=== PATIENT | female | born 1965 | race Caucasian/White ===

== ENCOUNTER 2016-09-14 19:33 | Inpatient (IN) | payer OTHER ==
[~2016-09-14] VITALS: Ht 172.7 cm; Wt 122.0 kg
[~2016-09-14 19:33] MED LIST: ACET650S3 PO; ALPR0.25 PO; LISI5TAB PO; PERCOCET PO; RANI150T PO; XOPEAER INH
[2016-09-14] MEDS ORDERED: ONDANSETRON 4MG/2ML VIAL (J2405) As Ordered ONE (20:47)
[2016-09-14 21:15] LABS: BASO # 0.2 K/mm3 (0.0-0.2); BASO % 1.4 % (0.0-1.0); EOS # 0.3 K/mm3 (0.0-0.50); LARGE UNSTAINED CELL # 0.3 K/mm3 (0.0-0.4); LARGE UNSTAINED CELL % 1.9 % (0.0-4.0); LYMPH # 3.9 K/mm3 (1.5-4.5); LYMPH % 22.6 % (24.0-44.0); MEAN CORPUSCULAR HEMOGLOBIN 29.8 pg (27.0-33.0); MEAN CORPUSCULAR HGB CONC 31.4 g/dl (32.0-36.5); MEAN CORPUSCULAR VOLUME 94.7 fl (80.0-96.0); MONO # 0.6 K/mm3 (0.0-0.8); MONO % 3.8 % (0.0-5.0); NEUTROPHILS # 10.9 K/mm3 (1.8-7.7); NEUTROPHILS % 68.2 % (36.0-66.0); PLATELET COUNT, AUTOMATED 487 k/mm3 (150-450); RED CELL DISTRIBUTION WIDTH 14.5 % (11.5-14.5); WHITE BLOOD COUNT 15.9 K/mm3 (4.0-10.0)
[2016-09-14 21:38] LABS: ALBUMIN 3.7 GM/DL (3.2-5.2); ALBUMIN/GLOBULIN RATIO 0.74 (1.00-1.93); ALKALINE PHOSPHATASE 89 U/L (45-117); ALT/SGPT 18 U/L (12-78); AMYLASE 861 U/L (25-115); ANION GAP 13 MEQ/L (8-16); AST/SGOT 6 U/L (15-37); BILIRUBIN,DIRECT < 0.1 MG/DL (0.0-0.2); BILIRUBIN,TOTAL 0.3 MG/DL (0.2-1.0); BLOOD UREA NITROGEN 57 MG/DL (7-18); CALCIUM LEVEL 8.9 MG/DL (8.5-10.1); CARBON DIOXIDE LEVEL 11 MEQ/L (21-32); CHLORIDE LEVEL 107 MEQ/L (98-107); CREATININE FOR GFR 3.82 MG/DL (0.55-1.02); GLOMERULAR FILTRATION RATE 13.4 (>58); GLUCOSE, FASTING 87 MG/DL (70-105); SODIUM LEVEL 131 MEQ/L (136-145); TOTAL PROTEIN 8.7 GM/DL (6.4-8.2)
--- NOTE | 2016-09-14 22:40 | REPUSA ---
CT of the abdomen and pelvis without contrast Clinical statement: Pain. Technique: Multiple axial CT images were obtained from the base of the lungs to the floor of the pelv is utilizing 5 mm axial slices without administration of contrast. Coronal and sagittal reconstructio ns were also obtained. Comparison: 07/24/2016. Findings: Chest: The visualized lung bases are clear. Abdomen: The kidneys are normal in size bilaterally. There is no evidence of hydronephrosis or nephro lithiasis. The liver is enlarged, demonstrate diffuse low attenuation of hepatic parenchyma. There is a small low attenuation nodule in the right adrenal gland measuring 1.1 x 2.0 cm. There is a large h yperdense nodule in the lateral left adrenal gland measuring 2.3 x 2.4 cm. The spleen and pancreas ar e unremarkable. The aorta demonstrates normal caliber and contour. There is no abdominal lymphadenopa thy or ascites. Pelvis: The bowel is unremarkable, with no obstructive or inflammatory changes. The appendix is dionte l. The urinary bladder is within normal limits. There is no pelvic lymphadenopathy or ascites. The ot her pelvic structures appear unremarkable. Bones: There are no suspicious osseous abnormalities seen. Impression: 1. No evidence of hydronephrosis or nephrolithiasis. 2. Stable hepatomegaly with fatty infiltration of the liver. 3. Benign right adrenal adenoma. 4. Hyperdense nodule in the left adrenal gland, stable. Follow-up is suggested as clinically indicate d. 5. No obstructive or inflammatory bowel changes.
[2016-09-14] MEDS ORDERED: cefTRIAXone SOD 1 GM VIAL (J0696) As Ordered ONE (23:29)
[2016-09-14] MEDS ORDERED: GABA-279 PO (23:57)
[2016-09-14] MEDS ORDERED: HYDR-3713 PO (23:57)
[2016-09-14] MEDS ORDERED: SYMB80INH INH (23:57)
[2016-09-14] MEDS ORDERED: OMEP10CA45 PO (23:57)
[2016-09-14] MEDS ORDERED: BUPR15TASR PO (23:57)
[2016-09-14] MEDS ORDERED: MECL-68 PO (23:57)
[2016-09-14] MEDS ORDERED: TOPA100T8 PO (23:57)
[2016-09-14] MEDS ORDERED: LISI20TA PO (23:57)
[2016-09-14] MEDS ORDERED: ASPI81TA7 PO (23:57)
[2016-09-14] MEDS ORDERED: ATEN25TA PO (23:57)
[2016-09-14] MEDS ORDERED: RANI150T PO (23:57)
[2016-09-14] MEDS ORDERED: ALBU17IN INH (23:57)
[2016-09-14] MEDS ORDERED: CETI10TA PO (23:57)
[2016-09-14] MEDS ORDERED: INVO100T PO (23:57)
[2016-09-14] MEDS ORDERED: SERT-138 PO (23:57)
[2016-09-14] MEDS ORDERED: ALPR0.25 PO (23:57)
[2016-09-14] MEDS ORDERED: TYLE500T78 PO (23:58)
[2016-09-15] MEDS ORDERED: HEPARIN SOD (PORCINE) 5000 UNITS/ML VIAL SC SCH (01:15)
[2016-09-15] MEDS ORDERED: MORPHINE 2 MG/ML 1ML SYRINGE IV PRN ×2 (01:15→09:00)
[2016-09-15] MEDS ORDERED: GLUCOSE 4 GM CHEW TABLET PO PRN (01:15)
[2016-09-15] MEDS ORDERED: GLUCAGON FOR INJ 1 MG VIAL (J1610) SC PRN (01:15)
[2016-09-15] MEDS ORDERED: ALPRAZolam 0.25 MG TAB PO PRN (01:15)
[2016-09-15] MEDS ORDERED: ACETAMINOPHEN TAB 650MG DOSE (2X325MG) PO PRN (01:15)
[2016-09-15] MEDS ORDERED: ALBUTEROL 90 MCG/ACT 8GM HFA INHALER INH PRN (01:15)
[2016-09-15] MEDS ORDERED: ONDANSETRON 4MG/2ML VIAL (J2405) IV PRN (01:15)
[2016-09-15] MEDS ORDERED: DEXTROSE 50% 50 ML SYRINGE IV PRN (01:15)
[2016-09-15] MEDS ORDERED: ONDANSETRON 4 MG TAB (S0181) PO PRN (01:15)
[2016-09-15] MEDS ORDERED: PERCOCET 5MG/325MG TAB PO PRN (01:15)
--- NOTE | 2016-09-15 02:11 | HPEPDOC ---
General Date of Admission Attending Physician: PARRIS CREWS Chief Complaint The patient is a 50-year-old female admitted with a reason for visit of Vomiting ,Diarrhea. Source: Patient Exam Limitations: No limitations History of Present Illness Flor Figueroa is a 50 year old female with a pertinent history of stage 3 renal disease (baseline GFR of 34), NIDDM, COPD, GERD, and HTN, presenting to the ED with a 7 day history abdominal pain, nausea, vomiting, and diarrhea. Pt states the pain began 7 days ago and is underneath her umbilicus and points to her LLQ and RLQ. The pain is described as primarily dull and aching with intermittent sharp and stabbing pain without radiation. It is constantly 7/10 with occasional exacerbations with pain up to 10/10. However, nothing seems to make the pain better or worse. Pt also has nausea, vomiting, and diarrhea. Pt reports the N/V has improved since Sat. Up until Sat, she reports severe nausea and vomiting 2-3 times a day. Her last bout of vomiting was Sat, and she describes her vomitus as a brown "diarrhea." Pt has been having constant diarrhea for the past 7 days and describes her stool as brown, loose, and watery. Pt denies bright red blood or dark tarry stools. Pt reports feeling feverish, dizzy and unsteady on her feet, chills, excessively sweaty, and weak for the past 7 days. Pt denies any dysuria, frequency, or urgency. Ms. Figueroa also has associated loss of appetite which she attributes to her acid reflux. She reports that her reflux is the worst its ever been and is uncomfortable to the point that she does not want to eat. She feels burning in her chest and throat that does not radiate anywhere and is constant. Since her GI symptoms began, she has reportedly only eaten 1 small bowl of mashed potatoes. However, she has been drinking up to 6 L of lexi domenic a day until Sat. and more than 6L of water a day since. Pt reports mild improvement in her acid reflux symptoms since discontinuing her intake of lexi domenic. Home Medications Scheduled (Lisinopril/Hydrochlorothi 20-12.5 mg) 1 Tab Tab 1 TAB PO DAILY (Reported) Aspirin (Aspirin) 81 Mg Tab 81 MG PO DAILY (Reported) Atenolol (Atenolol) 25 Mg Tab 25 MG PO DAILY (Reported) Budesonide/Formoterol (Symbicort 80-4.5 Mcg/Act) 60 Puff/Inhaler Aers 2 PUFF INH BID (Reported) Bupropion HCl (Bupropion HCl Sr) 150 Mg Tab 300 MG PO DAILY (Reported) Canagliflozin (Invokana) 100 Mg Tab 100 MG PO DAILY (Reported) Cetirizine HCl (Cetirizine HCl) 10 Mg Tab 10 MG PO DAILY (Reported) Gabapentin (Gabapentin) 100 Mg Cap 100 MG PO TID (Reported) Meclizine HCl (Meclizine HCl) 25 Mg Tab 25 MG PO QID (Reported) Omeprazole (Omeprazole) 10 Mg Cap 10 MG PO DAILY (Reported) Ranitidine HCl (Ranitidine HCl) 150 Mg Tab 1 TAB PO QID (Reported) Sertraline HCl (Sertraline HCl) 100 Mg Tab 150 MG PO DAILY (Reported) Topiramate (Topamax) 100 Mg Tab 100 MG PO BID (Reported) Scheduled PRN Acetaminophen (Tylenol Extra Strength) 500 Mg Tab 1,000 MG PO Q4H PRN PRN PAIN ( Reported) Acetaminophen/Hydrocodone (Hydrocodone/Acetaminophen 5-325 mg) 1 Tab Tab 1 TAB PO Q8H PRN PRN PAIN (Reported) Albuterol Sulfate (Ventolin Hfa) 200 Puff/8 Gm Aers 2 PUFF INH Q4H PRN PRN SHORTNESS OF BREATH (Reported) Alprazolam (Alprazolam) 0.25 Mg Tab 0.25 MG PO BID PRN PRN ANXIETY (Reported) Allergies Coded Allergies: Latex (Verified Allergy, Intermediate, RASH, 01/20/15) Ibuprofen (Unverified Adverse Reaction, Unknown, Swelling, 09/14/16) Past Medical History Medical History NIDDM, HTN, Anxiety, COPD, Stage 3 renal disease with GFR 34, Sleep apnea w/ CPAP, migraine headaches Surgical History Cholecystectomy, splenectomy, hysterectomy, tubal ligation, bladder suspension Family History Significant Family History: Cancer (Father), Hypertension (Mother) Social History * Smoker: current smoker (1/2PPD 28 years) Alcohol: rarely Drugs: denies Recent Travel/Sick Contacts: Reports: Recent sick contacts (Brother whom she lives with had N/V/D for 24 hours after she did) Review of Symptoms Constitutional: Reports: Chills, Fever, Malaise, Weakness, Denies: Night Sweats Eyes: Denies: Pain, Vision change ENT: Reports: Head Aches, Denies: Dysphagia, Ear Pain Skin: Denies: Breakdown, Lesions, Rash Pulmonary: Denies: Cough, Dyspnea Cardiovascular: Denies: Chest Pain, Orthopnea, Palpitations Gastrointestinal: Reports: Abdominal Pain, Diarrhea, Nausea, Vomiting, Denies: Constipation, Hematochezia, Melena Genitourinary: Denies: Dysuria, Frequency, Hematuria, Incontinence Hematologic: Denies: Bleeding Excessively, Bruising Musculoskeletal: Reports: Back Pain, Denies: Neck Pain Psych: Reports: Mood Normal Physical Examination General Exam: Positive: Alert, Cooperative, No Acute Distress Eye Exam: Positive: Conjunctiva & lids normal, EOMI, PERRLA, Negative: Sclera icteric ENT Exam: Positive: Atraumatic, Mucous membr. moist/pink, Pharynx Normal Neck Exam: Positive: Supple, Negative: JVD, thyromegaly Chest Exam: Positive: Clear to auscultation, Normal air movement, Negative: Rales, Rhonchi, Wheezing Heart Exam: Positive: Rate Normal Abdomen Exam: Positive: Normal bowel sounds, Other (Rebound tenderness under umbilicus and over RLQ), Soft, Tenderness (Tender to palpation RLQ and midline under umbilicus), Negative: Hepatospenomegaly, Mass Extremity Exam: Positive: Normal pulses, Negative: Clubbing, Cyanosis, Edema Skin Exam: Positive: Nl turgor and temperature, Rash (Macularpapular rash over anterior LLE), Negative: Breakdown Psych Exam: Positive: Mental status NL, Mood NL, Oriented x 3 Vital Signs BP 110/42, Pulse 69. Resp 18. Temp 96.9 (O), 100% R/A Height (in): 68 Weight (kg): 122.02 Laboratory Data Labs 24H Laboratory Tests 2 09/14/16 20:45: Aspartate Amino Transf (AST/SGOT) 6L, Alanine Aminotransferase (ALT/SGPT) 18, Alkaline Phosphatase 89, Total Bilirubin 0.3, Direct Bilirubin < 0.1, Albumin 3.7, Albumin/Globulin Ratio 0.74L, Amylase Level 861H, Anion Gap 13, White Blood Count 15.9H, Red Blood Count 4.27, Hemoglobin 12.7, Hematocrit 40.4, Mean Corpuscular Volume 94.7, Mean Corpuscular Hemoglobin 29.8, Mean Corpuscular Hemoglobin Concent 31.4L, Red Cell Distribution Width 14.5, Platelet Count 487H , Neutrophils (%) (Auto) 68.2H, Lymphocytes (%) (Auto) 22.6L, Monocytes (%) ( Auto) 3.8, Eosinophils (%) (Auto) 2.0, Basophils (%) (Auto) 1.4H, Neutrophils # (Auto) 10.9H, Lymphocytes # (Auto) 3.9, Monocytes # (Auto) 0.6, Eosinophils # ( Auto) 0.3, Basophils # (Auto) 0.2, C-Reactive Protein, Quantitative 2.71H, Calcium Level 8.9, Erythrocyte Sedimentation Rate 43H, Glomerular Filtration Rate 13.4L, Large Unclassified Cells # 0.3, Large Unclassified Cells % 1.9, Lipase 3356H, Total Protein 8.7H, Urine Amorphous Sediment SMALLH, Urine Appearance TURBIDH, Urine Color YELLOW, Urine pH 5.0, Urine Specific Spearfish 1.016, Urine Protein 2+H, Urine Glucose (UA) NEGATIVE, Urine Ketones NEGATIVE, Urine Urobilinogen 0.2, Urine Bilirubin NEGATIVE, Urine Leukocyte Esterase 2+H, Urine Bacteria (Auto) 3+H, Urine Blood 1+H, Urine Calcium Carbonate Cryst(Auto) , Urine Calcium Oxalate Cryst (Auto) , Urine Calcium Phosphate Taty (Auto) , Urine Cellular Casts , Urine Cystine Crystals , Urine Granular Casts (Auto) , Urine Hyaline Casts (Auto) 0, Urine Leucine Crystals , Urine Mucus (Auto) SMALL , Urine Nitrite NEGATIVE, Urine Oval Fat Bodies (Auto) , Urine RBC (Auto) 13H, Urine Renal Epithelial Cells , Urine Sperm (Auto) , Urine Squamous Epithelial Cells 58, Urine Transitional Epithelial Cells , Urine Trichomonas (Auto) , Urine Triple Phosphate Cryst (Auto) , Urine Tyrosine Crystals , Urine Uric Acid Crystals (Auto) , Urine WBC (Auto) TNTCH, Urine Waxy Casts (Auto) , Urine Yeast- Like Cells (Auto) 09/14/16 22:14: Lactic Acid Level 0.7 CBC/BMP Laboratory Tests 09/14/16 20:45 Red Blood Count 4.27, Mean Corpuscular Volume 94.7, Mean Corpuscular Hemoglobin 29.8, Mean Corpuscular Hemoglobin Concent 31.4 L, Red Cell Distribution Width 14.5, Neutrophils (%) (Auto) 68.2 H, Lymphocytes (%) (Auto) 22.6 L, Monocytes (% ) (Auto) 3.8, Eosinophils (%) (Auto) 2.0, Basophils (%) (Auto) 1.4 H, Neutrophils # (Auto) 10.9 H, Lymphocytes # (Auto) 3.9, Monocytes # (Auto) 0.6, Eosinophils # (Auto) 0.3, Basophils # (Auto) 0.2 Microbiology Microbiology 09/14/16 Blood Culture, Received Pending 09/14/16 Blood Culture, Received Pending 09/14/16 Urine Culture, Received Pending (1) Pancreatitis Status: Acute Assessment & Plan: Pt's has had a cholecystectomy, does not drink alcohol, is currently afebrile, and her pain location is atypical for acute pancreatitis, however, her WBC is elevated and lipase is 3356. Although her renal disease may be influencing her lipase, we will treat her for pancreatitis tonight and reevaluate in the morning. Pt received 1 L NS IV in the ED and we will continue to give her fluids after admission. Pt will be NPO until morning. Pt will also get morphine 2mg Q4 for pain control. We will recheck CBC with AM labs. (2) [id number] kidney injury Status: Acute Assessment & Plan: Pt's current GFR is 13.4. Pt reports her baseline GFR is 34. Suspect she has an acute on chronic kidney injury secondary to hypovolemia from her 7 day history of vomiting and diarrhea. Expect GFR to be improved after IV fluids. Pt is already receiving fluids for suspected pancreatitis. Will recheck BMP in AM labs. (3) Nausea & vomiting Status: Acute Assessment & Plan: Pt received ondansetron in the ED and reports feeling much better. Will give IV ondansetron PRN to control pt's nausea. Likely secondary to either or both UTI and pancreatitis. (4) Diarrhea Status: Acute Assessment & Plan: Unsure etiology of her N/V/D. Due to acute onset of N/V/D, especially after pt reports eating "questionable" chicken, we suspect an infectious etiology. Will order GI panel. She is already receiving fluids due to suspected acute pancreatitis. May be secondary to UTI. (5) UTI (urinary tract infection) Status: Acute Assessment & Plan: Pt's U/A was positive for LE, RBC, WBC, and bacteria. Pt denies any urinary symptoms at this time. She received one dose of Ceftriaxone in the ED and we will continue treatment of her UTI with ceftriaxone for a total of 3 days. U/C is pending. (6) GERD (gastroesophageal reflux disease) Status: Chronic Assessment & Plan: Pt is currently on 40 mg omeprazole PO QD at home. Due to her story of worsening reflux symptoms and her current N/V/D, we will give her protonix 40mg IV BID. (7) Sleep apnea Status: Chronic Assessment & Plan: Pt's sleep apnea is well managed through her home CPAP machine. Will allow pt to bring CPAP from home and continue use in hospital. (8) Non-insulin dependent type 2 diabetes mellitus Status: Chronic Assessment & Plan: Pt is well managed on her PO medications. Her glucose baseline reportedly ranges from 114-186. Will take her off her PO medications for her hospital stay and put her on sliding scale of insulin. (9) DVT prophylaxis Status: Acute Assessment & Plan: Due to pt's poor renal function, we will give heparin IM BID. TEDs and SEQs. Plan / VTE VTE Prophylaxis Ordered?: Yes Plan IVF: Continue Diet: Make NPO GME ATTESTATION GME ATTESTATION My preceptor for this patient encounter was physically present in the building during the encounter and was fully available. As needed, all aspects of the patient interview, examination, medical decision making process, and medical care plan development were reviewed and approved by the preceptor. Preceptor is aware and concurs with the plan as stated in the body of this note and will attest to such by his/her cosignature. ATTENDING NOTE I, Parris Crews, have seen and examined the above patient and agree with the assessment and plan as documented by Dr. Grissom. Patient will be admitted as an inpatient to the service of Dr. Judge. BOO GRISSOM DO Sep 15, 2016 02:05 PARRIS CREWS Sep 15, 2016 06:32
[2016-09-15 02:45] VITALS: BP 109/63
--- NOTE | 2016-09-15 02:47 | EDDOCDS ---
Physician Documentation [facility] Name: Flor Figueroa Age: 50 yrs Sex: Female : 1965 Arrival Date: 09/14/2016 Time: 19:33 Bed I3 / M3 Private MD: Alicia Piña ANP- Disposition: 09/14/16 23:28 Hospitalization ordered by Parris Crews for Inpatient Admission. Preliminary diagnosis are Acute kidney failure, Acute pancreatitis, Abdominal and pelvic pain, Vomiting, Diarrhea, unspecified, Urinary tract infection, site not specified. - Bed requested for M PED. - Status is Inpatient Admission. nn1 - Condition is Stable. - Problem is new. - Symptoms are unchanged. Historical: - Allergies: no known allergies; - Home Meds: 1. Albuterol Inhl as needed 2. Alprazolam Oral as needed 3. aspirin 81 mg Oral TbEC once daily 4. omeprazole 40 mg oral cpDR 1 cap once daily 5. Symbicort inhalation 2 times per day 6. Topamax Oral one tab in morning and two tabs at night 7. Ventolin Rotahaler/Rotacaps Inhl 8. meclizine 25 mg Oral tab as needed 9. cetirizine 10 mg oral cap daily 10. Sertraline 150 mg daily 11. Invokana 100 mg oral tab 1 tab once daily 12. atenolol 25 mg oral tab 1 tab once daily 13. lisinopril 20 mg Oral tab 1 tab once daily 14. hydrochlorothiazide 12.5 mg Oral tab once daily 15. bupropion HCl 300 mg Oral Tb24 once daily 16. ranitidine HCl 150 mg Oral tbef four times a day 17. gabapentin 100 mg Oral cap 3 times per day 18. hydrocodone-acetaminophen 5-300 mg Oral tab every 4-6 hours - PMHx: Anxiety; Diabetes - NIDDM: controlled; Hypertension; Migraine Headaches; Sleep Apnea w/ CPAP; Stage 4 kidney disease; - PSHx: Cholecystectomy; Splenectomy; Hysterectomy; Tubal ligation; Bladder suspension; - Social history: Smoking status: Patient uses tobacco products, heavy tobacco smoker. No barriers to communication noted, The patient speaks fluent [place]. - Family history: No immediate family members are acutely ill. - : The pt / caregiver states he / she is not on anticoagulants. Home medication list is obtained from the patient. - Exposure Risk Screening:: None identified. [employer] WORKER: 09/14 19:45 LMP N/A - Hysterectomy rs3 Vital Signs: 19:36 BP 110 / 42; Pulse 69; Resp 18 S; Temp 96.9(O); Pulse Ox 100% on R/A; Weight 122.02 kg gr2 / 269.01 lbs (R); Height 5 ft. 8 in. (172.72 cm) (R); Pain 6/10; 09/15 00:05 BP 104 / 46; Pulse 64; Resp 18; Temp 96.7; Pulse Ox 99% ; ajs 01:51 BP 110 / 54; Pulse 62; Resp 18; Temp 96.3; Pulse Ox 99% ; Pain 8/10; ajs 09/14 19:36 Body Mass Index 40.90 (122.02 kg, 172.72 cm) gr2 MDM: 09/14 20:42 NS 0.9% 2000 ml IV at bolus once ordered. btw 20:42 Ondansetron 4 mg IVP once ordered. btw 20:42 IV Saline Lock ordered. btw 20:42 Undress patient appropriately for examination ordered. btw 20:43 Amylase Ordered. EDMS 20:43 Basic Metabolic Profile Ordered. EDMS 20:43 CBC with Diff Ordered. EDMS 20:43 Lipase Ordered. EDMS 20:43 Liver Profile Ordered. EDMS 20:43 Urinalysis Ordered. EDMS 20:43 Urine Culture Ordered. EDMS 20:44 NOTHING BY MOUTH+DIET ordered. EDMS 22:03 Amylase Reviewed. btw 22:03 Basic Metabolic Profile Reviewed. btw 22:03 CBC with Diff Reviewed. btw 22:03 Lipase Reviewed. btw 22:03 Liver Profile Reviewed. btw 22:03 Urinalysis Reviewed. btw 22:05 Lactic Acid (Murillo tube on ice) Ordered. EDMS 22:05 ESR Ordered. EDMS 22:08 CT ABD & PELVIS W/O CONTRAST Ordered. EDMS 22:10 C REACTIVE PROTEIN QUANTITATIV Ordered. EDMS 22:28 Financial registration complete. zo 22:29 [facility] Payment Agreement was scanned into [employer] and attached to record. zo 23:07 Amylase Reviewed. btw 23:07 Basic Metabolic Profile Reviewed. btw 23:07 Lipase Reviewed. btw 23:07 Liver Profile Reviewed. btw 23:07 ESR Reviewed. btw 23:07 C REACTIVE PROTEIN QUANTITATIV Reviewed. btw 23:07 Lactic Acid (Murillo tube on ice) Reviewed. btw 23:08 -Blood Culture (Adults Only), peripheral from different site, or from device/port/PICC btw etc. if present ordered. 23:09 -Blood Culture Ordered. EDMS 23:09 BED REQUEST+ADM ordered. EDMS 23:18 -Blood Culture (Adults Only), peripheral from different site, or from device/port/PICC ajs etc. if present complete. 23:20 BLOOD CULTURES Ordered. EDMS 23:28 cefTRIAXone 2 grams IVPB once over 30 mins; dilute in 50mL of NS or D5W ordered. btw 09/15 01:19 CT ABD & PELVIS W/O CONTRAST Reviewed. dm18 01:31 Admission / Observation Status ordered. EDMS 01:31 NPO DIET ordered. EDMS 01:32 GASTROINTESTINAL (GI) PANEL Ordered. EDMS Administered Medications: 09/14 21:07 Drug: NS 0.9% 2000 ml [sodium chloride 0.9 % intravenous solution] {Note: First bolus nn1 infusing at this time. .} Route: IV; Rate: bolus; Site: left antecubital; 09/15 01:03 Follow up: IV Status: Completed infusion; IV Intake: 2000ml nn1 09/14 21:07 Drug: Ondansetron 4 mg [ondansetron HCl 2 mg/mL intravenous solution (2 mL)] Route: nn1 IVP; Site: left antecubital; 23:34 Drug: cefTRIAXone 2 grams [ceftriaxone 250 mg solution for injection] Route: IVPB; nn1 Infused Over: 30 mins; Site: left antecubital; 09/15 01:03 Follow up: IV Status: Completed infusion; IV Intake: 50ml nn1 Signatures: Dispatcher [employer] EDIA Wilda Gatica RN RN daq Olin, Zoeann zo Soosairaj, RosemaryRN RN rs3 Tan Gonzalez PA PA btw Patsy Moore Daniel, DO DO dm18 Marti Ludwig RN RN nn1 Scarlett Newberry RN RN kas2 The chart was reviewed and I authenticate all verbal orders and agree with the evaluation and treatment provided.Corrections: (The following items were deleted from the chart) 09/14 20:46 20:43 GASTROINTESTINAL (GI) PANEL+CHIARA ordered. EDMS EDMS 22: 22:02 GASTROINTESTINAL (GI) PANEL+CHIARA ordered. EDMS EDMS 22: 22:02 GASTROINTESTINAL (GI) PANEL+CHIARA ordered. EDMS EDMS 22:08 20:43 CT ABD & PELVIS WITH CONTRAST+CT ordered. EDMS EDMS 22:10 22:05 C REACTIVE PROTEIN QUANTITATIV+LAB ordered. EDMS EDMS : 20:46 GASTROINTESTINAL (GI) PANEL ordered. EDMS EDMS 09/15 01:32 01:27 GASTROINTESTINAL (GI) PANEL ordered. EDMS EDMS 01:34 09/14 22:03 GASTROINTESTINAL (GI) PANEL ordered. EDMS EDMS Attachments: 22:29 [facility] Payment Agreement [facility]
--- NOTE | 2016-09-15 02:47 | EDDOCDS ---
Nurse's Notes [facility] Name: Flor Figueroa Age: 50 yrs Sex: Female : 1965 Arrival Date: 09/14/2016 Time: 19:33 Bed I3 / M3 Private MD: Alicia Piña ANP- Diagnosis: Acute kidney failure;Acute pancreatitis;Abdominal and pelvic pain;Vomiting;Diarrhea, unspecified;Urinary tract infection, site not specified Presentation: 09/14 19:40 Presenting complaint: Patient states: vomiting, diarrhea, abdominal pain since last rs3 Saturday. increased dizziness today. Adult Sepsis Screening: The patient does not have new or worsening altered mentation. Patient's respiratory rate is less than 22. Systolic blood pressure is greater than 100. Patient has a qSOFA score of 0- Negative Sepsis Screen. Suicide/Homicide risk assessment- the patient denies having any suicidal and/or homicidal ideations and does not present with any other emotional, behavioral or mental health complaints. Status: Patient is not a public service representative or dependent. Transition of care: patient was not received from another setting of care. 19:40 Acuity: LILIAN Level 3 rs3 19:40 Method Of Arrival: Walkin/Carried/Asstd rs3 Triage Assessment: 19:45 General: Appears in no apparent distress. Pain: Location: abdomen. HIV screening NA for rs3 this visit Offered previously. 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 Albuterol Inhl as needed 2. Alprazolam Oral as needed 3. aspirin 81 mg Oral TbEC once daily 4. omeprazole 40 mg oral cpDR 1 cap once daily 5. Symbicort inhalation 2 times per day 6. Topamax Oral one tab in morning and two tabs at night 7. Ventolin Rotahaler/Rotacaps Inhl 8. meclizine 25 mg Oral tab as needed 9. cetirizine 10 mg oral cap daily 10. Sertraline 150 mg daily 11. Invokana 100 mg oral tab 1 tab once daily 12. atenolol 25 mg oral tab 1 tab once daily 13. lisinopril 20 mg Oral tab 1 tab once daily 14. hydrochlorothiazide 12.5 mg Oral tab once daily 15. bupropion HCl 300 mg Oral Tb24 once daily 16. ranitidine HCl 150 mg Oral tbef four times a day 17. gabapentin 100 mg Oral cap 3 times per day 18. hydrocodone-acetaminophen 5-300 mg Oral tab every 4-6 hours - PMHx: Anxiety; Diabetes - NIDDM: controlled; Hypertension; Migraine Headaches; Sleep Apnea w/ CPAP; Stage 4 kidney disease; - PSHx: Cholecystectomy; Splenectomy; Hysterectomy; Tubal ligation; Bladder suspension; - Social history: Smoking status: Patient uses tobacco products, heavy tobacco smoker. No barriers to communication noted, The patient speaks fluent Nigerian. - Family history: No immediate family members are acutely ill. - : The pt / caregiver states he / she is not on anticoagulants. Home medication list is obtained from the patient. - Exposure Risk Screening:: None identified. Screenin:32 Screening information is obtained from the patient. Fall risk: No risks identified. kas2 Assistance ADL's: requires no assistance with activities of daily living. Abuse/DV Screen: The patient / caregiver reports he/she is: not in a situation that causes fear, pain or injury. Nutritional screening: No deficits noted. Advance Directives: Currently, there is no health care proxy. There is no active DNR order. There is a living will, but a copy is not available at this time. There is no Power of Packaging Assembler. home support is adequate. Assessment: 21:08 General: Appears ill, uncomfortable, Behavior is appropriate for age, cooperative. nn1 Pain: Location: abdomen Pain currently is 8 out of 10 on a pain scale. Quality of pain is described as sharp, Pain began 1 week ago Is intermittent. Neurological: Level of Consciousness is awake, alert, obeys commands. Cardiovascular: Reports lightheadedness, Nausea dizziness. All symptoms for 1 week. Respiratory: Airway is patent Respiratory effort is even, unlabored, Respiratory pattern is regular, symmetrical, Breath sounds are clear bilaterally. GI: Abdomen is non- distended obese, Bowel sounds present X 4 quads. Abd is soft X 4 quads Abd is tender to palpation X 4 quads. Reports diarrhea, lower abdominal pain, upper abdominal pain, nausea, vomiting. Derm: Skin is pink, warm & dry. 21:30 General: Appears ill, uncomfortable, Behavior is appropriate for age, cooperative. kas2 Pain: Location: abdomen Pain currently is 4 out of 10 on a pain scale. Neurological: Level of Consciousness is awake, alert, obeys commands, Oriented to person, place, time. Cardiovascular: Reports lightheadedness. Cardiovascular: Rhythm is regular. Respiratory: Airway is patent Respiratory effort is even, unlabored, Respiratory pattern is regular, symmetrical, Breath sounds are clear bilaterally. GI: Abdomen is non- distended obese, Bowel sounds present X 4 quads. Abd is soft Abd is tender to palpation X 4 quads. Derm: Skin is intact, Skin is dry, Skin is pink, warm & dry. Skin temperature is warm. 22:19 General: Appears uncomfortable, Behavior is appropriate for age, cooperative. General: nn1 No stool sample obtained at this time, patient has not yet had bowel movement. Patient aware of need for sample. Fluids infusing per orders. . Neurological: Level of Consciousness is awake, alert, obeys commands, Oriented to person, place, time. Respiratory: Airway is patent Respiratory effort is even, unlabored, Respiratory pattern is regular, symmetrical. 22:20 General: Patient gone to CT scan via wheelchair with tech.. kas2 22:25 General: Patient back from CT scan via wheelchair. Resettled in bed.. kas2 23:13 General: Patient sitting up in chair watching TV with friend at bedside. No apparent kas2 distress at this time. Appears comfortable. Patient states she has cramps in her abdomen but nausea no longer there. Not wanting pain meds at this time. Airway patent and respiratory effort even and unlabored. Call bautista within reach. Will continue to monitor.. 23:27 General: Patient was unable to have bowel movement. Patient reports nausea has nn1 improved, no vomiting or diarrhea while in ED. . 09/15 00:08 General: Hospitalist resident in assessing patient at this time.. kas2 00:44 General: Appears in no apparent distress, comfortable, well nourished, well groomed, kas2 Behavior is appropriate for age, cooperative. Pain: Denies pain. Neurological: Level of Consciousness is awake, alert, obeys commands, Oriented to person, place, time. Cardiovascular: Rhythm is regular. Respiratory: Airway is patent Respiratory effort is even, unlabored, Respiratory pattern is regular, symmetrical. Derm: Skin is intact, Skin is dry, Skin is pink, warm & dry. Skin temperature is warm. 01:04 General: Appears in no apparent distress, Behavior is appropriate for age, cooperative. nn1 Neurological: Level of Consciousness is awake, alert, obeys commands, Oriented to person, place, time. Respiratory: Airway is patent Respiratory effort is even, unlabored, Respiratory pattern is regular, symmetrical. GI: Denies nausea, No vomiting or diarrhea since patient arrived to ED. Derm: Skin is pink, warm & dry. 02:25 Reassessment: Patient appears in no apparent distress at this time. Patient states nn1 symptoms have improved. General: Appears in no apparent distress, comfortable, Behavior is appropriate for age, cooperative. Respiratory: Airway is patent Respiratory effort is even, unlabored, Respiratory pattern is regular, symmetrical. Derm: Skin is pink, warm & dry. Vital Signs: 09/14 19:36 BP 110 / 42; Pulse 69; Resp 18 S; Temp 96.9(O); Pulse Ox 100% on R/A; Weight 122.02 kg gr2 (R); Height 5 ft. 8 in. (172.72 cm) (R); Pain 6/10; 09/15 00:05 BP 104 / 46; Pulse 64; Resp 18; Temp 96.7; Pulse Ox 99% ; ajs 01:51 BP 110 / 54; Pulse 62; Resp 18; Temp 96.3; Pulse Ox 99% ; Pain 8/10; ajs 09/14 19:36 Body Mass Index 40.90 (122.02 kg, 172.72 cm) gr2 Vitals: 09/14 19:36 Log In Time: September 14, 2016 at 19:36. gr2 ED Course: 19:35 Patient visited by Jacquelyn Winters. gr2 19:35 Alicia Piña is Private Physician. gr2 19:35 Patient moved to Waiting gr2 19:37 Patient visited by Jacquelyn Winters. gr2 19:37 Patient moved to Pre RCE gr2 19:41 Triage Initiated rs3 20:05 Patient moved to Triage 3 jo3 20:12 Patient visited by Ana Laura Cody. lr2 20:18 Tan Gonzalez PA is PHCP. btw 20:19 Vick Clinton DO is Attending Physician. btw 20:19 Patient visited by Tan Gonzalez PA. btw 20:39 Patient moved to I3 / M3 jo3 20:45 Patient visited by Patsy Moore. ajs 20:45 Pt greeted and oriented to ED. Patient advised of names of staff involved in care, aj location of call bautista, wait times and NPO status. Accompanied by Family Member, Patient has correct armband on for positive identification. Placed in gown. Bed in low position. Call light in reach. Side rails up X 1. 21:07 Urine Culture Sent. nn1 21:07 Urinalysis Sent. nn1 21:08 Liver Profile Sent. nn1 21:08 Lipase Sent. nn1 21:08 CBC with Diff Sent. nn1 21:08 Basic Metabolic Profile Sent. nn1 21:08 Amylase Sent. nn1 21:10 Inserted saline lock: 20 gauge in left antecubital area and blood collected. The nn1 patient tolerated the procedure well. 21:32 Patient visited by Scarlett Newberry RN. kas2 22:10 Patient visited by Scarlett Newberry RN. kas2 22:19 Lactic Acid (Murillo tube on ice) Sent. nn1 22:19 ESR Sent. nn1 22:26 Patient visited by Scarlett Newberry RN. kas2 22:26 No procedures done that require assistance. Labs drawn. (by ED staff). Sent per order kas2 to lab. 22:29 [facility] Payment Agreement was scanned into [employer] and attached to record. zo 22:31 Patient name changed from Flor\S\\S\Figueroa\S\ to Flor\S\ \S\Figueroa. EDMS 22:34 Patient visited by Scarlett Newberry RN. kas2 23:12 -Blood Culture Sent. nn1 23:16 Patient visited by Scarlett Newberry RN. kas2 23:21 BLOOD CULTURES Sent. ajs 23:26 Parris Crews is Hospitalizing Provider. btw 23:37 CT ABD & PELVIS W/O CONTRAST Returned. EDMS 09/15 00:00 Patient visited by Scarlett Newberry RN. kas2 00:05 Patient visited by Patsy Moore. ajs 00:09 Patient visited by Scarlett Newberry RN. kas2 00:45 Patient visited by Scarlett Newberry RN. kas2 01:51 Patient visited by Patsy Moore. ajs 02:26 The patient / caregiver is instructed regarding the plan of care and ED course. nn1 Administered Medications: 09/14 21:07 Drug: NS 0.9% 2000 ml [sodium chloride 0.9 % intravenous solution] {Note: First bolus nn1 infusing at this time. .} Route: IV; Rate: bolus; Site: left antecubital; 09/15 01:03 Follow up: IV Status: Completed infusion; IV Intake: 2000ml nn1 09/14 21:07 Drug: Ondansetron 4 mg [ondansetron HCl 2 mg/mL intravenous solution (2 mL)] Route: nn1 IVP; Site: left antecubital; 23:34 Drug: cefTRIAXone 2 grams [ceftriaxone 250 mg solution for injection] Route: IVPB; nn1 Infused Over: 30 mins; Site: left antecubital; 09/15 01:03 Follow up: IV Status: Completed infusion; IV Intake: 50ml nn1 Intake: 01:03 IV: 2000.00ml (NS); Total: 2000.00ml. nn1 01:03 IV: 50.00ml; Total: 2050.00ml. nn1 01:03 IV: 2000.00ml; Total: 4050.00ml. nn1 Order Results: Lab Order: Amylase; SPEC'M 09/14/16 20:45 Test: AMYLASE; Value: 861; Range: 25-115; Abnormal: Above high normal; Units: U/L; Status: F Lab Order: Basic Metabolic Profile; SPEC'M 09/14/16 20:45 Test: GLUCOSE, FASTING; Value: 87; Range: 70-105; Units: MG/DL; Status: F Test: BLOOD UREA NITROGEN; Value: 57; Range: 7-18; Abnormal: Above high normal; Units: MG/DL; Status: F Test: CREATININE FOR GFR; Value: 3.82; Range: 0.55-1.02; Abnormal: Above high normal; Units: MG/DL; Status: F Test: GLOMERULAR FILTRATION RATE; Value: 13.4; Range: >58; Abnormal: Below low normal; Status: F Test: SODIUM LEVEL; Value: 131; Range: 136-145; Abnormal: Below low normal; Units: MEQ/L; Status: F Test: POTASSIUM SERUM; Value: 4.0; Range: 3.5-5.1; Units: MEQ/L; Status: F Test: CHLORIDE LEVEL; Value: 107; Range: 98-107; Units: MEQ/L; Status: F Test: CARBON DIOXIDE LEVEL; Value: 11; Range: 21-32; Abnormal: Below low normal; Units: MEQ/L; Status: F Test: ANION GAP; Value: 13; Range: 8-16; Units: MEQ/L; Status: F Test: CALCIUM LEVEL; Value: 8.9; Range: 8.5-10.1; Units: MG/DL; Status: F Test Note: ; Units are mL/min/1.73 m2 Chronic Kidney Disease Staging per NKF: Stage I & II GFR >=60 Normal to Mildly Decreased Stage III GFR 30-59 Moderately Decreased Stage IV GFR 15-29 Severely Decreased Stage V GFR <15 Very Little GFR Left ESRD GFR <15 on [facility] Lab Order: CBC with Diff; SPEC'M 09/14/16 20:45 Test: WHITE BLOOD COUNT; Value: 15.9; Range: 4.0-10.0; Abnormal: Above high normal; Units: K/mm3; Status: F Test: RED BLOOD COUNT; Value: 4.27; Range: 4.00-5.40; Units: M/mm3; Status: F Test: HEMOGLOBIN; Value: 12.7; Range: 12.0-16.0; Units: g/dl; Status: F Test: HEMATOCRIT; Value: 40.4; Range: 36.0-47.0; Units: %; Status: F Test: MEAN CORPUSCULAR VOLUME; Value: 94.7; Range: 80.0-96.0; Units: fl; Status: F Test: MEAN CORPUSCULAR HEMOGLOBIN; Value: 29.8; Range: 27.0-33.0; Units: pg; Status: F Test: MEAN CORPUSCULAR HGB CONC; Value: 31.4; Range: 32.0-36.5; Abnormal: Below low normal; Units: g/dl; Status: F Test: RED CELL DISTRIBUTION WIDTH; Value: 14.5; Range: 11.5-14.5; Units: %; Status: F Test: PLATELET COUNT, AUTOMATED; Value: 487; Range: 150-450; Abnormal: Above high normal; Units: k/mm3; Status: F Test: NEUTROPHILS %; Value: 68.2; Range: 36.0-66.0; Abnormal: Above high normal; Units: %; Status: F Test: LYMPH %; Value: 22.6; Range: 24.0-44.0; Abnormal: Below low normal; Units: %; Status: F Test: MONO %; Value: 3.8; Range: 0.0-5.0; Units: %; Status: F Test: EOS %; Value: 2.0; Range: 0.0-3.0; Units: %; Status: F Test: BASO %; Value: 1.4; Range: 0.0-1.0; Abnormal: Above high normal; Units: %; Status: F Test: LARGE UNSTAINED CELL %; Value: 1.9; Range: 0.0-4.0; Units: %; Status: F Test: NEUTROPHILS #; Value: 10.9; Range: 1.8-7.7; Abnormal: Above high normal; Units: K/mm3; Status: F Test: LYMPH #; Value: 3.9; Range: 1.5-4.5; Units: K/mm3; Status: F Test: MONO #; Value: 0.6; Range: 0.0-0.8; Units: K/mm3; Status: F Test: EOS #; Value: 0.3; Range: 0.0-0.50; Units: K/mm3; Status: F Test: BASO #; Value: 0.2; Range: 0.0-0.2; Units: K/mm3; Status: F Test: LARGE UNSTAINED CELL #; Value: 0.3; Range: 0.0-0.4; Units: K/mm3; Status: F Lab Order: Lipase; SPEC'M 09/14/16 20:45 Test: LIPASE; Value: 3356; Range: 73-393; Abnormal: Above high normal; Units: U/L; Status: F Lab Order: Liver Profile; SPEC'M 09/14/16 20:45 Test: AST/SGOT; Value: 6; Range: 15-37; Abnormal: Below low normal; Units: U/L; Status: F Test: ALT/SGPT; Value: 18; Range: 12-78; Units: U/L; Status: F Test: ALKALINE PHOSPHATASE; Value: 89; Range: 45-117; Units: U/L; Status: F Test: BILIRUBIN,TOTAL; Value: 0.3; Range: 0.2-1.0; Units: MG/DL; Status: F Test: BILIRUBIN,DIRECT; Value: < 0.1; Range: 0.0-0.2; Units: MG/DL; Status: F Test: TOTAL PROTEIN; Value: 8.7; Range: 6.4-8.2; Abnormal: Above high normal; Units: GM/DL; Status: F Test: ALBUMIN; Value: 3.7; Range: 3.2-5.2; Units: GM/DL; Status: F Test: ALBUMIN/GLOBULIN RATIO; Value: 0.74; Range: 1.00-1.93; Abnormal: Below low normal; Status: F Lab Order: Urinalysis; SPEC'M 09/14/16 20:45 Test: APPEARANCE, URINE; Value: TURBID; Range: CLEAR; Abnormal: Above high normal; Status: F Test: COLOR, URINE; Value: YELLOW; Range: YELLOW; Status: F Test: PH,URINE; Value: 5.0; Range: 5.0-9.0; Units: UNITS; Status: F Test: SPECIFIC GRAVITY URINE AUTO; Value: 1.016; Range: 1.002-1.035; Status: F Test: PROTEIN, URINE AUTO; Value: 2+; Range: NEGATIVE; Abnormal: Above high normal; Units: mg/dL; Status: F Test: GLUCOSE, URINE (UA) AUTO; Value: NEGATIVE; Range: NEGATIVE; Units: mg/dL; Status: F Test: KETONE, URINE AUTO; Value: NEGATIVE; Range: NEGATIVE; Units: mg/dL; Status: F Test: UROBILINOGEN, URINE AUTO; Value: 0.2; Range: 0.0-2.0; Units: mg/dL; Status: F Test: BILIRUBIN, URINE AUTO; Value: NEGATIVE; Range: NEGATIVE; Status: F Test: NITRITE, URINE AUTO; Value: NEGATIVE; Range: NEGATIVE; Status: F Test: LEUKOCYTE ESTERASE, URINE AUTO; Value: 2+; Range: NEGATIVE; Abnormal: Above high normal; Status: F Test: BLOOD, URINE BLOOD; Value: 1+; Range: NEGATIVE; Abnormal: Above high normal; Status: F Test: WBC, URINE AUTO; Value: TNTC; Range: 0-3; Abnormal: Above high normal; Units: /HPF; Status: F Test: RBC, URINE AUTO; Value: 13; Range: 0-3; Abnormal: Above high normal; Units: /HPF; Status: F Test: BACTERIA, URINE AUTO; Value: 3+; Range: NEGATIVE; Abnormal: Above high normal; Status: F Test: SQUAMOUS EPITHELIAL CELL UR AU; Value: 58; Range: 0-6; Units: /HPF; Status: F Test: MUCUS, URINE; Value: SMALL; Range: NEGATIVE; Status: F Test: HYALINE CAST, URINE AUTO; Value: 0; Range: 0-1; Units: /LPF; Status: F Test: AMORPHOUS SEDIMENT; Value: SMALL; Range: NEGATIVE; Abnormal: Above high normal; Status: F Lab Order: Lactic Acid (Murillo tube on ice); SPEC'M 09/14/16 22:14 Test: LACTIC ACID LEVEL, LACTATE; Value: 0.7; Range: 0.4-2.0; Units: MMOL/L; Status: F Lab Order: ESR; SPEC'M 09/14/16 20:45 Test: ERYTHROCYTE SEDIMENTATION RATE; Value: 43; Range: 0-20; Abnormal: Above high normal; Units: mm/hr; Status: F Lab Order: C REACTIVE PROTEIN QUANTITATIV; SPEC'M 09/14/16 20:45 Test: C REACTIVE PROTEIN QUANTITATIV; Value: 2.71; Range: 0.00-0.30; Abnormal: Above high normal; Units: MG/DL; Status: F Radiology Order: CT ABD & PELVIS W/O CONTRAST Test: CT ABD & PELVIS W/O CONTRAST REASON FOR EXAMINATION: Abdomen Pain; ; CT of the abdomen and pelvis without contrast; Clinical statement: Pain.; Technique: Multiple axial CT images were obtained from the base of the lungs to the floor of the pelv; is utilizing 5 mm axial slices without administration of contrast. Coronal and sagittal reconstructio; ns were also obtained.; Comparison: 07/24/2016.; Findings:; Chest: The visualized lung bases are clear.; Abdomen: The kidneys are normal in size bilaterally. There is no evidence of hydronephrosis or nephro; lithiasis. The liver is enlarged, demonstrate diffuse low attenuation of hepatic parenchyma. There is; a small low attenuation nodule in the right adrenal gland measuring 1.1 x 2.0 cm. There is a large h; yperdense nodule in the lateral left adrenal gland measuring 2.3 x 2.4 cm. The spleen and pancreas ar; e unremarkable. The aorta demonstrates normal caliber and contour. There is no abdominal lymphadenopa; thy or ascites.; Pelvis: The bowel is unremarkable, with no obstructive or inflammatory changes. The appendix is dionte; l. The urinary bladder is within normal limits. There is no pelvic lymphadenopathy or ascites. The ot; her pelvic structures appear unremarkable.; Bones: There are no suspicious osseous abnormalities seen.; Impression:; 1. No evidence of hydronephrosis or nephrolithiasis.; 2. Stable hepatomegaly with fatty infiltration of the liver.; 3. Benign right adrenal adenoma.; 4. Hyperdense nodule in the left adrenal gland, stable. Follow-up is suggested as clinically indicate; d.; 5. No obstructive or inflammatory bowel changes.; ; Outcome: 09/14 23:28 Decision to Hospitalize by Provider. bt 09/15 01:40 Admission hand-off: Report called to NICOLASA Sheth. nn1 02:26 Discharge Assessment: Patient awake, alert and oriented x 3. No cognitive and/or nn1 functional deficits noted. Patient verbalized understanding of disposition instructions. patient administered narcotics - no. The following High Risk Discharge criteria are identified: None. Admitted to Pediatrics accompanied by tech, family with patient, via wheelchair, with chart. Condition: stable Condition: improved. CT Study completed. Property :Personal belongings accompany Pt. 02:46 Patient left the ED. nn1 Signatures: Dispatcher [employer] EDMS Cara RojasRN RN Alina Foster Rosemary, RN RN rs3 Tan Gonzalez PA PA btw Patsy Moore Gainslee gr2 Marti Ludwig RN RN nn1 Scarlett Newberry RN RN kas2 Ana Laura Cody2 Corrections: (The following items were deleted from the chart) 09/14 19:47 19:45 LMP N/A - Irregular menses rs3 rs3 19:48 19:40 Presenting complaint: Patient states: vomiting, diarrhea, abdominal pain since rs3 last Saturday. dizziness today. rs3 22:28 21:58 GASTROINTESTINAL (GI) PANEL sent. [facility] ARNOLDKS MTDD
[2016-09-15] MEDS: NICOTINE 14 MG/24 HR TRANSDERMAL TD SCH ×2 (03:39→09:37)
[2016-09-15] MEDS: NS 1,000 ML IV SCH ×4 (03:40→22:40)
[2016-09-15] MEDS: HEPARIN SOD (PORCINE) 5000 UNITS/ML VIAL SC SCH ×3 (06:17→21:21)
[2016-09-15] MEDS ORDERED: ALBUTEROL SULFATE 2.5 MG/0.5 ML INH NEB SOLN NEB PRN (07:00)
[2016-09-15] MEDS ORDERED: HumaLOG INSULIN (NovoLOG) PER UNIT SC SCH ×4 (07:30→21:00)
[2016-09-15 08:00] VITALS: BP 106/53
[2016-09-15 08:02] VITALS: BP 107/56
[2016-09-15 08:03] VITALS: BP 103/55
[2016-09-15] MEDS: SYMBICORT 80/4.5MCG INHALER 6GM INH SCH ×2 (08:58→19:21)
[2016-09-15] MEDS ORDERED: PANTOPRAZOLE 40MG INJ (PROTONIX) (C9113) IV SCH (09:00)
[2016-09-15] MEDS ORDERED: hydroCHLOROthiazide 12.5 MG CAPSULE PO SCH (09:00)
[2016-09-15] MEDS: ATENOLOL 25 MG TAB PO SCH (09:00)
[2016-09-15] MEDS ORDERED: ASPIRIN 81 MG ENTERIC TAB PO SCH (09:00)
[2016-09-15] MEDS ORDERED: GABAPENTIN 100 MG CAP PO SCH (09:00)
[2016-09-15] MEDS ORDERED: LISINOPRIL 20 MG TAB PO SCH (09:00)
[2016-09-15] MEDS ORDERED: FAMOTIDINE 20 MG TAB PO SCH (09:00)
[2016-09-15] MEDS ORDERED: CETIRIZINE (ZyrTEC) 10 MG TAB PO SCH (09:00)
[2016-09-15] MEDS ORDERED: MECLIZINE 25 MG TABLET PO SCH (09:00)
[2016-09-15] MEDS: PANTOPRAZOLE 40MG INJ (PROTONIX) (C9113) IV SCH ×2 (09:37→21:22)
[2016-09-15] MEDS: buPROPion **SR TABLET** (ZYBAN) 150MG PO SCH (09:37)
[2016-09-15] MEDS: SERTRALINE HCL 50 MG TAB PO SCH (09:38)
[2016-09-15] MEDS: TOPIRAMATE (TopAMAX) 100 MG TAB PO SCH ×2 (09:39→21:20)
[2016-09-15 16:00] VITALS: BP 104/48
[2016-09-15] MEDS: HumaLOG INSULIN (NovoLOG) PER UNIT SC SCH ×2 (17:30→21:00)
[2016-09-15] MEDS: PERCOCET 5MG/325MG TAB PO PRN (17:49)
[2016-09-15 20:00] VITALS: BP_SYST 101; BP_SYST 104; BP_SYST 118; BP_DIAS 51; BP_DIAS 54; BP_DIAS 55
[2016-09-15] MEDS: LIDOCAINE 5% (LIDODERM) PATCH TD SCH (21:21)
[2016-09-15] MEDS: cefTRIAXone SOD 1 GM in D5W MINI-BAG PLUS 50 ML IV SCH (22:40)
[2016-09-16] MEDS: PERCOCET 5MG/325MG TAB PO PRN ×3 (00:38→21:05)
[2016-09-16 04:00] VITALS: BP 102/51
[2016-09-16] MEDS: NS 1,000 ML IV SCH ×2 (05:45→13:01)
[2016-09-16] MEDS: HEPARIN SOD (PORCINE) 5000 UNITS/ML VIAL SC SCH ×3 (05:45→22:51)
[2016-09-16 06:33] LABS: BASO # 0.2 K/mm3 (0.0-0.2); BASO % 1.3 % (0.0-1.0); EOS # 0.2 K/mm3 (0.0-0.50); EOS % 1.6 % (0.0-3.0); LARGE UNSTAINED CELL # 0.2 K/mm3 (0.0-0.4); LARGE UNSTAINED CELL % 1.9 % (0.0-4.0); LYMPH # 3.1 K/mm3 (1.5-4.5); LYMPH % 24.7 % (24.0-44.0); MEAN CORPUSCULAR HEMOGLOBIN 29.6 pg (27.0-33.0); MEAN CORPUSCULAR HGB CONC 31.2 g/dl (32.0-36.5); MONO # 0.6 K/mm3 (0.0-0.8); MONO % 4.7 % (0.0-5.0); NEUTROPHILS # 7.6 K/mm3 (1.8-7.7); NEUTROPHILS % 65.7 % (36.0-66.0); PLATELET COUNT, AUTOMATED 463 k/mm3 (150-450); RED CELL DISTRIBUTION WIDTH 14.9 % (11.5-14.5); WHITE BLOOD COUNT 11.5 K/mm3 (4.0-10.0)
[2016-09-16 07:00] LABS: ALBUMIN 2.9 GM/DL (3.2-5.2); ALBUMIN/GLOBULIN RATIO 0.69 (1.00-1.93); BILIRUBIN,TOTAL 0.2 MG/DL (0.2-1.0); CALCIUM LEVEL 8.6 MG/DL (8.5-10.1); CREATININE FOR GFR 2.56 MG/DL (0.55-1.02); GLOMERULAR FILTRATION RATE 21.2 (>58); MAGNESIUM LEVEL 1.8 MG/DL (1.8-2.4); TOTAL PROTEIN 7.1 GM/DL (6.4-8.2)
[2016-09-16] MEDS: HumaLOG INSULIN (NovoLOG) PER UNIT SC SCH ×4 (07:30→21:00)
[2016-09-16 08:00] VITALS: BP_SYST 103; BP_SYST 108; BP_SYST 91; BP_DIAS 46; BP_DIAS 51; BP_DIAS 53
[2016-09-16] MEDS: SYMBICORT 80/4.5MCG INHALER 6GM INH SCH ×2 (08:07→20:19)
[2016-09-16 09:00] VITALS: BP 108/53
[2016-09-16] MEDS ORDERED: BISACODYL 10 MG SUPP PR SCH (09:00)
[2016-09-16] MEDS: **NOTE PATIENT COMMENT** MISC XX SCH (09:00)
[2016-09-16] MEDS: ATENOLOL 25 MG TAB PO SCH (09:00)
[2016-09-16] MEDS: NICOTINE 14 MG/24 HR TRANSDERMAL TD SCH (09:27)
[2016-09-16] MEDS: PANTOPRAZOLE 40MG INJ (PROTONIX) (C9113) IV SCH ×2 (09:27→21:04)
[2016-09-16] MEDS: buPROPion **SR TABLET** (ZYBAN) 150MG PO SCH (09:27)
[2016-09-16] MEDS: TOPIRAMATE (TopAMAX) 100 MG TAB PO SCH ×2 (09:27→21:04)
[2016-09-16] MEDS: SERTRALINE HCL 50 MG TAB PO SCH (09:28)
[2016-09-16 18:03] VITALS: BP 103/55
[2016-09-16 20:30] VITALS: BP 121/59
[2016-09-16] MEDS: LIDOCAINE 5% (LIDODERM) PATCH TD SCH (21:04)
[2016-09-16] MEDS: cefTRIAXone SOD 1 GM in D5W MINI-BAG PLUS 50 ML IV SCH (22:51)
[2016-09-16 23:00] VITALS: BP_SYST 106; BP_SYST 108; BP_SYST 120; BP_DIAS 50; BP_DIAS 55; BP_DIAS 56
--- NOTE | 2016-09-17 03:48 | EDDOCDS ---
Physician Documentation [facility] Name: Flor Figueroa Age: 50 yrs Sex: Female : 1965 Arrival Date: 09/14/2016 Time: 19:33 Bed I3 / M3 Private MD: Alicia Piña ANP- Disposition: 09/14/16 23:28 Hospitalization ordered by Parris Crews for Inpatient Admission. Preliminary diagnosis are Acute kidney failure, Acute pancreatitis, Abdominal and pelvic pain, Vomiting, Diarrhea, unspecified, Urinary tract infection, site not specified. - Bed requested for M PED. - Status is Inpatient Admission. nn1 - Condition is Stable. - Problem is new. - Symptoms are unchanged. Historical: - Allergies: no known allergies; - Home Meds: 1. Albuterol Inhl as needed 2. Alprazolam Oral as needed 3. aspirin 81 mg Oral TbEC once daily 4. omeprazole 40 mg oral cpDR 1 cap once daily 5. Symbicort inhalation 2 times per day 6. Topamax Oral one tab in morning and two tabs at night 7. Ventolin Rotahaler/Rotacaps Inhl 8. meclizine 25 mg Oral tab as needed 9. cetirizine 10 mg oral cap daily 10. Sertraline 150 mg daily 11. Invokana 100 mg oral tab 1 tab once daily 12. atenolol 25 mg oral tab 1 tab once daily 13. lisinopril 20 mg Oral tab 1 tab once daily 14. hydrochlorothiazide 12.5 mg Oral tab once daily 15. bupropion HCl 300 mg Oral Tb24 once daily 16. ranitidine HCl 150 mg Oral tbef four times a day 17. gabapentin 100 mg Oral cap 3 times per day 18. hydrocodone-acetaminophen 5-300 mg Oral tab every 4-6 hours - PMHx: Anxiety; Diabetes - NIDDM: controlled; Hypertension; Migraine Headaches; Sleep Apnea w/ CPAP; Stage 4 kidney disease; - PSHx: Cholecystectomy; Splenectomy; Hysterectomy; Tubal ligation; Bladder suspension; - Social history: Smoking status: Patient uses tobacco products, heavy tobacco smoker. No barriers to communication noted, The patient speaks fluent Taiwanese. - Family history: No immediate family members are acutely ill. - : The pt / caregiver states he / she is not on anticoagulants. Home medication list is obtained from the patient. - Exposure Risk Screening:: None identified. 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 8 in. (172.72 cm) (R); Pain 6/10; 09/15 00:05 BP 104 / 46; Pulse 64; Resp 18; Temp 96.7; Pulse Ox 99% ; ajs 01:51 BP 110 / 54; Pulse 62; Resp 18; Temp 96.3; Pulse Ox 99% ; Pain 8/10; ajs 09/14 19:36 Body Mass Index 40.90 (122.02 kg, 172.72 cm) gr2 MDM: 09/14 20:42 NS 0.9% 2000 ml IV at bolus once ordered. btw 20:42 Ondansetron 4 mg IVP once ordered. btw 20:42 IV Saline Lock ordered. btw 20:42 Undress patient appropriately for examination ordered. btw 20:43 Amylase Ordered. EDMS 20:43 Basic Metabolic Profile Ordered. EDMS 20:43 CBC with Diff Ordered. EDMS 20:43 Lipase Ordered. EDMS 20:43 Liver Profile Ordered. EDMS 20:43 Urinalysis Ordered. EDMS 20:43 Urine Culture Ordered. EDMS 20:44 NOTHING BY MOUTH+DIET ordered. EDMS 22:03 Amylase Reviewed. btw 22:03 Basic Metabolic Profile Reviewed. btw 22:03 CBC with Diff Reviewed. btw 22:03 Lipase Reviewed. btw 22:03 Liver Profile Reviewed. btw 22:03 Urinalysis Reviewed. btw 22:05 Lactic Acid (Murillo tube on ice) Ordered. EDMS 22:05 ESR Ordered. EDMS 22:08 CT ABD & PELVIS W/O CONTRAST Ordered. EDMS 22:10 C REACTIVE PROTEIN QUANTITATIV Ordered. EDMS 22:28 Financial registration complete. zo 22:29 [place] [place] into [employer] and attached to record. zo 23:07 Amylase Reviewed. btw 23:07 Basic Metabolic Profile Reviewed. btw 23:07 Lipase Reviewed. btw 23:07 Liver Profile Reviewed. btw 23:07 ESR Reviewed. btw 23:07 C REACTIVE PROTEIN QUANTITATIV Reviewed. btw 23:07 Lactic Acid (Murillo tube on ice) Reviewed. btw 23:08 -Blood Culture (Adults Only), peripheral from different site, or from device/port/PICC btw etc. if present ordered. 23:09 -Blood Culture Ordered. EDMS 23:09 BED REQUEST+ADM ordered. EDMS 23:18 -Blood Culture (Adults Only), peripheral from different site, or from device/port/PICC ajs etc. if present complete. 23:20 BLOOD CULTURES Ordered. EDMS 23:28 cefTRIAXone 2 grams IVPB once over 30 mins; dilute in 50mL of NS or D5W ordered. btw 09/15 01:19 CT ABD & PELVIS W/O CONTRAST Reviewed. dm18 01:31 Admission / Observation Status ordered. EDMS 01:31 NPO DIET ordered. EDMS 01:32 GASTROINTESTINAL (GI) PANEL Ordered. EDMS 06:42 T-Sheet-- Draft Copy was scanned into Recl[employer] and attached to record. [facility] 10:56 Radiology Report was scanned into Re[employer] and attached to record. gb Administered Medications: 09/14 21:07 Drug: NS 0.9% 2000 ml [sodium chloride 0.9 % intravenous solution] {Note: First bolus nn1 infusing at this time. .} Route: IV; Rate: bolus; Site: left antecubital; 09/15 01:03 Follow up: IV Status: Completed infusion; IV Intake: 2000ml nn1 09/14 21:07 Drug: Ondansetron 4 mg [ondansetron HCl 2 mg/mL intravenous solution (2 mL)] Route: nn1 IVP; Site: left antecubital; 23:34 Drug: cefTRIAXone 2 grams [ceftriaxone 250 mg solution for injection] Route: IVPB; nn1 Infused Over: 30 mins; Site: left antecubital; 09/15 01:03 Follow up: IV Status: Completed infusion; IV Intake: 50ml nn1 Signatures: Dispatcher [employer] EDKY Wilda Gatica RN RN daq Brigitte Montana, Reg Reg gb Alina Mejia Rosemary, RN RN rs3 Tan Gonzalez PA PA btw Patsy Moore Daniel, DO DO dm18 Marti Ludwig,RN RN nn1 Scarlett Newberry,RN RN kas2 Ashley Mccartney The chart was reviewed and I authenticate all verbal orders and agree with the evaluation and treatment provided.Corrections: (The following items were deleted from the chart) 09/14 20:46 20:43 GASTROINTESTINAL (GI) PANEL+CHIARA ordered. EDMS EDMS 22: 22:02 GASTROINTESTINAL (GI) PANEL+CHIARA ordered. EDMS EDMS 22: 22:02 GASTROINTESTINAL (GI) PANEL+CHIARA ordered. EDMS EDMS 22:08 20:43 CT ABD & PELVIS WITH CONTRAST+CT ordered. EDMS EDMS 22:10 22:05 C REACTIVE PROTEIN QUANTITATIV+LAB ordered. EDMS EDMS : 20:46 GASTROINTESTINAL (GI) PANEL ordered. EDMS EDMS 09/15 01:32 01:27 GASTROINTESTINAL (GI) PANEL ordered. EDMS EDMS 01:34 09/14 22:03 GASTROINTESTINAL (GI) PANEL ordered. EDMS EDMS Attachments: 22:29 [place] [place] zo 09/15 06:42 T-Sheet-- Draft Copy [facility] Chart Complete MTDD
--- NOTE | 2016-09-17 03:48 | EDDOCDS ---
Physician Documentation [facility] Name: Flor Figueroa Age: 50 yrs Sex: Female : 1965 Arrival Date: 09/14/2016 Time: 19:33 Bed I3 / M3 Private MD: Alicia Piña ANP- Disposition: 09/14/16 23:28 Hospitalization ordered by Parris Crews for Inpatient Admission. Preliminary diagnosis are Acute kidney failure, Acute pancreatitis, Abdominal and pelvic pain, Vomiting, Diarrhea, unspecified, Urinary tract infection, site not specified. - Bed requested for M PED. - Status is Inpatient Admission. nn1 - Condition is Stable. - Problem is new. - Symptoms are unchanged. Historical: - Allergies: no known allergies; - Home Meds: 1. Albuterol Inhl as needed 2. Alprazolam Oral as needed 3. aspirin 81 mg Oral TbEC once daily 4. omeprazole 40 mg oral cpDR 1 cap once daily 5. Symbicort inhalation 2 times per day 6. Topamax Oral one tab in morning and two tabs at night 7. Ventolin Rotahaler/Rotacaps Inhl 8. meclizine 25 mg Oral tab as needed 9. cetirizine 10 mg oral cap daily 10. Sertraline 150 mg daily 11. Invokana 100 mg oral tab 1 tab once daily 12. atenolol 25 mg oral tab 1 tab once daily 13. lisinopril 20 mg Oral tab 1 tab once daily 14. hydrochlorothiazide 12.5 mg Oral tab once daily 15. bupropion HCl 300 mg Oral Tb24 once daily 16. ranitidine HCl 150 mg Oral tbef four times a day 17. gabapentin 100 mg Oral cap 3 times per day 18. hydrocodone-acetaminophen 5-300 mg Oral tab every 4-6 hours - PMHx: Anxiety; Diabetes - NIDDM: controlled; Hypertension; Migraine Headaches; Sleep Apnea w/ CPAP; Stage 4 kidney disease; - PSHx: Cholecystectomy; Splenectomy; Hysterectomy; Tubal ligation; Bladder suspension; - Social history: Smoking status: Patient uses tobacco products, heavy tobacco smoker. No barriers to communication noted, The patient speaks fluent Ethiopian. - Family history: No immediate family members are acutely ill. - : The pt / caregiver states he / she is not on anticoagulants. Home medication list is obtained from the patient. - Exposure Risk Screening:: None identified. 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 8 in. (172.72 cm) (R); Pain 6/10; 09/15 00:05 BP 104 / 46; Pulse 64; Resp 18; Temp 96.7; Pulse Ox 99% ; ajs 01:51 BP 110 / 54; Pulse 62; Resp 18; Temp 96.3; Pulse Ox 99% ; Pain 8/10; ajs 09/14 19:36 Body Mass Index 40.90 (122.02 kg, 172.72 cm) gr2 MDM: 09/14 20:42 NS 0.9% 2000 ml IV at bolus once ordered. btw 20:42 Ondansetron 4 mg IVP once ordered. btw 20:42 IV Saline Lock ordered. btw 20:42 Undress patient appropriately for examination ordered. btw 20:43 Amylase Ordered. EDMS 20:43 Basic Metabolic Profile Ordered. EDMS 20:43 CBC with Diff Ordered. EDMS 20:43 Lipase Ordered. EDMS 20:43 Liver Profile Ordered. EDMS 20:43 Urinalysis Ordered. EDMS 20:43 Urine Culture Ordered. EDMS 20:44 NOTHING BY MOUTH+DIET ordered. EDMS 22:03 Amylase Reviewed. btw 22:03 Basic Metabolic Profile Reviewed. btw 22:03 CBC with Diff Reviewed. btw 22:03 Lipase Reviewed. btw 22:03 Liver Profile Reviewed. btw 22:03 Urinalysis Reviewed. btw 22:05 Lactic Acid (Murillo tube on ice) Ordered. EDMS 22:05 ESR Ordered. EDMS 22:08 CT ABD & PELVIS W/O CONTRAST Ordered. EDMS 22:10 C REACTIVE PROTEIN QUANTITATIV Ordered. EDMS 22:28 Financial registration complete. zo 22:29 [facility] [place] was scanned into [email or web address] and attached to record. zo 23:07 Amylase Reviewed. btw 23:07 Basic Metabolic Profile Reviewed. btw 23:07 Lipase Reviewed. btw 23:07 Liver Profile Reviewed. btw 23:07 ESR Reviewed. btw 23:07 C REACTIVE PROTEIN QUANTITATIV Reviewed. btw 23:07 Lactic Acid (Murillo tube on ice) Reviewed. btw 23:08 -Blood Culture (Adults Only), peripheral from different site, or from device/port/PICC btw etc. if present ordered. 23:09 -Blood Culture Ordered. EDMS 23:09 BED REQUEST+ADM ordered. EDMS 23:18 -Blood Culture (Adults Only), peripheral from different site, or from device/port/PICC ajs etc. if present complete. 23:20 BLOOD CULTURES Ordered. EDMS 23:28 cefTRIAXone 2 grams IVPB once over 30 mins; dilute in 50mL of NS or D5W ordered. btw 09/15 01:19 CT ABD & PELVIS W/O CONTRAST Reviewed. dm18 01:31 Admission / Observation Status ordered. EDMS 01:31 NPO DIET ordered. EDMS 01:32 GASTROINTESTINAL (GI) PANEL Ordered. EDMS 06:42 T-Sheet-- Draft Copy was scanned into [email or web address] and attached to record. [facility] 10:56 Radiology Report was scanned into [email or web address] and attached to record. gb Administered Medications: 09/14 21:07 Drug: NS 0.9% 2000 ml [sodium chloride 0.9 % intravenous solution] {Note: First bolus nn1 infusing at this time. .} Route: IV; Rate: bolus; Site: left antecubital; 09/15 01:03 Follow up: IV Status: Completed infusion; IV Intake: 2000ml nn1 09/14 21:07 Drug: Ondansetron 4 mg [ondansetron HCl 2 mg/mL intravenous solution (2 mL)] Route: nn1 IVP; Site: left antecubital; 23:34 Drug: cefTRIAXone 2 grams [ceftriaxone 250 mg solution for injection] Route: IVPB; nn1 Infused Over: 30 mins; Site: left antecubital; 09/15 01:03 Follow up: IV Status: Completed infusion; IV Intake: 50ml nn1 Signatures: Dispatcher [employer] EDPR Wilda Gatica RN RN daq Brigitte Montana, Reg Reg gb Alina Mejia Rosemary, RN RN rs3 Tan Gonzalez PA PA btw Patsy Moore Daniel, DO DO dm18 Marti Ludwig,RN RN nn1 Scarlett Newberry,RN RN kas2 Ashley Mccartney The chart was reviewed and I authenticate all verbal orders and agree with the evaluation and treatment provided.Corrections: (The following items were deleted from the chart) 09/14 20:46 20:43 GASTROINTESTINAL (GI) PANEL+CHIARA ordered. EDMS EDMS 22: 22:02 GASTROINTESTINAL (GI) PANEL+CHIARA ordered. EDMS EDMS 22: 22:02 GASTROINTESTINAL (GI) PANEL+CHIARA ordered. EDMS EDMS 22:08 20:43 CT ABD & PELVIS WITH CONTRAST+CT ordered. EDMS EDMS 22:10 22:05 C REACTIVE PROTEIN QUANTITATIV+LAB ordered. EDMS EDMS : 20:46 GASTROINTESTINAL (GI) PANEL ordered. EDMS EDMS 09/15 01:32 01:27 GASTROINTESTINAL (GI) PANEL ordered. EDMS EDMS 01:34 09/14 22:03 GASTROINTESTINAL (GI) PANEL ordered. EDMS EDMS Attachments: 22:29 [facility] [place] zo 09/15 06:42 T-Sheet-- Draft Copy [facility] Chart Complete MTDD
--- NOTE | 2016-09-17 03:48 | EDDOCDS ---
Nurse's Notes [facility] Name: Flor Figueroa Age: 50 yrs Sex: Female : 1965 Arrival Date: 09/14/2016 Time: 19:33 Bed I3 / M3 Private MD: Alicia Piña ANP- Diagnosis: Acute kidney failure;Acute pancreatitis;Abdominal and pelvic pain;Vomiting;Diarrhea, unspecified;Urinary tract infection, site not specified Presentation: 09/14 19:40 Presenting complaint: Patient states: vomiting, diarrhea, abdominal pain since last rs3 Saturday. increased dizziness today. Adult Sepsis Screening: The patient does not have new or worsening altered mentation. Patient's respiratory rate is less than 22. Systolic blood pressure is greater than 100. Patient has a qSOFA score of 0- Negative Sepsis Screen. Suicide/Homicide risk assessment- the patient denies having any suicidal and/or homicidal ideations and does not present with any other emotional, behavioral or mental health complaints. Status: Patient is not a representative phlebotomy services or dependent. Transition of care: patient was not received from another setting of care. 19:40 Acuity: LILIAN Level 3 rs3 19:40 Method Of Arrival: Walkin/Carried/Asstd rs3 Triage Assessment: 19:45 General: Appears in no apparent distress. Pain: Location: abdomen. HIV screening NA for rs3 this visit Offered previously. 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 Albuterol Inhl as needed 2. Alprazolam Oral as needed 3. aspirin 81 mg Oral TbEC once daily 4. omeprazole 40 mg oral cpDR 1 cap once daily 5. Symbicort inhalation 2 times per day 6. Topamax Oral one tab in morning and two tabs at night 7. Ventolin Rotahaler/Rotacaps Inhl 8. meclizine 25 mg Oral tab as needed 9. cetirizine 10 mg oral cap daily 10. Sertraline 150 mg daily 11. Invokana 100 mg oral tab 1 tab once daily 12. atenolol 25 mg oral tab 1 tab once daily 13. lisinopril 20 mg Oral tab 1 tab once daily 14. hydrochlorothiazide 12.5 mg Oral tab once daily 15. bupropion HCl 300 mg Oral Tb24 once daily 16. ranitidine HCl 150 mg Oral tbef four times a day 17. gabapentin 100 mg Oral cap 3 times per day 18. hydrocodone-acetaminophen 5-300 mg Oral tab every 4-6 hours - PMHx: Anxiety; Diabetes - NIDDM: controlled; Hypertension; Migraine Headaches; Sleep Apnea w/ CPAP; Stage 4 kidney disease; - PSHx: Cholecystectomy; Splenectomy; Hysterectomy; Tubal ligation; Bladder suspension; - Social history: Smoking status: Patient uses tobacco products, heavy tobacco smoker. No barriers to communication noted, The patient speaks fluent Ivorian. - Family history: No immediate family members are acutely ill. - : The pt / caregiver states he / she is not on anticoagulants. Home medication list is obtained from the patient. - Exposure Risk Screening:: None identified. Screenin:32 Screening information is obtained from the patient. Fall risk: No risks identified. kas2 Assistance ADL's: requires no assistance with activities of daily living. Abuse/DV Screen: The patient / caregiver reports he/she is: not in a situation that causes fear, pain or injury. Nutritional screening: No deficits noted. Advance Directives: Currently, there is no health care proxy. There is no active DNR order. There is a living will, but a copy is not available at this time. There is no Power of Safety And Security Officer. home support is adequate. Assessment: 21:08 General: Appears ill, uncomfortable, Behavior is appropriate for age, cooperative. nn1 Pain: Location: abdomen Pain currently is 8 out of 10 on a pain scale. Quality of pain is described as sharp, Pain began 1 week ago Is intermittent. Neurological: Level of Consciousness is awake, alert, obeys commands. Cardiovascular: Reports lightheadedness, Nausea dizziness. All symptoms for 1 week. Respiratory: Airway is patent Respiratory effort is even, unlabored, Respiratory pattern is regular, symmetrical, Breath sounds are clear bilaterally. GI: Abdomen is non- distended obese, Bowel sounds present X 4 quads. Abd is soft X 4 quads Abd is tender to palpation X 4 quads. Reports diarrhea, lower abdominal pain, upper abdominal pain, nausea, vomiting. Derm: Skin is pink, warm & dry. 21:30 General: Appears ill, uncomfortable, Behavior is appropriate for age, cooperative. kas2 Pain: Location: abdomen Pain currently is 4 out of 10 on a pain scale. Neurological: Level of Consciousness is awake, alert, obeys commands, Oriented to person, place, time. Cardiovascular: Reports lightheadedness. Cardiovascular: Rhythm is regular. Respiratory: Airway is patent Respiratory effort is even, unlabored, Respiratory pattern is regular, symmetrical, Breath sounds are clear bilaterally. GI: Abdomen is non- distended obese, Bowel sounds present X 4 quads. Abd is soft Abd is tender to palpation X 4 quads. Derm: Skin is intact, Skin is dry, Skin is pink, warm & dry. Skin temperature is warm. 22:19 General: Appears uncomfortable, Behavior is appropriate for age, cooperative. General: nn1 No stool sample obtained at this time, patient has not yet had bowel movement. Patient aware of need for sample. Fluids infusing per orders. . Neurological: Level of Consciousness is awake, alert, obeys commands, Oriented to person, place, time. Respiratory: Airway is patent Respiratory effort is even, unlabored, Respiratory pattern is regular, symmetrical. 22:20 General: Patient gone to CT scan via wheelchair with tech.. kas2 22:25 General: Patient back from CT scan via wheelchair. Resettled in bed.. kas2 23:13 General: Patient sitting up in chair watching TV with friend at bedside. No apparent kas2 distress at this time. Appears comfortable. Patient states she has cramps in her abdomen but nausea no longer there. Not wanting pain meds at this time. Airway patent and respiratory effort even and unlabored. Call bautista within reach. Will continue to monitor.. 23:27 General: Patient was unable to have bowel movement. Patient reports nausea has nn1 improved, no vomiting or diarrhea while in ED. . 09/15 00:08 General: Hospitalist resident in assessing patient at this time.. kas2 00:44 General: Appears in no apparent distress, comfortable, well nourished, well groomed, kas2 Behavior is appropriate for age, cooperative. Pain: Denies pain. Neurological: Level of Consciousness is awake, alert, obeys commands, Oriented to person, place, time. Cardiovascular: Rhythm is regular. Respiratory: Airway is patent Respiratory effort is even, unlabored, Respiratory pattern is regular, symmetrical. Derm: Skin is intact, Skin is dry, Skin is pink, warm & dry. Skin temperature is warm. 01:04 General: Appears in no apparent distress, Behavior is appropriate for age, cooperative. nn1 Neurological: Level of Consciousness is awake, alert, obeys commands, Oriented to person, place, time. Respiratory: Airway is patent Respiratory effort is even, unlabored, Respiratory pattern is regular, symmetrical. GI: Denies nausea, No vomiting or diarrhea since patient arrived to ED. Derm: Skin is pink, warm & dry. 02:25 Reassessment: Patient appears in no apparent distress at this time. Patient states nn1 symptoms have improved. General: Appears in no apparent distress, comfortable, Behavior is appropriate for age, cooperative. Respiratory: Airway is patent Respiratory effort is even, unlabored, Respiratory pattern is regular, symmetrical. Derm: Skin is pink, warm & dry. Vital Signs: 09/14 19:36 BP 110 / 42; Pulse 69; Resp 18 S; Temp 96.9(O); Pulse Ox 100% on R/A; Weight 122.02 kg gr2 (R); Height 5 ft. 8 in. (172.72 cm) (R); Pain 6/10; 09/15 00:05 BP 104 / 46; Pulse 64; Resp 18; Temp 96.7; Pulse Ox 99% ; ajs 01:51 BP 110 / 54; Pulse 62; Resp 18; Temp 96.3; Pulse Ox 99% ; Pain 8/10; ajs 09/14 19:36 Body Mass Index 40.90 (122.02 kg, 172.72 cm) gr2 Vitals: 09/14 19:36 Log In Time: September 14, 2016 at 19:36. gr2 ED Course: 19:35 Patient visited by Jacquelyn Winters. gr2 19:35 Alicia Piña is Private Physician. gr2 19:35 Patient moved to Waiting gr2 19:37 Patient visited by Jacquelyn Winters. gr2 19:37 Patient moved to Pre RCE gr2 19:41 Triage Initiated rs3 20:05 Patient moved to Triage 3 jo3 20:12 Patient visited by Ana Laura Cody. lr2 20:18 Tan Gonzalez PA is PHCP. btw 20:19 Vick Clinton DO is Attending Physician. btw 20:19 Patient visited by Tan Gonzalez PA. btw 20:39 Patient moved to I3 / M3 jo3 20:45 Patient visited by Patsy Moore. ajs 20:45 Pt greeted and oriented to ED. Patient advised of names of staff involved in care, aj location of call bautista, wait times and NPO status. Accompanied by Family Member, Patient has correct armband on for positive identification. Placed in gown. Bed in low position. Call light in reach. Side rails up X 1. 21:07 Urine Culture Sent. nn1 21:07 Urinalysis Sent. nn1 21:08 Liver Profile Sent. nn1 21:08 Lipase Sent. nn1 21:08 CBC with Diff Sent. nn1 21:08 Basic Metabolic Profile Sent. nn1 21:08 Amylase Sent. nn1 21:10 Inserted saline lock: 20 gauge in left antecubital area and blood collected. The nn1 patient tolerated the procedure well. 21:32 Patient visited by Scarlett Newberry RN. kas2 22:10 Patient visited by Scarlett Newberry RN. kas2 22:19 Lactic Acid (Murillo tube on ice) Sent. nn1 22:19 ESR Sent. nn1 22:26 Patient visited by Scarlett Newberry RN. kas2 22:26 No procedures done that require assistance. Labs drawn. (by ED staff). Sent per order kas2 to lab. 22:29 [facility] Payment Agreement was scanned into [facility] and attached to record. zo 22:31 Patient name changed from Flor\S\\S\Figueroa\S\ to Flor\S\ \S\Figueroa. EDMS 22:34 Patient visited by Scarlett Newberry RN. kas2 23:12 -Blood Culture Sent. nn1 23:16 Patient visited by Scarlett Newberry RN. kas2 23:21 BLOOD CULTURES Sent. ajs 23:26 Parris Crews is Hospitalizing Provider. btw 23:37 CT ABD & PELVIS W/O CONTRAST Returned. EDMS 09/15 00:00 Patient visited by Scarlett Newberry RN. kas2 00:05 Patient visited by Patsy Moore. ajs 00:09 Patient visited by Scarlett Newberry RN. kas2 00:45 Patient visited by Scarlett Newberry RN. kas2 01:51 Patient visited by Patsy Moore. ajs 02:26 The patient / caregiver is instructed regarding the plan of care and ED course. nn1 06:42 T-Sheet-- Draft Copy was scanned into [facility] and attached to record. [facility] 10:56 Radiology Report was scanned into [facility] and attached to record. gb Administered Medications: 09/14 21:07 Drug: NS 0.9% 2000 ml [sodium chloride 0.9 % intravenous solution] {Note: First bolus nn1 infusing at this time. .} Route: IV; Rate: bolus; Site: left antecubital; 09/15 01:03 Follow up: IV Status: Completed infusion; IV Intake: 2000ml nn1 09/14 21:07 Drug: Ondansetron 4 mg [ondansetron HCl 2 mg/mL intravenous solution (2 mL)] Route: nn1 IVP; Site: left antecubital; 23:34 Drug: cefTRIAXone 2 grams [ceftriaxone 250 mg solution for injection] Route: IVPB; nn1 Infused Over: 30 mins; Site: left antecubital; 09/15 01:03 Follow up: IV Status: Completed infusion; IV Intake: 50ml nn1 Intake: 01:03 IV: 2000.00ml (NS); Total: 2000.00ml. nn1 01:03 IV: 50.00ml; Total: 2050.00ml. nn1 01:03 IV: 2000.00ml; Total: 4050.00ml. nn1 Order Results: Lab Order: Amylase; SPEC'M 09/14/16 20:45 Test: AMYLASE; Value: 861; Range: 25-115; Abnormal: Above high normal; Units: U/L; Status: F Lab Order: Basic Metabolic Profile; SPEC'M 09/14/16 20:45 Test: GLUCOSE, FASTING; Value: 87; Range: 70-105; Units: MG/DL; Status: F Test: BLOOD UREA NITROGEN; Value: 57; Range: 7-18; Abnormal: Above high normal; Units: MG/DL; Status: F Test: CREATININE FOR GFR; Value: 3.82; Range: 0.55-1.02; Abnormal: Above high normal; Units: MG/DL; Status: F Test: GLOMERULAR FILTRATION RATE; Value: 13.4; Range: >58; Abnormal: Below low normal; Status: F Test: SODIUM LEVEL; Value: 131; Range: 136-145; Abnormal: Below low normal; Units: MEQ/L; Status: F Test: POTASSIUM SERUM; Value: 4.0; Range: 3.5-5.1; Units: MEQ/L; Status: F Test: CHLORIDE LEVEL; Value: 107; Range: 98-107; Units: MEQ/L; Status: F Test: CARBON DIOXIDE LEVEL; Value: 11; Range: 21-32; Abnormal: Below low normal; Units: MEQ/L; Status: F Test: ANION GAP; Value: 13; Range: 8-16; Units: MEQ/L; Status: F Test: CALCIUM LEVEL; Value: 8.9; Range: 8.5-10.1; Units: MG/DL; Status: F Test Note: ; Units are mL/min/1.73 m2 Chronic Kidney Disease Staging per NKF: Stage I & II GFR >=60 Normal to Mildly Decreased Stage III GFR 30-59 Moderately Decreased Stage IV GFR 15-29 Severely Decreased Stage V GFR <15 Very Little GFR Left ESRD GFR <15 on [employer]UFA[employer]GER Lab Order: CBC with Diff; SPEC'M 09/14/16 20:45 Test: WHITE BLOOD COUNT; Value: 15.9; Range: 4.0-10.0; Abnormal: Above high normal; Units: K/mm3; Status: F Test: RED BLOOD COUNT; Value: 4.27; Range: 4.00-5.40; Units: M/mm3; Status: F Test: HEMOGLOBIN; Value: 12.7; Range: 12.0-16.0; Units: g/dl; Status: F Test: HEMATOCRIT; Value: 40.4; Range: 36.0-47.0; Units: %; Status: F Test: MEAN CORPUSCULAR VOLUME; Value: 94.7; Range: 80.0-96.0; Units: fl; Status: F Test: MEAN CORPUSCULAR HEMOGLOBIN; Value: 29.8; Range: 27.0-33.0; Units: pg; Status: F Test: MEAN CORPUSCULAR HGB CONC; Value: 31.4; Range: 32.0-36.5; Abnormal: Below low normal; Units: g/dl; Status: F Test: RED CELL DISTRIBUTION WIDTH; Value: 14.5; Range: 11.5-14.5; Units: %; Status: F Test: PLATELET COUNT, AUTOMATED; Value: 487; Range: 150-450; Abnormal: Above high normal; Units: k/mm3; Status: F Test: NEUTROPHILS %; Value: 68.2; Range: 36.0-66.0; Abnormal: Above high normal; Units: %; Status: F Test: LYMPH %; Value: 22.6; Range: 24.0-44.0; Abnormal: Below low normal; Units: %; Status: F Test: MONO %; Value: 3.8; Range: 0.0-5.0; Units: %; Status: F Test: EOS %; Value: 2.0; Range: 0.0-3.0; Units: %; Status: F Test: BASO %; Value: 1.4; Range: 0.0-1.0; Abnormal: Above high normal; Units: %; Status: F Test: LARGE UNSTAINED CELL %; Value: 1.9; Range: 0.0-4.0; Units: %; Status: F Test: NEUTROPHILS #; Value: 10.9; Range: 1.8-7.7; Abnormal: Above high normal; Units: K/mm3; Status: F Test: LYMPH #; Value: 3.9; Range: 1.5-4.5; Units: K/mm3; Status: F Test: MONO #; Value: 0.6; Range: 0.0-0.8; Units: K/mm3; Status: F Test: EOS #; Value: 0.3; Range: 0.0-0.50; Units: K/mm3; Status: F Test: BASO #; Value: 0.2; Range: 0.0-0.2; Units: K/mm3; Status: F Test: LARGE UNSTAINED CELL #; Value: 0.3; Range: 0.0-0.4; Units: K/mm3; Status: F Lab Order: Lipase; SPEC'M 09/14/16 20:45 Test: LIPASE; Value: 3356; Range: 73-393; Abnormal: Above high normal; Units: U/L; Status: F Lab Order: Liver Profile; SPEC'M 09/14/16 20:45 Test: AST/SGOT; Value: 6; Range: 15-37; Abnormal: Below low normal; Units: U/L; Status: F Test: ALT/SGPT; Value: 18; Range: 12-78; Units: U/L; Status: F Test: ALKALINE PHOSPHATASE; Value: 89; Range: 45-117; Units: U/L; Status: F Test: BILIRUBIN,TOTAL; Value: 0.3; Range: 0.2-1.0; Units: MG/DL; Status: F Test: BILIRUBIN,DIRECT; Value: < 0.1; Range: 0.0-0.2; Units: MG/DL; Status: F Test: TOTAL PROTEIN; Value: 8.7; Range: 6.4-8.2; Abnormal: Above high normal; Units: GM/DL; Status: F Test: ALBUMIN; Value: 3.7; Range: 3.2-5.2; Units: GM/DL; Status: F Test: ALBUMIN/GLOBULIN RATIO; Value: 0.74; Range: 1.00-1.93; Abnormal: Below low normal; Status: F Lab Order: Urinalysis; SPEC'M 09/14/16 20:45 Test: APPEARANCE, URINE; Value: TURBID; Range: CLEAR; Abnormal: Above high normal; Status: F Test: COLOR, URINE; Value: YELLOW; Range: YELLOW; Status: F Test: PH,URINE; Value: 5.0; Range: 5.0-9.0; Units: UNITS; Status: F Test: SPECIFIC GRAVITY URINE AUTO; Value: 1.016; Range: 1.002-1.035; Status: F Test: PROTEIN, URINE AUTO; Value: 2+; Range: NEGATIVE; Abnormal: Above high normal; Units: mg/dL; Status: F Test: GLUCOSE, URINE (UA) AUTO; Value: NEGATIVE; Range: NEGATIVE; Units: mg/dL; Status: F Test: KETONE, URINE AUTO; Value: NEGATIVE; Range: NEGATIVE; Units: mg/dL; Status: F Test: UROBILINOGEN, URINE AUTO; Value: 0.2; Range: 0.0-2.0; Units: mg/dL; Status: F Test: BILIRUBIN, URINE AUTO; Value: NEGATIVE; Range: NEGATIVE; Status: F Test: NITRITE, URINE AUTO; Value: NEGATIVE; Range: NEGATIVE; Status: F Test: LEUKOCYTE ESTERASE, URINE AUTO; Value: 2+; Range: NEGATIVE; Abnormal: Above high normal; Status: F Test: BLOOD, URINE BLOOD; Value: 1+; Range: NEGATIVE; Abnormal: Above high normal; Status: F Test: WBC, URINE AUTO; Value: TNTC; Range: 0-3; Abnormal: Above high normal; Units: /HPF; Status: F Test: RBC, URINE AUTO; Value: 13; Range: 0-3; Abnormal: Above high normal; Units: /HPF; Status: F Test: BACTERIA, URINE AUTO; Value: 3+; Range: NEGATIVE; Abnormal: Above high normal; Status: F Test: SQUAMOUS EPITHELIAL CELL UR AU; Value: 58; Range: 0-6; Units: /HPF; Status: F Test: MUCUS, URINE; Value: SMALL; Range: NEGATIVE; Status: F Test: HYALINE CAST, URINE AUTO; Value: 0; Range: 0-1; Units: /LPF; Status: F Test: AMORPHOUS SEDIMENT; Value: SMALL; Range: NEGATIVE; Abnormal: Above high normal; Status: F Lab Order: Lactic Acid (Murillo tube on ice); SPEC'M 09/14/16 22:14 Test: LACTIC ACID LEVEL, LACTATE; Value: 0.7; Range: 0.4-2.0; Units: MMOL/L; Status: F Lab Order: ESR; SPEC'M 09/14/16 20:45 Test: ERYTHROCYTE SEDIMENTATION RATE; Value: 43; Range: 0-20; Abnormal: Above high normal; Units: mm/hr; Status: F Lab Order: C REACTIVE PROTEIN QUANTITATIV; SPEC'M 09/14/16 20:45 Test: C REACTIVE PROTEIN QUANTITATIV; Value: 2.71; Range: 0.00-0.30; Abnormal: Above high normal; Units: MG/DL; Status: F Radiology Order: CT ABD & PELVIS W/O CONTRAST Test: CT ABD & PELVIS W/O CONTRAST REASON FOR EXAMINATION: Abdomen Pain; ; CT of the abdomen and pelvis without contrast; Clinical statement: Pain.; Technique: Multiple axial CT images were obtained from the base of the lungs to the floor of the pelv; is utilizing 5 mm axial slices without administration of contrast. Coronal and sagittal reconstructio; ns were also obtained.; Comparison: 07/24/2016.; Findings:; Chest: The visualized lung bases are clear.; Abdomen: The kidneys are normal in size bilaterally. There is no evidence of hydronephrosis or nephro; lithiasis. The liver is enlarged, demonstrate diffuse low attenuation of hepatic parenchyma. There is; a small low attenuation nodule in the right adrenal gland measuring 1.1 x 2.0 cm. There is a large h; yperdense nodule in the lateral left adrenal gland measuring 2.3 x 2.4 cm. The spleen and pancreas ar; e unremarkable. The aorta demonstrates normal caliber and contour. There is no abdominal lymphadenopa; thy or ascites.; Pelvis: The bowel is unremarkable, with no obstructive or inflammatory changes. The appendix is dionte; l. The urinary bladder is within normal limits. There is no pelvic lymphadenopathy or ascites. The ot; her pelvic structures appear unremarkable.; Bones: There are no suspicious osseous abnormalities seen.; Impression:; 1. No evidence of hydronephrosis or nephrolithiasis.; 2. Stable hepatomegaly with fatty infiltration of the liver.; 3. Benign right adrenal adenoma.; 4. Hyperdense nodule in the left adrenal gland, stable. Follow-up is suggested as clinically indicate; d.; 5. No obstructive or inflammatory bowel changes.; ; Outcome: 09/14 23:28 Decision to Hospitalize by Provider. bt 09/15 01:40 Admission hand-off: Report called to NICOLASA Sheth. nn1 02:26 Discharge Assessment: Patient awake, alert and oriented x 3. No cognitive and/or nn1 functional deficits noted. Patient verbalized understanding of disposition instructions. patient administered narcotics - no. The following High Risk Discharge criteria are identified: None. Admitted to Pediatrics accompanied by tech, family with patient, via wheelchair, with chart. Condition: stable Condition: improved. CT Study completed. Property :Personal belongings accompany Pt. 02:46 Patient left the ED. nn1 Signatures: Dispatcher [employer] EDMS Brigitte Montana, Cara Yee RN RN jo3 Olin, Zoeann zo Soosairaj, Rosemary, RN RN rs3 Tan Gonzalez PA PA btw Patsy Moore Gainslee gr2 Marti LudwigRN RN nn1 Scarlett Newberry RN RN kas2 Hoffert, Sarah seh Ross, Laura lr2 Corrections: (The following items were deleted from the chart) 09/14 19:47 19:45 LMP N/A - Irregular menses rs3 rs3 19:48 19:40 Presenting complaint: Patient states: vomiting, diarrhea, abdominal pain since rs3 last Saturday. dizziness today. rs3 22:28 21:58 GASTROINTESTINAL (GI) PANEL sent. kas2 EDMS Chart Complete MTDD
[2016-09-17 05:00] VITALS: BP 111/51
[2016-09-17] MEDS: HEPARIN SOD (PORCINE) 5000 UNITS/ML VIAL SC SCH ×3 (05:30→22:55)
[2016-09-17] MEDS ORDERED: LevoFLOXacin 500 MG in APPROPRIATE DILUENT 1 EA IV ONE (06:00)
[2016-09-17 06:34] LABS: BASO # 0.1 K/mm3 (0.0-0.2); BASO % 1.1 % (0.0-1.0); EOS # 0.2 K/mm3 (0.0-0.50); LARGE UNSTAINED CELL # 0.2 K/mm3 (0.0-0.4); LYMPH # 3.1 K/mm3 (1.5-4.5); LYMPH % 25.3 % (24.0-44.0); MEAN CORPUSCULAR HEMOGLOBIN 29.9 pg (27.0-33.0); MEAN CORPUSCULAR HGB CONC 32.3 g/dl (32.0-36.5); MEAN CORPUSCULAR VOLUME 92.7 fl (80.0-96.0); MONO # 0.5 K/mm3 (0.0-0.8); MONO % 4.8 % (0.0-5.0); NEUTROPHILS # 7.4 K/mm3 (1.8-7.7); NEUTROPHILS % 64.8 % (36.0-66.0); PLATELET COUNT, AUTOMATED 449 k/mm3 (150-450); RED CELL DISTRIBUTION WIDTH 15.1 % (11.5-14.5); WHITE BLOOD COUNT 11.4 K/mm3 (4.0-10.0)
[2016-09-17] MEDS: PERCOCET 5MG/325MG TAB PO PRN ×2 (06:58→20:02)
[2016-09-17 07:09] LABS: ALBUMIN 2.7 GM/DL (3.2-5.2); ALBUMIN/GLOBULIN RATIO 0.84 (1.00-1.93); BILIRUBIN,TOTAL 0.2 MG/DL (0.2-1.0); CALCIUM LEVEL 8.5 MG/DL (8.5-10.1); CREATININE FOR GFR 1.84 MG/DL (0.55-1.02); MAGNESIUM LEVEL 1.7 MG/DL (1.8-2.4); POTASSIUM SERUM 4.4 MEQ/L (3.5-5.1); TOTAL PROTEIN 5.9 GM/DL (6.4-8.2)
[2016-09-17] MEDS: SYMBICORT 80/4.5MCG INHALER 6GM INH SCH ×2 (07:50→19:21)
[2016-09-17] MEDS ORDERED: ERTAPENEM SODIUM 1 GM in NS MINI-BAG PLUS 50 ML IV SCH (08:00)
[2016-09-17] MEDS ORDERED: MAG SULF 1GM/100ML (MAG RUN) 1 GM in APPROPRIATE DILUENT 1 EA IV ONE (08:00)
[2016-09-17] MEDS: HumaLOG INSULIN (NovoLOG) PER UNIT SC SCH ×4 (08:04→21:00)
[2016-09-17 08:24] LABS: ABG HCO3 12.2 MEQ/L (22.0-26.0); ABG PARTIAL PRESSURE CO2 29.3 mmHg (35.0-45.0); ABG PARTIAL PRESSURE O2 98.7 mmHg (75.0-100.0); ABG STANDARD HCO3 13.6 MEQ/L (22.0-26.0); ABG TOTAL CO2 13.1 MEQ/L (22.0-29.0)
[2016-09-17 08:27] LABS: ABG pH (ARTERIAL) 7.236 UNITS (7.350-7.450)
[2016-09-17] MEDS: TOPIRAMATE (TopAMAX) 100 MG TAB PO SCH ×2 (08:58→22:55)
[2016-09-17] MEDS: PANTOPRAZOLE 40MG INJ (PROTONIX) (C9113) IV SCH ×2 (08:58→22:55)
[2016-09-17] MEDS: SERTRALINE HCL 50 MG TAB PO SCH (08:58)
[2016-09-17] MEDS: buPROPion **SR TABLET** (ZYBAN) 150MG PO SCH (08:58)
[2016-09-17] MEDS: NICOTINE 14 MG/24 HR TRANSDERMAL TD SCH (08:59)
[2016-09-17] MEDS ORDERED: BISACODYL 10 MG SUPP PR PRN (09:00)
[2016-09-17] MEDS: **NOTE PATIENT COMMENT** MISC XX SCH (09:00)
[2016-09-17 10:53] VITALS: BP_SYST 111; BP_SYST 119; BP_SYST 133; BP_DIAS 51; BP_DIAS 58
--- NOTE | 2016-09-17 13:39 | IPNPDOC ---
Assessment/Plan Date Seen The patient was seen on 09/17/16. Problems Problems: (1) Metabolic acidosis Status: Acute Problem Text: Non anion gap metabolic acidemia which i think was initially due to Gi losses now due to hyperchloremia from IVF. will stop IV fluid. (2) Pancreatitis Status: Acute Problem Text: possibly viral pancreatitis. patient recently had gastroenteritis which had resolved by the time she came to ER. However her brother is admitted with Noro virus gastroenteritis and both of them leave in the same house and had similar symptoms. So I think possibly patient also had noro virus gastroenteritis. Pt's has had a cholecystectomy, does not drink alcohol will stop IVF, advance diet. (3) Autez-hg-wsdomva kidney injury Status: Acute Problem Text: Crow on ckd stage 3 Pt reports her baseline GFR is 34. Suspect she has an acute on chronic kidney injury secondary to hypovolemia from her 7 day history of vomiting and diarrhea.GFR almost back to baseline. (4) Diarrhea Status: Resolved Problem Text: possibly had Norovirus gastroenteritis which had already resolved by the time she came to ED As her brother who presented yesterday with diarrhea was found to have NOro virus in gi panel and they live in the same house. (5) UTI (urinary tract infection) Status: Acute Problem Text: urine culture with ESBL ecoli however does not have any urinary symptoms started the patient on Ertapenem will consult ID. (6) GERD (gastroesophageal reflux disease) Status: Chronic Problem Text: Pt is currently on 40 mg omeprazole PO QD at home. Due to her story of worsening reflux symptoms and her current N/V/D, we will give her protonix 40mg IV BID. (7) Sleep apnea Status: Chronic Problem Text: Pt's sleep apnea is well managed through her home CPAP machine. Will allow pt to bring CPAP from home and continue use in hospital. (8) Non-insulin dependent type 2 diabetes mellitus Status: Chronic Problem Text: Pt is well managed on her PO medications. Her glucose baseline reportedly ranges from 114-186. Will take her off her PO medications for her hospital stay and put her on sliding scale of insulin. (9) DVT prophylaxis Status: Acute Problem Text: Due to pt's poor renal function, we will give heparin sc BID. TEDs and SEQs. Plan / VTE VTE Prophylaxis Ordered?: Yes Plan IVF: Continue Diet: Make NPO Subjective Review of Systems CC/HPI The patient is a 50-year-old female admitted with a reason for visit of Crow; Pancreatitis;Uti. Events since last encounter abdominal pain improved, no diarrhea or vomiting , continues to have back pain , no fever or chills, no chest pain or sob , no cough or phlegm. feeling hungry , Objective Physical Examination General Exam: Positive: Alert, Cooperative, No Acute Distress Eye Exam: Positive: Conjunctiva & lids normal, EOMI, PERRLA, Negative: Sclera icteric ENT Exam: Positive: Atraumatic, Mucous membr. moist/pink, Pharynx Normal Neck Exam: Positive: Supple, Negative: JVD, thyromegaly Chest Exam: Positive: Clear to auscultation, Normal air movement, Negative: Rales, Rhonchi, Wheezing Heart Exam: Positive: Rate Normal Abdomen Exam: Positive: Normal bowel sounds, Other (Rebound tenderness under umbilicus and over RLQ), Soft, Tenderness (Tender to palpation RLQ and midline under umbilicus), Negative: Hepatospenomegaly, Mass Extremity Exam: Positive: Normal pulses, Negative: Clubbing, Cyanosis, Edema Skin Exam: Positive: Nl turgor and temperature, Rash (Macularpapular rash over anterior LLE), Negative: Breakdown Psych Exam: Positive: Mental status NL, Mood NL, Oriented x 3 Vital Signs/I&O Vital Signs Date Time Temp Pulse Resp B/P Pulse Ox O2 Delivery O2 Flow Rate FiO2 09/17/16 10:53 80 133/58 79 119/58 75 111/51 09/17/16 10:53 97.1 18 96 Room Air I&O- Last 24 Hours up to 6 AM 09/17/16 05:59 Intake Total 5325 ml Output Total 3500 ml Balance 1825 ml Laboratory Data Labs 24H Laboratory Tests 2 09/16/16 16:52: Bedside Glucose (Misc Panel) 105 09/16/16 20:29: Bedside Glucose (Misc Panel) 135H 09/17/16 06:23: Blood Urea Nitrogen 37H, Creatinine 1.84H, Sodium Level 145, Potassium Level 4.4 , Chloride Level 123H, Carbon Dioxide Level 13L, Calcium Level 8.5, Aspartate Amino Transf (AST/SGOT) 8L, Alanine Aminotransferase (ALT/SGPT) 14, Alkaline Phosphatase 70, Total Bilirubin 0.2, Total Protein 5.9L, Albumin 2.7L, Albumin/ Globulin Ratio 0.84L, Amylase Level 516H, Anion Gap 9, Glomerular Filtration Rate 31.0L, Lipase 1444H, Magnesium Level 1.7L 09/17/16 06:24: White Blood Count 11.4H, Red Blood Count 3.28L, Hemoglobin 9.8L, Hematocrit 30.5L, Mean Corpuscular Volume 92.7, Mean Corpuscular Hemoglobin 29.9, Mean Corpuscular Hemoglobin Concent 32.3, Red Cell Distribution Width 15.1H, Platelet Count 449, Neutrophils (%) (Auto) 64.8, Lymphocytes (%) (Auto) 25.3, Monocytes (%) (Auto) 4.8, Eosinophils (%) (Auto) 2.0, Basophils (%) (Auto) 1.1H , Neutrophils # (Auto) 7.4, Lymphocytes # (Auto) 3.1, Monocytes # (Auto) 0.5, Eosinophils # (Auto) 0.2, Basophils # (Auto) 0.1, Large Unclassified Cells # 0.2 , Large Unclassified Cells % 2.0 09/17/16 08:13: Arterial Blood pH 7.236*L, Arterial Blood Partial Pressure CO2 29.3L, Arterial Blood Partial Pressure O2 98.7, Arterial Blood Total CO2 13.1L, Arterial Blood HCO3 12.2L, Arterial Blood Base Excess -14.0L, Arterial Blood Oxygen Saturation 97.3, Blood Gas Bicarbonate Standard 13.6L 09/17/16 11:44: Bedside Glucose (Misc Panel) 120H CBC/BMP Laboratory Tests 09/17/16 06:23 Calcium Level 8.5, Aspartate Amino Transf (AST/SGOT) 8 L, Alanine Aminotransferase (ALT/SGPT) 14, Alkaline Phosphatase 70, Total Bilirubin 0.2, Total Protein 5.9 L, Albumin 2.7 L 09/17/16 06:24 Red Blood Count 3.28 L, Mean Corpuscular Volume 92.7, Mean Corpuscular Hemoglobin 29.9, Mean Corpuscular Hemoglobin Concent 32.3, Red Cell Distribution Width 15.1 H, Neutrophils (%) (Auto) 64.8, Lymphocytes (%) (Auto) 25.3, Monocytes (%) (Auto) 4.8, Eosinophils (%) (Auto) 2.0, Basophils (%) (Auto ) 1.1 H, Neutrophils # (Auto) 7.4, Lymphocytes # (Auto) 3.1, Monocytes # (Auto) 0.5, Eosinophils # (Auto) 0.2, Basophils # (Auto) 0.1 FSBS Laboratory Tests Test 09/16/16 16:52 09/16/16 20:29 09/17/16 11:44 Range/Units Bedside Glucose (Misc Panel) 105 135 120 70-105 MG/DL Microbiology Microbiology 09/14/16 Blood Culture - Preliminary, Resulted No Growth after 48 hours. All Specime... 09/14/16 Blood Culture - Preliminary, Resulted No Growth after 48 hours. All Specime... 09/14/16 Urine Culture - Preliminary, Resulted E.coli Esbl MARLEY PATTERSON MD Sep 17, 2016 13:39
[2016-09-17 16:00] VITALS: BP 123/58
--- NOTE | 2016-09-17 18:05 | CR.PDOC ---
[facility] Consultation Consultation DATE OF SERVICE: 09/17/16 CONSULTING DOCTOR: Dr. Judge REASON FOR CONSULT: ESBL Escherichia coli HISTORY OF PRESENT ILLNESS: Patient is a 50-year-old female who presented to hospital on 09/15 and was admitted with abdominal pain and pancreatitis. Patient says that her symptoms began approximately a week and a half ago. Patient's initial symptoms were vomiting and diarrhea. Patient says that her diarrhea persisted and was getting worse. 6 days ago due to worsening of her symptoms she presented to emergency department. She says at that time anything she was eating was giving her really bad diarrhea. She mentions that her brother whom she lives with has also been sick with similar symptoms. Since admission patient has had a urine culture which has grown greater than 100,000 colony-forming units of ESBL Escherichia coli. Patient currently denies having any dysuria, hematuria at home prior to presentation or currently. ALLERGIES: Ibuprofen, latex CURRENT MEDICATIONS: Albuterol sulfate nebulizer 2.5 mg inhalation every 2 hours when necessary for shortness of breath or wheezing Xanax 0.25 mg by mouth twice a day when necessary for anxiety Bisacodyl 10 mg daily a OR when necessary for constipation Symbicort 80/4.5 mcg 2 puffs twice a day Bupropion 300 mg by mouth daily Dextrose 25 mL IV when necessary Ertapenem 1 g IV every 24 hours Glucagon 1 mg subcutaneously when necessary Glucose 16 g by mouth when necessary Heparin 5000 units subcutaneously every 8 hours Insulin lispro subcutaneously every before meals, daily at bedtime sliding scale Lidoderm patch 1 patch transdermal daily at bedtime Morphine sulfate 2 mg IV every 4 hours when necessary for pain Nicotine patch 14 mg 1 patch transdermal dermal daily Zofran 4 mg IV every 6 hours when necessary for nausea or vomiting Percocet 5/325 mg 1 tablet by mouth every 6 hours when necessary for pain Protonix 40 mg IV every 12 hours Zoloft 150 mg by mouth daily Topiramate 100 mg by mouth twice a day PAST MEDICAL HISTORY: [id number] diabetes mellitus, hypertension, anxiety, COPD, stage III renal disease, sleep apnea with CPAP, migraines PAST SURGICAL HISTORY: Cholecystectomy, splenectomy, hysterectomy, tubal ligation, bladder suspension SOCIAL HISTORY: Patient smokes approximately one half pack per day. Rarely drinks alcohol. FAMILY HISTORY: Recent sick contact: her brother whom she lives with also having nausea, vomiting and diarrhea REVIEW OF SYSTEMS: Constitutional: denies fevers, chills, night sweats, recent weight gain/loss. HEENT: Head: Positive for headaches this morning, patient gets chronic headaches and has a history of head trauma, she gets a little dizzy when standing. Eyes: denies blurry vision, double vision. Ears: denies hearing loss, tinnitus, ear pain. Nose: denies sinus pain, pressure, rhinorrhea, postnasal drip. Throat: denies sore throat, cough, difficulty swallowing Cardiovascular: denies chest discomfort/pain, palpitations Respiratory: Positive for shortness of breath which patient says is at her baseline Gastrointestinal: Positive for low abdominal pain which patient says is improving. Denies nausea, vomiting, diarrhea, constipation : denies dysuria, hematuria Musculoskeletal: Positive for chronic diffuse muscular skeletal pain Neurological: denies numbness, tingling, paresthesias Lymphatics: denies palpable lymph nodes or swollen glands Integumentary: denies any cuts, rashes, bruises Endocrine: Positive for excessive thirst PHYSICAL EXAMINATION: Vitals: Temperature 98.7, pulse 83, respiratory rate 18, blood pressure 123/58, pulse ox 99% on room air General: Patient awake, alert and oriented, verbal and able to answer questions appropriately. She does not appear to be in any acute distress HEENT: Head: normocephalic, atraumatic. Eyes: pupils equally reactive to light , conjunctiva are pink, sclera are nonicteric. Throat: buccal mucosa is pink and moist with no lesions in the oropharynx Respiratory: clear to auscultation bilaterally with no wheezes, rales, or rhonchi. Cardiovascular: regular rate and rhythm, with no murmurs, rubs or gallops. Abdomen: Right lower quadrant tenderness without rebound to palpation, active bowel sounds, no masses to palpation Extremities: 5/5 strength in upper and lower extremities bilaterally, bilateral lower extremity pitting edema to mid kennedy Neurological: sensation intact and symmetrical in upper and lower extremities bilaterally Integumentary: skin free from rashes, lesions, abrasions Vascular: pulses palpable and symmetrical in upper and lower extremities bilaterally LABORATORY DATA: CBC: White blood cells 11.4, H&H 9.8/30.5, platelets 449 Chemistry: Sodium 145, potassium 4.4, chloride 123, carbon dioxide 13, BUN 37, creatinine 1.84, glucose 109, calcium 8.5, magnesium 1.7 Liver profile: AST 8, ALT 14, alkaline phosphatase 70, total bilirubin 0.2, total protein 5.9, albumin 2.7 Amylase 516, this is down from 673 yesterday Lipase 1444, this is down from 2563 yesterday Urine analysis from 09/14: Color yellow, appearance turbid, pH 5.0, specific gravity 1.016, 2+ protein, 1+ blood, 0.2 urobilinogen, 2+ leukocyte esterase, too numerous to count white blood cells, 13 red blood cells, 3+ bacteria, 58 squamous epithelial cells, small amount of amorphous sediment, small amount of mucus. Negative for all of the following: Glucose, ketones, nitrites, bilirubin MICROBOIOLOGY: Urine culture from 09/14 grew ESBL Escherichia coli Blood cultures 2 from 09/14 no growth after 48 hours RADIOLOGY: CT abdomen and pelvis from 09/14: No evidence of hydronephrosis or nephrolithiasis, stable hematocrit likely with fatty infiltrate of liver, benign right adrenal adenoma, hyperdense nodule in left adrenal gland, no evidence of obstruction or inflammatory bowel changes. ASSESSMENT: Patient is a 50-year-old female with likely history of viral gastroenteritis, pancreatitis and asymptomatic bacteriuria. Patient is currently doing well. PLAN: #1: Viral gastroenteritis: Patient's symptoms were most likely triggered by a viral gastroenteritis infection. Patient says that her brother whom she lives with has also been sick. Patient is currently doing well and is no longer having nausea, vomiting or diarrhea. No further treatment or evaluation necessary, continue to monitor. #2: Pancreatitis: Continue recommendations as per medicine team. Pancreatitis is most likely secondary to viral gastroenteritis #3: Asymptomatic bacteriuria: Patient's urinalysis had 58 squamous epithelial cells, this means that her urine is most likely contaminant. Patient is also diabetic which puts her at increased risk for bacterial colonization. Patient was not having any urinary complaints at time of admission, is not currently having any complaints of dysuria or hematuria. This means that her urine culture most likely represents asymptomatic bacteriuria. Ertapenem will be discontinued. #4: Asplenia: Patient with history of splenectomy. Patient does not know what her vaccination history is. We will obtain records from patient's primary care provider to assess her vaccination status, provide any vaccinations that may be given in hospital and recommended any further outpatient vaccinations that patient may need. My preceptor for this patient encounter was physically present in the building during the encounter and was fully available. As needed, all aspects of the patient interview, examination, medical decision making process, and medical care plan development were reviewed and approved by the preceptor. Preceptor is aware and concurs with the plan as stated in the body of this note and will attest to such by his/her cosignature. Allergies Coded Allergies: Latex (Verified Allergy, Intermediate, RASH, 01/20/15) Ibuprofen (Unverified Adverse Reaction, Unknown, Swelling, 09/14/16) Home Medications Scheduled (Lisinopril/Hydrochlorothi 20-12.5 mg) 1 Tab Tab 1 TAB PO DAILY (Reported) Aspirin (Aspirin) 81 Mg Tab 81 MG PO DAILY (Reported) Atenolol (Atenolol) 25 Mg Tab 25 MG PO DAILY (Reported) Budesonide/Formoterol (Symbicort 80-4.5 Mcg/Act) 60 Puff/Inhaler Aers 2 PUFF INH BID (Reported) Bupropion HCl (Bupropion HCl Sr) 150 Mg Tab 300 MG PO DAILY (Reported) Canagliflozin (Invokana) 100 Mg Tab 100 MG PO DAILY (Reported) Cetirizine HCl (Cetirizine HCl) 10 Mg Tab 10 MG PO DAILY (Reported) Gabapentin (Gabapentin) 100 Mg Cap 100 MG PO TID (Reported) Meclizine HCl (Meclizine HCl) 25 Mg Tab 25 MG PO QID (Reported) Omeprazole (Omeprazole) 10 Mg Cap 10 MG PO DAILY (Reported) Ranitidine HCl (Ranitidine HCl) 150 Mg Tab 1 TAB PO QID (Reported) Sertraline HCl (Sertraline HCl) 100 Mg Tab 150 MG PO DAILY (Reported) Topiramate (Topamax) 100 Mg Tab 100 MG PO BID (Reported) Scheduled PRN Acetaminophen (Tylenol Extra Strength) 500 Mg Tab 1,000 MG PO Q4H PRN PRN PAIN ( Reported) Acetaminophen/Hydrocodone (Hydrocodone/Acetaminophen 5-325 mg) 1 Tab Tab 1 TAB PO Q8H PRN PRN PAIN (Reported) Albuterol Sulfate (Ventolin Hfa) 200 Puff/8 Gm Aers 2 PUFF INH Q4H PRN PRN SHORTNESS OF BREATH (Reported) Alprazolam (Alprazolam) 0.25 Mg Tab 0.25 MG PO BID PRN PRN ANXIETY (Reported) YUMIKO SUTHERLAND DO Sep 17, 2016 18:05
[2016-09-17 20:00] VITALS: BP 131/56
[2016-09-17] MEDS: LIDOCAINE 5% (LIDODERM) PATCH TD SCH (22:54)
[2016-09-18] VITALS: BP 135/63
[2016-09-18] MEDS ORDERED: LevoFLOXacin 250 MG in APPROPRIATE DILUENT 1 EA IV SCH (06:00)
[2016-09-18] MEDS: HEPARIN SOD (PORCINE) 5000 UNITS/ML VIAL SC SCH ×3 (06:34→22:08)
[2016-09-18 07:05] LABS: BASO # 0.2 K/mm3 (0.0-0.2); BASO % 1.4 % (0.0-1.0); EOS # 0.3 K/mm3 (0.0-0.50); EOS % 2.4 % (0.0-3.0); LARGE UNSTAINED CELL # 0.3 K/mm3 (0.0-0.4); LARGE UNSTAINED CELL % 2.4 % (0.0-4.0); LYMPH % 28.6 % (24.0-44.0); MEAN CORPUSCULAR HEMOGLOBIN 29.4 pg (27.0-33.0); MEAN CORPUSCULAR HGB CONC 31.3 g/dl (32.0-36.5); MEAN CORPUSCULAR VOLUME 93.9 fl (80.0-96.0); MONO # 0.5 K/mm3 (0.0-0.8); MONO % 4.1 % (0.0-5.0); NEUTROPHILS # 7.8 K/mm3 (1.8-7.7); PLATELET COUNT, AUTOMATED 483 k/mm3 (150-450); RED CELL DISTRIBUTION WIDTH 15.3 % (11.5-14.5); WHITE BLOOD COUNT 12.7 K/mm3 (4.0-10.0)
[2016-09-18 07:37] LABS: ALBUMIN 2.7 GM/DL (3.2-5.2); ALBUMIN/GLOBULIN RATIO 0.71 (1.00-1.93); BILIRUBIN,TOTAL 0.2 MG/DL (0.2-1.0); CALCIUM LEVEL 8.9 MG/DL (8.5-10.1); CREATININE FOR GFR 1.63 MG/DL (0.55-1.02); GLOMERULAR FILTRATION RATE 35.7 (>58); MAGNESIUM LEVEL 1.9 MG/DL (1.8-2.4); POTASSIUM SERUM 4.3 MEQ/L (3.5-5.1); TOTAL PROTEIN 6.5 GM/DL (6.4-8.2)
[2016-09-18 08:00] VITALS: BP 115/63
[2016-09-18] MEDS: buPROPion **SR TABLET** (ZYBAN) 150MG PO SCH (08:26)
[2016-09-18] MEDS: TOPIRAMATE (TopAMAX) 100 MG TAB PO SCH ×2 (08:26→20:11)
[2016-09-18] MEDS: PANTOPRAZOLE 40MG INJ (PROTONIX) (C9113) IV SCH ×2 (08:26→20:11)
[2016-09-18] MEDS: NICOTINE 14 MG/24 HR TRANSDERMAL TD SCH (08:26)
[2016-09-18] MEDS: SERTRALINE HCL 50 MG TAB PO SCH (08:27)
[2016-09-18] MEDS: SYMBICORT 80/4.5MCG INHALER 6GM INH SCH ×2 (08:27→21:11)
[2016-09-18] MEDS: **NOTE PATIENT COMMENT** MISC XX SCH (08:28)
[2016-09-18] MEDS: HumaLOG INSULIN (NovoLOG) PER UNIT SC SCH ×4 (08:36→21:00)
[2016-09-18 16:45] VITALS: BP_SYST 130; BP_SYST 137; BP_SYST 153; BP_DIAS 56; BP_DIAS 61; BP_DIAS 65
[2016-09-18 20:00] VITALS: BP 121/57
[2016-09-18] MEDS: LIDOCAINE 5% (LIDODERM) PATCH TD SCH (20:12)
--- NOTE | 2016-09-18 22:27 | IPNPDOC ---
Assessment/Plan Date Seen The patient was seen on 09/18/16. Problems Problems: (1) Pancreatitis Status: Acute Response to Treatment: Improving Problem Text: * possibly viral pancreatitis. * patient recently had gastroenteritis which had resolved by the time she came to ER. However her brother is admitted with Noravirus gastroenteritis and both of them live in the same house and had similar symptoms. So I think possibly patient also had noro virus gastroenteritis. * Pt's has had a cholecystectomy, does not drink alcohol * will stop IVF, advance diet. (2) Krfrj-ny-xcyoujo kidney injury Status: Acute Response to Treatment: Improving Problem Text: * Crow on ckd stage 3 * Pt reports her baseline GFR is 34. Suspect she has an acute on chronic kidney injury secondary to hypovolemia from her 7 day history of vomiting and diarrhea.GFR almost back to baseline. (3) Diarrhea Status: Resolved Problem Text: possibly had Norovirus gastroenteritis which had already resolved by the time she came to ED As her brother who presented yesterday with diarrhea was found to have NOro virus in gi panel and they live in the same house. (4) UTI (urinary tract infection) Status: Acute Problem Text: urine culture with ESBL ecoli however does not have any urinary symptoms received one dose of ertapenem then it was discontinued by ID (5) GERD (gastroesophageal reflux disease) Status: Chronic Problem Text: Pt is currently on 40 mg omeprazole PO QD at home. Due to her story of worsening reflux symptoms and her current N/V/D, we will give her protonix 40mg IV BID. (6) Sleep apnea Status: Chronic Problem Text: Pt's sleep apnea is well managed through her home CPAP machine. Will allow pt to bring CPAP from home and continue use in hospital. (7) Non-insulin dependent type 2 diabetes mellitus Status: Chronic Problem Text: Pt is well managed on her PO medications. Her glucose baseline reportedly ranges from 114-186. Will take her off her PO medications for her hospital stay and put her on sliding scale of insulin. (8) DVT prophylaxis Status: Acute Problem Text: Due to pt's poor renal function, we will give heparin sc BID. TEDs and SEQs. (9) Metabolic acidosis Status: Acute Response to Treatment: Improving Problem Text: Non anion gap metabolic acidemia which i think was initially due to Gi losses now due to hyperchloremia from IVF. Plan / VTE VTE Prophylaxis Ordered?: Yes Plan IVF: Continue Diet: Make NPO Subjective Review of Systems CC/HPI The patient is a 50-year-old female admitted with a reason for visit of Crow; Pancreatitis;Uti. Constitutional: Denies: Chills, Fever, Malaise, Night Sweats, Weakness Gastrointestinal: Denies: Abdominal Pain, Diarrhea, Nausea, Vomiting Objective Physical Examination General Exam: Positive: Alert, Cooperative, No Acute Distress Eye Exam: Positive: Conjunctiva & lids normal, EOMI, PERRLA, Negative: Sclera icteric ENT Exam: Positive: Atraumatic, Mucous membr. moist/pink, Pharynx Normal Neck Exam: Positive: Supple, Negative: JVD, thyromegaly Chest Exam: Positive: Clear to auscultation, Normal air movement, Negative: Rales, Rhonchi, Wheezing Heart Exam: Positive: Rate Normal Abdomen Exam: Positive: Normal bowel sounds, Other (Rebound tenderness under umbilicus and over RLQ), Soft, Tenderness (Tender to palpation RLQ and midline under umbilicus), Negative: Hepatospenomegaly, Mass Extremity Exam: Positive: Normal pulses, Negative: Clubbing, Cyanosis, Edema Skin Exam: Positive: Nl turgor and temperature, Rash (Macularpapular rash over anterior LLE), Negative: Breakdown Psych Exam: Positive: Mental status NL, Mood NL, Oriented x 3 Vital Signs/I&O Vital Signs Date Time Temp Pulse Resp B/P Pulse Ox O2 Delivery O2 Flow Rate FiO2 09/18/16 20:00 98.2 77 18 121/57 98 Room Air I&O- Last 24 Hours up to 6 AM 09/18/16 06:00 Intake Total 1520 ml Output Total 3600 ml Balance -2080 ml Laboratory Data Labs 24H Laboratory Tests 2 09/18/16 06:44: Blood Urea Nitrogen 32H, Creatinine 1.63H, Sodium Level 146H, Potassium Level 4.3, Chloride Level 120H, Carbon Dioxide Level 17L, Calcium Level 8.9, Aspartate Amino Transf (AST/SGOT) 12L, Alanine Aminotransferase (ALT/SGPT) 18, Alkaline Phosphatase 70, Total Bilirubin 0.2, Total Protein 6.5, Albumin 2.7L, Albumin/Globulin Ratio 0.71L, Anion Gap 9, White Blood Count 12.7H, Red Blood Count 3.44L, Hemoglobin 10.1L, Hematocrit 32.3L, Mean Corpuscular Volume 93.9, Mean Corpuscular Hemoglobin 29.4, Mean Corpuscular Hemoglobin Concent 31.3L, Red Cell Distribution Width 15.3H, Platelet Count 483H, Neutrophils (%) (Auto) 61.0, Lymphocytes (%) (Auto) 28.6, Monocytes (%) (Auto) 4.1, Eosinophils (%) ( Auto) 2.4, Basophils (%) (Auto) 1.4H, Neutrophils # (Auto) 7.8H, Lymphocytes # ( Auto) 4.0, Monocytes # (Auto) 0.5, Eosinophils # (Auto) 0.3, Basophils # (Auto) 0.2, Glomerular Filtration Rate 35.7L, Large Unclassified Cells # 0.3, Large Unclassified Cells % 2.4, Magnesium Level 1.9 CBC/BMP Laboratory Tests 09/18/16 06:44 Calcium Level 8.9, Aspartate Amino Transf (AST/SGOT) 12 L, Alanine Aminotransferase (ALT/SGPT) 18, Alkaline Phosphatase 70, Total Bilirubin 0.2, Total Protein 6.5, Albumin 2.7 L, Red Blood Count 3.44 L, Mean Corpuscular Volume 93.9, Mean Corpuscular Hemoglobin 29.4, Mean Corpuscular Hemoglobin Concent 31.3 L, Red Cell Distribution Width 15.3 H, Neutrophils (%) (Auto) 61.0 , Lymphocytes (%) (Auto) 28.6, Monocytes (%) (Auto) 4.1, Eosinophils (%) (Auto) 2.4, Basophils (%) (Auto) 1.4 H, Neutrophils # (Auto) 7.8 H, Lymphocytes # (Auto ) 4.0, Monocytes # (Auto) 0.5, Eosinophils # (Auto) 0.3, Basophils # (Auto) 0.2 Microbiology Microbiology 09/14/16 Blood Culture - Preliminary, Resulted No Growth after 72 hours. All specime... 09/14/16 Blood Culture - Preliminary, Resulted No Growth after 72 hours. All specime... 09/18/16 Gastrointestinal Tract Panel (PCR) - Final, Complete 09/14/16 Urine Culture - Final, Complete E.coli Esbl JUANI EMANUEL DO Sep 18, 2016 22:27
[2016-09-19] VITALS: BP 142/65
[2016-09-19] MEDS: HEPARIN SOD (PORCINE) 5000 UNITS/ML VIAL SC SCH ×3 (06:57→21:28)
[2016-09-19 07:10] LABS: BASO # 0.1 K/mm3 (0.0-0.2); BASO % 0.8 % (0.0-1.0); EOS # 0.4 K/mm3 (0.0-0.50); EOS % 3.2 % (0.0-3.0); LARGE UNSTAINED CELL # 0.3 K/mm3 (0.0-0.4); LARGE UNSTAINED CELL % 2.3 % (0.0-4.0); LYMPH # 3.6 K/mm3 (1.5-4.5); LYMPH % 30.7 % (24.0-44.0); MEAN CORPUSCULAR HEMOGLOBIN 29.4 pg (27.0-33.0); MEAN CORPUSCULAR HGB CONC 31.3 g/dl (32.0-36.5); MEAN CORPUSCULAR VOLUME 93.7 fl (80.0-96.0); MONO # 0.7 K/mm3 (0.0-0.8); MONO % 6.1 % (0.0-5.0); NEUTROPHILS # 6.6 K/mm3 (1.8-7.7); NEUTROPHILS % 56.8 % (36.0-66.0); PLATELET COUNT, AUTOMATED 479 k/mm3 (150-450); RED CELL DISTRIBUTION WIDTH 14.6 % (11.5-14.5); WHITE BLOOD COUNT 11.7 K/mm3 (4.0-10.0)
[2016-09-19 07:41] LABS: ALBUMIN 2.7 GM/DL (3.2-5.2); ALBUMIN/GLOBULIN RATIO 0.84 (1.00-1.93); BILIRUBIN,TOTAL 0.1 MG/DL (0.2-1.0); CALCIUM LEVEL 9.1 MG/DL (8.5-10.1); CREATININE FOR GFR 1.44 MG/DL (0.55-1.02); GLOMERULAR FILTRATION RATE 41.2 (>58); MAGNESIUM LEVEL 1.7 MG/DL (1.8-2.4); POTASSIUM SERUM 4.7 MEQ/L (3.5-5.1); TOTAL PROTEIN 5.9 GM/DL (6.4-8.2)
[2016-09-19 08:00] VITALS: BP 141/78
[2016-09-19] MEDS: SYMBICORT 80/4.5MCG INHALER 6GM INH SCH ×2 (08:00→19:40)
[2016-09-19] MEDS: TOPIRAMATE (TopAMAX) 100 MG TAB PO SCH ×2 (08:34→21:28)
[2016-09-19] MEDS: SERTRALINE HCL 50 MG TAB PO SCH (08:35)
[2016-09-19] MEDS: buPROPion **SR TABLET** (ZYBAN) 150MG PO SCH (08:36)
[2016-09-19] MEDS: **NOTE PATIENT COMMENT** MISC XX SCH (09:00)
[2016-09-19] MEDS: HumaLOG INSULIN (NovoLOG) PER UNIT SC SCH ×4 (09:24→21:00)
[2016-09-19] MEDS: NICOTINE 14 MG/24 HR TRANSDERMAL TD SCH (09:25)
[2016-09-19] MEDS: PANTOPRAZOLE 40MG INJ (PROTONIX) (C9113) IV SCH ×2 (09:26→21:28)
[2016-09-19 10:30] VITALS: BP_SYST 124; BP_SYST 128; BP_SYST 130; BP_DIAS 58; BP_DIAS 63; BP_DIAS 67
--- NOTE | 2016-09-19 11:58 | IPNPDOC ---
Assessment/Plan Date Seen The patient was seen on 09/19/16. Problems Problems: (1) Pancreatitis Status: Acute Response to Treatment: Improving Problem Text: * possibly viral pancreatitis. * still has elevated lipase level * patient recently had gastroenteritis which had resolved by the time she came to ER. However her brother is admitted with Noravirus gastroenteritis and both of them live in the same house and had similar symptoms. So I think possibly patient also had noro virus gastroenteritis. * Pt's has had a cholecystectomy, does not drink alcohol * will continue to monitor pt one more day and discharge in 24-48 hours (2) [id number]-[id number] kidney injury Status: Resolved Problem Text: * Crow on ckd stage 3 * Pt reports her baseline GFR is 34. Suspect she has an acute on chronic kidney injury secondary to hypovolemia from her 7 day history of vomiting and diarrhea.GFR * likely pt is back to her baseline [employer] of 1.44, which is what it was last march * she follows up with dr blake faust (3) Diarrhea Status: Resolved Problem Text: possibly had Norovirus gastroenteritis which had already resolved by the time she came to ED As her brother who presented yesterday with diarrhea was found to have NOro virus in gi panel and they live in the same house. (4) Abnormal urinalysis Status: Chronic Problem Text: * urine was positive for ESBL but due to low count * it was felt like it was likely a colonizer * no antibiotics needed at this time (5) GERD (gastroesophageal reflux disease) Status: Chronic Problem Text: Pt is currently on 40 mg omeprazole PO QD at home. Due to her story of worsening reflux symptoms and her current N/V/D, we will give her protonix 40mg IV BID. (6) Sleep apnea Status: Chronic Problem Text: * Pt's sleep apnea is well managed through her home CPAP machine. * Will allow pt to bring CPAP from home and continue use in hospital. (7) Non-insulin dependent type 2 diabetes mellitus Status: Chronic Problem Text: Pt is well managed on her PO medications. Her glucose baseline reportedly ranges from 114-186. Will take her off her PO medications for her hospital stay and put her on sliding scale of insulin. (8) DVT prophylaxis Status: Acute Problem Text: Due to pt's poor renal function, we will give heparin sc BID. TEDs and SEQs. (9) Metabolic acidosis Status: Resolved Problem Text: Non anion gap metabolic acidemia which i think was initially due to Gi losses Plan / VTE VTE Prophylaxis Ordered?: Yes Plan IVF: Continue Diet: Make NPO Subjective Review of Systems CC/HPI The patient is a 50-year-old female admitted with a reason for visit of Crow; Pancreatitis;Uti. Events since last encounter pt seen and examined, feels better states she had bowel movements not diarrhea, no abd pain, no nausea or vomiting, tolerating diet. Objective Physical Examination General Exam: Positive: Alert, Cooperative, No Acute Distress Eye Exam: Positive: Conjunctiva & lids normal, EOMI, PERRLA, Negative: Sclera icteric ENT Exam: Positive: Atraumatic, Mucous membr. moist/pink, Pharynx Normal Neck Exam: Positive: Supple, Negative: JVD, thyromegaly Chest Exam: Positive: Clear to auscultation, Normal air movement, Negative: Rales, Rhonchi, Wheezing Heart Exam: Positive: Rate Normal Abdomen Exam: Positive: Normal bowel sounds, Other (Rebound tenderness under umbilicus and over RLQ), Soft, Tenderness (Tender to palpation RLQ and midline under umbilicus), Negative: Hepatospenomegaly, Mass Extremity Exam: Positive: Normal pulses, Negative: Clubbing, Cyanosis, Edema Skin Exam: Positive: Nl turgor and temperature, Rash (Macularpapular rash over anterior LLE), Negative: Breakdown Psych Exam: Positive: Mental status NL, Mood NL, Oriented x 3 Vital Signs/I&O Vital Signs Date Time Temp Pulse Resp B/P Pulse Ox O2 Delivery O2 Flow Rate FiO2 09/19/16 10:30 124/58 130/67 128/63 09/19/16 08:00 97.0 90 18 96 Room Air I&O- Last 24 Hours up to 6 AM 09/19/16 06:00 Intake Total 1200 ml Output Total 2101 ml Balance -901 ml Laboratory Data Labs 24H Laboratory Tests 2 09/18/16 16:42: Bedside Glucose (Misc Panel) 137H 09/18/16 20:32: Bedside Glucose (Misc Panel) 123H 09/19/16 06:44: Blood Urea Nitrogen 31H, Creatinine 1.44H, Sodium Level 147H, Potassium Level 4.7, Chloride Level 119H, Carbon Dioxide Level 20L, Calcium Level 9.1, Aspartate Amino Transf (AST/SGOT) 12L, Alanine Aminotransferase (ALT/SGPT) 14, Alkaline Phosphatase 63, Total Bilirubin 0.1L, Total Protein 5.9L, Albumin 2.7L , Albumin/Globulin Ratio 0.84L, Anion Gap 8, White Blood Count 11.7H, Red Blood Count 3.27L, Hemoglobin 9.6L, Hematocrit 30.6L, Mean Corpuscular Volume 93.7, Mean Corpuscular Hemoglobin 29.4, Mean Corpuscular Hemoglobin Concent 31.3L, Red Cell Distribution Width 14.6H, Platelet Count 479H, Neutrophils (%) (Auto) 56.8, Lymphocytes (%) (Auto) 30.7, Monocytes (%) (Auto) 6.1H, Eosinophils (%) ( Auto) 3.2H, Basophils (%) (Auto) 0.8, Neutrophils # (Auto) 6.6, Lymphocytes # ( Auto) 3.6, Monocytes # (Auto) 0.7, Eosinophils # (Auto) 0.4, Basophils # (Auto) 0.1, Glomerular Filtration Rate 41.2L, Large Unclassified Cells # 0.3, Large Unclassified Cells % 2.3, Lipase 1484H, Magnesium Level 1.7L CBC/BMP Laboratory Tests 09/19/16 06:44 Calcium Level 9.1, Aspartate Amino Transf (AST/SGOT) 12 L, Alanine Aminotransferase (ALT/SGPT) 14, Alkaline Phosphatase 63, Total Bilirubin 0.1 L, Total Protein 5.9 L, Albumin 2.7 L, Red Blood Count 3.27 L, Mean Corpuscular Volume 93.7, Mean Corpuscular Hemoglobin 29.4, Mean Corpuscular Hemoglobin Concent 31.3 L, Red Cell Distribution Width 14.6 H, Neutrophils (%) (Auto) 56.8 , Lymphocytes (%) (Auto) 30.7, Monocytes (%) (Auto) 6.1 H, Eosinophils (%) (Auto ) 3.2 H, Basophils (%) (Auto) 0.8, Neutrophils # (Auto) 6.6, Lymphocytes # (Auto ) 3.6, Monocytes # (Auto) 0.7, Eosinophils # (Auto) 0.4, Basophils # (Auto) 0.1 FSBS Laboratory Tests Test 09/18/16 16:42 09/18/16 20:32 Range/Units Bedside Glucose (Misc Panel) 137 123 70-105 MG/DL Microbiology Microbiology 09/14/16 Blood Culture - Preliminary, Resulted No Growth after 72 hours. All specime... 09/14/16 Blood Culture - Preliminary, Resulted No Growth after 72 hours. All specime... 09/18/16 Gastrointestinal Tract Panel (PCR) - Final, Complete 09/14/16 Urine Culture - Final, Complete E.coli Esbl JUANI EMANUEL DO Sep 19, 2016 11:58
[2016-09-19] MEDS: MAGNESIUM OXIDE 400 MG TAB (MAG-OX) PO SCH ×2 (12:36→21:28)
[2016-09-19 16:00] VITALS: BP 124/57
[2016-09-19 20:00] VITALS: BP 120/57
[2016-09-19] MEDS: LIDOCAINE 5% (LIDODERM) PATCH TD SCH (21:35)
[2016-09-20] VITALS: BP 104/51
[2016-09-20] MEDS: PERCOCET 5MG/325MG TAB PO PRN (04:14)
[2016-09-20 06:55] LABS: BASO # 0.1 K/mm3 (0.0-0.2); EOS # 0.4 K/mm3 (0.0-0.50); EOS % 2.9 % (0.0-3.0); LARGE UNSTAINED CELL # 0.3 K/mm3 (0.0-0.4); LARGE UNSTAINED CELL % 2.5 % (0.0-4.0); LYMPH # 4.5 K/mm3 (1.5-4.5); LYMPH % 35.2 % (24.0-44.0); MEAN CORPUSCULAR HEMOGLOBIN 29.4 pg (27.0-33.0); MEAN CORPUSCULAR HGB CONC 31.3 g/dl (32.0-36.5); MEAN CORPUSCULAR VOLUME 94.1 fl (80.0-96.0); MONO # 0.7 K/mm3 (0.0-0.8); MONO % 5.3 % (0.0-5.0); NEUTROPHILS # 6.9 K/mm3 (1.8-7.7); NEUTROPHILS % 53.2 % (36.0-66.0); PLATELET COUNT, AUTOMATED 485 k/mm3 (150-450); RED CELL DISTRIBUTION WIDTH 14.6 % (11.5-14.5); WHITE BLOOD COUNT 12.9 K/mm3 (4.0-10.0)
[2016-09-20 07:21] LABS: ALBUMIN 2.7 GM/DL (3.2-5.2); ALBUMIN/GLOBULIN RATIO 0.84 (1.00-1.93); BILIRUBIN,TOTAL 0.1 MG/DL (0.2-1.0); CREATININE FOR GFR 1.21 MG/DL (0.55-1.02); GLOMERULAR FILTRATION RATE 50.3 (>58); MAGNESIUM LEVEL 1.9 MG/DL (1.8-2.4); POTASSIUM SERUM 4.8 MEQ/L (3.5-5.1); TOTAL PROTEIN 5.9 GM/DL (6.4-8.2)
[2016-09-20] MEDS: SYMBICORT 80/4.5MCG INHALER 6GM INH SCH (07:55)
[2016-09-20 08:00] VITALS: BP 135/66
[2016-09-20] MEDS: HumaLOG INSULIN (NovoLOG) PER UNIT SC SCH (08:15)
[2016-09-20] MEDS: MAGNESIUM OXIDE 400 MG TAB (MAG-OX) PO SCH (08:16)
[2016-09-20] MEDS: SERTRALINE HCL 50 MG TAB PO SCH (08:16)
[2016-09-20] MEDS: TOPIRAMATE (TopAMAX) 100 MG TAB PO SCH (08:16)
[2016-09-20] MEDS: PANTOPRAZOLE 40MG INJ (PROTONIX) (C9113) IV SCH ×2 (08:16→09:00)
[2016-09-20] MEDS: **NOTE PATIENT COMMENT** MISC XX SCH (08:17)
[2016-09-20] MEDS: NICOTINE 14 MG/24 HR TRANSDERMAL TD SCH (08:17)
[2016-09-20] MEDS: buPROPion **SR TABLET** (ZYBAN) 150MG PO SCH (08:42)
== END 2016-09-20 11:15 | disposition home or self-care (01) | DRG 460 ==
LOC: M ED 19:33 → EEVIPCON 09-15 01:10 → M ED INP 09-15 01:10 → M PED 09-15 02:45
PROVIDERS: ADMIT Hospitalist; ATTEND Internal Medicine
DX: N17.9 Acute kidney failure, unspecified (principal); K85.90 Acute pancreatitis without necrosis or infection, unspecified; E87.2 Acidosis; N18.3 Chronic kidney disease, stage 3 (moderate); I12.9 Hypertensive chronic kidney disease with stage 1 through stage 4 chronic kidney disease, or unspecified chronic kidney disease; G43.909 Migraine, unspecified, not intractable, without status migrainosus; G47.30 Sleep apnea, unspecified; E86.1 Hypovolemia; F17.210 Nicotine dependence, cigarettes, uncomplicated; E11.9 Type 2 diabetes mellitus without complications; Z79.82 Long term (current) use of aspirin; Z79.899 Other long term (current) drug therapy

== ENCOUNTER → 2016-10-22 | Outpatient (CLI) | payer OTHER ==
[~2016-10-22] MED LIST changes: +ALBU17IN INH; +ASPI81TA7 PO; +ATEN25TA PO; +BUPR15TASR PO; +CETI10TA PO; +GABA-279 PO; +HYDR-3713 PO; +INVO100T PO; +LISI20TA PO; +MECL-68 PO; +OMEP10CA45 PO; +SERT-138 PO; +SYMB80INH INH; +TOPA100T8 PO; +TYLE500T78 PO
--- NOTE | 2016-10-22 11:28 | REPMRS ---
Patient History The patient states she has not had a clinical breast exam in over a year. Family history of colorectal cancer in father at age 50 or over, unknown cancer in maternal grandfather at age 50 or over, unknown cancer in paternal grandfather at age 50 or over, unknown cancer in 4 maternal aunts at age 50 or over, unknown cancer in paternal grandmother at age 50 or over, unknown cancer in maternal grandmother at age 50 or over, breast cancer in 2 maternal cousins at age 50 or over, unknown cancer in paternal uncle at age 50 or over, and unknown cancer in 4 maternal uncles at age 50 or over. Digital Mammo Screening Bilat: October 22, 2016 - Exam #: [id number] Bilateral CC and MLO view(s) were taken. Technologist: Cara Kimball Technologist Prior study comparison: September 16, 2013, digital woman screen mammo, performed at [facility]. July 25, 2012, digital woman screen mammo, performed at [facility]. FINDINGS: There are scattered fibroglandular densities. There has been no change in the appearance of the mammogram from the prior studies. There is a mild amount of residual fibroglandular tissue which is fairly symmetric. There is no interval development of dominant mass, architectural distortion, or clustered microcalcification suggestive of malignancy. ASSESSMENT: BI-RADS/ACR category 1 mammogram. Negative. Recommendation Routine screening mammogram in 1 year (for women over age 40). This mammogram was interpreted with the aid of an FDA-approved computer-aided dectection system. Electronically Signed By: Kunal Murillo MD 10/22/16 [id number]
== END ==
LOC: M RAD 10:27
PROVIDERS: ATTEND Nurse Practitioner Adult Health
DX: Z12.31 Encounter for screening mammogram for malignant neoplasm of breast (principal)

== ENCOUNTER → 2016-11-27 | Outpatient (CLI) | payer OTHER ==
[~2016-11-27] VITALS: Ht 170.2 cm; Wt 131.1 kg
[~2016-11-27] MED LIST changes: +ALBUTEROL 6.7GM INHALER **FOR ANES. CART/OMNICELL ONLY As Ordered ONE; +DRIS50002 PO; +FURO40TA2 PO; +LIDOCAINE 2% INJ 100 MG/5 ML SDV (FOR ANES.) As Ordered ONE; +LISI10TA2 PO; +LR 1,000 ML IV SCH; +PROP1TAB29 PO; +PROPOFOL 200 MG/20 ML VIAL As Ordered ONE; +TOUJ1.2I SC
[2016-11-27 08:42] VITALS: BP 134/60
--- NOTE | 2016-11-27 09:14 | ROOR ---
Patient Name: Flor Figueroa Procedure Date: 11/27/2016 7:31 AM Date of : 1965 Age: 51 Room: [facility] Gender: Female Note Status: Finalized Procedure: Upper GI endoscopy Indications: Suspected gastro-esophageal reflux disease, Nausea Providers: Monico Bower MD Referring MD: OPAL REED NP Requesting Provider: Medicines: Monitored Anesthesia Care Complications: Hypoxia, Patient became hypoxic and required support with additional oxygen with assisted respiration using a bag-valve mask. Procedure: Pre-Anesthesia Assessment: - Prior to the procedure, a History and Physical was performed, and patient medications and allergies were reviewed. The patient is competent. The risks and benefits of the procedure and the sedation options and risks were discussed with the patient. All questions were answered and informed consent was obtained. Patient identification and proposed procedure were verified by the physician, the nurse and the anesthesiologist in the procedure room. Mental Status Examination: alert and oriented. Airway Examination: normal oropharyngeal airway and neck mobility. CV Examination: regular rate and rhythm. Prophylactic Antibiotics: The patient does not require prophylactic antibiotics. Prior Anticoagulants: The patient has taken no previous anticoagulant or antiplatelet agents. ASA Grade Assessment: III - A patient with severe systemic disease. After reviewing the risks and benefits, the patient was deemed in satisfactory condition to undergo the procedure. The anesthesia plan was to use monitored anesthesia care (MAC). Immediately prior to administration of medications, the patient was re-assessed for adequacy to receive sedatives. The heart rate, respiratory rate, oxygen saturations, blood pressure, adequacy of pulmonary ventilation, and response to care were monitored throughout the procedure. The physical status of the patient was re-assessed after the procedure. The Endoscope was introduced through the mouth, and advanced to the second part of duodenum. The upper GI endoscopy was accomplished without difficulty. The patient tolerated the procedure well. Findings: A small hiatal hernia was present. The entire examined stomach was normal. The first portion of the duodenum and second portion of the duodenum were normal. Impression: - Small hiatal hernia. - Normal stomach. - Normal first portion of the duodenum and second portion of the duodenum. - No specimens collected. Recommendation: - Continue present medications. - Return to my office PRN. Monico Bower MD 11/27/2016 9:14:14 AM Number of Addenda: 0 Note Initiated On: 11/27/2016 7:31 AM Estimated Blood Loss: Estimated blood loss: none.
--- NOTE | 2016-11-27 10:39 | ROOR ---
Patient Name: Flor Figueroa Procedure Date: 11/27/2016 7:32 AM Date of : 1965 Age: 51 Room: [facility] Gender: Female Note Status: Finalized Procedure: Colonoscopy Indications: Screening in patient at increased risk: Family history of 1st-degree relative with colorectal cancer Providers: Monico Bower MD Referring MD: OPAL REED NP Requesting Provider: Medicines: Monitored Anesthesia Care Complications: No immediate complications. Procedure: Pre-Anesthesia Assessment: - Prior to the procedure, a History and Physical was performed, and patient medications and allergies were reviewed. The patient is competent. The risks and benefits of the procedure and the sedation options and risks were discussed with the patient. All questions were answered and informed consent was obtained. Patient identification and proposed procedure were verified by the physician, the nurse and the anesthesiologist in the procedure room. Mental Status Examination: alert and oriented. Airway Examination: normal oropharyngeal airway and neck mobility. CV Examination: regular rate and rhythm. Prophylactic Antibiotics: The patient does not require prophylactic antibiotics. Prior Anticoagulants: The patient has taken no previous anticoagulant or antiplatelet agents. ASA Grade Assessment: III - A patient with severe systemic disease. After reviewing the risks and benefits, the patient was deemed in satisfactory condition to undergo the procedure. The anesthesia plan was to use monitored anesthesia care (MAC). Immediately prior to administration of medications, the patient was re-assessed for adequacy to receive sedatives. The heart rate, respiratory rate, oxygen saturations, blood pressure, adequacy of pulmonary ventilation, and response to care were monitored throughout the procedure. The physical status of the patient was re-assessed after the procedure. The was introduced through the anus and advanced to the cecum, identified by appendiceal orifice and ileocecal valve. The colonoscopy was performed without difficulty. The patient tolerated the procedure well. The quality of the bowel preparation was excellent. Findings: The perianal and digital rectal examinations were normal. The colon (entire examined portion) appeared normal. Impression: - The entire examined colon is normal. - No specimens collected. Recommendation: - Discharge patient to home. - Resume previous diet. - Continue present medications. - Return to my office PRN. Monico Bower MD 11/27/2016 10:38:43 AM Number of Addenda: 0 Note Initiated On: 11/27/2016 7:32 AM Estimated Blood Loss: Estimated blood loss: none.
== END | disposition home or self-care (01) ==
LOC: M OPP 06:44
PROVIDERS: ATTEND Surgery
DX: Z12.11 Encounter for screening for malignant neoplasm of colon (principal); Z80.0 Family history of malignant neoplasm of digestive organs; R11.2 Nausea with vomiting, unspecified; K44.9 Diaphragmatic hernia without obstruction or gangrene; I12.9 Hypertensive chronic kidney disease with stage 1 through stage 4 chronic kidney disease, or unspecified chronic kidney disease; E11.9 Type 2 diabetes mellitus without complications; K21.9 Gastro-esophageal reflux disease without esophagitis; M19.90 Unspecified osteoarthritis, unspecified site; F41.9 Anxiety disorder, unspecified; F33.9 Major depressive disorder, recurrent, unspecified; J44.9 Chronic obstructive pulmonary disease, unspecified; G47.30 Sleep apnea, unspecified; N18.3 Chronic kidney disease, stage 3 (moderate); R32 Unspecified urinary incontinence; F17.200 Nicotine dependence, unspecified, uncomplicated; E66.9 Obesity, unspecified; Z87.820 Personal history of traumatic brain injury; Z79.899 Other long term (current) drug therapy; Z79.82 Long term (current) use of aspirin; Z88.8 Allergy status to other drugs, medicaments and biological substances; Z91.040 Latex allergy status

== ENCOUNTER → 2016-12-26 | Outpatient (CLI) | payer OTHER ==
[~2016-12-26] MED LIST changes: -ALBUTEROL 6.7GM INHALER **FOR ANES. CART/OMNICELL ONLY As Ordered ONE; -LIDOCAINE 2% INJ 100 MG/5 ML SDV (FOR ANES.) As Ordered ONE; -LR 1,000 ML IV SCH; -PROPOFOL 200 MG/20 ML VIAL As Ordered ONE
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
== END ==
LOC: M PAIN 09:40
PROVIDERS: ATTEND Nurse Practitioner Family
DX: G89.29 Other chronic pain (principal); M79.1 Myalgia; M46.92 Unspecified inflammatory spondylopathy, cervical region; M25.512 Pain in left shoulder; M25.511 Pain in right shoulder; K21.9 Gastro-esophageal reflux disease without esophagitis; F41.9 Anxiety disorder, unspecified; G47.30 Sleep apnea, unspecified; G43.909 Migraine, unspecified, not intractable, without status migrainosus; J44.9 Chronic obstructive pulmonary disease, unspecified; E11.9 Type 2 diabetes mellitus without complications; M17.12 Unilateral primary osteoarthritis, left knee; F32.9 Major depressive disorder, single episode, unspecified; N18.3 Chronic kidney disease, stage 3 (moderate); Z91.040 Latex allergy status; Z88.6 Allergy status to analgesic agent; Z79.82 Long term (current) use of aspirin; Z79.4 Long term (current) use of insulin; Z79.899 Other long term (current) drug therapy

== ENCOUNTER → 2016-12-31 | Outpatient (CLI) | payer OTHER ==
[~2016-12-31] MED LIST changes: +ISOVUE-370 76% 100ML VIAL (Q9967) As Ordered ONE
--- NOTE | 2016-12-31 15:35 | REP ---
Clinical: Atypical left adrenal lesion. Technique: Axial portal venous phase enhanced images of the abdomen and pelvis from the lung bases to the pubic symphysis along with precontrast, arterial phase, and delayed phase images of the abdomen using 100 ml Isovue 370 intravenous contrast material with coronal and sagittal re-formations. Comparison: 09/14/2016 through 06/19/2011. Findings: The right adrenal gland demonstrates a 10 mm nodule which is low density on precontrast and enhanced images and consistent with small adenoma. A 2.5 cm left adrenal lesion remains stable compared to 06/19/2011 and demonstrates complete washout of enhancement on delayed imaging thereby compatible with atypical adenoma. Fatty infiltration to the liver is appreciated without focal hepatic lesion identified. The patient is status post cholecystectomy and splenectomy. The kidneys are stable in appearance with mild chronic perinephric stranding noted and no evidence for hydroureteronephrosis, nephrolithiasis, significant cystic or mass lesion. The enteric system is without obstruction or acute inflammatory process. Colonic diverticula noted without acute diverticulitis. 2 cm fat containing periumbilical hernia noted. Pelvis demonstrates normal bladder and evidence for prior hysterectomy. No ascites. No free air. No adenopathy. Atherosclerotic changes to the vasculature noted without aneurysm or dissection. Surrounding musculoskeletal structures demonstrate age-related degenerative changes without focal osseous abnormality. Impression: 1. Bilateral adrenal lesions and stable compared to 2010 and most compatible with benign adenomas. 2. Scattered colonic diverticula without acute diverticulitis. 3. 2 cm fat containing periumbilical hernia. 4. Chronic stable changes as described above. No evidence for acute intra-abdominal or pelvic pathology otherwise appreciated. Signed by Singh Perkins MD 12/31/2016 03:27 P
== END ==
LOC: M RAD 10:49
PROVIDERS: ATTEND Internal Medicine Nephrology
DX: D35.02 Benign neoplasm of left adrenal gland (principal); K57.30 Diverticulosis of large intestine without perforation or abscess without bleeding; K42.9 Umbilical hernia without obstruction or gangrene
CPT/HCPCS: 74178; Q9967

== ENCOUNTER → 2017-01-11 | Outpatient (CLI) | payer OTHER ==
[~2017-01-11] MED LIST changes: -ISOVUE-370 76% 100ML VIAL (Q9967) As Ordered ONE
--- NOTE | 2017-01-11 09:32 | REP ---
MR LUMBAR SPINE WITHOUT CONTRAST: HISTORY: Back pain. COMPARISON: 11/03/2012 Decreased signal intensity on T2-weighted images is present in the T12-L1 and L3-4 through L5-S1 intervertebral discs. The L3-4 intervertebral disc is decreased in height. These findings are consistent with disc degeneration. A small left paracentral disc protrusion is present at the T12-L1 level. There is minimal effacement of the thecal sac without spinal cord compression. The T12 neural foramina are patent on sagittal images. There is no disc bulge or herniation at the L1-2 level. The L1 nerves exit the neural foramina without compression. A diffuse disc bulge is present at the L2-3 level. There is hypertrophy of the ligamenta flava and posterior articulating facets. These findings produce minimal central canal stenosis. The L2 nerves exit the neural foramina without compression. A diffuse disc bulge and small central disc protrusion are present at the L3-4 level. The disc protrusion is slightly decreased in size. There is hypertrophy of the ligamenta flava and posterior articulating facets. These findings produce minimal central canal stenosis. The L3 nerves exit the neural foramina without compression. A diffuse disc bulge is present at the L4-5 level. There is hypertrophy of the ligamenta flava and posterior articulating facets. These findings produce minimal central canal stenosis. The L4 nerves exit the neural foramina without compression. A diffuse disc bulge is present at the L5-S1 level. The previously noted small right paracentral disc protrusion is not seen. There is minimal compression of the thecal sac. There is hypertrophy of the posterior articulating facets. The L5 nerves exit the neural foramina without compression. The conus medullaris is normal in appearance terminating at the level of the L1 vertebral body. Normal signal intensity is present in the lumbar vertebral bodies. IMPRESSION: 1. Minimal central canal stenosis at the L2-3 and L4-5 levels secondary to disc bulge ligamentous and facet hypertrophy. 2. Minimal central canal stenosis at the L3-4 level secondary to disc bulge, disc protrusion, ligamentous and facet hypertrophy. The disc protrusion is slightly decreased in size. 3. Diffuse disc bulge at the L5-S1 level with minimal thecal sac compression. The previously noted small disc protrusion is not seen. Signed by Km Garcia MD 01/11/2017 09:43 A
--- NOTE | 2017-01-11 10:06 | REP ---
BILATERAL SHOULDER SERIES: Two views, single AP view of both sides. HISTORY: Bilateral shoulder pain. FINDINGS: A single view of each shoulder is obtained as requested. There is mild osteoarthritic hypertrophy of the acromioclavicular joints bilaterally, left more so than right. Minimal marginal spurring is seen in the inferior aspect of the humeral head on the left as well. Periarticular soft tissues are unremarkable. No erosive changes seen. IMPRESSION: Mild osteoarthritic changes left greater than right. Single view bilateral shoulder series. Signed by Sergei Andrade MD 01/11/2017 11:20 A
== END ==
LOC: M RAD 06:39
PROVIDERS: ATTEND Nurse Practitioner Family
DX: M48.06 Spinal stenosis, lumbar region (principal); M51.26 Other intervertebral disc displacement, lumbar region; M51.27 Other intervertebral disc displacement, lumbosacral region; M79.1 Myalgia; M25.511 Pain in right shoulder; M25.512 Pain in left shoulder; G89.29 Other chronic pain

== ENCOUNTER → 2017-01-15 | Outpatient (CLI) | payer OTHER ==
[~2017-01-15] MED LIST changes: +ALBU83IN INH; +ANOR1AER INH; +BUPIVACAINE HCL 0.25% 10 ML VIAL As Ordered ONE; +BUPIVACAINE HCL 0.25% 30 ML VIAL As Ordered ONE; +GABA-282 PO; +METF500T4 PO; +NICO1DIS2; +NICODIS TD; +OMEP40CA2 PO; +SPIR12.9 INH; +SYMB16INH INH; +TIOT18INH INH; +TRAM50TA2 PO; +TRIAMCINOLONE ACETONIDE SUSP 40 MG/ML VIAL (J3301) As Ordered ONE; +TYLE325T5 PO; +VITA50003 PO; +diazePAM 5 MG TAB As Ordered ONE; +oxyCODONE 5MG TAB As Ordered ONE; +toujeo SC
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
== END ==
LOC: M PAIN 08:30
PROVIDERS: ATTEND Anesthesiology
DX: G89.29 Other chronic pain (principal); M79.1 Myalgia; M54.5 Low back pain; F41.9 Anxiety disorder, unspecified; G47.30 Sleep apnea, unspecified; G43.909 Migraine, unspecified, not intractable, without status migrainosus; J44.9 Chronic obstructive pulmonary disease, unspecified; E11.9 Type 2 diabetes mellitus without complications; N18.3 Chronic kidney disease, stage 3 (moderate); M17.12 Unilateral primary osteoarthritis, left knee; F32.9 Major depressive disorder, single episode, unspecified; Z79.82 Long term (current) use of aspirin; Z79.4 Long term (current) use of insulin; Z79.84 Long term (current) use of oral hypoglycemic drugs; Z79.891 Long term (current) use of opiate analgesic; Z79.899 Other long term (current) drug therapy; Z91.040 Latex allergy status; Z88.8 Allergy status to other drugs, medicaments and biological substances

== ENCOUNTER 2017-01-19 08:53 | Observation (INO) | payer OTHER ==
[~2017-01-19] VITALS: Ht 170.2 cm; Wt 143.2 kg
[2017-01-19] MEDS: TIOTROPIUM INHALER/CAPSULE (SPIRIVA) INH SCH (08:00)
[~2017-01-19 08:53] MED LIST changes: -ALBU83IN INH; -ANOR1AER INH; -BUPIVACAINE HCL 0.25% 10 ML VIAL As Ordered ONE; -BUPIVACAINE HCL 0.25% 30 ML VIAL As Ordered ONE; -GABA-282 PO; -METF500T4 PO; -NICO1DIS2; -NICODIS TD; -OMEP40CA2 PO; -SPIR12.9 INH; -SYMB16INH INH; -TIOT18INH INH; -TRAM50TA2 PO; -TRIAMCINOLONE ACETONIDE SUSP 40 MG/ML VIAL (J3301) As Ordered ONE; -TYLE325T5 PO; -VITA50003 PO; -diazePAM 5 MG TAB As Ordered ONE; -oxyCODONE 5MG TAB As Ordered ONE; -toujeo SC
[2017-01-19] MEDS ORDERED: metFORMIN XR 500MG TAB *GLUCOPHAGE XR PO SCH (09:00)
[2017-01-19] MEDS ORDERED: VITA50003 PO (09:16)
[2017-01-19] MEDS ORDERED: SYMB16INH INH (09:16)
[2017-01-19] MEDS ORDERED: TIOT18INH INH (09:16)
[2017-01-19] MEDS ORDERED: NICO1DIS2 (09:16)
[2017-01-19] MEDS ORDERED: RANI150T PO (09:16)
[2017-01-19] MEDS ORDERED: HYDR-3713 PO (09:16)
[2017-01-19] MEDS ORDERED: toujeo SC (09:16)
[2017-01-19] MEDS ORDERED: METF500T4 PO (09:16)
[2017-01-19] MEDS ORDERED: OMEP40CA2 PO (09:16)
[2017-01-19] MEDS ORDERED: MORPHINE 4 MG/ML 1ML SYRINGE IV ONE ×2 (09:45→11:15)
[2017-01-19] MEDS ORDERED: ONDANSETRON 4MG/2ML VIAL (J2405) IV ONE (09:45)
[2017-01-19] MEDS ORDERED: SODIUM CHLORIDE 0.9% 1000 ML IV ONE (09:45)
--- NOTE | 2017-01-19 09:55 | ECGEPIP ---
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
[2017-01-19 10:12] LABS: BASO # 0.1 K/mm3 (0.0-0.2); BASO % 1.1 % (0.0-1.0); EOS # 0.1 K/mm3 (0.0-0.50); EOS % 1.1 % (0.0-3.0); LARGE UNSTAINED CELL # 0.4 K/mm3 (0.0-0.4); LARGE UNSTAINED CELL % 4.5 % (0.0-4.0); LYMPH # 1.3 K/mm3 (1.5-4.5); LYMPH % 15.4 % (24.0-44.0); MEAN CORPUSCULAR HEMOGLOBIN 29.2 pg (27.0-33.0); MEAN CORPUSCULAR HGB CONC 32.1 g/dl (32.0-36.5); MEAN CORPUSCULAR VOLUME 91.1 fl (80.0-96.0); MONO # 0.7 K/mm3 (0.0-0.8); MONO % 8.7 % (0.0-5.0); NEUTROPHILS # 5.8 K/mm3 (1.8-7.7); NEUTROPHILS % 69.2 % (36.0-66.0); PLATELET COUNT, AUTOMATED 552 k/mm3 (150-450); RED CELL DISTRIBUTION WIDTH 14.8 % (11.5-14.5); WHITE BLOOD COUNT 8.4 K/mm3 (4.0-10.0)
[2017-01-19 10:28] LABS: ALBUMIN 3.2 GM/DL (3.2-5.2); ALBUMIN/GLOBULIN RATIO 0.67 (1.00-1.93); ALKALINE PHOSPHATASE 89 U/L (45-117); ALT/SGPT 27 U/L (12-78); ANION GAP 6 MEQ/L (8-16); AST/SGOT 28 U/L (15-37); BILIRUBIN,DIRECT < 0.1 MG/DL (0.0-0.2); BILIRUBIN,TOTAL 0.1 MG/DL (0.2-1.0); BLOOD UREA NITROGEN 18 MG/DL (7-18); CALCIUM LEVEL 8.9 MG/DL (8.5-10.1); CARBON DIOXIDE LEVEL 27 MEQ/L (21-32); CHLORIDE LEVEL 101 MEQ/L (98-107); CREATININE FOR GFR 1.19 MG/DL (0.55-1.02); GLOMERULAR FILTRATION RATE 51.1 (>51); GLUCOSE, FASTING 93 MG/DL (70-105); POTASSIUM SERUM 4.4 MEQ/L (3.5-5.1); SODIUM LEVEL 134 MEQ/L (136-145)
[2017-01-19] MEDS ORDERED: ISOVUE-370 76% 100ML VIAL (Q9967) As Ordered ONE (11:04)
[2017-01-19] MEDS: HYDROmorphone HCL 1 MG/ML SYRINGE (J1170) IV PRN ×2 (13:15→17:52)
[2017-01-19] MEDS ORDERED: GABA-282 PO (14:00)
[2017-01-19] MEDS ORDERED: NICODIS TD (14:04)
[2017-01-19] MEDS ORDERED: SPIR12.9 INH (14:04)
[2017-01-19] MEDS ORDERED: TOUJ1.2I SC (14:04)
[2017-01-19] MEDS ORDERED: ANOR1AER INH (14:06)
[2017-01-19] MEDS ORDERED: ALBU83IN INH (14:11)
[2017-01-19] MEDS ORDERED: TYLE325T5 PO (14:11)
[2017-01-19] MEDS ORDERED: ALBUTEROL SULFATE 2.5 MG/0.5 ML INH NEB SOLN INH PRN (15:45)
[2017-01-19] MEDS ORDERED: ALBUTEROL 90 MCG/ACT 8GM HFA INHALER INH PRN (15:45)
[2017-01-19] MEDS ORDERED: NS 1,000 ML IV ONE (16:00)
[2017-01-19] MEDS ORDERED: DEXTROSE 50% 50 ML SYRINGE IV PRN ×2 (16:00→20:45)
[2017-01-19] MEDS ORDERED: GLUCAGON FOR INJ 1 MG VIAL (J1610) SC PRN (16:00)
[2017-01-19] MEDS ORDERED: GLUCOSE 4 GM CHEW TABLET PO PRN (16:00)
[2017-01-19 16:23] LABS: MAGNESIUM LEVEL 2.1 MG/DL (1.8-2.4)
[2017-01-19] MEDS: NICOTINE 21MG/24HR 1 EA TRANSDERMAL TD SCH (17:12)
[2017-01-19] MEDS: OMEPRAZOLE 20 MG CAP PO SCH (17:13)
[2017-01-19] MEDS: ASPIRIN 81 MG ENTERIC TAB PO SCH (17:13)
[2017-01-19] MEDS: MECLIZINE 25 MG TABLET PO SCH ×2 (17:13→21:16)
[2017-01-19] MEDS: hydroCHLOROthiazide 12.5 MG CAPSULE PO SCH (17:13)
[2017-01-19] MEDS: SERTRALINE HCL 50 MG TAB PO SCH (17:13)
[2017-01-19] MEDS: CETIRIZINE (ZyrTEC) 10 MG TAB PO SCH (17:14)
[2017-01-19] MEDS: FUROSEMIDE 40 MG TAB PO SCH (17:14)
[2017-01-19] MEDS: GABAPENTIN 300 MG CAP PO SCH ×2 (17:14→21:16)
[2017-01-19] MEDS: FAMOTIDINE 20 MG TAB PO SCH ×2 (17:14→21:16)
[2017-01-19] MEDS: LISINOPRIL 10 MG TAB PO SCH (17:14)
[2017-01-19 20:20] VITALS: BP 138/63
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
[2017-01-19] MEDS: HumaLOG INSULIN (NovoLOG) PER UNIT SC SCH (20:49)
[2017-01-19] MEDS ORDERED: LEVEMIR (INSULIN DETEMIR) 1 UNITS/0.01ML SC SCH (21:00)
[2017-01-19] MEDS ORDERED: HumaLOG INSULIN (NovoLOG) PER UNIT SC SCH (21:00)
[2017-01-19] MEDS: ALPRAZolam 0.25 MG TAB PO SCH (21:16)
[2017-01-19] MEDS: ACETAMINOPHEN TAB 650MG DOSE (2X325MG) PO PRN (21:50)
[2017-01-19] MEDS: NORCO, ANEXSIA 5/325MG TABLET (HYDROcodone/ACETAMINOPHEN) PO PRN (23:16)
[2017-01-20 04:02] VITALS: BP 150/70
[2017-01-20 06:40] LABS: BASO # 0.1 K/mm3 (0.0-0.2); BASO % 0.8 % (0.0-1.0); EOS # 0.1 K/mm3 (0.0-0.50); EOS % 1.6 % (0.0-3.0); LARGE UNSTAINED CELL # 0.4 K/mm3 (0.0-0.4); LARGE UNSTAINED CELL % 5.8 % (0.0-4.0); LYMPH % 21.5 % (24.0-44.0); MEAN CORPUSCULAR HEMOGLOBIN 28.8 pg (27.0-33.0); MEAN CORPUSCULAR HGB CONC 31.3 g/dl (32.0-36.5); MEAN CORPUSCULAR VOLUME 91.9 fl (80.0-96.0); MONO # 0.6 K/mm3 (0.0-0.8); MONO % 8.5 % (0.0-5.0); NEUTROPHILS # 4.5 K/mm3 (1.8-7.7); NEUTROPHILS % 61.8 % (36.0-66.0); PLATELET COUNT, AUTOMATED 499 k/mm3 (150-450); WHITE BLOOD COUNT 7.3 K/mm3 (4.0-10.0)
[2017-01-20 06:46] LABS: CALCIUM LEVEL 8.6 MG/DL (8.5-10.1); CREATININE FOR GFR 1.26 MG/DL (0.55-1.02); GLOMERULAR FILTRATION RATE 47.9 (>51); MAGNESIUM LEVEL 2.1 MG/DL (1.8-2.4); POTASSIUM SERUM 4.1 MEQ/L (3.5-5.1)
[2017-01-20] MEDS: HumaLOG INSULIN (NovoLOG) PER UNIT SC SCH ×4 (07:30→20:20)
--- NOTE | 2017-01-20 07:37 | REP ---
CT ABDOMEN/PELVIS WITH CONTRAST: HISTORY: Abdominal pain. CONTRAST: Isovue-370, 75 mL. COMPARISON: 12/31/2016 The patient is status post cholecystectomy and splenectomy. A 1.0 cm mass is present in the right adrenal gland. A 2.3 mm mass is present in the left adrenal gland. These are unchanged compared to the previous study. The liver, pancreas, and kidneys are normal in appearance. There is no mass, adenopathy, or free fluid. Diverticula are present in the descending colon. A 2 cm fat-containing umbilical hernia is present. The visualized lungs are clear. IMPRESSION: 1. The patient is status post cholecystectomy and splenectomy. 2. Bilateral adrenal masses, unchanged compared to the previous study. 3. Diverticulosis. 4. A 2 cm fat-containing umbilical hernia. CT PELVIS: The patient is status post hysterectomy. The urinary bladder is normal in appearance. Diverticula are present in the descending and sigmoid colon. There is no mass, adenopathy, or free fluid. Degenerative change is present in the spine. IMPRESSION: 1. The patient is status post hysterectomy. 2. Diverticulosis. Signed by Km Garcia MD 01/20/2017 07:44 A
[2017-01-20] MEDS: TIOTROPIUM INHALER/CAPSULE (SPIRIVA) INH SCH (07:39)
[2017-01-20 08:10] VITALS: BP 124/60
[2017-01-20] MEDS: NORCO, ANEXSIA 5/325MG TABLET (HYDROcodone/ACETAMINOPHEN) PO PRN ×2 (08:17→19:33)
[2017-01-20] MEDS: NICOTINE 21MG/24HR 1 EA TRANSDERMAL TD SCH (09:00)
[2017-01-20] MEDS: CETIRIZINE (ZyrTEC) 10 MG TAB PO SCH (09:00)
[2017-01-20] MEDS: buPROPion **SR TABLET** (ZYBAN) 150MG PO SCH (09:00)
[2017-01-20] MEDS: ASPIRIN 81 MG ENTERIC TAB PO SCH (09:00)
[2017-01-20] MEDS: FAMOTIDINE 20 MG TAB PO SCH ×4 (09:00→20:19)
[2017-01-20] MEDS: GABAPENTIN 300 MG CAP PO SCH ×3 (09:01→20:19)
[2017-01-20] MEDS: OMEPRAZOLE 20 MG CAP PO SCH (09:01)
[2017-01-20] MEDS: SERTRALINE HCL 50 MG TAB PO SCH (09:01)
[2017-01-20] MEDS: MECLIZINE 25 MG TABLET PO SCH ×4 (09:01→20:19)
[2017-01-20] MEDS: FUROSEMIDE 40 MG TAB PO SCH (09:02)
[2017-01-20] MEDS: LISINOPRIL 10 MG TAB PO SCH (09:03)
[2017-01-20] MEDS: hydroCHLOROthiazide 12.5 MG CAPSULE PO SCH (09:03)
[2017-01-20] MEDS: ALPRAZolam 0.25 MG TAB PO SCH ×2 (09:05→20:19)
--- NOTE | 2017-01-20 10:56 | IPNPDOC ---
Subjective Date Seen The patient was seen on 01/20/17. Subjective Chief Complaint/HPI The patient is a 51-year-old female admitted with a reason for visit of Abdominal Pain. General: Denies: Chills, Night Sweats Constitutional: Denies: Chills, Fever Eyes: Denies: Pain, Vision change ENT: Denies: Head Aches, Ear Pain Skin: Denies: Rash, Lesions Pulmonary: Denies: Dyspnea, Cough Cardiovascular: Denies: Chest Pain, Palpitations Gastrointestinal: Reports: Abdominal Pain (diffuse, mild), Denies: Nausea, Vomiting Genitourinary: Denies: Dysuria, Frequency Hematologic: Denies: Bruising, Bleeding Excessively Musculoskeletal: Denies: Neck Pain, Back Pain Objective Physical Examination General Exam: Positive: Alert, Cooperative, No Acute Distress Eye Exam: Positive: PERRLA, Conjunctiva & lids normal, EOMI ENT Exam: Positive: Atraumatic, Mucous membr. moist/pink, Pharynx Normal Neck Exam: Positive: Supple, Negative: JVD, thyromegaly Chest Exam: Positive: Clear to auscultation, Normal air movement Heart Exam: Positive: Rate Normal, Normal S1, Normal S2 Abdomen Exam: Positive: Normal bowel sounds, Soft, Tenderness (mild tenderness to deep palpation diffusely. No rebound tenderness, rigidity, guarding), Negative: Hepatospenomegaly Extremity Exam: Negative: Clubbing, Cyanosis Skin Exam: Positive: Nl turgor and temperature, Negative: Rash, Breakdown Neuro Exam: Positive: Normal Speech, Strength at 5/5 X4 ext Psych Exam: Positive: Mental status NL, Mood NL, Oriented x 3, Negative: Anxiety Assessment /Plan Plan/VTE VTE Prophylaxis Ordered?: Yes (compression stockings) Plan Nausea, Vomiting, Diarrhea likely 2/[address] of abdomen and pelvis revealed diverticulosis, bilateral small adrenal masses which remains consistent with previous study and a 2 cm umbilical hernia Lactate level, WBC, LFTs, and Lipase wnl Stool Studies pending Feeling better today and tolerating an advanced diet with improvement Will await stool studies and continue to monitor the patient Chronic kidney disease, Stage 3A Serum Cr at baseline Type 2 diabetes mellitus ISS for now Will continue Basal Insulin when the patient is able to tolerate PO diet Migraines Continue patient's home medications Hypertension, stable Cont HCTZ, Lisinopril, Lasix COPD with asthma, stable Cont Albuterol prn, Symbicort Follows with Dr. Cobian for pulmonology. Chronic Back pain Continue Tylenol, [place] prn Osteoarthritis of knees, bilateral Continue Tylenol, [place] prn Depression, Anxiety, stable Continue bupropion, Zoloft, Xanax prn Obstructive Sleep apnea Permit patient to use home CPAP device while in the hospital. GERD (gastroesophageal reflux disease) Continue Pepcid DVT Prophylaxis Lovenox SC Dispo-Anticipate D/C in the next 24-48 hrs pending clinical improvement VS, I&O, 24H, Fishbone Vital Signs/I&O Vital Signs Date Time Temp Pulse Resp B/P (MAP) Pulse Ox O2 Delivery O2 Flow Rate FiO2 01/20/17 09:03 124/60 01/20/17 08:57 20 01/20/17 08:11 Room Air 01/20/17 08:10 97.6 76 94 01/19/17 16:44 2.0 I&O- Last 24 Hours up to 6 AM 01/20/17 06:00 Output Total 1200 ml Balance -1200 ml Laboratory Data 24H LABS Laboratory Tests 2 01/19/17 11:57: Lactic Acid Level 0.6 01/19/17 18:45: Bedside Glucose (Misc Panel) 90 01/19/17 20:40: Bedside Glucose (Misc Panel) 89 01/20/17 06:00: White Blood Count 7.3, Red Blood Count 3.83L, Hemoglobin 11.0L, Hematocrit 35.2L , Mean Corpuscular Volume 91.9, Mean Corpuscular Hemoglobin 28.8, Mean Corpuscular Hemoglobin Concent 31.3L, Red Cell Distribution Width 15.0H, Platelet Count 499H, Neutrophils (%) (Auto) 61.8, Lymphocytes (%) (Auto) 21.5L, Monocytes (%) (Auto) 8.5H, Eosinophils (%) (Auto) 1.6, Basophils (%) (Auto) 0.8 , Neutrophils # (Auto) 4.5, Lymphocytes # (Auto) 2.0, Monocytes # (Auto) 0.6, Eosinophils # (Auto) 0.1, Basophils # (Auto) 0.1, Large Unclassified Cells % 5.8H, Large Unclassified Cells # 0.4, Anion Gap 6L, Glomerular Filtration Rate 47.9L, Blood Urea Nitrogen 19H, Creatinine 1.26H, Sodium Level 137, Potassium Level 4.1, Chloride Level 105, Carbon Dioxide Level 26, Calcium Level 8.6, Magnesium Level 2.1 CBC/BMP Laboratory Tests 01/20/17 06:00 Red Blood Count 3.83 L, Mean Corpuscular Volume 91.9, Mean Corpuscular Hemoglobin 28.8, Mean Corpuscular Hemoglobin Concent 31.3 L, Red Cell Distribution Width 15.0 H, Neutrophils (%) (Auto) 61.8, Lymphocytes (%) (Auto) 21.5 L, Monocytes (%) (Auto) 8.5 H, Eosinophils (%) (Auto) 1.6, Basophils (%) ( Auto) 0.8, Neutrophils # (Auto) 4.5, Lymphocytes # (Auto) 2.0, Monocytes # (Auto ) 0.6, Eosinophils # (Auto) 0.1, Basophils # (Auto) 0.1, Calcium Level 8.6 RICK HERNANDEZ MD Jan 20, 2017 10:56
[2017-01-20] MEDS ORDERED: SLF 3 ML SYR IV PRN (11:15)
[2017-01-20 12:00] VITALS: BP 112/57
[2017-01-20] MEDS: ACETAMINOPHEN TAB 650MG DOSE (2X325MG) PO PRN (12:02)
[2017-01-20] MEDS: SLF 3 ML SYR IV SCH ×2 (12:03→22:00)
[2017-01-20] MEDS ORDERED: traMADol 50 MG TAB PO ONE (14:00)
[2017-01-20] MEDS ORDERED: traMADol 50 MG TAB PO PRN (16:15)
[2017-01-20 17:00] VITALS: BP 145/60
[2017-01-20] MEDS: SYMBICORT 160/4.5MCG INHALER 6GM INH SCH ×2 (19:29→20:23)
[2017-01-20 20:03] VITALS: BP 105/51
[2017-01-21 04:00] VITALS: BP 112/52
[2017-01-21] MEDS: SLF 3 ML SYR IV SCH (06:10)
[2017-01-21 06:57] LABS: BASO # 0.1 K/mm3 (0.0-0.2); BASO % 1.2 % (0.0-1.0); EOS # 0.1 K/mm3 (0.0-0.50); EOS % 1.6 % (0.0-3.0); LARGE UNSTAINED CELL # 0.4 K/mm3 (0.0-0.4); LYMPH # 2.8 K/mm3 (1.5-4.5); LYMPH % 34.9 % (24.0-44.0); MEAN CORPUSCULAR HEMOGLOBIN 28.7 pg (27.0-33.0); MEAN CORPUSCULAR HGB CONC 31.3 g/dl (32.0-36.5); MEAN CORPUSCULAR VOLUME 91.9 fl (80.0-96.0); MONO # 0.5 K/mm3 (0.0-0.8); MONO % 7.3 % (0.0-5.0); NEUTROPHILS # 3.4 K/mm3 (1.8-7.7); PLATELET COUNT, AUTOMATED 488 k/mm3 (150-450); WHITE BLOOD COUNT 6.9 K/mm3 (4.0-10.0)
[2017-01-21 07:15] LABS: CALCIUM LEVEL 8.4 MG/DL (8.5-10.1); CREATININE FOR GFR 1.31 MG/DL (0.55-1.02); GLOMERULAR FILTRATION RATE 45.8 (>51); MAGNESIUM LEVEL 1.8 MG/DL (1.8-2.4); POTASSIUM SERUM 4.6 MEQ/L (3.5-5.1)
[2017-01-21 08:00] VITALS: BP 136/65
[2017-01-21] MEDS: NICOTINE 21MG/24HR 1 EA TRANSDERMAL TD SCH (08:23)
[2017-01-21] MEDS: FAMOTIDINE 20 MG TAB PO SCH (08:24)
[2017-01-21] MEDS: GABAPENTIN 300 MG CAP PO SCH (08:24)
[2017-01-21] MEDS: FUROSEMIDE 40 MG TAB PO SCH (08:24)
[2017-01-21] MEDS: ASPIRIN 81 MG ENTERIC TAB PO SCH (08:24)
[2017-01-21] MEDS: OMEPRAZOLE 20 MG CAP PO SCH (08:24)
[2017-01-21] MEDS: ALPRAZolam 0.25 MG TAB PO SCH (08:24)
[2017-01-21] MEDS: MECLIZINE 25 MG TABLET PO SCH (08:24)
[2017-01-21] MEDS: CETIRIZINE (ZyrTEC) 10 MG TAB PO SCH (08:24)
[2017-01-21] MEDS: hydroCHLOROthiazide 12.5 MG CAPSULE PO SCH (08:25)
[2017-01-21] MEDS: SERTRALINE HCL 50 MG TAB PO SCH (08:25)
[2017-01-21] MEDS: buPROPion **SR TABLET** (ZYBAN) 150MG PO SCH (08:25)
[2017-01-21 08:26] VITALS: BP 136/65
[2017-01-21] MEDS: LISINOPRIL 10 MG TAB PO SCH (08:26)
[2017-01-21] MEDS: HumaLOG INSULIN (NovoLOG) PER UNIT SC SCH (08:27)
[2017-01-21] MEDS: TIOTROPIUM INHALER/CAPSULE (SPIRIVA) INH SCH (09:09)
[2017-01-21] MEDS: SYMBICORT 160/4.5MCG INHALER 6GM INH SCH (09:09)
[2017-01-21] MEDS ORDERED: TRAM50TA2 PO (10:34)
--- NOTE | 2017-01-21 14:51 | DS.PDOC ---
Discharge Summary General Date of Admission Jan 19, 2017 at 15:23 Date of Discharge 01/21/17 Discharge Summary PROCEDURES PERFORMED DURING STAY: None. ADMITTING DIAGNOSES: 1. . Rotavirus DISCHARGE DIAGNOSES: 1. . Rotavirus COMPLICATIONS/CHIEF COMPLAINT: Abdominal Pain. HISTORY OF PRESENT ILLNESS: . 51-year-old female with a past medical history of COPD, asthma, diabetes, hypertension, migraines, depression, GERD, CKD Stage IIIB, sleep apnea and splenectomy presented to the ER with 2 days of nausea, abdominal pain, diarrhea. The patient states that she has been having diffuse abdominal pain during this time. She reported that she had been having about 10 watery stools a day, but denies noting any blood in the stools. She did note that she had a sick contact in her grandson who also had been complaining of diarrhea, and generalized weakness. In the ER, a CT scan of the abdomen/pelvis revealed no acute findings. The patient was admitted to the hospitalist service for further evaluation and management. During hospitalization, the patient was started on IV fluids, antiemetics, and started on a clear liquid diet. The patient tolerated a by mouth diet without any problems. The patient's stool studies came back positive for rotavirus. The patient was subsequently treated with supportive measures. At this time, the patient's diarrhea has subsided and she notes that she is feeling significantly better at this time, I have advised the patient to follow-up with her primary care physician within one week. Should her symptoms return or worsen, I have advised patient to return to ER for further evaluation and management. DISCHARGE MEDICATIONS: Please see below. ALLERGIES: Please see below. PHYSICAL EXAMINATION ON DISCHARGE: VITAL SIGNS: Please see below. General Exam: Positive: Alert, Cooperative, No Acute Distress Eye Exam: Positive: PERRLA, Conjunctiva & lids normal, EOMI ENT Exam: Positive: Atraumatic, Mucous membr. moist/pink, Pharynx Normal Neck Exam: Positive: Supple, Negative: JVD, thyromegaly Chest Exam: Positive: Clear to auscultation, Normal air movement Heart Exam: Positive: Rate Normal, Normal S1, Normal S2 Abdomen Exam: Positive: Normal bowel sounds, Soft, No tenderness. (No rebound tenderness, rigidity, guarding), Negative: Hepatospenomegaly Extremity Exam: Negative: Clubbing, Cyanosis Skin Exam: Positive: Nl turgor and temperature, Negative: Rash, Breakdown Neuro Exam: Positive: Normal Speech, Strength at 5/5 X4 ext Psych Exam: Positive: Mental status NL, Mood NL, Oriented x 3, Negative: Anxiety LABORATORY DATA: Please see below. IMAGING: CT ABDOMEN/PELVIS WITH CONTRAST: HISTORY: Abdominal pain. CONTRAST: Isovue-370, 75 mL. COMPARISON: 12/31/2016 The patient is status post cholecystectomy and splenectomy. A 1.0 cm mass is present in the right adrenal gland. A 2.3 mm mass is present in the left adrenal gland. These are unchanged compared to the previous study. The liver, pancreas, and kidneys are normal in appearance. There is no mass, adenopathy, or free fluid. Diverticula are present in the descending colon. A 2 cm fat-containing umbilical hernia is present. The visualized lungs are clear. IMPRESSION: 1. The patient is status post cholecystectomy and splenectomy. 2. Bilateral adrenal masses, unchanged compared to the previous study. 3. Diverticulosis. 4. A 2 cm fat-containing umbilical hernia. CT PELVIS: The patient is status post hysterectomy. The urinary bladder is normal in appearance. Diverticula are present in the descending and sigmoid colon. There is no mass, adenopathy, or free fluid. Degenerative change is present in the spine. IMPRESSION: 1. The patient is status post hysterectomy. 2. Diverticulosis. PROGNOSIS: Medically stable ACTIVITY: As tolerated. DIET: . Progress as tolerated to carb consistent, 2 g low sodium diet DISCHARGE PLAN: DISPOSITION: 01 Home, Self-Care. DISCHARGE INSTRUCTIONS: 1. . Follow-up with primary care physician within one to 2 weeks 2. . Return to the ER if symptoms return or worsen. DISCHARGE CONDITION: Stable. TIME SPENT ON DISCHARGE: Greater than 30 minutes. Vital Signs/I&Os Vital Signs Date Time Temp Pulse Resp B/P (MAP) Pulse Ox O2 Delivery O2 Flow Rate FiO2 01/21/17 08:30 Room Air 01/21/17 08:26 136/65 01/21/17 08:00 97.8 76 18 95 01/19/17 16:44 2.0 I&O- Last 24 Hours up to 6 AM 01/21/17 06:00 Intake Total 1520 ml Output Total 3200 ml Balance -1680 ml Laboratory Data Labs 24H Laboratory Tests 2 01/20/17 17:38: Bedside Glucose (Misc Panel) 123H 01/20/17 20:12: Bedside Glucose (Misc Panel) 104 01/21/17 06:36: White Blood Count 6.9, Red Blood Count 3.70L, Hemoglobin 10.6L, Hematocrit 34.0L , Mean Corpuscular Volume 91.9, Mean Corpuscular Hemoglobin 28.7, Mean Corpuscular Hemoglobin Concent 31.3L, Red Cell Distribution Width 15.0H, Platelet Count 488H, Neutrophils (%) (Auto) 49.0, Lymphocytes (%) (Auto) 34.9, Monocytes (%) (Auto) 7.3H, Eosinophils (%) (Auto) 1.6, Basophils (%) (Auto) 1.2H , Neutrophils # (Auto) 3.4, Lymphocytes # (Auto) 2.8, Monocytes # (Auto) 0.5, Eosinophils # (Auto) 0.1, Basophils # (Auto) 0.1, Large Unclassified Cells % 6.0H, Large Unclassified Cells # 0.4, Anion Gap 6L, Glomerular Filtration Rate 45.8L, Blood Urea Nitrogen 24H, Creatinine 1.31H, Sodium Level 137, Potassium Level 4.6, Chloride Level 107, Carbon Dioxide Level 24, Calcium Level 8.4L, Magnesium Level 1.8 CBC/BMP Laboratory Tests 01/21/17 06:36 Red Blood Count 3.70 L, Mean Corpuscular Volume 91.9, Mean Corpuscular Hemoglobin 28.7, Mean Corpuscular Hemoglobin Concent 31.3 L, Red Cell Distribution Width 15.0 H, Neutrophils (%) (Auto) 49.0, Lymphocytes (%) (Auto) 34.9, Monocytes (%) (Auto) 7.3 H, Eosinophils (%) (Auto) 1.6, Basophils (%) ( Auto) 1.2 H, Neutrophils # (Auto) 3.4, Lymphocytes # (Auto) 2.8, Monocytes # ( Auto) 0.5, Eosinophils # (Auto) 0.1, Basophils # (Auto) 0.1, Calcium Level 8.4 L FSBS Laboratory Tests Test 01/20/17 17:38 01/20/17 20:12 Range/Units Bedside Glucose (Misc Panel) 123 104 70-105 MG/DL Microbiology Microbiology 01/20/17 Gastrointestinal Tract Panel (PCR) - Final, Complete Rotavirus A 01/20/17 Stool Lactoferrin - Final, Complete Discharge Medications Scheduled (Lisinopril/Hydrochlorothi 10-12.5 mg) 1 Tab Tab, 1 TAB PO DAILY, (Reported) (Toujeo Solostar) 300 Unit/Ml Inj, 40 UNIT SC DAILY, (Reported) (Anoro Ellipta 62.5-25 Mcg/INH) 1 Aer Aer, 1 PUFF INH DAILY, (Reported) Alprazolam (Alprazolam) 0.25 Mg Tab, 0.25 MG PO BID, (Reported) Aspirin (Aspirin) 81 Mg Tab, 81 MG PO DAILY, (Reported) Bupropion HCl (Bupropion HCl Sr) 150 Mg Tab, 300 MG PO DAILY, (Reported) Cetirizine HCl (Cetirizine HCl) 10 Mg Tab, 10 MG PO DAILY, (Reported) Ergocalciferol (Vitamin D) 50,000 Unit Cap, 50,000 UNIT PO QMONTH, (Reported) Furosemide (Furosemide) 40 Mg Tab, 40 MG PO DAILY, (Reported) Gabapentin (Gabapentin) 300 Mg Cap, 300 MG PO TID, (Reported) Meclizine HCl (Meclizine HCl) 25 Mg Tab, 25 MG PO QID, (Reported) Metformin Hydrochloride (Metformin HCl ER) 500 Mg Tab, 1,000 MG PO DAILY, ( Reported) Nicotine (Nicotine Step 1) 21 Mg/24 Hr Dis, 1 PATCH TD DAILY, (Reported) Omeprazole (Omeprazole) 40 Mg Cap, 40 MG PO DAILY, (Reported) Ranitidine HCl (Ranitidine HCl) 150 Mg Tab, 1 TAB PO QID, (Reported) Sertraline HCl (Sertraline HCl) 100 Mg Tab, 150 MG PO DAILY, (Reported) Tiotropium [place] Monohydrate (Spiriva Respimat) 2.5 Mcg/Act Spr, 2 PUFFS INH DAILY, (Reported) Vitamin D (Drisdol) 50,000 Unit Cap, 50,000 UNIT PO QMONTH, (Reported) Scheduled PRN Acetaminophen (Tylenol) 325 Mg Tab, 650 MG PO Q4H PRN for PAIN, (Reported) Acetaminophen/Hydrocodone (Hydrocodone/Acetaminophen 5-325 mg) 1 Tab Tab, 1 TAB PO BID PRN for PAIN, (Reported) Albuterol Sulfate (Ventolin Hfa) 200 Puff/8 Gm Aers, 2 PUFF INH Q4H PRN for SHORTNESS OF BREATH, (Reported) Albuterol Sulfate (Albuterol Sulfate) 2.5 Mg/3 Ml Nebu, 2.5 MG INH Q4H PRN for SHORTNESS OF BREATH, (Reported) Tramadol HCl (Tramadol HCl) 50 Mg Tab, 50 MG PO Q8HP PRN for MODERATE PAIN (PS 5 -7) Allergies Coded Allergies: Latex (Verified Allergy, Intermediate, RASH, 11/20/16) Ibuprofen (Unverified Adverse Reaction, Unknown, Swelling, 11/20/16) RICK HERNANDEZ MD Jan 21, 2017 14:51
== END 2017-01-21 12:05 | disposition home or self-care (01) ==
LOC: M ED 09:56 → M ED INP 15:23 → M PED 20:16
PROVIDERS: ADMIT Internal Medicine; ATTEND Internal Medicine
DX: A08.0 Rotaviral enteritis (principal); J44.9 Chronic obstructive pulmonary disease, unspecified; E11.9 Type 2 diabetes mellitus without complications; I10 Essential (primary) hypertension; K21.9 Gastro-esophageal reflux disease without esophagitis; N18.3 Chronic kidney disease, stage 3 (moderate); G47.30 Sleep apnea, unspecified; K57.32 Diverticulitis of large intestine without perforation or abscess without bleeding; Z79.82 Long term (current) use of aspirin; Z79.899 Other long term (current) drug therapy; Z91.040 Latex allergy status

== ENCOUNTER → 2017-01-23 | Outpatient (CLI) | payer OTHER ==
[~2017-01-23] MED LIST changes: +ALBU83IN INH; +ANOR1AER INH; +GABA-282 PO; +METF500T4 PO; +NICO1DIS2; +NICODIS TD; +OMEP40CA2 PO; +SPIR12.9 INH; +SYMB16INH INH; +TIOT18INH INH; +TRAM50TA2 PO; +TYLE325T5 PO; +VITA50003 PO; +toujeo SC
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
== END ==
LOC: M PAIN 10:40
PROVIDERS: ATTEND Nurse Practitioner Family
DX: G89.29 Other chronic pain (principal); M51.26 Other intervertebral disc displacement, lumbar region; M79.1 Myalgia; M48.9 Spondylopathy, unspecified; M25.512 Pain in left shoulder; M25.511 Pain in right shoulder; K21.9 Gastro-esophageal reflux disease without esophagitis; F41.9 Anxiety disorder, unspecified; G47.30 Sleep apnea, unspecified; G43.909 Migraine, unspecified, not intractable, without status migrainosus; J44.9 Chronic obstructive pulmonary disease, unspecified; E11.9 Type 2 diabetes mellitus without complications; M17.12 Unilateral primary osteoarthritis, left knee; F32.9 Major depressive disorder, single episode, unspecified; N18.3 Chronic kidney disease, stage 3 (moderate); F17.210 Nicotine dependence, cigarettes, uncomplicated; Z91.040 Latex allergy status; Z88.6 Allergy status to analgesic agent; Z79.891 Long term (current) use of opiate analgesic; Z79.51 Long term (current) use of inhaled steroids; Z79.82 Long term (current) use of aspirin; Z79.84 Long term (current) use of oral hypoglycemic drugs; Z79.899 Other long term (current) drug therapy; Z87.828 Personal history of other (healed) physical injury and trauma

== ENCOUNTER → 2017-01-31 | Outpatient (CLI) | payer OTHER ==
[~2017-01-31] MED LIST changes: +ISOVUE-M 300 61% 15ML VIAL (Q9967) As Ordered ONE; +LIDOCAINE 1% SDV INJ 30 ML VIAL As Ordered ONE; +diazePAM 5 MG TAB As Ordered ONE; +methylPREDNISolone SUSP 40 MG/ML (DEPO-medrol) VIAL (J1030) As Ordered ONE; +oxyCODONE 5MG TAB As Ordered ONE
--- NOTE | 2017-01-31 12:49 | REP ---
FLUOROSCOPIC SPINAL INJECTION: The films were reviewed with Dr. Murillo. The patient has a history of low back pain. The portable C-arm was provided in the OR for Dr. Steel for fluoroscopic guidance. Two intraoperative fluoroscopic spot films were obtained for needle placement verification for lumbar epidural injection. The films are on the PACs system and are available for review. 12 seconds of fluoroscopic time was utilized for this procedure. Reviewed by SANJAY Merino 01/31/2017 03:21 PEdited and Signed by Kunal Murillo MD 01/31/2017 04:33 P
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
== END ==
LOC: M PAIN 10:20
PROVIDERS: ATTEND Anesthesiology
DX: G89.29 Other chronic pain (principal); M51.17 Intervertebral disc disorders with radiculopathy, lumbosacral region; I12.9 Hypertensive chronic kidney disease with stage 1 through stage 4 chronic kidney disease, or unspecified chronic kidney disease; N18.3 Chronic kidney disease, stage 3 (moderate); K21.9 Gastro-esophageal reflux disease without esophagitis; F41.9 Anxiety disorder, unspecified; G47.30 Sleep apnea, unspecified; G43.909 Migraine, unspecified, not intractable, without status migrainosus; J44.9 Chronic obstructive pulmonary disease, unspecified; E11.9 Type 2 diabetes mellitus without complications; M17.12 Unilateral primary osteoarthritis, left knee; F32.9 Major depressive disorder, single episode, unspecified; F17.210 Nicotine dependence, cigarettes, uncomplicated; Z91.040 Latex allergy status; Z88.6 Allergy status to analgesic agent; Z79.4 Long term (current) use of insulin; Z79.82 Long term (current) use of aspirin; Z79.899 Other long term (current) drug therapy

== ENCOUNTER → 2017-02-20 | Outpatient (CLI) | payer OTHER ==
[~2017-02-20] MED LIST changes: +ASPI1TAB15 PO; -ASPI81TA7 PO; +FISH100049 PO; -ISOVUE-M 300 61% 15ML VIAL (Q9967) As Ordered ONE; -LIDOCAINE 1% SDV INJ 30 ML VIAL As Ordered ONE; +MULT1CHW39 PO; -NICO1DIS2; +NICO21DI31; +SYST1SOL OU; +TOPA100T12 PO; -TOPA100T8 PO; +VITA1CAP40 PO; -VITA50003 PO; -diazePAM 5 MG TAB As Ordered ONE; -methylPREDNISolone SUSP 40 MG/ML (DEPO-medrol) VIAL (J1030) As Ordered ONE; -oxyCODONE 5MG TAB As Ordered ONE
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
== END ==
LOC: M PAIN 12:00
PROVIDERS: ATTEND Nurse Practitioner Family
DX: G89.29 Other chronic pain (principal); M51.17 Intervertebral disc disorders with radiculopathy, lumbosacral region; M48.9 Spondylopathy, unspecified; M25.512 Pain in left shoulder; M79.1 Myalgia; I12.9 Hypertensive chronic kidney disease with stage 1 through stage 4 chronic kidney disease, or unspecified chronic kidney disease; N18.3 Chronic kidney disease, stage 3 (moderate); K21.9 Gastro-esophageal reflux disease without esophagitis; F41.9 Anxiety disorder, unspecified; G47.30 Sleep apnea, unspecified; G43.909 Migraine, unspecified, not intractable, without status migrainosus; J44.9 Chronic obstructive pulmonary disease, unspecified; E11.9 Type 2 diabetes mellitus without complications; M17.12 Unilateral primary osteoarthritis, left knee; F32.9 Major depressive disorder, single episode, unspecified; Z91.040 Latex allergy status; Z88.6 Allergy status to analgesic agent; Z79.4 Long term (current) use of insulin; Z79.82 Long term (current) use of aspirin; Z79.899 Other long term (current) drug therapy

== ENCOUNTER → 2017-02-25 | Outpatient (CLI) | payer OTHER ==
--- NOTE | 2017-02-26 09:35 | REP ---
MRI LEFT SHOULDER: TECHNIQUE: Axial T2 fat sat, gradient echo, sagittal oblique T2 fat sat, coronal oblique T1, T2 fat sat. There is a full thickness tear of the anterior aspect of the supraspinatus tendon, with partial tearing of the undersurface of the more posterior aspect of that tendon. The other rotator cuff tendons are intact. There are mild to moderate hypertrophic degenerative changes of the acromioclavicular joint. There is a type 3 acromion. Biceps tendon is within the bicipital groove with no tenosynovitis. There is no Hill-Sachs deformity. Deltoid muscle demonstrates no abnormal signal. Biceps labral complex appears intact. No labral tear is seen. There is no occult fracture. There is mild marrow edema on both sides of the acromioclavicular joint. There is mild to moderate fluid in the subacromial/subdeltoid bursae. No paralabral cyst is seen. IMPRESSION: Full thickness tear anterior supraspinatus tendon with partial undersurface tear of the more posterior aspect of that tendon. No evidence of a labral tear. Moderate hypertrophic degenerative changes acromioclavicular joint with type 3 acromion. Mild to moderate fluid in the subacromial/subdeltoid bursae. Signed by Kunal Murillo MD 02/26/2017 04:24 P
--- NOTE | 2017-03-01 14:56 | REP ---
MRI RIGHT SHOULDER: TECHNIQUE: Axial T2 fat sat, gradient echo, sagittal oblique T2 fat sat, coronal oblique T1, T2 fat sat. Supraspinatus tendon demonstrates moderate diffuse ill-defined high signal on T2-weighted images compatible with tendinopathy/tendinitis. There does appear to be a small focal partial undersurface tear of the distal supraspinatus tendon. The other rotator cuff tendons appear intact. There are moderate hypertrophic degenerative changes of the acromioclavicular joint. The acromion appears to be type III. Biceps tendon is within the bicipital groove with no tenosynovitis. There is no Hill-Sachs deformity. Deltoid muscle demonstrates no definite abnormal signal. Biceps labral complex appears intact. I do not see evidence of a labral tear. Tiny subchondral cystic changes are seen in the humeral head superolaterally. There is mild subchondral marrow edema in the distal end of the clavicle. Small amount of fluid is seen in the subacromial subdeltoid bursae which may represent an element of bursitis. IMPRESSION: Supraspinatus tendinopathy/tendinitis with an apparent partial focal under surface tear of the distal supraspinatus tendon. There are moderate hypertrophic degenerative changes of the acromioclavicular joint with a type III acromion. No evidence of a labral tear. Mild fluid in the subacromial subdeltoid bursae suggests an element of bursitis. Signed by Kunal Murillo MD 03/01/2017 05:25 P
== END ==
LOC: M RAD 16:20
PROVIDERS: ATTEND Orthopaedic Surgery
DX: M19.012 Primary osteoarthritis, left shoulder (principal); M75.102 Unspecified rotator cuff tear or rupture of left shoulder, not specified as traumatic; M25.412 Effusion, left shoulder; M19.011 Primary osteoarthritis, right shoulder

== ENCOUNTER → 2017-03-11 | Outpatient (REF) | payer OTHER ==
[2017-03-11 15:05] LABS: FREE T4 1.06 NG/DL (0.76-1.46)
== END ==
LOC: M LAB REF 13:44
PROVIDERS: ATTEND Internal Medicine Nephrology
DX: E03.9 Hypothyroidism, unspecified (principal)

== ENCOUNTER → 2017-03-19 | Outpatient (CLI) | payer OTHER ==
[2017-03-19 13:20] LABS: ALBUMIN 3.5 GM/DL (3.2-5.2); ALBUMIN/GLOBULIN RATIO 0.88 (1.00-1.93); BILIRUBIN,TOTAL 0.3 MG/DL (0.2-1.0); CALCIUM LEVEL 9.8 MG/DL (8.5-10.1); CREATININE FOR GFR 1.53 MG/DL (0.55-1.02); GLOMERULAR FILTRATION RATE 38.2 (>51); TOTAL PROTEIN 7.5 GM/DL (6.4-8.2)
[2017-03-19 13:22] LABS: BASO # 0.1 K/mm3 (0.0-0.2); BASO % 1.2 % (0.0-1.0); EOS # 0.3 K/mm3 (0.0-0.50); EOS % 2.4 % (0.0-3.0); LYMPH # 3.2 K/mm3 (1.5-4.5); LYMPH % 27.4 % (24.0-44.0); MEAN CORPUSCULAR HEMOGLOBIN 28.8 pg (27.0-33.0); MEAN CORPUSCULAR HGB CONC 31.8 g/dl (32.0-36.5); MEAN CORPUSCULAR VOLUME 90.5 fl (80.0-96.0); MONO # 0.7 K/mm3 (0.0-0.8); MONO % 6.7 % (0.0-5.0); NEUTROPHILS # 6.6 K/mm3 (1.8-7.7); NEUTROPHILS % 60.1 % (36.0-66.0); RED CELL DISTRIBUTION WIDTH 15.7 % (11.5-14.5); WHITE BLOOD COUNT 10.9 K/mm3 (4.0-10.0)
--- NOTE | 2017-03-19 16:48 | ECGEPIP ---
Stationary ECG Study [facility] Test Date: 2017-03-19 Pat Name: JH SINGER Department: Room: - Gender: F [employer]: [facility] : 1965 Requested By: Alicia FIGUEROA- Order Number: [id number] Reading MD: Tanvir Humphreys Measurements Intervals [place] Rate: 84 P: 51 WV: 191 QRS: 50 QRSD: 113 T: 50 QT: 370 QTc: 440 Interpretive Statements Normal sinus rhythm LA conduction disturbance. Borderline first-degree block. Low voltages with slow precordial R-wave progression Body habitus versus pulmonary disease. Rule out septal injury No change from 01/19/17 Electronically Signed On 03-19-2017 16:48:21 EDT by Tanvir Humphreys
--- NOTE | 2017-03-20 02:20 | REP ---
Clinical: Preoperative assessment . Comparison: 10/21/2014 . Technique: PA and lateral. Findings: The mediastinum and cardiac silhouette are normal. Airway is patent and midline. The lung aparicio are clear and without acute consolidation, effusion, or pneumothorax. The skeletal structures are intact and normal. Impression: 1. No acute cardiopulmonary process. Signed by Singh Perkins MD 03/20/2017 02:11 A
== END ==
LOC: M LAB 11:55
PROVIDERS: ATTEND Nurse Practitioner Adult Health
DX: Z01.818 Encounter for other preprocedural examination (principal); D64.9 Anemia, unspecified; N18.3 Chronic kidney disease, stage 3 (moderate); E11.9 Type 2 diabetes mellitus without complications; Z79.899 Other long term (current) drug therapy; R60.9 Edema, unspecified; E55.9 Vitamin D deficiency, unspecified; I49.9 Cardiac arrhythmia, unspecified; R06.00 Dyspnea, unspecified; J45.998 Other asthma

== ENCOUNTER → 2017-03-20 | Outpatient (CLI) | payer OTHER ==
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
== END ==
LOC: M PAIN 09:40
PROVIDERS: ATTEND Nurse Practitioner Family
DX: G89.29 Other chronic pain (principal); M51.17 Intervertebral disc disorders with radiculopathy, lumbosacral region; M79.1 Myalgia; M48.9 Spondylopathy, unspecified; M25.512 Pain in left shoulder; K21.9 Gastro-esophageal reflux disease without esophagitis; F41.9 Anxiety disorder, unspecified; G47.30 Sleep apnea, unspecified; G43.909 Migraine, unspecified, not intractable, without status migrainosus; J45.909 Unspecified asthma, uncomplicated; E11.9 Type 2 diabetes mellitus without complications; I12.9 Hypertensive chronic kidney disease with stage 1 through stage 4 chronic kidney disease, or unspecified chronic kidney disease; N18.3 Chronic kidney disease, stage 3 (moderate); M17.12 Unilateral primary osteoarthritis, left knee; F32.9 Major depressive disorder, single episode, unspecified; Z91.040 Latex allergy status; Z88.6 Allergy status to analgesic agent

== ENCOUNTER 2017-04-04 06:34 | Day surgery (SDC) | payer OTHER ==
[~2017-04-04] VITALS: Ht 172.7 cm; Wt 149.6 kg
[~2017-04-04 06:34] MED LIST changes: +EPINEPHrine INJ 1 MG/ML 1ML AMP As Ordered ONE
[2017-04-04] MEDS ORDERED: LIDOCAINE 1% SDV 5 ML VIAL SQ ONE (06:45)
[2017-04-04] MEDS ORDERED: LR 1,000 ML IV SCH ×2 (06:45→11:15)
[2017-04-04] MEDS ORDERED: LIDOCAINE 2% INJ 100 MG/5 ML SDV (FOR ANES.) As Ordered ONE ×2 (07:18→10:19)
[2017-04-04] MEDS ORDERED: ROCURONIUM BROMIDE 50 MG/5 ML VIAL/SYRINGE As Ordered ONE (07:18)
[2017-04-04] MEDS ORDERED: fentaNYL 100 MCG/2 ML INJECTION (J3010) As Ordered ONE ×3 (07:18→09:27)
[2017-04-04] MEDS ORDERED: ONDANSETRON 4MG/2ML VIAL (J2405) As Ordered ONE (07:18)
[2017-04-04] MEDS ORDERED: PROPOFOL 200 MG/20 ML VIAL As Ordered ONE ×2 (07:18→10:18)
[2017-04-04] MEDS ORDERED: MIDAZOLAM INJ 2 MG/2 ML VIAL (J2250) As Ordered ONE ×3 (07:18→11:07)
[2017-04-04] MEDS ORDERED: LIDOCAINE 1% MDV 20ML VIAL As Ordered ONE (07:19)
[2017-04-04] MEDS ORDERED: LIDOCAINE 1% MDV INJ 50 ML VIAL As Ordered ONE (07:19)
[2017-04-04] MEDS: fentaNYL 100 MCG/2 ML INJECTION (J3010) IV PRN ×2 (07:51→08:04)
[2017-04-04] MEDS: MIDAZOLAM INJ 2 MG/2 ML VIAL (J2250) IV PRN ×2 (07:51→07:57)
[2017-04-04] MEDS ORDERED: PERCOCET 5MG/325MG TAB As Ordered ONE (11:03)
[2017-04-04] MEDS ORDERED: ONDANSETRON 4MG/2ML VIAL (J2405) IV PRN (11:15)
[2017-04-04] MEDS ORDERED: fentaNYL 100 MCG/2 ML INJECTION (J3010) IV PRN (11:15)
[2017-04-04] MEDS ORDERED: PERCOCET 5MG/325MG TAB PO PRN (11:15)
[2017-04-04] MEDS: MIDAZOLAM INJ 2 MG/2 ML VIAL (J2250) IV SCH ×2 (11:35→11:45)
[2017-04-04] MEDS ORDERED: LEVALBUTEROL 1.25 MG/0.5 ML CONCENTRATE NEB As Ordered ONE (11:36)
[2017-04-04] MEDS ORDERED: LEVALBUTEROL 1.25 MG/0.5 ML CONCENTRATE NEB NEB ONE (12:00)
[2017-04-04] MEDS ORDERED: MIDAZOLAM INJ 2 MG/2 ML VIAL (J2250) IV ONE (12:45)
[2017-04-04 14:25] VITALS: BP 136/78
[2017-04-04] MEDS ORDERED: ALBUTEROL SULFATE 2.5 MG/0.5 ML INH NEB SOLN As Ordered ONE (14:36)
[2017-04-04] MEDS ORDERED: ALBUTEROL SULFATE 2.5 MG/0.5 ML INH NEB SOLN INH ONE (14:45)
--- NOTE | 2017-04-06 16:29 | RO ---
DATE OF PROCEDURE: 04/04/2017 PREPROCEDURE DIAGNOSES: 1. Left shoulder AC joint arthritis. 2. Left shoulder rotator cuff tear. POSTPROCEDURE DIAGNOSES: 1. Left shoulder AC joint arthritis. 2. Left shoulder rotator cuff tear. PROCEDURE: 1. Left shoulder arthroscopic rotator cuff repair using a speed bridge double row technique. 2. Left shoulder arthroscopic subacromial decompression. 3. Left shoulder arthroscopic distal clavicle excision. SURGEON: Mary Mendoza MD SPONGE BUFFER: None. ANESTHESIA: General endotracheal tube anesthesia with left interscalene nerve block. COMPLICATIONS: None. SPECIMENS: None. ESTIMATED BLOOD LOSS: 30 mL. DESCRIPTION OF PROCEDURE: After antibiotics were given intravenously preoperatively and a successful left interscalene nerve block and then a general endotracheal tube anesthetic was established, then she was positioned in a [id number] position with a spider shoulder camacho was utilized. The left shoulder area was prepped and draped in the usual sterile fashion. After an appropriate time out routine diagnostic arthroscopy was performed through a posterior portal. The glenohumeral articular cartilage was fairly well maintained. There is quite a bit of synovitis around the biceps tendon in the ankle but no SLAP tear and the biceps is otherwise intact. Subscap was intact. Clearly there is a large rotator cuff tear above. No other findings are noted. Thus I placed the scope in the subacromial space and did a bursectomy with the wand. Established a lateral cannula 8.25 x 7 cm as well as an anterior working portal. Then performed a subacromial periosteal debridement of the soft-tissues with a wand as well as the bursectomy also using a shaver. There was a fairly large anterior inferior acromial spur and I used a 4-0 bur to debride that down smooth and flat. I dissected over to the AC joint as noted and it is quite arthritic actually. I planned to later do the distal clavicle excision therefore. The rotator cuff footprint of the supraspinatus tendon was debrided with the shaver and the bur and the wand back to good clean foot print and with good bony bleeding noted. Once the rotator cuff tear was inspected and the edges were debrided. I used an arthroscopic rotator cuff tendon grabber to estimate the position of the anchors. I then decided on a speed bridge technique double row. I placed two medial row anchors, one anterior medial and posterior medially. I did use the retention sutures and each medial and passed them in a horizontal mattress fashion. Once those had been passed, then I passed the fiber tapes and then I tied the retention sutures as a horizontal mattress using a ladder knot technique. Once those had been tied, I grabbed one limb of each suture pair out through the lateral cannula and loaded it on to the anterior lateral row swivel lock, used the punch and placed the anchor, making sure all limbs were tensioned appropriately and inserted the anchor and cut the limbs short. I grabbed the remaining suture limbs out through the cannula. They were passed through the fourth swivel lock to be used as the posterior lateral row. I used the punch and inserted the anchor and made sure all of the limbs were tensioned appropriately and then cut the limbs short. Nice watertight closure of the rotator cuff was noted. Photographs were taken. It is noteworthy that I changed my visualization portal for more posterior to more posterior lateral. I switched the scope back to the posterior visualization subacromial portal then established a direct anterior portal to the AC joint using the wand to debride this area and then 4-0 acromion bur was used to perform a formal distal clavicle excision, documenting it photographically. No other findings were noted. We copiously irrigated out the subacromial space, closed the arthroscopy wounds with interrupted Nylon sutures covered by adaptic dry, sterile, bulky dressing. She was then placed into her splint and then awakened from general endotracheal tube anesthesia after having tolerated the procedure well, transferred to the recovery room in stable. There were no intraoperative complications.
== END 2017-04-04 15:11 | disposition home or self-care (01) ==
LOC: M SDC 06:34
PROVIDERS: ATTEND Orthopaedic Surgery
DX: M19.012 Primary osteoarthritis, left shoulder (principal); M75.122 Complete rotator cuff tear or rupture of left shoulder, not specified as traumatic; I12.9 Hypertensive chronic kidney disease with stage 1 through stage 4 chronic kidney disease, or unspecified chronic kidney disease; E11.9 Type 2 diabetes mellitus without complications; F32.9 Major depressive disorder, single episode, unspecified; R94.31 Abnormal electrocardiogram [ECG] [EKG]; K57.32 Diverticulitis of large intestine without perforation or abscess without bleeding; R19.7 Diarrhea, unspecified; K21.9 Gastro-esophageal reflux disease without esophagitis; D64.9 Anemia, unspecified; D75.9 Disease of blood and blood-forming organs, unspecified; R29.898 Other symptoms and signs involving the musculoskeletal system; M17.12 Unilateral primary osteoarthritis, left knee; M50.20 Other cervical disc displacement, unspecified cervical region; F41.0 Panic disorder [episodic paroxysmal anxiety]; G43.909 Migraine, unspecified, not intractable, without status migrainosus; F43.10 Post-traumatic stress disorder, unspecified; J44.9 Chronic obstructive pulmonary disease, unspecified; R06.83 Snoring; R06.02 Shortness of breath; G47.33 Obstructive sleep apnea (adult) (pediatric); R32 Unspecified urinary incontinence; N18.3 Chronic kidney disease, stage 3 (moderate); J45.909 Unspecified asthma, uncomplicated; Z87.820 Personal history of traumatic brain injury; Z88.6 Allergy status to analgesic agent; Z91.040 Latex allergy status; Z79.899 Other long term (current) drug therapy; Z90.710 Acquired absence of both cervix and uterus; Z72.0 Tobacco use; Z79.82 Long term (current) use of aspirin; Z79.84 Long term (current) use of oral hypoglycemic drugs; Z79.4 Long term (current) use of insulin

== ENCOUNTER → 2017-05-03 | Outpatient (CLI) | payer OTHER ==
[~2017-05-03] MED LIST changes: -EPINEPHrine INJ 1 MG/ML 1ML AMP As Ordered ONE
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
== END ==
LOC: M PAIN 09:30
PROVIDERS: ATTEND Nurse Practitioner Family
DX: M51.17 Intervertebral disc disorders with radiculopathy, lumbosacral region (principal); M79.1 Myalgia; M48.9 Spondylopathy, unspecified; M25.512 Pain in left shoulder; G89.29 Other chronic pain; I10 Essential (primary) hypertension; E11.9 Type 2 diabetes mellitus without complications; F17.210 Nicotine dependence, cigarettes, uncomplicated; Z79.82 Long term (current) use of aspirin; Z79.4 Long term (current) use of insulin; Z79.891 Long term (current) use of opiate analgesic; Z79.899 Other long term (current) drug therapy; Z91.040 Latex allergy status; Z88.8 Allergy status to other drugs, medicaments and biological substances

== ENCOUNTER → 2017-06-10 | Outpatient (CLI) | payer OTHER | LOC: M PAIN 10:30 | PROVIDERS: ATTEND Nurse Practitioner Family | DX: M51.17 Intervertebral disc disorders with radiculopathy, lumbosacral region (principal); M79.1 Myalgia; M48.9 Spondylopathy, unspecified; M25.512 Pain in left shoulder; I12.9 Hypertensive chronic kidney disease with stage 1 through stage 4 chronic kidney disease, or unspecified chronic kidney disease; L03.115 Cellulitis of right lower limb; R60.0 Localized edema; K21.9 Gastro-esophageal reflux disease without esophagitis; E11.9 Type 2 diabetes mellitus without complications; N18.3 Chronic kidney disease, stage 3 (moderate); F32.9 Major depressive disorder, single episode, unspecified; Z79.82 Long term (current) use of aspirin; Z79.4 Long term (current) use of insulin; Z79.899 Other long term (current) drug therapy; Z79.891 Long term (current) use of opiate analgesic; Z91.040 Latex allergy status; Z88.8 Allergy status to other drugs, medicaments and biological substances ==

== ENCOUNTER → 2017-07-04 | Outpatient (CLI) | payer OTHER ==
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
== END ==
LOC: M PAIN 09:30
PROVIDERS: ATTEND Nurse Practitioner Family
DX: G89.29 Other chronic pain (principal); M51.17 Intervertebral disc disorders with radiculopathy, lumbosacral region; M79.1 Myalgia; M48.9 Spondylopathy, unspecified; M25.512 Pain in left shoulder; I12.9 Hypertensive chronic kidney disease with stage 1 through stage 4 chronic kidney disease, or unspecified chronic kidney disease; K21.9 Gastro-esophageal reflux disease without esophagitis; F41.9 Anxiety disorder, unspecified; G47.30 Sleep apnea, unspecified; G43.909 Migraine, unspecified, not intractable, without status migrainosus; J44.9 Chronic obstructive pulmonary disease, unspecified; E11.9 Type 2 diabetes mellitus without complications; M17.12 Unilateral primary osteoarthritis, left knee; F32.9 Major depressive disorder, single episode, unspecified; J45.909 Unspecified asthma, uncomplicated; N18.3 Chronic kidney disease, stage 3 (moderate); F17.210 Nicotine dependence, cigarettes, uncomplicated; Z79.4 Long term (current) use of insulin; Z79.82 Long term (current) use of aspirin; Z79.891 Long term (current) use of opiate analgesic; Z79.899 Other long term (current) drug therapy; Z91.040 Latex allergy status; Z88.6 Allergy status to analgesic agent

== ENCOUNTER → 2017-08-07 | Outpatient (CLI) | payer OTHER | LOC: M PAIN 09:15 | DX: M51.17 Intervertebral disc disorders with radiculopathy, lumbosacral region (principal); M48.9 Spondylopathy, unspecified; M25.512 Pain in left shoulder; M79.1 Myalgia; K21.9 Gastro-esophageal reflux disease without esophagitis; F41.9 Anxiety disorder, unspecified; F32.9 Major depressive disorder, single episode, unspecified; G47.30 Sleep apnea, unspecified; G43.909 Migraine, unspecified, not intractable, without status migrainosus; J44.9 Chronic obstructive pulmonary disease, unspecified; E11.9 Type 2 diabetes mellitus without complications; M17.12 Unilateral primary osteoarthritis, left knee; I12.9 Hypertensive chronic kidney disease with stage 1 through stage 4 chronic kidney disease, or unspecified chronic kidney disease; N18.3 Chronic kidney disease, stage 3 (moderate); Z88.6 Allergy status to analgesic agent; Z91.040 Latex allergy status; Z79.4 Long term (current) use of insulin; Z79.82 Long term (current) use of aspirin; Z79.891 Long term (current) use of opiate analgesic; Z79.899 Other long term (current) drug therapy | CPT/HCPCS: G0463 ==

== ENCOUNTER 2017-09-02 10:45 | Emergency (ER) | payer OTHER ==
[2017-09-02 11:47] LABS: ALBUMIN 2.8 GM/DL (3.2-5.2); ALBUMIN/GLOBULIN RATIO 0.56 (1.00-1.93); ALKALINE PHOSPHATASE 73 U/L (45-117); ALT/SGPT 30 U/L (12-78); ANION GAP 6 MEQ/L (8-16); AST/SGOT 30 U/L (7-37); BILIRUBIN,DIRECT < 0.1 MG/DL (0.0-0.2); BILIRUBIN,TOTAL 0.2 MG/DL (0.2-1.0); BLOOD UREA NITROGEN 27 MG/DL (7-18); CALCIUM LEVEL 8.7 MG/DL (8.5-10.1); CARBON DIOXIDE LEVEL 28 MEQ/L (21-32); CHLORIDE LEVEL 100 MEQ/L (98-107); CREATININE FOR GFR 1.53 MG/DL (0.55-1.02); GLOMERULAR FILTRATION RATE 38.2 (>51); GLUCOSE, FASTING 133 MG/DL (70-105); NT-PRO BNP 119 PG/ML (<125); SODIUM LEVEL 134 MEQ/L (136-145); TOTAL PROTEIN 7.8 GM/DL (6.4-8.2)
[2017-09-02 11:49] LABS: BASO # 0.1 10^3/uL (0.0-0.2); BASO % 0.7 % (0.0-1.0); EOS % 0.2 % (0.0-3.0); HEMATOCRIT 39.9 % (36.0-47.0); HEMOGLOBIN 12.8 g/dl (12.0-16.0); IMMATURE GRANULOCYTE % 0.4 % (0-0); LYMPH % 35.9 % (24.0-44.0); MEAN CORPUSCULAR HEMOGLOBIN 28.8 pg (27.0-33.0); MEAN CORPUSCULAR HGB CONC 32.1 g/dl (32.0-36.5); MEAN CORPUSCULAR VOLUME 89.9 fl (80.0-96.0); MONO # 0.7 10^3/uL (0.0-0.8); MONO % 8.2 % (0.0-5.0); NEUTROPHILS # 4.5 10^3/uL (1.8-7.7); NEUTROPHILS % 54.6 % (36.0-66.0); PLATELET COUNT, AUTOMATED 461 10^3/uL (150-450); RED BLOOD COUNT 4.44 10^6/uL (4.00-5.40); RED CELL DISTRIBUTION WIDTH 17.2 % (11.5-14.5); WHITE BLOOD COUNT 8.3 10^3/uL (4.0-10.0)
[2017-09-02 11:58] LABS: LACTIC ACID SEPSIS PROTOCOL 2.4 MMOL/L (0.4-2.0)
[2017-09-02] MEDS: IPRATROPIUM 0.5MG/ALBUTEROL 2.5MG INH SOL UD 3ML (DUONEB)(J7620) NEB ×2 (12:03→12:08)
[2017-09-02] MEDS: NS 500 ML IV (12:10)
[2017-09-02] MEDS: methylPREDNISolone INJ 125 MG/2 ML VIAL (J2930) IV (12:12)
[2017-09-02] MEDS: DOXYCYCLINE HYCLATE 100 MG TAB PO (13:49)
== END 2017-09-02 13:54 | disposition home or self-care (01) ==
LOC: M ED 10:45
DX: J18.9 Pneumonia, unspecified organism (principal); E11.9 Type 2 diabetes mellitus without complications; I12.9 Hypertensive chronic kidney disease with stage 1 through stage 4 chronic kidney disease, or unspecified chronic kidney disease; J44.9 Chronic obstructive pulmonary disease, unspecified; N18.4 Chronic kidney disease, stage 4 (severe); K76.9 Liver disease, unspecified; G43.909 Migraine, unspecified, not intractable, without status migrainosus; Z99.89 Dependence on other enabling machines and devices; Z86.73 Personal history of transient ischemic attack (TIA), and cerebral infarction without residual deficits; F17.210 Nicotine dependence, cigarettes, uncomplicated
CPT/HCPCS: J2930

== ENCOUNTER → 2017-09-10 | Outpatient (REF) | payer OTHER ==
[2017-09-10 14:24] LABS: ANION GAP 9 MEQ/L (8-16); BLOOD UREA NITROGEN 47 MG/DL (7-18); CALCIUM LEVEL 9.5 MG/DL (8.5-10.1); CARBON DIOXIDE LEVEL 32 MEQ/L (21-32); CHLORIDE LEVEL 97 MEQ/L (98-107); CREATININE FOR GFR 1.75 MG/DL (0.55-1.02); GLOMERULAR FILTRATION RATE 32.8 (>51); GLUCOSE, FASTING 132 MG/DL (70-100); POTASSIUM SERUM 4.3 MEQ/L (3.5-5.1); SODIUM LEVEL 138 MEQ/L (136-145)
== END ==
LOC: M SFHCADAM 09:58
DX: J18.1 Lobar pneumonia, unspecified organism (principal); N17.9 Acute kidney failure, unspecified

== ENCOUNTER → 2017-09-11 | Outpatient (CLI) | payer OTHER | LOC: M PAIN 09:00 | DX: M51.17 Intervertebral disc disorders with radiculopathy, lumbosacral region (principal); M79.1 Myalgia; M48.9 Spondylopathy, unspecified; M25.512 Pain in left shoulder; E11.22 Type 2 diabetes mellitus with diabetic chronic kidney disease; I10 Essential (primary) hypertension; N18.9 Chronic kidney disease, unspecified; F17.210 Nicotine dependence, cigarettes, uncomplicated; Z79.82 Long term (current) use of aspirin; Z79.84 Long term (current) use of oral hypoglycemic drugs; Z79.4 Long term (current) use of insulin; Z79.899 Other long term (current) drug therapy; Z79.891 Long term (current) use of opiate analgesic; Z91.040 Latex allergy status; Z88.8 Allergy status to other drugs, medicaments and biological substances | CPT/HCPCS: G0463 ==

== ENCOUNTER → 2017-09-26 | Outpatient (CLI) | payer OTHER ==
[2017-09-26 20:31] LABS: RHEUMATOID FACTOR QUANT 17.1 IU/ML (0-15.0)
[2017-09-26 20:31] LABS: ERYTHROCYTE SEDIMENTATION RATE 64 mm/hr (0-30)
[2017-09-29 00:06] LABS: ANA (HEP2) Positive (.)
[2017-10-01 09:23] LABS: DRVV SCREEN 44.3 SEC
== END ==
LOC: M ADAMS 12:00
DX: M48.9 Spondylopathy, unspecified (principal)
CPT/HCPCS: 85730

== ENCOUNTER → 2017-09-27 | Outpatient (REF) | payer OTHER ==
[2017-09-27 19:26] LABS: ANION GAP 6 MEQ/L (8-16); BLOOD UREA NITROGEN 23 MG/DL (7-18); CALCIUM LEVEL 9.4 MG/DL (8.5-10.1); CARBON DIOXIDE LEVEL 33 MEQ/L (21-32); CHLORIDE LEVEL 102 MEQ/L (98-107); CREATININE FOR GFR 1.27 MG/DL (0.55-1.30); GLOMERULAR FILTRATION RATE 47.4 (>51); GLUCOSE, FASTING 122 MG/DL (70-100); POTASSIUM SERUM 4.4 MEQ/L (3.5-5.1); SODIUM LEVEL 141 MEQ/L (136-145)
== END ==
LOC: M SFHCADAM 14:43
DX: R60.9 Edema, unspecified (principal); R05 Cough; J41.1 Mucopurulent chronic bronchitis

== ENCOUNTER → 2017-10-23 | Outpatient (CLI) | payer OTHER | LOC: M PAIN 09:00 | DX: M51.17 Intervertebral disc disorders with radiculopathy, lumbosacral region (principal); M79.1 Myalgia; M48.9 Spondylopathy, unspecified; M25.512 Pain in left shoulder; I10 Essential (primary) hypertension; J44.9 Chronic obstructive pulmonary disease, unspecified; K21.9 Gastro-esophageal reflux disease without esophagitis; F17.210 Nicotine dependence, cigarettes, uncomplicated; F32.9 Major depressive disorder, single episode, unspecified; F41.9 Anxiety disorder, unspecified; E11.9 Type 2 diabetes mellitus without complications; Z79.891 Long term (current) use of opiate analgesic; Z79.82 Long term (current) use of aspirin; Z79.4 Long term (current) use of insulin; Z79.899 Other long term (current) drug therapy; Z88.8 Allergy status to other drugs, medicaments and biological substances; Z91.040 Latex allergy status | CPT/HCPCS: G0463 ==

== ENCOUNTER → 2017-10-25 | Outpatient (CLI) | payer OTHER ==
[2017-10-25 10:51] LABS: ESTIMATED AVERAGE GLUCOSE 200 MG/DL (60-110); HEMOGLOBIN A1c 8.6 %
[2017-10-25 10:55] LABS: CHOLESTEROL LEVEL 160 MG/DL (<200); CHOLESTEROL RISK RATIO 3.333 (<5); HDL CHOLESTEROL 48 MG/DL (>40); LDL CHOLESTEROL 82.8 MG/DL (<100); NON-HDL-C 112 MG/DL; TRIGLYCERIDES LEVEL 146 MG/DL (<150)
== END ==
LOC: M LAB 09:46
DX: E11.65 Type 2 diabetes mellitus with hyperglycemia (principal)
CPT/HCPCS: 83036

== ENCOUNTER → 2017-10-25 | Outpatient (CLI) | payer OTHER | LOC: M RAD 09:42 | DX: J44.1 Chronic obstructive pulmonary disease with (acute) exacerbation (principal) | CPT/HCPCS: 71250 ==

== ENCOUNTER 2017-11-11 12:02 | Emergency (ER) | payer OTHER ==
[2017-11-11] MEDS: NORCO, ANEXSIA 5/325MG TABLET (HYDROcodone/ACETAMINOPHEN) PO (13:26)
== END 2017-11-11 14:33 | disposition home or self-care (01) ==
LOC: M ED 12:02
DX: M54.14 Radiculopathy, thoracic region (principal); E11.9 Type 2 diabetes mellitus without complications; I10 Essential (primary) hypertension; E78.5 Hyperlipidemia, unspecified; F17.200 Nicotine dependence, unspecified, uncomplicated; Z82.49 Family history of ischemic heart disease and other diseases of the circulatory system; Z79.82 Long term (current) use of aspirin; Z79.4 Long term (current) use of insulin; Z79.899 Other long term (current) drug therapy; Z88.6 Allergy status to analgesic agent; Z91.040 Latex allergy status
CPT/HCPCS: 71101

== ENCOUNTER → 2017-12-05 | Outpatient (CLI) | payer OTHER | LOC: M RAD 09:53 | DX: Z12.31 Encounter for screening mammogram for malignant neoplasm of breast (principal) | CPT/HCPCS: 77067 ==

== ENCOUNTER → 2017-12-23 | Outpatient (CLI) | payer OTHER | LOC: M PAIN 09:15 | DX: M51.17 Intervertebral disc disorders with radiculopathy, lumbosacral region (principal); M79.1 Myalgia; M48.9 Spondylopathy, unspecified; M25.512 Pain in left shoulder; I12.9 Hypertensive chronic kidney disease with stage 1 through stage 4 chronic kidney disease, or unspecified chronic kidney disease; E11.22 Type 2 diabetes mellitus with diabetic chronic kidney disease; N18.3 Chronic kidney disease, stage 3 (moderate); K21.9 Gastro-esophageal reflux disease without esophagitis; F41.9 Anxiety disorder, unspecified; G47.30 Sleep apnea, unspecified; G43.909 Migraine, unspecified, not intractable, without status migrainosus; J44.9 Chronic obstructive pulmonary disease, unspecified; M17.12 Unilateral primary osteoarthritis, left knee; F32.9 Major depressive disorder, single episode, unspecified; F17.210 Nicotine dependence, cigarettes, uncomplicated; Z79.4 Long term (current) use of insulin; Z79.51 Long term (current) use of inhaled steroids; Z79.82 Long term (current) use of aspirin; Z79.899 Other long term (current) drug therapy; Z88.6 Allergy status to analgesic agent; Z91.040 Latex allergy status; Z79.891 Long term (current) use of opiate analgesic; Z87.828 Personal history of other (healed) physical injury and trauma | CPT/HCPCS: G0463 ==

== ENCOUNTER → 2018-02-06 | Outpatient (REF) | payer OTHER ==
[2018-02-06 14:45] LABS: FREE T4 1.12 NG/DL (0.76-1.46)
== END ==
LOC: M LAB REF 13:35
DX: E03.9 Hypothyroidism, unspecified (principal)

== ENCOUNTER → 2018-02-10 | Outpatient (CLI) | payer OTHER | LOC: M SLEEP 19:40 | DX: G47.33 Obstructive sleep apnea (adult) (pediatric) (principal) | CPT/HCPCS: 95811 ==

== ENCOUNTER → 2018-02-24 | Outpatient (CLI) | payer OTHER | LOC: M PAIN 08:45 | DX: M51.17 Intervertebral disc disorders with radiculopathy, lumbosacral region (principal); M79.1 Myalgia; M48.9 Spondylopathy, unspecified; M25.512 Pain in left shoulder; I12.9 Hypertensive chronic kidney disease with stage 1 through stage 4 chronic kidney disease, or unspecified chronic kidney disease; K21.9 Gastro-esophageal reflux disease without esophagitis; F41.9 Anxiety disorder, unspecified; G47.30 Sleep apnea, unspecified; G43.909 Migraine, unspecified, not intractable, without status migrainosus; J44.9 Chronic obstructive pulmonary disease, unspecified; E11.22 Type 2 diabetes mellitus with diabetic chronic kidney disease; M17.12 Unilateral primary osteoarthritis, left knee; F32.9 Major depressive disorder, single episode, unspecified; N18.3 Chronic kidney disease, stage 3 (moderate); F17.210 Nicotine dependence, cigarettes, uncomplicated; Z79.891 Long term (current) use of opiate analgesic; E66.01 Morbid (severe) obesity due to excess calories; Z68.43 Body mass index [BMI] 50.0-59.9, adult; Z79.4 Long term (current) use of insulin; Z79.51 Long term (current) use of inhaled steroids; Z79.82 Long term (current) use of aspirin; Z79.899 Other long term (current) drug therapy; Z88.6 Allergy status to analgesic agent; Z91.040 Latex allergy status | CPT/HCPCS: G0463 ==

== ENCOUNTER → 2018-04-08 | Outpatient (CLI) | payer OTHER | LOC: M ADAMS 15:43 | DX: R07.81 Pleurodynia (principal); R06.02 Shortness of breath; J44.1 Chronic obstructive pulmonary disease with (acute) exacerbation | CPT/HCPCS: 71046 ==

== ENCOUNTER → 2018-06-13 | Outpatient (CLI) | payer OTHER | LOC: M PAIN 10:45 | DX: M51.17 Intervertebral disc disorders with radiculopathy, lumbosacral region (principal); L90.5 Scar conditions and fibrosis of skin; M79.18 Myalgia, other site; E11.9 Type 2 diabetes mellitus without complications; J44.9 Chronic obstructive pulmonary disease, unspecified; K21.9 Gastro-esophageal reflux disease without esophagitis; F41.9 Anxiety disorder, unspecified; G47.30 Sleep apnea, unspecified; G43.909 Migraine, unspecified, not intractable, without status migrainosus; M17.12 Unilateral primary osteoarthritis, left knee; N18.3 Chronic kidney disease, stage 3 (moderate); F32.9 Major depressive disorder, single episode, unspecified; J30.2 Other seasonal allergic rhinitis; Z79.4 Long term (current) use of insulin; Z79.51 Long term (current) use of inhaled steroids; Z79.82 Long term (current) use of aspirin; Z79.899 Other long term (current) drug therapy; Z88.6 Allergy status to analgesic agent; Z91.040 Latex allergy status; Z86.79 Personal history of other diseases of the circulatory system; Z87.891 Personal history of nicotine dependence | CPT/HCPCS: G0463 ==

== ENCOUNTER → 2018-07-02 | Outpatient (REF) | payer OTHER ==
[2018-07-02 13:35] LABS: IMMUNOGLOBULIN A 512 MG/DL (70-400)
[2018-07-08 00:06] LABS: DQ2(DQ1A 0501/0505,DQB1 02XX) Negative (.); DQ8(DQA1 03XX, DQB1 0302) Negative (.)
== END ==
LOC: M SFHCADAM 09:27
DX: R10.9 Unspecified abdominal pain (principal)

== ENCOUNTER 2018-07-21 14:44 | Inpatient (IN) | payer OTHER ==
[2018-07-21] MEDS: ONDANSETRON 4MG/2ML VIAL (J2405) IV (15:52)
[2018-07-21] MEDS: NS 1,000 ML IV (15:52)
[2018-07-21] MEDS: MORPHINE 4 MG/ML 1ML VIAL/SYRINGE (J2270) IV (15:53)
[2018-07-21 15:57] LABS: BASO # 0.1 10^3/uL (0.0-0.2); BASO % 0.7 % (0.0-1.0); EOS # 0.3 10^3/uL (0.0-0.50); EOS % 1.9 % (0.0-3.0); HEMATOCRIT 43.9 % (36.0-47.0); HEMOGLOBIN 14.5 g/dl (12.0-15.5); IMMATURE GRANULOCYTE % 0.4 % (0-3.0); LYMPH # 3.4 10^3/uL (1.5-4.5); LYMPH % 24.9 % (24.0-44.0); MEAN CORPUSCULAR VOLUME 96.9 fl (80.0-96.0); MONO # 1.3 10^3/uL (0.0-0.8); MONO % 9.8 % (0.0-5.0); NEUTROPHILS # 8.4 10^3/uL (1.8-7.7); NEUTROPHILS % 62.3 % (36.0-66.0); PLATELET COUNT, AUTOMATED 395 10^3/uL (150-450); RED BLOOD COUNT 4.53 10^6/uL (4.00-5.40); WHITE BLOOD COUNT 13.4 10^3/uL (4.0-10.0)
[2018-07-21 16:08] LABS: INR 0.99; PROTHROMBIN TIME 13.2 SECONDS (12.1-14.4)
[2018-07-21 16:25] LABS: ANION GAP 8 MEQ/L (8-16); BLOOD UREA NITROGEN 15 MG/DL (7-18); CARBON DIOXIDE LEVEL 30 MEQ/L (21-32); CHLORIDE LEVEL 101 MEQ/L (98-107); GLOMERULAR FILTRATION RATE 55.7 (>51); GLUCOSE, FASTING 151 MG/DL (70-100); POTASSIUM SERUM 3.9 MEQ/L (3.5-5.1); SODIUM LEVEL 139 MEQ/L (136-145)
[2018-07-21 16:26] LABS: ALBUMIN 3.1 GM/DL (3.2-5.2); ALBUMIN/GLOBULIN RATIO 0.79 (1.00-1.93); ALKALINE PHOSPHATASE 95 U/L (45-117); ALT/SGPT 30 U/L (12-78); AST/SGOT 25 U/L (7-37); BILIRUBIN,DIRECT < 0.1 MG/DL (0.0-0.2); BILIRUBIN,TOTAL 0.2 MG/DL (0.2-1.0); LIPASE 110 U/L (73-393)
[2018-07-21] MEDS ORDERED: ALBUTEROL 90 MCG/ACT 8GM HFA INHALER INH (18:30)
[2018-07-21] MEDS ORDERED: ALBUTEROL SULFATE 2.5 MG/0.5 ML INH NEB SOLN INH (18:30)
[2018-07-21] MEDS ORDERED: CYCLOBENZAPRINE 10 MG TAB PO (18:30)
[2018-07-21] MEDS ORDERED: HumaLOG INSULIN (NovoLOG) PER UNIT SC (21:00)
[2018-07-21] MEDS: POLYVINYL ALCOHOL OPHTH SOLN 15 ML(LIQUITEARS) OU (21:23)
[2018-07-21] MEDS: CIPROFLOXACIN 400 MG in APPROPRIATE DILUENT 1 EA IV (21:40)
[2018-07-21] MEDS: FAMOTIDINE 20 MG TAB PO (21:41)
[2018-07-21] MEDS: MECLIZINE 25 MG TABLET PO (21:41)
[2018-07-21] MEDS: busPIRone 10 MG TAB PO (21:41)
[2018-07-21] MEDS: FUROSEMIDE 40 MG TAB PO (21:41)
[2018-07-21] MEDS: ALPRAZolam 0.25 MG TAB PO (21:41)
[2018-07-21] MEDS: CARVedilol 3.125 MG TAB PO (21:41)
[2018-07-21] MEDS ORDERED: GLUCAGON FOR INJ 1 MG VIAL (J1610) SC (22:30)
[2018-07-21] MEDS ORDERED: DEXTROSE 50% 50 ML SYRINGE IV (22:30)
[2018-07-21] MEDS ORDERED: GLUCOSE 4 GM CHEW TABLET PO (22:30)
[2018-07-22] MEDS: metroNIDAZOLE 500 MG in APPROPRIATE DILUENT 1 EA IV ×3 (00:52→16:56)
[2018-07-22] MEDS: MORPHINE 4 MG/ML 1ML VIAL/SYRINGE (J2270) IV (02:21)
[2018-07-22 03:37] LABS: BEDSIDE GLUCOSE 184 MG/DL (70-105)
[2018-07-22 06:08] LABS: BASO # 0.1 10^3/uL (0.0-0.2); BASO % 0.7 % (0.0-1.0); EOS # 0.3 10^3/uL (0.0-0.50); EOS % 2.2 % (0.0-3.0); HEMATOCRIT 40.2 % (36.0-47.0); HEMOGLOBIN 13.1 g/dl (12.0-15.5); IMMATURE GRANULOCYTE % 0.4 % (0-3.0); LYMPH # 2.9 10^3/uL (1.5-4.5); LYMPH % 23.8 % (24.0-44.0); MEAN CORPUSCULAR HEMOGLOBIN 31.9 pg (27.0-33.0); MEAN CORPUSCULAR HGB CONC 32.6 g/dl (32.0-36.5); MEAN CORPUSCULAR VOLUME 97.8 fl (80.0-96.0); MONO # 1.3 10^3/uL (0.0-0.8); MONO % 10.5 % (0.0-5.0); NEUTROPHILS # 7.5 10^3/uL (1.8-7.7); NEUTROPHILS % 62.4 % (36.0-66.0); PLATELET COUNT, AUTOMATED 367 10^3/uL (150-450); RED BLOOD COUNT 4.11 10^6/uL (4.00-5.40); RED CELL DISTRIBUTION WIDTH 16.2 % (11.5-14.5)
[2018-07-22 06:32] LABS: ANION GAP 6 MEQ/L (8-16); BLOOD UREA NITROGEN 16 MG/DL (7-18); CALCIUM LEVEL 8.4 MG/DL (8.5-10.1); CARBON DIOXIDE LEVEL 30 MEQ/L (21-32); CHLORIDE LEVEL 104 MEQ/L (98-107); CREATININE FOR GFR 1.07 MG/DL (0.55-1.30); GLOMERULAR FILTRATION RATE 57.6 (>51); GLUCOSE, FASTING 188 MG/DL (70-100); POTASSIUM SERUM 3.6 MEQ/L (3.5-5.1); SODIUM LEVEL 140 MEQ/L (136-145)
[2018-07-22 06:43] LABS: ALBUMIN 2.7 GM/DL (3.2-5.2); ALBUMIN/GLOBULIN RATIO 0.77 (1.00-1.93); ALKALINE PHOSPHATASE 173 U/L (45-117); ALT/SGPT 57 U/L (12-78); ANION GAP 6 MEQ/L (8-16); AST/SGOT 65 U/L (7-37); BILIRUBIN,TOTAL 0.4 MG/DL (0.2-1.0); BLOOD UREA NITROGEN 17 MG/DL (7-18); CALCIUM LEVEL 8.5 MG/DL (8.5-10.1); CARBON DIOXIDE LEVEL 30 MEQ/L (21-32); CHLORIDE LEVEL 105 MEQ/L (98-107); CREATININE FOR GFR 1.03 MG/DL (0.55-1.30); GLOMERULAR FILTRATION RATE > 60.0 (>51); GLUCOSE, FASTING 185 MG/DL (70-100); POTASSIUM SERUM 4.1 MEQ/L (3.5-5.1); SODIUM LEVEL 141 MEQ/L (136-145); TOTAL PROTEIN 6.2 GM/DL (6.4-8.2)
[2018-07-22] MEDS: POLYVINYL ALCOHOL OPHTH SOLN 15 ML(LIQUITEARS) OU (08:13)
[2018-07-22] MEDS: ALLOPURINOL 300 MG TAB PO (08:14)
[2018-07-22] MEDS: FUROSEMIDE 40 MG TAB PO (08:14)
[2018-07-22] MEDS: busPIRone 10 MG TAB PO ×3 (08:14→21:39)
[2018-07-22] MEDS: MULTIVITAMINS/MINERALS THERAP 1 TAB PO (08:14)
[2018-07-22] MEDS: ALPRAZolam 0.25 MG TAB PO ×2 (08:14→21:39)
[2018-07-22] MEDS: FAMOTIDINE 20 MG TAB PO ×4 (08:14→21:39)
[2018-07-22] MEDS: CARVedilol 3.125 MG TAB PO ×2 (08:14→21:39)
[2018-07-22] MEDS: CETIRIZINE (ZyrTEC) 10 MG TAB PO (08:14)
[2018-07-22] MEDS: ASPIRIN 81 MG ENTERIC TAB PO (08:14)
[2018-07-22] MEDS: MECLIZINE 25 MG TABLET PO ×4 (08:14→21:39)
[2018-07-22] MEDS: LEVEMIR (INSULIN DETEMIR) 1 UNITS/0.01ML SC (08:16)
[2018-07-22] MEDS: HumaLOG INSULIN (NovoLOG) PER UNIT SC ×4 (08:16→21:40)
[2018-07-22] MEDS: SERTRALINE HCL 50 MG TAB PO (08:18)
[2018-07-22] MEDS: OMEPRAZOLE 20 MG CAP PO (08:18)
[2018-07-22] MEDS: SYMBICORT 160/4.5MCG INHALER 6GM INH (08:39)
[2018-07-22] MEDS ORDERED: HumaLOG INSULIN (NovoLOG) PER UNIT SC ×2 (09:00→18:00)
[2018-07-22] MEDS: CIPROFLOXACIN 400 MG in APPROPRIATE DILUENT 1 EA IV ×2 (09:36→21:40)
[2018-07-22 11:30] LABS: BEDSIDE GLUCOSE 238 MG/DL (70-105)
[2018-07-22 11:45] LABS: HEMATOCRIT 39.8 % (36.0-47.0); HEMOGLOBIN 12.8 g/dl (12.0-15.5)
[2018-07-22] MEDS ORDERED: NS 500 ML IV (15:45)
[2018-07-22] MEDS ORDERED: NORCO, ANEXSIA 5/325MG TABLET (HYDROcodone/ACETAMINOPHEN) PO (16:15)
[2018-07-22] MEDS: NS 1,000 ML IV (16:56)
[2018-07-22 17:09] LABS: BEDSIDE GLUCOSE 231 MG/DL (70-105)
[2018-07-22 22:28] LABS: BEDSIDE GLUCOSE 259 MG/DL (70-105)
[2018-07-23] MEDS: metroNIDAZOLE 500 MG in APPROPRIATE DILUENT 1 EA IV ×2 (00:05→09:20)
[2018-07-23] MEDS: MORPHINE 4 MG/ML 1ML VIAL/SYRINGE (J2270) IV (00:06)
[2018-07-23 06:20] LABS: HEMATOCRIT 39.7 % (36.0-47.0); HEMOGLOBIN 12.6 g/dl (12.0-15.5); MEAN CORPUSCULAR HEMOGLOBIN 31.1 pg (27.0-33.0); MEAN CORPUSCULAR HGB CONC 31.7 g/dl (32.0-36.5); PLATELET COUNT, AUTOMATED 379 10^3/uL (150-450); RED BLOOD COUNT 4.05 10^6/uL (4.00-5.40); RED CELL DISTRIBUTION WIDTH 15.9 % (11.5-14.5); WHITE BLOOD COUNT 11.3 10^3/uL (4.0-10.0)
[2018-07-23 06:52] LABS: ALBUMIN 2.5 GM/DL (3.2-5.2); ALBUMIN/GLOBULIN RATIO 0.63 (1.00-1.93); ALKALINE PHOSPHATASE 134 U/L (45-117); ALT/SGPT 50 U/L (12-78); ANION GAP 6 MEQ/L (8-16); AST/SGOT 37 U/L (7-37); BILIRUBIN,TOTAL 0.1 MG/DL (0.2-1.0); BLOOD UREA NITROGEN 16 MG/DL (7-18); CALCIUM LEVEL 8.4 MG/DL (8.5-10.1); CARBON DIOXIDE LEVEL 30 MEQ/L (21-32); CHLORIDE LEVEL 105 MEQ/L (98-107); CREATININE FOR GFR 1.08 MG/DL (0.55-1.30); GLOMERULAR FILTRATION RATE 56.9 (>51); GLUCOSE, FASTING 225 MG/DL (70-100); MAGNESIUM LEVEL 1.6 MG/DL (1.8-2.4); SODIUM LEVEL 141 MEQ/L (136-145); TOTAL PROTEIN 6.5 GM/DL (6.4-8.2)
[2018-07-23] MEDS: NS 1,000 ML IV ×2 (07:26→10:41)
[2018-07-23] MEDS ORDERED: ISOVUE-370 76% 100ML VIAL (Q9967) As Ordered (08:31)
[2018-07-23] MEDS: LEVEMIR (INSULIN DETEMIR) 1 UNITS/0.01ML SC (09:00)
[2018-07-23] MEDS: MECLIZINE 25 MG TABLET PO ×2 (09:22→13:34)
[2018-07-23] MEDS: HumaLOG INSULIN (NovoLOG) PER UNIT SC ×2 (09:22→13:34)
[2018-07-23] MEDS: CETIRIZINE (ZyrTEC) 10 MG TAB PO (09:22)
[2018-07-23] MEDS: OMEPRAZOLE 20 MG CAP PO (09:22)
[2018-07-23] MEDS: SERTRALINE HCL 50 MG TAB PO (09:22)
[2018-07-23] MEDS: ALLOPURINOL 300 MG TAB PO (09:22)
[2018-07-23] MEDS: POLYVINYL ALCOHOL OPHTH SOLN 15 ML(LIQUITEARS) OU (09:23)
[2018-07-23] MEDS: busPIRone 10 MG TAB PO (09:23)
[2018-07-23] MEDS: MULTIVITAMINS/MINERALS THERAP 1 TAB PO (09:23)
[2018-07-23] MEDS: ASPIRIN 81 MG ENTERIC TAB PO (09:23)
[2018-07-23] MEDS: CARVedilol 3.125 MG TAB PO (09:23)
[2018-07-23] MEDS: FAMOTIDINE 20 MG TAB PO ×2 (09:23→13:34)
[2018-07-23] MEDS: ALPRAZolam 0.25 MG TAB PO (09:23)
[2018-07-23] MEDS: SYMBICORT 160/4.5MCG INHALER 6GM INH (09:50)
[2018-07-23] MEDS: CIPROFLOXACIN 400 MG in APPROPRIATE DILUENT 1 EA IV (10:40)
[2018-07-23 17:22] LABS: BEDSIDE GLUCOSE 350 MG/DL (70-105)
== END 2018-07-23 14:59 | disposition home or self-care (01) ==
LOC: M ED 14:44 → M ED INP 18:34 → M MSPAV 20:53
DX: K76.89 Other specified diseases of liver (principal); E66.01 Morbid (severe) obesity due to excess calories; I10 Essential (primary) hypertension; J44.9 Chronic obstructive pulmonary disease, unspecified; E11.9 Type 2 diabetes mellitus without complications; F41.9 Anxiety disorder, unspecified; K21.9 Gastro-esophageal reflux disease without esophagitis; M10.9 Gout, unspecified; F43.10 Post-traumatic stress disorder, unspecified; Z79.899 Other long term (current) drug therapy; Z79.82 Long term (current) use of aspirin; G43.909 Migraine, unspecified, not intractable, without status migrainosus; G47.33 Obstructive sleep apnea (adult) (pediatric); F17.200 Nicotine dependence, unspecified, uncomplicated; Z88.6 Allergy status to analgesic agent; Z90.81 Acquired absence of spleen; Z91.040 Latex allergy status

== ENCOUNTER → 2018-09-03 | Outpatient (CLI) | payer OTHER ==
[~2018-09-03] MED LIST changes: +ALLO10TA PO; +ASPI325T25 PO; +BUSP10TA PO; +CALC1CAP31 PO; +CARV3.12 PO; +CYCL10TA PO; +DOXY100C37 PO; -DRIS50002 PO; +DRIS50003 PO; +FISH120016 PO; +GABA-1171 PO; -GABA-279 PO; -GABA-282 PO; +GABA-843 PO; +HUMA100I3 SC; +IPRA0.00 IN; +METF-414 PO; +NICO21DI34 TD; -NICODIS TD; +NOVOINJ3 SC; -PROP1TAB29 PO; +PROP20TA72 PO; +VENTAER INH; -VITA1CAP40 PO; +VITA50005 PO; +VITMTA PO; +calcitrol PO
[2018-09-03 12:36] LABS: C REACTIVE PROTEIN QUANTITATIV 5.83 MG/DL (0.00-0.30); RHEUMATOID FACTOR QUANT < 10.0 IU/ML (<15.0)
--- NOTE | 2018-09-04 01:01 | REP ---
Clinical: Polyarthralgia. Technique: AP, lateral, bilateral oblique views of the right and left hand. Findings: Mild osteoarthritic degenerative changes are suggested primarily involving the interphalangeal joints and first metacarpophalangeal joint bilaterally. Findings include subchondral sclerosis with minimal joint space narrowing and very subtle early marginal spurring. No periarticular soft tissue swelling or erosive changes are appreciated. No acute fracture dislocation. Impression: Mild symmetric osteoarthritic degenerative changes. Electronically Signed by Singh Perkins MD 09/04/2018 12:52 A
[2018-09-05 00:10] LABS: ANA (HEP2) Negative (.); CYCLIC CITRULLINATED PEPTIDE 10 units (0-19)
== END ==
LOC: M WUC 10:43
PROVIDERS: ATTEND Internal Medicine Rheumatology
DX: R76.8 Other specified abnormal immunological findings in serum (principal); M25.50 Pain in unspecified joint; M79.641 Pain in right hand; M79.642 Pain in left hand

== ENCOUNTER → 2018-10-15 | Outpatient (CLI) | payer OTHER ==
--- NOTE | 2018-10-15 14:40 | REP ---
Clinical: Follow up hepatic hematoma. Technique: Axial noncontrast images of the abdomen with coronal and sagittal re-formations. Comparison: 07/23/2018, 07/21/2018. Findings: A wedge-shaped area of low density is again identified along the periphery of the anterior segment right hepatic lobe (images [id number]) which currently measures approximately 8.0 x 3.3 cm and previously seen to measure approximately 5.5 x 2.2 cm at the same level. The lesion appears relatively unchanged in density. No new hepatic lesions are identified and no perihepatic inflammatory stranding or ascites is appreciated. The liver itself otherwise appears enlarged and demonstrates low density changes suggesting fatty infiltration. The patient is noted to be status post splenectomy and cholecystectomy. The pancreas is unremarkable. The kidneys are stable. The right adrenal gland is normal. The left adrenal gland demonstrates stable 2.6 cm mass unchanged when compared to 2016 and compatible with atypical adenoma. A 2 cm fat containing periumbilical hernia noted. Visualized portions of the enteric system are unremarkable. Abdominal aorta without aneurysm. No ascites. No adenopathy. Musculoskeletal structures demonstrate degenerative changes. Lung bases are clear. Impression: 1. Wedge-shaped hypodense lesion along the periphery of the right hepatic lobe may be slightly increased in size. The area is otherwise stable in overall appearance and without inflammatory stranding, ascites, or new lesions. Differential diagnosis again includes but is not limited to area of hepatic hematoma or infarction. Consider follow-up by ultrasound examination if necessary. 2. Stable atypical left adrenal adenoma. 3. Stable fat-containing periumbilical hernia. 4. Liver again otherwise demonstrates hepatomegaly and hepatosteatosis. Electronically Signed by Singh Perkins MD 10/15/2018 02:31 P
== END ==
LOC: M RAD 13:45
PROVIDERS: ATTEND Physician Assistant
DX: S36.112D Contusion of liver, subsequent encounter (principal); W18.30XD Fall on same level, unspecified, subsequent encounter; Y92.009 Unspecified place in unspecified non-institutional (private) residence as the place of occurrence of the external cause

== ENCOUNTER → 2018-11-01 | Outpatient (CLI) | payer OTHER ==
--- NOTE | 2018-11-01 11:46 | REP ---
Chest two views HISTORY: COPD Comparison: 04/08/2018 Linear densities are present in the left lower lobe consistent with scar. The right lung is clear. The heart is normal in size. The pulmonary vasculature is normal in appearance. The bony structure is intact. IMPRESSION: No acute disease. Electronically Signed by Km Garcia MD 11/01/2018 11:39 A
== END ==
LOC: M LAB 11:01 → M RAD 11:01
PROVIDERS: ATTEND Internal Medicine Pulmonary Disease
DX: J44.9 Chronic obstructive pulmonary disease, unspecified (principal)

== ENCOUNTER → 2018-11-20 | Outpatient (CLI) | payer OTHER ==
[~2018-11-20] MED LIST changes: +ASPI-255 PO; -ASPI325T25 PO; -MULT1CHW39 PO; +MULT200T7 PO; +OXYC1TAB23 PO; -PERCOCET PO
--- NOTE | 2018-11-20 10:59 | REP ---
Right upper quadrant sonography: History: Liver lesion. Follow-up of question liver hematoma versus infarct on CT abdomen and pelvis from October 15, 2018. Comparison ultrasound July 22, 2018. Sonographic findings: Once again, exam quality is severely limited sonographically due to patient body habitus, fatty infiltration in the liver, and limited scan windows. The patient is status post cholecystectomy. We were not able to visualize the liver lesions sonographically. This was also the case on the prior sonogram. Follow-up will need to be done with CT scanning. Common bile duct is normal measuring 0.3 cm in greatest diameter. Limited views of the pancreas show no abnormality. There is no evidence of ascites or right renal abnormality. The right kidney measures 12.0 x 4.4 x 5.3 cm. Impression: Scan quality is significantly limited by body habitus, diffuse fatty infiltration of the liver, and limited scan windows as on the prior sonogram. We were not able to visualize the liver lesion. Consider followup with interval CT scanning. Electronically Signed by Sergei Andrade MD 11/20/2018 01:03 P
== END ==
LOC: M WHC 08:10
PROVIDERS: ATTEND Physician Assistant
DX: K76.89 Other specified diseases of liver (principal); K76.0 Fatty (change of) liver, not elsewhere classified

== ENCOUNTER 2018-12-07 12:03 | Emergency (ER) | payer OTHER ==
[~2018-12-07] VITALS: Ht 172.7 cm; Wt 151.8 kg
[2018-12-07] MEDS ORDERED: ADME100I (12:16)
[2018-12-07] MEDS ORDERED: ADME100I SC ×2 (12:16)
[2018-12-07] MEDS ORDERED: BASA100I (12:16)
[2018-12-07 12:58] LABS: BASO # 0.1 10^3/uL (0.0-0.2); BASO % 0.9 % (0.0-1.0); EOS # 0.1 10^3/uL (0.0-0.50); EOS % 0.8 % (0.0-3.0); HEMATOCRIT 45.3 % (36.0-47.0); HEMOGLOBIN 14.7 g/dl (12.0-15.5); LYMPH % 7.9 % (24.0-44.0); MEAN CORPUSCULAR HEMOGLOBIN 32.1 pg (27.0-33.0); MEAN CORPUSCULAR HGB CONC 32.5 g/dl (32.0-36.5); MEAN CORPUSCULAR VOLUME 98.9 fl (80.0-96.0); MONO # 0.9 10^3/uL (0.0-0.8); MONO % 7.3 % (0.0-5.0); NEUTROPHILS # 10.5 10^3/uL (1.8-7.7); NEUTROPHILS % 82.3 % (36.0-66.0); PLATELET COUNT, AUTOMATED 388 10^3/uL (150-450); RED BLOOD COUNT 4.58 10^6/uL (4.00-5.40); WHITE BLOOD COUNT 12.8 10^3/uL (4.0-10.0)
[2018-12-07 13:17] LABS: ABG BASE EXCESS 3.7 (-2.0-2.0); ABG HCO3 28.3 MEQ/L (22.0-26.0); ABG O2 SATURATION 97.4 % (95.0-99.0); ABG PARTIAL PRESSURE CO2 42.6 mmHg (35.0-45.0); ABG STANDARD HCO3 27.7 MEQ/L (22.0-26.0); ABG TOTAL CO2 29.6 MEQ/L (22.0-29.0)
[2018-12-07 13:26] LABS: BLOOD UREA NITROGEN 22 MG/DL (7-18); CALCIUM LEVEL 8.6 MG/DL (8.5-10.1); CARBON DIOXIDE LEVEL 31 MEQ/L (21-32); CHLORIDE LEVEL 99 MEQ/L (98-107); CK-MB VALUE MASS < 1.0 NG/ML (<3.6); CPK CREATINE PHOSPHOKINASE 69 U/L (26-192); CREATININE FOR GFR 1.24 MG/DL (0.55-1.30); GLOMERULAR FILTRATION RATE 48.4 (>51); GLUCOSE, FASTING 156 MG/DL (70-100); MB/CK RELATIVE INDEX 1.44 (< OR =4); NT-PRO BNP 169 PG/ML (<125); POTASSIUM SERUM 3.7 MEQ/L (3.5-5.1); SODIUM LEVEL 136 MEQ/L (136-145); TROPONIN I < 0.02 NG/ML (< 0.10)
[2018-12-07 13:32] LABS: INFLUENZA A AMPLIFICATION NEGATIVE (NEGATIVE); INFLUENZA B AMPLIFICATION NEGATIVE (NEGATIVE)
[2018-12-07] MEDS: LEVALBUTEROL 1.25 MG/0.5 ML CONCENTRATE NEB NEB PRN (13:32)
[2018-12-07] MEDS ORDERED: ACETAMINOPHEN TAB 650MG DOSE (2X325MG) PO ONE (14:15)
[2018-12-07 15:01] VITALS: O2SAT 93
[2018-12-07] MEDS ORDERED: PRED20TA PO (15:36)
[2018-12-07 15:50] VITALS: BP 119/56
--- NOTE | 2018-12-07 21:01 | ECGEPIP ---
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
--- NOTE | 2018-12-08 07:13 | REP ---
CHEST PORTABLE: REASON: Dyspnea and cough. COMPARISON: Multiple, the latest 11/01/2018 FINDINGS: The technique utilized in obtaining the radiograph has magnified the cardiac silhouette and accentuated the interstitial markings. The superior mediastinal structures are midline. The cardiac silhouette is unremarkable in size, shape, and position. The diaphragmatic surfaces of the lungs are regular, and the costophrenic angles are clear. The pulmonary aparicio are clear. The imaged osseous structures are intact. IMPRESSION: There is no acute cardiopulmonary disease. No change from the prior exam other than technique. Electronically Signed by Christian Hernandez DO 12/08/2018 01:58 P
== END 2018-12-07 15:59 | disposition home or self-care (01) ==
LOC: M ED 12:03
DX: J44.1 Chronic obstructive pulmonary disease with (acute) exacerbation (principal); R60.9 Edema, unspecified; E11.9 Type 2 diabetes mellitus without complications; F41.9 Anxiety disorder, unspecified; F32.9 Major depressive disorder, single episode, unspecified; K57.90 Diverticulosis of intestine, part unspecified, without perforation or abscess without bleeding; N18.3 Chronic kidney disease, stage 3 (moderate); K76.0 Fatty (change of) liver, not elsewhere classified; H40.9 Unspecified glaucoma; K21.9 Gastro-esophageal reflux disease without esophagitis; F17.210 Nicotine dependence, cigarettes, uncomplicated; Z88.8 Allergy status to other drugs, medicaments and biological substances; Z91.040 Latex allergy status; Z79.899 Other long term (current) drug therapy

== ENCOUNTER → 2019-01-17 | Outpatient (CLI) | payer OTHER ==
[~2019-01-17] MED LIST changes: +ADME100I; +ADME100I SC; +BASA100I; +PRED20TA PO
--- NOTE | 2019-01-19 15:20 | SLEEPCENT ---
DATE OF STUDY: 01/17/2019 ORDERED BY: Dr. Cobian Nocturnal polysomnography was performed for the titration of pressure therapy in this patient with obstructive sleep apnea syndrome. For testing a [employer] AirTouch F20 full face mask of small size was used; 10 cm of water pressure were applied circuit and the lights were extinguished. 7 hours and 15 minutes of data were reviewed. There were 380 minutes of sleep identified. Sleep latency was prolonged at 24 minutes. Rapid eye movement (REM) latency was prolonged at 121 minutes. Sleep architecture improved late in the study on optimal pressure therapy. Overall sleep efficiency was 89.6%. The electrocardiogram showed a sinus rhythm with small complexes. Average heart rate 92 beats per minute. Electroencephalogram (EEG) showed normal waveforms for awake and sleep. Persistent respiratory events prompted increase in CPAP from 10 to an optimal pressure of +18. Despite optimal pressure therapy oxygen desaturations were seen prompting the addition of supplemental oxygen. Best sleep was seen on a CPAP pressure of +18 with oxygen at 2 liters per minute via nasal cannula to address oxygen desaturation. Remaining measures of sleep physiology were normal. IMPRESSION: Obstructive sleep apnea syndrome (G47.33). RECOMMENDATIONS: Nightly use of pressure therapy 18 cm of water with 2 liters of oxygen bled through the system.
== END ==
LOC: M SLEEP 20:00
PROVIDERS: ATTEND Physician Assistant
DX: G47.33 Obstructive sleep apnea (adult) (pediatric) (principal)

== ENCOUNTER → 2019-02-03 | Outpatient (CLI) | payer OTHER ==
--- NOTE | 2019-02-03 10:20 | REPMRS ---
Patient History The patient states she has not had a clinical breast exam in over a year. Family history of breast cancer at age 50 or over in maternal cousin, breast cancer at age 50 or over in maternal cousin, colorectal cancer at age 50 or over in father, unknown cancer at age 50 or over in maternal grandmother, unknown cancer at age 50 or over in maternal grandfather, unknown cancer at age 50 or over in paternal grandmother, unknown cancer at age 50 or over in paternal grandfather, unknown cancer at age 50 or over in paternal uncle, unknown cancer at age 50 or over in maternal uncle, unknown cancer at age 50 or over in maternal uncle, unknown cancer at age 50 or over in maternal uncle, unknown cancer at age 50 or over in maternal uncle, unknown cancer at age 50 or over in maternal aunt, unknown cancer at age 50 or over in maternal aunt, unknown cancer at age 50 or over in maternal aunt, unknown cancer at age 50 or over in maternal aunt. Digital Mammo Screening Bilat: February 03, 2019 - Exam #: [id number] Bilateral CC and MLO view(s) were taken. Technologist: Cara Kimball, Technologist Prior study comparison: December 05, 2017, bilateral digital mammo screening bilat performed at [facility]. October 22, 2016, bilateral digital mammo screening bilat performed at [facility]. October 17, 2015, bilateral digital woman screen mammo, performed at [facility]. FINDINGS: There are scattered fibroglandular densities. There has been no change in the appearance of the mammogram from the prior studies. There is a mild amount of scattered fibroglandular density which is fairly symmetric. There is no interval development of dominant mass, architectural distortion, or clustered microcalcification suggestive of malignancy. 3-D tomosynthesis shows no additional findings. Assessment: BI-RADS/ACR category 1 mammogram. Negative Mammogram. Recommendation Routine screening mammogram of both breasts in 1 year (for women over age 40). This patient's Lifetime Breast Cancer RIsk is estimated at 8.4 %. This mammogram was interpreted with the aid of an FDA-approved computer-aided dectection system. Electronically Signed By: Cristiano Andrade MD 02/03/19 [id number]
== END ==
LOC: M RAD 08:57
PROVIDERS: ATTEND Physician Assistant
DX: Z12.31 Encounter for screening mammogram for malignant neoplasm of breast (principal); Z80.0 Family history of malignant neoplasm of digestive organs; Z80.9 Family history of malignant neoplasm, unspecified

== ENCOUNTER → 2019-02-13 | Outpatient (CLI) | payer OTHER ==
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
== END ==
LOC: M PAIN 09:30
PROVIDERS: ATTEND Family Medicine
DX: M51.17 Intervertebral disc disorders with radiculopathy, lumbosacral region (principal); M47.812 Spondylosis without myelopathy or radiculopathy, cervical region; I12.9 Hypertensive chronic kidney disease with stage 1 through stage 4 chronic kidney disease, or unspecified chronic kidney disease; K21.9 Gastro-esophageal reflux disease without esophagitis; F41.9 Anxiety disorder, unspecified; G47.30 Sleep apnea, unspecified; G43.909 Migraine, unspecified, not intractable, without status migrainosus; J44.9 Chronic obstructive pulmonary disease, unspecified; E11.22 Type 2 diabetes mellitus with diabetic chronic kidney disease; M17.12 Unilateral primary osteoarthritis, left knee; R60.0 Localized edema; N18.3 Chronic kidney disease, stage 3 (moderate); F17.210 Nicotine dependence, cigarettes, uncomplicated; M48.04 Spinal stenosis, thoracic region; M54.81 Occipital neuralgia; Z79.82 Long term (current) use of aspirin; Z99.81 Dependence on supplemental oxygen; Z79.899 Other long term (current) drug therapy; Z91.040 Latex allergy status; Z88.6 Allergy status to analgesic agent

== ENCOUNTER → 2019-02-18 | Outpatient (REF) | payer OTHER ==
[~2019-02-18] MED LIST changes: +OMEP10CA PO; -OMEP10CA45 PO
[2019-02-18 12:47] LABS: CREATININE FOR GFR 1.09 MG/DL (0.55-1.30); GLOMERULAR FILTRATION RATE 56.1 (>51)
== END ==
LOC: M LABDRWAD 12:00
PROVIDERS: ATTEND Internal Medicine Gastroenterology
DX: D13.4 Benign neoplasm of liver (principal)

== ENCOUNTER → 2019-02-25 | Outpatient (CLI) | payer OTHER ==
[~2019-02-25] MED LIST changes: +PROHANCE 279.3MG/ML 15ML VIAL (A9576) As Ordered ONE
--- NOTE | 2019-02-26 09:38 | REP ---
MRI ABDOMEN WITH AND WITHOUT CONTRAST: TECHNIQUE: Multiple sequences obtained in the axial and coronal planes prior to and following the intravenous administration of 50 mL ProHance. Correlation made with multiple prior CT exams, most recently 10/15/2018. The liver is enlarged. The length is approximately 20 cm in the right midclavicular line. There is diffuse loss of signal of the liver parenchyma comparing the in-phase to the [id number] images compatible with diffuse fatty infiltration. In addition, there are peripheral ill-defined band-like areas of signal, which demonstrate a greater degree of drop in signal on the [id number] images and follow fat signal on all other sequences. No enhancing liver mass is seen. The findings are consistent with band-like areas of ill-defined peripheral focal fatty infiltration, like greater extent and intensity relative to the remaining liver parenchyma. The patient has had prior splenectomy. There is a stable left adrenal nodule, which is benign. The patient has had a prior cholecystectomy. There is no biliary dilatation. The pancreas demonstrates no mass and there is no evidence of pancreatic duct dilatation. The visualized kidneys are unremarkable, except for a 9 mm cyst of the mid left kidney. I see no adenopathy or free fluid in the visualized abdomen. IMPRESSION: Hepatomegaly. Diffuse fatty infiltration of the liver. Peripherally in the right lobe of the liver diffusely, there are band-like areas of signal which are consistent with focal fatty infiltration of greater intensity relative to the remaining liver parenchyma. No liver mass is seen. Electronically Signed by Kunal Murillo MD 02/27/2019 12:59 P
== END ==
LOC: M RAD 14:19
PROVIDERS: ATTEND Internal Medicine Gastroenterology
DX: K76.0 Fatty (change of) liver, not elsewhere classified (principal); R16.0 Hepatomegaly, not elsewhere classified; D13.4 Benign neoplasm of liver
CPT/HCPCS: 74183; A9576

== ENCOUNTER → 2019-02-28 | Outpatient (CLI) | payer OTHER ==
[~2019-02-28] MED LIST changes: +LISI10TA15 PO; -LISI10TA2 PO; -LISI20TA PO; +LISI20TA19 PO; -MECL-68 PO; +MECL1TAB31 PO; +METF-791 PO; -METF500T4 PO; -OMEP40CA2 PO; +OMEP40CA97 PO; -PROHANCE 279.3MG/ML 15ML VIAL (A9576) As Ordered ONE
--- NOTE | 2019-03-02 10:08 | REP ---
MRI cervical spine without contrast: History: Intervertebral disc degeneration. Neck pain. Radiculopathy. Comparison MRI cervical spine study November 03, 2012. Comparison cervical spine radiographs November 08, 2014. Technique: Sagittal and axial T1 and T2-weighted scans are acquired in the usual fashion with and without fat saturation. Sequences include spin echo, turbo spin-echo, and STIR imaging sequences. MRI findings: There is straightening of the normal cervical lordosis. Cervical vertebral body heights are preserved. Alignment is otherwise normal. At the C6-7 disc level, there is a large left posterior disc protrusion. This extends caudally slightly. It displaces the cord dorsally and flattens its ventral margin. This produces mild central canal stenosis. There is some associated posterior spurring. Previous study showed a disc bulge at this level. The disc protrusion is new. There is minimal uncovertebral spurring on the right. At C5-6, there is degenerative narrowing and diffuse disc bulging again noted. This is a little less prominent than previously. There is some mild uncovertebral spurring present bilaterally however. At the C4-5, C3-4, and C2-3, there is no evidence of disc protrusion or cord compression. The C7-T1 level is unremarkable as well. No abnormal cervical cord signal intensity is seen. Impression: Large left central disc herniation at C6-7 with cord compression. Diffuse disc bulging C5-6. Minimal uncovertebral spurring. Electronically Signed by Sergei Andrade MD 03/02/2019 11:11 A
== END ==
LOC: M RAD 14:15
PROVIDERS: ATTEND Family Medicine
DX: M50.123 Cervical disc disorder at C6-C7 level with radiculopathy (principal); M50.222 Other cervical disc displacement at C5-C6 level; M50.223 Other cervical disc displacement at C6-C7 level; M51.17 Intervertebral disc disorders with radiculopathy, lumbosacral region

== ENCOUNTER → 2019-03-13 | Outpatient (CLI) | payer OTHER ==
[~2019-03-13] MED LIST changes: -LISI10TA15 PO; +LISI10TA2 PO; +LISI20TA PO; -LISI20TA19 PO; +MECL-68 PO; -MECL1TAB31 PO; -METF-791 PO; +METF500T4 PO; +OMEP40CA2 PO; -OMEP40CA97 PO
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
== END ==
LOC: M PAIN 09:30
PROVIDERS: ATTEND Family Medicine
DX: M47.812 Spondylosis without myelopathy or radiculopathy, cervical region (principal); M51.17 Intervertebral disc disorders with radiculopathy, lumbosacral region; K21.9 Gastro-esophageal reflux disease without esophagitis; F41.9 Anxiety disorder, unspecified; N60.19 Diffuse cystic mastopathy of unspecified breast; G47.30 Sleep apnea, unspecified; G43.909 Migraine, unspecified, not intractable, without status migrainosus; J44.9 Chronic obstructive pulmonary disease, unspecified; M17.12 Unilateral primary osteoarthritis, left knee; R60.0 Localized edema; F32.9 Major depressive disorder, single episode, unspecified; J45.909 Unspecified asthma, uncomplicated; N18.9 Chronic kidney disease, unspecified; F17.210 Nicotine dependence, cigarettes, uncomplicated; M48.04 Spinal stenosis, thoracic region; M54.81 Occipital neuralgia; M50.20 Other cervical disc displacement, unspecified cervical region; Z90.710 Acquired absence of both cervix and uterus; Z90.49 Acquired absence of other specified parts of digestive tract; Z86.010 Personal history of colon polyps; Z88.6 Allergy status to analgesic agent; Z91.040 Latex allergy status

== ENCOUNTER → 2019-10-27 | Outpatient (CLI) | payer MEDICARE, MEDICAID ==
[~2019-10-27] MED LIST changes: +LISI10TA15 PO; -LISI10TA2 PO; -LISI20TA PO; +LISI20TA19 PO; -MECL-68 PO; +MECL1TAB31 PO; +METF-791 PO; -METF500T4 PO; -OMEP40CA2 PO; +OMEP40CA97 PO
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
== END ==
LOC: M PAIN 09:15
PROVIDERS: ATTEND Family Medicine
DX: M51.17 Intervertebral disc disorders with radiculopathy, lumbosacral region (principal); K21.9 Gastro-esophageal reflux disease without esophagitis; F41.9 Anxiety disorder, unspecified; G47.30 Sleep apnea, unspecified; G43.909 Migraine, unspecified, not intractable, without status migrainosus; E11.22 Type 2 diabetes mellitus with diabetic chronic kidney disease; N18.3 Chronic kidney disease, stage 3 (moderate); F17.210 Nicotine dependence, cigarettes, uncomplicated; Z79.82 Long term (current) use of aspirin; Z79.4 Long term (current) use of insulin; Z79.899 Other long term (current) drug therapy; Z91.040 Latex allergy status; Z88.6 Allergy status to analgesic agent

== ENCOUNTER → 2019-12-28 | Outpatient (CLI) | payer MEDICARE, MEDICAID ==
[~2019-12-28] MED LIST changes: +CYCL-707 PO; -CYCL10TA PO; -METF-791 PO; +METF-838 PO
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
== END ==
LOC: M TMPAIN 09:45 → M PAIN 09:45
PROVIDERS: ATTEND Family Medicine
DX: M51.17 Intervertebral disc disorders with radiculopathy, lumbosacral region (principal); F17.210 Nicotine dependence, cigarettes, uncomplicated; Z79.4 Long term (current) use of insulin; Z79.84 Long term (current) use of oral hypoglycemic drugs; Z79.891 Long term (current) use of opiate analgesic; Z79.899 Other long term (current) drug therapy; Z88.8 Allergy status to other drugs, medicaments and biological substances; Z91.040 Latex allergy status

== ENCOUNTER → 2020-02-02 | Outpatient (REF) | payer OTHER ==
[~2020-02-02] MED LIST changes: +ASPI-546 PO; -ASPI1TAB15 PO; +DICY10CA13 PO; +GABA-282 PO; -GABA-843 PO; -LISI20TA19 PO; +LISI20TA35 PO; +NICO1DIS12; -NICO21DI31
== END ==
LOC: M LAB REF 08:25
PROVIDERS: ATTEND Surgery
DX: L90.5 Scar conditions and fibrosis of skin (principal)

== ENCOUNTER → 2020-03-07 | Outpatient (CLI) | payer MEDICARE, OTHER ==
[~2020-03-07] MED LIST changes: -DICY10CA13 PO; -GABA-282 PO; +GABA-843 PO; -NICO1DIS12; +NICO21DI31
== END ==
LOC: M WHC 08:02
PROVIDERS: ATTEND Physician Assistant
DX: Z53.9 Procedure and treatment not carried out, unspecified reason (principal); Z12.31 Encounter for screening mammogram for malignant neoplasm of breast

== ENCOUNTER → 2020-03-29 | Outpatient (CLI) | payer MEDICARE | LOC: M PAIN 10:00 | PROVIDERS: ATTEND Family Medicine | DX: M51.17 Intervertebral disc disorders with radiculopathy, lumbosacral region (principal) ==

== ENCOUNTER → 2020-06-28 | Outpatient (REF) | payer MEDICARE, MEDICAID | LOC: M LAB REF 16:28 | PROVIDERS: ATTEND Surgery | DX: C44.529 Squamous cell carcinoma of skin of other part of trunk (principal) ==

== ENCOUNTER → 2020-06-29 | Outpatient (CLI) | payer MEDICARE, MEDICAID ==
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
== END ==
LOC: M PAIN 11:30
PROVIDERS: ATTEND Family Medicine
DX: M51.17 Intervertebral disc disorders with radiculopathy, lumbosacral region (principal); K21.9 Gastro-esophageal reflux disease without esophagitis; F41.9 Anxiety disorder, unspecified; G47.30 Sleep apnea, unspecified; G43.909 Migraine, unspecified, not intractable, without status migrainosus; J44.9 Chronic obstructive pulmonary disease, unspecified; E11.22 Type 2 diabetes mellitus with diabetic chronic kidney disease; M17.12 Unilateral primary osteoarthritis, left knee; F32.9 Major depressive disorder, single episode, unspecified; J45.909 Unspecified asthma, uncomplicated; N18.30 Chronic kidney disease, stage 3 unspecified; Z87.891 Personal history of nicotine dependence; Z79.4 Long term (current) use of insulin; Z79.899 Other long term (current) drug therapy; Z79.82 Long term (current) use of aspirin; Z91.040 Latex allergy status; Z88.6 Allergy status to analgesic agent

== ENCOUNTER → 2020-07-26 | Outpatient (CLI) | payer MEDICARE, MEDICAID ==
[~2020-07-26] MED LIST changes: +NICO1DIS12; -NICO21DI31
--- NOTE | 2020-07-26 09:55 | REPMRS ---
Patient History Family history of breast cancer at age 50 or over in maternal cousin, breast cancer at age 50 or over in maternal cousin, colorectal cancer at age 50 or over in father, unknown cancer at age 50 or over in maternal grandmother, unknown cancer at age 50 or over in maternal grandfather, unknown cancer at age 50 or over in paternal grandmother, unknown cancer at age 50 or over in paternal grandfather, unknown cancer at age 50 or over in paternal uncle, unknown cancer at age 50 or over in maternal uncle, unknown cancer at age 50 or over in maternal uncle, unknown cancer at age 50 or over in maternal uncle, unknown cancer at age 50 or over in maternal uncle, unknown cancer at age 50 or over in maternal aunt, unknown cancer at age 50 or over in maternal aunt, unknown cancer at age 50 or over in maternal aunt, unknown cancer at age 50 or over in maternal aunt. Indicated problem(s): right breast pain. Right breast pain times 3 to 4 weeks. Patient states she felt palpated a lump a few weeks ago but it is gone now. She states it was around 6 o'clock. Diagnostic Bilateral Mammo: July 26, 2020 - Exam #: [id number] Bilateral CC and MLO view(s) were taken. Technologist: Cara Kimball, Technologist Prior study comparison: February 03, 2019, bilateral digital mammo screening bilat, performed at [facility]. December 05, 2017, bilateral digital mammo screening bilat, performed at [facility]. October 22, 2016, bilateral digital mammo screening bilat, performed at [facility]. FINDINGS: The breast tissue is almost entirely fat. The Volpara volumetric breast density category is: A. There has been no change in the appearance of the mammogram from the prior studies. There is no interval development of dominant mass, architectural distortion, or grouped microcalcification typical of malignancy. 3-D tomosynthesis shows no additional findings. Assessment: BI-RADS/ACR category 1 mammogram. Negative Mammogram. Recommendation Routine screening mammogram of both breasts in 1 year (for women over age 40). This patient's [facility] Lifetime Breast Cancer RIsk is estimated at 8.3 %. This mammogram was interpreted with the aid of an FDA-approved computer-aided dectection system. Electronically Signed By: Cristiano Andrade MD 07/26/20 0993
== END ==
LOC: M WHC 09:02
PROVIDERS: ATTEND Physician Assistant
DX: N64.4 Mastodynia (principal); Z80.0 Family history of malignant neoplasm of digestive organs
CPT/HCPCS: 77066; G0279

== ENCOUNTER → 2020-08-01 | Outpatient (CLI) | payer MEDICARE, MEDICAID ==
[2020-08-01 16:05] LABS: CREATININE FOR GFR 2.28 MG/DL (0.55-1.30); GLOMERULAR FILTRATION RATE 23.9 (>51)
== END ==
LOC: M WUC 11:55
PROVIDERS: ATTEND Surgery
DX: Z01.818 Encounter for other preprocedural examination (principal)

== ENCOUNTER 2020-08-23 11:43 | Emergency (ER) | payer MEDICAID, MEDICARE ==
[~2020-08-23] VITALS: Ht 172.7 cm; Wt 145.7 kg
[2020-08-23 14:40] LABS: BASO # 0.1 10^3/uL (0.0-0.2); BASO % 0.7 % (0.0-1.0); EOS # 0.3 10^3/uL (0.0-0.5); EOS % 1.5 % (0.0-3.0); HEMATOCRIT 44.5 % (36.0-47.0); HEMOGLOBIN 13.9 g/dl (12.0-15.5); MEAN CORPUSCULAR HEMOGLOBIN 31.7 pg (27.0-33.0); MEAN CORPUSCULAR HGB CONC 31.2 g/dl (32.0-36.5); MEAN CORPUSCULAR VOLUME 101.6 fl (80.0-96.0); MONO # 1.5 10^3/uL (0.0-0.8); MONO % 8.4 % (0.0-5.0); NEUTROPHILS # 11.4 10^3/uL (1.5-8.5); PLATELET COUNT, AUTOMATED 438 10^3/uL (150-450); RED BLOOD COUNT 4.38 10^6/uL (4.00-5.40); WHITE BLOOD COUNT 17.2 10^3/uL (4.0-10.0)
[2020-08-23 14:57] LABS: INR 0.94; PROTHROMBIN TIME 12.8 SECONDS (12.5-14.3)
[2020-08-23 14:58] LABS: PARTIAL THROMBOPLASTIN TIME 29.9 SECONDS (24.2-38.5)
[2020-08-23 15:17] LABS: ALBUMIN 3.6 GM/DL (3.2-5.2); BILIRUBIN,DIRECT 0.1 MG/DL (0.0-0.2); BILIRUBIN,TOTAL 0.4 MG/DL (0.2-1.0); CALCIUM LEVEL 10.7 MG/DL (8.5-10.1); CREATININE FOR GFR 1.67 MG/DL (0.55-1.30); GLOMERULAR FILTRATION RATE 34.2 (>51); POTASSIUM SERUM 4.2 MEQ/L (3.5-5.1)
--- NOTE | 2020-08-23 15:51 | REP ---
INDICATION: diffuse abd pain and bloating, leukocytosis, diarrhea COMPARISON: 07/23/2018 TECHNIQUE: Axial noncontrast images from the lung bases to the pubic symphysis with coronal and sagittal reformations. This CT examination was performed using the following dose reduction techniques: Automated exposure control, adjustment of mA and/or kv according to the patient's size, and use of iterative reconstruction technique. FINDINGS: Hepatomegaly and diffuse fatty infiltration to the liver is suggested. Evidence for prior splenectomy and cholecystectomy noted. Pancreas and right adrenal gland are normal. Left adrenal gland demonstrates stable nodularity. The kidneys are asymmetric in size (right greater than left) and demonstrate chronic perinephric stranding along with presumed simple and complex rounded lesions which appear relatively stable compared with prior examination. No evidence for hydronephrosis or nephrolithiasis. The enteric system demonstrates fluid-filled loops of small and large bowel raising the possibility of underlying enterocolitis and consistent with the given history of diarrhea. Multiple presumed ingested tablets are identified within the small bowel at the right lower quadrant. A normal terminal ileum and appendix are identified. There is no evidence for bowel obstruction. Sigmoid diverticula noted without acute diverticulitis. Pelvis demonstrates normal bladder and evidence for prior hysterectomy. No ascites. No free air. No intraperitoneal or retroperitoneal adenopathy. Atherosclerotic changes to the aorta and vasculature noted without aneurysm. Osseous structures demonstrate degenerative changes without acute abnormality. Lung bases are clear. IMPRESSION: 1. Fluid-filled loops of small and large bowel suggest the possibility of enterocolitis. 2. Sigmoid diverticula without acute diverticulitis. 3. No ascites, focal inflammatory stranding, or adenopathy. 4. Hepatomegaly and hepatosteatosis. 5. Chronic nonacute findings as described above. <Electronically signed by Singh Perkins > 08/23/20 0987
[2020-08-23] MEDS ORDERED: DICY10CA13 PO (16:55)
[2020-08-23] MEDS ORDERED: HYDR-3713 PO (16:55)
[2020-08-23] MEDS ORDERED: DICYCLOMINE 10 MG CAP PO ONE (17:00)
[2020-08-23 17:20] VITALS: BP 149/79
== END 2020-08-23 17:53 | disposition home or self-care (01) ==
LOC: M ED 11:43
DX: K52.9 Noninfective gastroenteritis and colitis, unspecified (principal); D72.829 Elevated white blood cell count, unspecified; R10.84 Generalized abdominal pain; E66.9 Obesity, unspecified; E11.9 Type 2 diabetes mellitus without complications; I10 Essential (primary) hypertension; G43.909 Migraine, unspecified, not intractable, without status migrainosus; Z86.73 Personal history of transient ischemic attack (TIA), and cerebral infarction without residual deficits; K21.9 Gastro-esophageal reflux disease without esophagitis; K57.30 Diverticulosis of large intestine without perforation or abscess without bleeding; Z87.19 Personal history of other diseases of the digestive system; F41.9 Anxiety disorder, unspecified; F32.9 Major depressive disorder, single episode, unspecified; J44.9 Chronic obstructive pulmonary disease, unspecified; N18.9 Chronic kidney disease, unspecified; Z76.0 Encounter for issue of repeat prescription; G89.29 Other chronic pain; M54.9 Dorsalgia, unspecified; M54.2 Cervicalgia; Z87.891 Personal history of nicotine dependence; Z79.4 Long term (current) use of insulin; Z79.82 Long term (current) use of aspirin; Z79.899 Other long term (current) drug therapy; Z88.6 Allergy status to analgesic agent; Z91.040 Latex allergy status

== ENCOUNTER → 2020-08-24 | Outpatient (REF) | payer MEDICARE ==
[~2020-08-24] MED LIST changes: +DICY10CA13 PO
== END ==
LOC: M LAB REF 13:42
PROVIDERS: ATTEND Physician Assistant
DX: R19.7 Diarrhea, unspecified (principal)

== ENCOUNTER → 2020-09-13 | Outpatient (REF) | payer MEDICARE, MEDICAID ==
[~2020-09-13] MED LIST changes: +GABA-282 PO; -GABA-843 PO
[2020-09-13 13:33] LABS: BASO # 0.2 10^3/uL (0.0-0.2); BASO % 1.2 % (0.0-1.0); EOS # 0.4 10^3/uL (0.0-0.5); EOS % 3.4 % (0.0-3.0); HEMATOCRIT 39.5 % (36.0-47.0); HEMOGLOBIN 12.6 g/dl (12.0-15.5); LYMPH # 3.2 10^3/uL (1.5-5.0); LYMPH % 25.7 % (24.0-44.0); MEAN CORPUSCULAR HEMOGLOBIN 32.2 pg (27.0-33.0); MEAN CORPUSCULAR HGB CONC 31.9 g/dl (32.0-36.5); MONO # 1.3 10^3/uL (0.0-0.8); MONO % 10.2 % (0.0-5.0); NEUTROPHILS # 7.4 10^3/uL (1.5-8.5); NEUTROPHILS % 59.1 % (36.0-66.0); PLATELET COUNT, AUTOMATED 433 10^3/uL (150-450); RED BLOOD COUNT 3.91 10^6/uL (4.00-5.40); WHITE BLOOD COUNT 12.6 10^3/uL (4.0-10.0)
[2020-09-13 14:01] LABS: CREATININE FOR GFR 1.83 MG/DL (0.55-1.30); GLOMERULAR FILTRATION RATE 30.7 (>51); POTASSIUM SERUM 4.8 MEQ/L (3.5-5.1)
[2020-09-13 14:02] LABS: ALBUMIN 3.4 GM/DL (3.2-5.2); BILIRUBIN,TOTAL 0.3 MG/DL (0.2-1.0); CHOLESTEROL RISK RATIO 4.422 (<5); FREE T4 1.05 NG/DL (0.76-1.46); THYROID STIMULATING HORMONE 2.81 uIU/ML (0.358-3.740); TOTAL PROTEIN 7.4 GM/DL (6.4-8.2)
== END ==
LOC: M SFHCADAM 08:55
PROVIDERS: ATTEND Physician Assistant
DX: Q89.01 Asplenia (congenital) (principal); E11.40 Type 2 diabetes mellitus with diabetic neuropathy, unspecified; F17.211 Nicotine dependence, cigarettes, in remission; Z79.4 Long term (current) use of insulin
CPT/HCPCS: 80053; 80061; 84439; 84443; 85025; G0463

== ENCOUNTER → 2020-09-15 | Outpatient (CLI) | payer MEDICARE, MEDICAID ==
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
== END ==
LOC: M PAIN 10:15
PROVIDERS: ATTEND Family Medicine
DX: M51.17 Intervertebral disc disorders with radiculopathy, lumbosacral region (principal); F41.9 Anxiety disorder, unspecified; K21.9 Gastro-esophageal reflux disease without esophagitis; G47.30 Sleep apnea, unspecified; G43.909 Migraine, unspecified, not intractable, without status migrainosus; E11.22 Type 2 diabetes mellitus with diabetic chronic kidney disease; J44.9 Chronic obstructive pulmonary disease, unspecified; M17.12 Unilateral primary osteoarthritis, left knee; N18.30 Chronic kidney disease, stage 3 unspecified; Z87.891 Personal history of nicotine dependence; Z99.81 Dependence on supplemental oxygen; Z79.891 Long term (current) use of opiate analgesic; Z79.899 Other long term (current) drug therapy; Z79.4 Long term (current) use of insulin; Z88.6 Allergy status to analgesic agent; Z91.040 Latex allergy status

== ENCOUNTER → 2020-09-20 | Outpatient (REF) | payer MEDICARE, MEDICAID | LOC: M LAB REF 17:21 | PROVIDERS: ATTEND Surgery | DX: D48.5 Neoplasm of uncertain behavior of skin (principal) ==

== ENCOUNTER → 2020-12-14 | Outpatient (CLI) | payer MEDICARE, MEDICAID ==
--- NOTE | 2020-12-14 11:10 | REP ---
INDICATION: NICOTINE DEPENDENCE. COMPARISON: 10/25/2017. TECHNIQUE: Low dose screening CT chest performed without the use of intravenous contrast. FINDINGS: Lungs: There is mild scattered interstitial fibrotic scarring bilaterally. Peripherally in the lateral segment of the right middle lobe there is a 4 mm nodular density on image 55 which is new. Another new nodule is seen little more inferiorly on image 58 in the right middle lobe measuring 6 mm in diameter. Heart: Not enlarged. Thoracic aorta: No aneurysm. Visualized osseous structures: There are degenerative changes of the spine. There is an old fracture of the left 6th rib again noted. There are metallic clips in the left upper quadrant of the abdomen. IMPRESSION: Lung rads category 3 probably benign. In the right middle lobe there is a 4 mm nodule and a 6 mm nodule, neither are seen on prior study in 2018. Recommend follow-up CT chest in 6 months. <Electronically signed by Kunal Murillo > 12/14/20 [id number]
== END ==
LOC: M RAD 10:12
PROVIDERS: ATTEND Internal Medicine Pulmonary Disease
DX: Z12.2 Encounter for screening for malignant neoplasm of respiratory organs (principal); F17.218 Nicotine dependence, cigarettes, with other nicotine-induced disorders; R91.8 Other nonspecific abnormal finding of lung field
CPT/HCPCS: 71271; G0463

== ENCOUNTER → 2020-12-20 | Outpatient (REF) | payer MEDICARE, MEDICAID | LOC: M LAB REF 15:08 | PROVIDERS: ATTEND Surgery | DX: L57.0 Actinic keratosis (principal) ==

== ENCOUNTER → 2021-03-14 | Outpatient (REF) | payer MEDICARE, MEDICAID ==
[~2021-03-14] MED LIST changes: -DOXY100C37 PO; +DOXY1CAP62 PO; +OMEP40CA4 PO; -OMEP40CA97 PO
== END ==
LOC: M LAB REF 18:55
PROVIDERS: ATTEND Internal Medicine Nephrology
DX: E83.42 Hypomagnesemia (principal)

== ENCOUNTER → 2021-03-15 | Outpatient (CLI) | payer MEDICARE, MEDICAID ==
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
== END ==
LOC: M PAIN 09:15
PROVIDERS: ATTEND Family Medicine
DX: M51.17 Intervertebral disc disorders with radiculopathy, lumbosacral region (principal); K21.9 Gastro-esophageal reflux disease without esophagitis; F41.9 Anxiety disorder, unspecified; G47.30 Sleep apnea, unspecified; G43.909 Migraine, unspecified, not intractable, without status migrainosus; J44.9 Chronic obstructive pulmonary disease, unspecified; E11.9 Type 2 diabetes mellitus without complications; F32.9 Major depressive disorder, single episode, unspecified; M17.12 Unilateral primary osteoarthritis, left knee; J45.909 Unspecified asthma, uncomplicated; N18.30 Chronic kidney disease, stage 3 unspecified; Z87.891 Personal history of nicotine dependence; Z99.81 Dependence on supplemental oxygen; Z79.4 Long term (current) use of insulin; Z79.82 Long term (current) use of aspirin; Z79.891 Long term (current) use of opiate analgesic; Z79.899 Other long term (current) drug therapy; Z88.6 Allergy status to analgesic agent; Z91.040 Latex allergy status

== ENCOUNTER → 2021-06-07 | Outpatient (CLI) | payer MEDICARE, MEDICAID ==
[~2021-06-07] MED LIST changes: +DOXY-443 PO; -DOXY1CAP62 PO
== END ==
LOC: M PAIN 10:00
PROVIDERS: ATTEND Anesthesiology
DX: M48.061 Spinal stenosis, lumbar region without neurogenic claudication (principal); I12.9 Hypertensive chronic kidney disease with stage 1 through stage 4 chronic kidney disease, or unspecified chronic kidney disease; K21.9 Gastro-esophageal reflux disease without esophagitis; F41.9 Anxiety disorder, unspecified; J44.9 Chronic obstructive pulmonary disease, unspecified; E11.22 Type 2 diabetes mellitus with diabetic chronic kidney disease; F32.9 Major depressive disorder, single episode, unspecified; J45.909 Unspecified asthma, uncomplicated; N18.30 Chronic kidney disease, stage 3 unspecified; Z87.891 Personal history of nicotine dependence; Z79.891 Long term (current) use of opiate analgesic; Z79.82 Long term (current) use of aspirin; Z79.4 Long term (current) use of insulin; Z79.899 Other long term (current) drug therapy; Z88.6 Allergy status to analgesic agent; Z91.040 Latex allergy status

== ENCOUNTER → 2021-06-19 | Outpatient (REF) | payer MEDICARE, MEDICAID | LOC: M LAB REF 17:28 | PROVIDERS: ATTEND Internal Medicine Nephrology | DX: E83.42 Hypomagnesemia (principal) ==

== ENCOUNTER → 2021-07-04 | Outpatient (CLI) | payer MEDICARE, MEDICAID ==
--- NOTE | 2021-07-04 14:17 | REPVR ---
PROCEDURE INFORMATION: Exam: MR Lumbar Spine Without Contrast Exam date and time: 07/04/2021 10:31 AM Age: 55 years old Clinical indication: Low back pain; Additional info: Spondylosis TECHNIQUE: Imaging protocol: Multiplanar magnetic resonance images of the lumbar spine without intravenous contrast. COMPARISON: MRI-Spine, L.S. without con 01/11/2017 7:31 AM FINDINGS: Vertebrae: There is no acute fracture or listhesis. Marrow signal is within normal limits. Spinal cord: Normal signal. No cord compression. T12-L1: There is diffuse disc bulging with a prominent central component. This indents the ventral thecal sac, contributing to mild canal stenosis. The neural foramina are patent. L1-L2: No significant disc disease. There is mild facet hypertrophy. No significant spinal canal stenosis. No neural foraminal stenosis. L2-L3: No significant disc disease. There is [id number] facet hypertrophy. No significant spinal canal stenosis. No neural foraminal stenosis. L3-L4: There is shallow disc bulging. There is moderate facet hypertrophy. The spinal canal and neural foramina are patent. L4-L5: There is shallow disc bulging. There is severe facet hypertrophy. Fluid is noted within the right facet joint. There is mild right neural foraminal narrowing. L5-S1: There is shallow disc bulging. There is moderate facet hypertrophy. There is mild bilateral neural foraminal narrowing. Soft tissues: Unremarkable. IMPRESSION: Degenerative disc disease and spondylosis. No overt canal or neural foraminal compromise. Electronically signed by: Yas Parr On 07/04/2021 14:16:40 PM
== END ==
LOC: M PLAIMG 09:30
PROVIDERS: ATTEND Anesthesiology
DX: M47.816 Spondylosis without myelopathy or radiculopathy, lumbar region (principal); M51.25 Other intervertebral disc displacement, thoracolumbar region; M51.26 Other intervertebral disc displacement, lumbar region

== ENCOUNTER → 2021-07-11 | Outpatient (CLI) | payer MEDICARE, MEDICAID ==
--- NOTE | 2021-07-11 11:06 | REP ---
INDICATION: COPD COMPARISON: None TECHNIQUE: Axial noncontrast images from the thoracic inlet to the upper abdomen with coronal and sagittal reformations. This CT examination was performed using the following dose reduction techniques: Automated exposure control, adjustment of mA and/or kv according to the patient's size, and use of iterative reconstruction technique. FINDINGS: The small 6 mm nodule identified on prior examination has considerably increased in size and now has a multilobulated appearance measuring approximately 11 mm maximal diameter (images 56-57). The smaller 4 mm more peripheral nodule remains unchanged. There is a new suspicious nodule also identified in the deep right sulcus measuring approximately 11 mm (image 80). Remainder of lung aparicio appear stable. No effusion. No pneumothorax. Tracheobronchial tree is patent. Evaluation for adenopathy is limited due to lack of contrast. Surrounding musculoskeletal structures are intact. Limited upper abdomen demonstrates hepatomegaly IMPRESSION: 1. Previous right middle lobe nodule enlarged to 11 mm, and new 11 mm nodule in the deep right sulcus. Suspicious for malignancy/metastatic disease unless proven otherwise. Consider PET-CT and/or biopsy. <Electronically signed by Singh Perkins > 07/11/21 1038
== END ==
LOC: M PLAIMG 09:05
PROVIDERS: ATTEND Internal Medicine Pulmonary Disease
DX: J44.9 Chronic obstructive pulmonary disease, unspecified (principal); R91.8 Other nonspecific abnormal finding of lung field

== ENCOUNTER → 2021-08-04 | Outpatient (CLI) | payer MEDICARE, MEDICAID ==
[~2021-08-04] MED LIST changes: +ACET-840 PO; +ERGO500029 PO; -LISI10TA15 PO; +LISI10TA24 PO; +RANI15TA PO; +SERT50TA29 PO; +TIZA2CAP PO
== END ==
LOC: M LABSMTC 11:07
PROVIDERS: ATTEND Anesthesiology
DX: Z01.812 Encounter for preprocedural laboratory examination (principal); Z20.822 Contact with and (suspected) exposure to COVID-19

== ENCOUNTER → 2021-08-07 | Outpatient (CLI) | payer MEDICARE, MEDICAID | LOC: M PLARAD 09:36 | PROVIDERS: ATTEND Internal Medicine Pulmonary Disease | DX: R91.8 Other nonspecific abnormal finding of lung field (principal) | CPT/HCPCS: 78815; A9552 ==

== ENCOUNTER → 2021-08-08 | Outpatient (CLI) | payer MEDICARE, MEDICAID ==
[~2021-08-08] MED LIST changes: +LISI10TA15 PO; -LISI10TA24 PO
[2021-08-08 14:01] LABS: BASO # 0.1 10^3/uL (0.0-0.2); BASO % 0.9 % (0.0-1.0); EOS # 0.4 10^3/uL (0.0-0.5); EOS % 2.5 % (0.0-3.0); HEMATOCRIT 39.3 % (36.0-47.0); HEMOGLOBIN 12.5 g/dl (12.0-15.5); LYMPH # 3.4 10^3/uL (1.5-5.0); LYMPH % 24.9 % (24.0-44.0); MEAN CORPUSCULAR HEMOGLOBIN 31.3 pg (27.0-33.0); MEAN CORPUSCULAR HGB CONC 31.8 g/dl (32.0-36.5); MEAN CORPUSCULAR VOLUME 98.5 fl (80.0-96.0); MONO # 1.3 10^3/uL (0.0-0.8); MONO % 9.3 % (2.0-8.0); NEUTROPHILS # 8.6 10^3/uL (1.5-8.5); NEUTROPHILS % 61.9 % (36.0-66.0); PLATELET COUNT, AUTOMATED 413 10^3/uL (150-450); RED BLOOD COUNT 3.99 10^6/uL (4.00-5.40); WHITE BLOOD COUNT 13.8 10^3/uL (4.0-10.0)
[2021-08-08 14:18] LABS: INR 1.06; PROTHROMBIN TIME 14.2 SECONDS (12.7-14.5)
[2021-08-08 14:19] LABS: PARTIAL THROMBOPLASTIN TIME 29.9 SECONDS (25.9-37.0)
[2021-08-08 14:46] LABS: ALBUMIN 3.3 GM/DL (3.2-5.2); BILIRUBIN,TOTAL 0.2 MG/DL (0.2-1.0); CALCIUM LEVEL 9.6 MG/DL (8.5-10.1); CREATININE FOR GFR 2.2 MG/DL (0.55-1.30); GLOMERULAR FILTRATION RATE 24.8 (>51); POTASSIUM SERUM 4.4 MEQ/L (3.5-5.1); TOTAL PROTEIN 7.3 GM/DL (6.4-8.2)
--- NOTE | 2021-08-09 19:41 | ECGEPIP ---
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
== END ==
LOC: M LAB 13:30
PROVIDERS: ATTEND Internal Medicine Pulmonary Disease
DX: Z01.812 Encounter for preprocedural laboratory examination (principal); J44.9 Chronic obstructive pulmonary disease, unspecified; R91.8 Other nonspecific abnormal finding of lung field; I45.9 Conduction disorder, unspecified

== ENCOUNTER 2021-08-09 07:01 | Day surgery (SDC) | payer MEDICARE, MEDICAID ==
[~2021-08-09] VITALS: Ht 172.7 cm; Wt 161.0 kg
[~2021-08-09 07:01] MED LIST changes: +ALBUTEROL SULFATE 2.5 MG/0.5 ML INH NEB SOLN INH ONE; +LIDOCAINE 4% INJ 5ML AMP INH ONE; +LR 1,000 ML IV ONE
[2021-08-09] MEDS ORDERED: THROMBIN SOLN 5,000 UNITS VIAL As Ordered ONE (09:27)
[2021-08-09] MEDS ORDERED: CETACAINE SPRAY 5GM As Ordered ONE (09:28)
[2021-08-09] MEDS ORDERED: EPINEPHrine 1MG/10ML SYRINGE 1.5IN As Ordered ONE (09:30)
[2021-08-09] MEDS ORDERED: ONDANSETRON 4MG/2ML VIAL As Ordered ONE (10:07)
[2021-08-09] MEDS ORDERED: LIDOCAINE 2% 100MG/5ML SDV (FOR ANES.) As Ordered ONE (10:07)
[2021-08-09] MEDS ORDERED: dexameTHASONE 4 MG/ML 1ML VIAL (J1100 PER 1MG) As Ordered ONE (10:07)
[2021-08-09] MEDS ORDERED: ROCURONIUM BROMIDE 50 MG/5 ML VIAL As Ordered ONE (10:07)
[2021-08-09] MEDS ORDERED: fentaNYL 100 MCG/2 ML INJECTION (J3010) As Ordered ONE (10:07)
[2021-08-09] MEDS ORDERED: MIDAZOLAM INJ 2MG/2ML VIAL (J2250 PER 1MG) As Ordered ONE (10:07)
[2021-08-09] MEDS ORDERED: propofoL 200 MG/20 ML VIAL As Ordered ONE (10:07)
[2021-08-09] MEDS ORDERED: SUGAMMADEX SODIUM 500 MG/5 ML VIAL (BRIDION) As Ordered ONE (10:07)
--- NOTE | 2021-08-09 11:50 | RO ---
OPERATIVE NOTE DATE OF OPERATION: 08/09/2021 PREOPERATIVE DIAGNOSIS: Abnormal chest CT, right middle lobe nodule. POSTOPERATIVE DIAGNOSIS: Abnormal chest CT, right middle lobe nodule. FINDINGS: Smoker's airway with pitting. PROCEDURE: Bronchoscopy with robotic navigation and radial endobronchial ultrasound procedure. SURGEON: DELICIA PECK DO [facility] DEMO COORDINATOR: JAC KRUGER DO, [facility] ANESTHESIA: General. SPECIMENS OBTAINED: 1. Cytology brush, right middle lobe. 2. Transbronchial biopsies, right middle lobe. 3. Upper bronchioalveolar lavage, right middle lobe. DESCRIPTION OF PROCEDURE: After informed consent was re-reviewed with the patient, she was brought back to OR #8. Timeout was performed with two patient identifiers identifying correct site, correct procedure. Anesthesia then performed intubation and the case was handed to me. The 1T190 bronchoscope was then introduced endotracheally with Cetacaine spray to assist with lubrication and anesthetization of the airway. Trachea was midline, tonja was fairly sharp, and minimal mucus balls in the airway. The right mainstem was normal except for minimal pitting. RB-1 through RB-3 was examined without endobronchial lesion. There was anatomical variation of the anterior segment with bifurcation initially of the anterior apical segment. The right middle lobe was then inspected without endobronchial lesion and then RB-6 through RB-10 inspected without endobronchial lesions, minimal mucus plugging in the superior basal segment. The left mainstem was then entered. LB-1 through LB-10 examined without endobronchial lesions. Bronchoscope was then removed and the robotic bronchoscopy was placed. Automatic registration was performed. The patient's name and date of confirmed on the [employer] machine. Target 1 was easily navigated to; however, during navigation in the lateral segment on the right middle lobe, the subsegmental bronchi, the spur between two bronchi, appeared abnormal with what appeared to be splitting of the tonja in the middle. There were some inflammatory changes of that airway, therefore, a brush was sent out before getting to the first target. On site cytology suggested an unremarkable brushing. We then advanced to the target, confirmed tissue with endobronchial radial probe. After the radial ultrasound was retracted, cytology brushing, forceps biopsies were performed. After adequate sampling, BL was performed and the bronchoscope was removed. There was no linear endobronchial ultrasound performed as there was no significant adenopathy on chest CT. There was no PET avidity in the mediastinum on PET scan. After the robotic bronchoscope was removed, the 1T190 bronchoscope was inserted. All areas were suctioned. Hemostasis was assured. The patient was extubated in the recovery. Post-procedure chest x-ray is pending. There are no observed complications.
[2021-08-09] MEDS ORDERED: oxyCODONE 5MG TAB PO PRN (12:05)
[2021-08-09] MEDS ORDERED: fentaNYL 100 MCG/2 ML INJECTION (J3010) IV PRN (12:05)
[2021-08-09] MEDS ORDERED: LR 1,000 ML IV SCH (12:05)
[2021-08-09] MEDS ORDERED: ONDANSETRON 4MG/2ML VIAL IV PRN (12:05)
--- NOTE | 2021-08-09 12:06 | REP ---
INDICATION: R/O pneumothorax COMPARISON: 12/07/2018 TECHNIQUE: Portable AP view of the chest FINDINGS: The mediastinum and cardiac silhouette are stable and within normal limits for portable technique. The lung aparicio are clear without acute consolidation, effusion, or pneumothorax. Skeletal structures are intact. IMPRESSION: No acute cardiopulmonary process appreciated. <Electronically signed by Sinhg Perkins > 08/09/21 1204
[2021-08-09 14:45] VITALS: BP 147/68
== END 2021-08-09 15:05 | disposition home or self-care (01) ==
LOC: M SDC 07:01
PROVIDERS: ATTEND Internal Medicine Pulmonary Disease
DX: J44.9 Chronic obstructive pulmonary disease, unspecified (principal); I10 Essential (primary) hypertension; G47.33 Obstructive sleep apnea (adult) (pediatric); I12.9 Hypertensive chronic kidney disease with stage 1 through stage 4 chronic kidney disease, or unspecified chronic kidney disease; E11.9 Type 2 diabetes mellitus without complications; E55.9 Vitamin D deficiency, unspecified; F32.9 Major depressive disorder, single episode, unspecified; F41.9 Anxiety disorder, unspecified; Z87.891 Personal history of nicotine dependence; Z79.899 Other long term (current) drug therapy
CPT/HCPCS: 31623; 31624; 31628; 31652; 71045; 76000; 87070; 87102; 87116; 87205; 87206; 88104; 88108; 88305; 88313; J1100; J2250; J2405; J3010; S2900

== ENCOUNTER → 2021-08-30 | Outpatient (CLI) | payer MEDICARE, MEDICAID ==
[~2021-08-30] MED LIST changes: -ALBUTEROL SULFATE 2.5 MG/0.5 ML INH NEB SOLN INH ONE; -LIDOCAINE 4% INJ 5ML AMP INH ONE; -LISI10TA15 PO; +LISI10TA24 PO; -LR 1,000 ML IV ONE
== END ==
LOC: M WHC 07:53
PROVIDERS: ATTEND Physician Assistant
DX: Z12.31 Encounter for screening mammogram for malignant neoplasm of breast (principal)

== ENCOUNTER → 2021-09-06 | Outpatient (CLI) | payer MEDICARE, MEDICAID | LOC: M PAIN 13:45 | PROVIDERS: ATTEND Anesthesiology | DX: M51.17 Intervertebral disc disorders with radiculopathy, lumbosacral region (principal); M47.816 Spondylosis without myelopathy or radiculopathy, lumbar region; G89.29 Other chronic pain; E11.9 Type 2 diabetes mellitus without complications; Z86.14 Personal history of Methicillin resistant Staphylococcus aureus infection; Z87.891 Personal history of nicotine dependence; E66.01 Morbid (severe) obesity due to excess calories; Z68.43 Body mass index [BMI] 50.0-59.9, adult; Z79.4 Long term (current) use of insulin; Z79.51 Long term (current) use of inhaled steroids; Z79.82 Long term (current) use of aspirin; Z79.899 Other long term (current) drug therapy ==

== ENCOUNTER → 2021-11-06 | Outpatient (CLI) | payer MEDICARE, MEDICAID | LOC: M RAD 10:35 | PROVIDERS: ATTEND Internal Medicine Pulmonary Disease | DX: R91.8 Other nonspecific abnormal finding of lung field (principal); R16.0 Hepatomegaly, not elsewhere classified; K76.0 Fatty (change of) liver, not elsewhere classified; E27.8 Other specified disorders of adrenal gland ==

== ENCOUNTER → 2021-12-15 | Outpatient (REF) | payer MEDICARE, MEDICAID ==
[2021-12-15 16:54] LABS: CHOLESTEROL RISK RATIO 4.926 (<5); FREE T4 0.95 NG/DL (0.76-1.46); MAGNESIUM LEVEL 2.4 MG/DL (1.8-2.4); THYROID STIMULATING HORMONE 3.13 uIU/ML (0.358-3.740)
== END ==
LOC: M SFHCADAM 14:06
PROVIDERS: ATTEND Physician Assistant
DX: E11.22 Type 2 diabetes mellitus with diabetic chronic kidney disease (principal); R00.2 Palpitations

== ENCOUNTER → 2021-12-27 | Outpatient (CLI) | payer MEDICARE, MEDICAID | LOC: M WHC 10:19 | PROVIDERS: ATTEND Surgery | DX: L02.411 Cutaneous abscess of right axilla (principal) ==

== ENCOUNTER → 2022-01-18 | Outpatient (CLI) | payer MEDICARE, MEDICAID ==
[~2022-01-18] MED LIST changes: +ALBU2.5V10 INH; -ALBU83IN INH; +OMEGA-3 1000MG CAPSULE ONE
== END ==
LOC: M PLAIMG 07:27
PROVIDERS: ATTEND Surgery
DX: M79.89 Other specified soft tissue disorders (principal)

== ENCOUNTER → 2022-04-05 | Outpatient (REF) | payer MEDICARE, MEDICAID ==
[~2022-04-05] MED LIST changes: +AIMO70IN2 SC; +ALLO300T2 PO; +BUME2TAB3 PO; +FAMO40TA3 PO; +INCR1INH DILUENT; +INSUHUMDS SC; +INSUR50VL SC; +MECL-86 PO; -OMEGA-3 1000MG CAPSULE ONE; +PROBCAP2 PO; +TIZA10TA PO; +ZOLO100T PO
[2022-04-05 17:34] LABS: BASO # 0.1 10^3/uL (0.0-0.2); BASO % 1.2 % (0.0-1.0); EOS # 0.1 10^3/uL (0.0-0.5); HEMATOCRIT 42.1 % (36.0-47.0); HEMOGLOBIN 13.1 g/dl (12.0-15.5); LYMPH # 3.4 10^3/uL (1.5-5.0); LYMPH % 28.3 % (24.0-44.0); MEAN CORPUSCULAR HEMOGLOBIN 30.8 pg (27.0-33.0); MEAN CORPUSCULAR HGB CONC 31.1 g/dl (32.0-36.5); MEAN CORPUSCULAR VOLUME 99.1 fl (80.0-96.0); MONO # 1.4 10^3/uL (0.0-0.8); MONO % 11.1 % (2.0-8.0); NEUTROPHILS % 57.8 % (36.0-66.0); PLATELET COUNT, AUTOMATED 494 10^3/uL (150-450); RED BLOOD COUNT 4.25 10^6/uL (4.00-5.40); WHITE BLOOD COUNT 12.1 10^3/uL (4.0-10.0)
[2022-04-05 17:38] LABS: CALCIUM LEVEL 9.9 MG/DL (8.5-10.1); CREATININE FOR GFR 1.87 MG/DL (0.55-1.30); GLOMERULAR FILTRATION RATE 29.8 (>51); POTASSIUM SERUM 4.2 MEQ/L (3.5-5.1)
== END ==
LOC: M SFHCADAM 11:34
PROVIDERS: ATTEND Physician Assistant
DX: Z01.818 Encounter for other preprocedural examination (principal); E11.40 Type 2 diabetes mellitus with diabetic neuropathy, unspecified; J44.9 Chronic obstructive pulmonary disease, unspecified; N18.32 Chronic kidney disease, stage 3b

== ENCOUNTER → 2022-04-05 | Outpatient (CLI) | payer MEDICARE, MEDICAID | LOC: M ADAMS 11:44 | PROVIDERS: ATTEND Physician Assistant | DX: Z01.818 Encounter for other preprocedural examination (principal); J44.9 Chronic obstructive pulmonary disease, unspecified ==

== ENCOUNTER → 2022-04-15 | Outpatient (CLI) | payer MEDICARE, MEDICAID | LOC: M LABSMTC 11:34 | PROVIDERS: ATTEND Anesthesiology | DX: Z01.812 Encounter for preprocedural laboratory examination (principal); Z20.822 Contact with and (suspected) exposure to COVID-19 ==

== ENCOUNTER 2022-04-20 06:19 | Day surgery (SDC) | payer MEDICARE, MEDICAID ==
[~2022-04-20] VITALS: Ht 172.7 cm; Wt 169.1 kg
[~2022-04-20 06:19] MED LIST changes: +ceFAZolin SOD 1 GM in D5W MINI-BAG PLUS 50 ML IV ONE; +ceFAZolin SOD 2 GM in IV 1 EA IV ONE
[2022-04-20] MEDS ORDERED: INSULIN LISPRO (NovoLOG) PER UNIT SC PRN (06:45)
[2022-04-20] MEDS ORDERED: LR 1,000 ML IV SCH (06:45)
[2022-04-20] MEDS ORDERED: LIDOCAINE 1% SDV 30ML VIAL As Ordered ONE (07:09)
[2022-04-20] MEDS ORDERED: BUPIVACAINE HCL 0.25% 30ML VIAL As Ordered ONE (07:09)
[2022-04-20] MEDS ORDERED: LIDOCAINE 2% 100MG/5ML SDV (FOR ANES.) As Ordered ONE (07:16)
[2022-04-20] MEDS ORDERED: propofoL 200 MG/20 ML VIAL As Ordered ONE (07:16)
[2022-04-20] MEDS ORDERED: MIDAZOLAM INJ 2MG/2ML VIAL (J2250 PER 1MG) As Ordered ONE (07:17)
[2022-04-20] MEDS ORDERED: fentaNYL 100 MCG/2 ML INJECTION As Ordered ONE (07:17)
[2022-04-20 08:33] VITALS: BP 132/61
== END 2022-04-20 08:56 | disposition home or self-care (01) ==
LOC: M SDC 06:19
PROVIDERS: ATTEND Surgery
DX: D17.22 Benign lipomatous neoplasm of skin and subcutaneous tissue of left arm (principal); I10 Essential (primary) hypertension; E11.9 Type 2 diabetes mellitus without complications; K57.92 Diverticulitis of intestine, part unspecified, without perforation or abscess without bleeding; K58.8 Other irritable bowel syndrome; K21.9 Gastro-esophageal reflux disease without esophagitis; J44.9 Chronic obstructive pulmonary disease, unspecified; Z91.040 Latex allergy status; Z88.8 Allergy status to other drugs, medicaments and biological substances; Z79.4 Long term (current) use of insulin; G47.33 Obstructive sleep apnea (adult) (pediatric); Z79.51 Long term (current) use of inhaled steroids; Z79.899 Other long term (current) drug therapy; M10.9 Gout, unspecified; Z87.891 Personal history of nicotine dependence; F43.10 Post-traumatic stress disorder, unspecified; F41.9 Anxiety disorder, unspecified; F32.A Depression, unspecified
CPT/HCPCS: 11406; 88304; J0690; J2250; J3010

== ENCOUNTER 2022-05-03 10:10 | Inpatient (IN) | payer MEDICARE, MEDICAID ==
[~2022-05-03] VITALS: Ht 172.7 cm; Wt 172.4 kg
[~2022-05-03 10:10] MED LIST changes: -INCR1INH DILUENT; +INCR1INH INH; -ceFAZolin SOD 1 GM in D5W MINI-BAG PLUS 50 ML IV ONE; -ceFAZolin SOD 2 GM in IV 1 EA IV ONE
[2022-05-03] MEDS ORDERED: NS 500 ML IV ONE (10:20)
[2022-05-03 11:08] LABS: BASO # 0.1 10^3/uL (0.0-0.2); BASO % 0.3 % (0.0-1.0); EOS # 0.1 10^3/uL (0.0-0.5); EOS % 0.3 % (0.0-3.0); HEMATOCRIT 40.6 % (36.0-47.0); HEMOGLOBIN 13.3 g/dl (12.0-15.5); LYMPH # 1.6 10^3/uL (1.5-5.0); LYMPH % 6.5 % (24.0-44.0); MEAN CORPUSCULAR HEMOGLOBIN 31.4 pg (27.0-33.0); MEAN CORPUSCULAR HGB CONC 32.8 g/dl (32.0-36.5); MEAN CORPUSCULAR VOLUME 95.8 fl (80.0-96.0); MONO % 6.6 % (2.0-8.0); NEUTROPHILS # 20.6 10^3/uL (1.5-8.5); NEUTROPHILS % 85.3 % (36.0-66.0); PLATELET COUNT, AUTOMATED 390 10^3/uL (150-450); RED BLOOD COUNT 4.24 10^6/uL (4.00-5.40); WHITE BLOOD COUNT 24.1 10^3/uL (4.0-10.0)
[2022-05-03 11:19] LABS: INR 1.26; PROTHROMBIN TIME 16.3 SECONDS (12.7-14.5)
[2022-05-03 11:33] LABS: MONO # 1.6 10^3/uL (0.0-0.8)
[2022-05-03 11:38] LABS: ERYTHROCYTE SEDIMENTATION RATE 60 mm/hr (0-30)
[2022-05-03 11:41] LABS: RSV AMPLIFICATION NEGATIVE (NEGATIVE)
[2022-05-03 11:56] LABS: ALBUMIN 2.7 GM/DL (3.2-5.2); BILIRUBIN,DIRECT 0.1 MG/DL (0.0-0.2); BILIRUBIN,TOTAL 0.3 MG/DL (0.2-1.0); C REACTIVE PROTEIN QUANTITATIV 23.5 MG/DL (0.00-0.30); CALCIUM LEVEL 9.1 MG/DL (8.5-10.1); CREATININE FOR GFR 2.18 MG/DL (0.55-1.30); GLOMERULAR FILTRATION RATE 24.9 (>51); TOTAL PROTEIN 6.9 GM/DL (6.4-8.2)
[2022-05-03] MEDS: MORPHINE 2 MG/ML 1ML VIAL IV PRN ×2 (12:28→13:48)
[2022-05-03] MEDS ORDERED: CEFTAROLINE FOSAMIL 600 MG in D5W MINI-BAG PLUS 50 ML IV ONE (13:15)
[2022-05-03] MEDS ORDERED: CARV25TA PO ×2 (13:45)
[2022-05-03] MEDS ORDERED: INSUHUMDS SC ×2 (13:45)
[2022-05-03] MEDS ORDERED: PRED10TA2 PO (13:45)
[2022-05-03] MEDS ORDERED: SILV50CR TOP (13:45)
[2022-05-03] MEDS ORDERED: HOME MED LIST COMPLETE! XX SCH (13:50)
[2022-05-03] MEDS: HYDROMORPHONE HCL 0.5 MG/ 0.5 ML SYRINGE (J1170 PER 1) IV PRN ×2 (14:34→16:34)
[2022-05-03] MEDS ORDERED: MECLIZINE 25 MG TABLET PO PRN (16:30)
[2022-05-03] MEDS ORDERED: ALBUTEROL SULFATE 2.5 MG/0.5 ML INH NEB SOLN INH PRN (16:30)
[2022-05-03] MEDS ORDERED: MORPHINE 2 MG/ML 1ML VIAL IV PRN (16:30)
[2022-05-03] MEDS ORDERED: ALBUTEROL 90 MCG/ACT 8GM HFA INHALER INH PRN (16:30)
[2022-05-03] MEDS ORDERED: DEXTROSE 50% 50 ML SYRINGE IV PRN (16:35)
[2022-05-03] MEDS ORDERED: GLUCOSE 4GM CHEW TABLET PO PRN (16:35)
[2022-05-03] MEDS ORDERED: GLUCAGON INJ 1MG VIAL SC PRN (16:35)
[2022-05-03] MEDS: NS 1,000 ML IV SCH (18:07)
[2022-05-03] MEDS: ALPRAZolam 0.25 MG TAB PO PRN (18:38)
[2022-05-03] MEDS: ACETAMINOPHEN TAB 650MG DOSE (2X325MG) PO PRN (18:39)
[2022-05-03] MEDS: tiZANidine 4 MG TAB PO PRN (18:39)
[2022-05-03] MEDS: INSULIN LISPRO (NovoLOG) PER UNIT SC SCH ×3 (18:40→23:14)
[2022-05-03] MEDS: busPIRone 10 MG TAB PO SCH (20:15)
[2022-05-03] MEDS: CARVedilol 12.5 MG TAB PO SCH (20:21)
[2022-05-03] MEDS: PERCOCET 5MG/325MG TAB PO PRN (20:22)
[2022-05-03] MEDS ORDERED: CALCIUM CARBONATE 500 MG CHEW U/D PO PRN (20:25)
[2022-05-03 20:53] VITALS: BP 145/89
[2022-05-03] MEDS ORDERED: ALPRAZolam 0.25 MG TAB PO SCH (21:00)
[2022-05-03] MEDS ORDERED: FAMOTIDINE 20 MG TAB PO SCH (21:00)
[2022-05-03] MEDS: SYMBICORT 160/4.5MCG INHALER 6GM INH SCH (21:04)
[2022-05-03] MEDS: ceFAZolin SOD 2 GM in IV 1 EA IV SCH (22:23)
[2022-05-04] MEDS: NS 1,000 ML IV SCH ×3 (02:09→16:59)
[2022-05-04 03:39] LABS: HEMATOCRIT 38.4 % (36.0-47.0); HEMOGLOBIN 12.4 g/dl (12.0-15.5); MEAN CORPUSCULAR HEMOGLOBIN 31.3 pg (27.0-33.0); MEAN CORPUSCULAR HGB CONC 32.3 g/dl (32.0-36.5); PLATELET COUNT, AUTOMATED 382 10^3/uL (150-450); RED BLOOD COUNT 3.96 10^6/uL (4.00-5.40); WHITE BLOOD COUNT 19.6 10^3/uL (4.0-10.0)
[2022-05-04 04:24] LABS: ALBUMIN 2.5 GM/DL (3.2-5.2); BILIRUBIN,TOTAL 0.3 MG/DL (0.2-1.0); CALCIUM LEVEL 8.7 MG/DL (8.5-10.1); CREATININE FOR GFR 1.82 MG/DL (0.55-1.30); GLOMERULAR FILTRATION RATE 30.7 (>51); MAGNESIUM LEVEL 1.9 MG/DL (1.8-2.4); POTASSIUM SERUM 4.1 MEQ/L (3.5-5.1); TOTAL PROTEIN 6.6 GM/DL (6.4-8.2)
[2022-05-04] MEDS: HEPARIN SOD (PORCINE) 5000UNITS/ML 1ML VIAL/SYRINGE SC SCH ×3 (05:23→20:44)
[2022-05-04] MEDS: PERCOCET 5MG/325MG TAB PO PRN ×3 (05:23→20:47)
[2022-05-04] MEDS: ALPRAZolam 0.25 MG TAB PO PRN ×2 (05:33→14:47)
[2022-05-04] MEDS: ceFAZolin SOD 2 GM in IV 1 EA IV SCH ×3 (05:34→20:46)
[2022-05-04 06:39] VITALS: BP 139/74
[2022-05-04] MEDS: SYMBICORT 160/4.5MCG INHALER 6GM INH SCH ×2 (07:50→20:49)
[2022-05-04] MEDS: INSULIN LISPRO (NovoLOG) PER UNIT SC SCH ×7 (10:35→20:45)
[2022-05-04] MEDS: CARVedilol 12.5 MG TAB PO SCH ×2 (10:38→20:45)
[2022-05-04] MEDS: SERTRALINE HCL 50 MG TAB PO SCH (10:39)
[2022-05-04] MEDS: BUMETANIDE 1 MG TAB PO SCH ×2 (10:39→13:43)
[2022-05-04] MEDS: ASPIRIN 81MG ENTERIC TABLET PO SCH (10:39)
[2022-05-04] MEDS: CETIRIZINE (ZyrTEC) 10 MG TAB PO SCH (10:39)
[2022-05-04] MEDS: OMEPRAZOLE 20MG CAP PO SCH (10:39)
[2022-05-04] MEDS: MULTIVITAMINS/MINERALS THERAP 1 TAB PO SCH (10:39)
[2022-05-04] MEDS: busPIRone 10 MG TAB PO SCH ×3 (10:40→20:45)
[2022-05-04] MEDS: allopurinoL 300 MG TAB PO SCH (10:40)
[2022-05-04 14:00] VITALS: BP 158/84
[2022-05-04] MEDS: HUMULIN R U-500 KWIKPEN 500UNITS/ML 3ML SYRINGE (J1815 PER 5UNITS) SC SCH (16:58)
[2022-05-04] MEDS: PEN NEEDLE (USE WITH HUMULIN U-500 INSULIN PEN) XX SCH (16:59)
[2022-05-04 22:00] VITALS: BP 124/74
[2022-05-05] MEDS: ceFAZolin SOD 2 GM in IV 1 EA IV SCH ×2 (05:13→13:13)
[2022-05-05] MEDS: HEPARIN SOD (PORCINE) 5000UNITS/ML 1ML VIAL/SYRINGE SC SCH ×3 (05:13→20:15)
[2022-05-05] MEDS: PERCOCET 5MG/325MG TAB PO PRN ×2 (05:19→16:34)
[2022-05-05 06:00] VITALS: BP 125/73
[2022-05-05] MEDS: SYMBICORT 160/4.5MCG INHALER 6GM INH SCH ×2 (07:18→20:02)
[2022-05-05] MEDS: HUMULIN R U-500 KWIKPEN 500UNITS/ML 3ML SYRINGE (J1815 PER 5UNITS) SC SCH ×3 (08:00→17:44)
[2022-05-05] MEDS: PEN NEEDLE (USE WITH HUMULIN U-500 INSULIN PEN) XX SCH ×3 (08:02→17:44)
[2022-05-05] MEDS: INSULIN LISPRO (NovoLOG) PER UNIT SC SCH ×7 (08:03→20:15)
[2022-05-05] MEDS: BUMETANIDE 1 MG TAB PO SCH ×2 (08:05→13:12)
[2022-05-05] MEDS: OMEPRAZOLE 20MG CAP PO SCH (08:05)
[2022-05-05] MEDS: allopurinoL 300 MG TAB PO SCH (08:05)
[2022-05-05] MEDS: SERTRALINE HCL 50 MG TAB PO SCH (08:05)
[2022-05-05] MEDS: CETIRIZINE (ZyrTEC) 10 MG TAB PO SCH (08:05)
[2022-05-05] MEDS: MULTIVITAMINS/MINERALS THERAP 1 TAB PO SCH (08:05)
[2022-05-05] MEDS: busPIRone 10 MG TAB PO SCH ×3 (08:05→20:13)
[2022-05-05] MEDS: ASPIRIN 81MG ENTERIC TABLET PO SCH (08:05)
[2022-05-05] MEDS: CARVedilol 12.5 MG TAB PO SCH ×2 (08:06→20:14)
[2022-05-05 08:17] LABS: BASO # 0.1 10^3/uL (0.0-0.2); BASO % 0.5 % (0.0-1.0); EOS # 0.1 10^3/uL (0.0-0.5); EOS % 0.3 % (0.0-3.0); HEMATOCRIT 38.1 % (36.0-47.0); HEMOGLOBIN 12.4 g/dl (12.0-15.5); LYMPH # 1.3 10^3/uL (1.5-5.0); LYMPH % 4.4 % (24.0-44.0); MEAN CORPUSCULAR HEMOGLOBIN 31.2 pg (27.0-33.0); MEAN CORPUSCULAR HGB CONC 32.5 g/dl (32.0-36.5); MEAN CORPUSCULAR VOLUME 95.7 fl (80.0-96.0); MONO % 5.4 % (2.0-8.0); NEUTROPHILS # 26.1 10^3/uL (1.5-8.5); NEUTROPHILS % 87.5 % (36.0-66.0); PLATELET COUNT, AUTOMATED 381 10^3/uL (150-450); RED BLOOD COUNT 3.98 10^6/uL (4.00-5.40); WHITE BLOOD COUNT 29.8 10^3/uL (4.0-10.0)
[2022-05-05 08:42] LABS: MONO # 1.6 10^3/uL (0.0-0.8)
[2022-05-05 09:04] LABS: ALBUMIN 2.1 GM/DL (3.2-5.2); BILIRUBIN,TOTAL 0.6 MG/DL (0.2-1.0); CALCIUM LEVEL 9.8 MG/DL (8.5-10.1); CREATININE FOR GFR 1.57 MG/DL (0.55-1.30); GLOMERULAR FILTRATION RATE 36.4 (>51); MAGNESIUM LEVEL 1.9 MG/DL (1.8-2.4); POTASSIUM SERUM 4.3 MEQ/L (3.5-5.1); TOTAL PROTEIN 7.6 GM/DL (6.4-8.2)
[2022-05-05 14:00] VITALS: BP 125/78
[2022-05-05] MEDS: AMPICILLIN SOD 2 GM in D5W MINI-BAG PLUS 100 ML IV SCH ×2 (16:31→20:14)
[2022-05-05 17:07] VITALS: BP 126/73
[2022-05-05] MEDS: NS 1,000 ML IV SCH (17:45)
[2022-05-05 19:36] VITALS: BP 134/70
[2022-05-05] MEDS: ACETAMINOPHEN TAB 650MG DOSE (2X325MG) PO PRN (20:13)
[2022-05-06] MEDS: AMPICILLIN SOD 2 GM in D5W MINI-BAG PLUS 100 ML IV SCH ×6 (00:53→23:35)
[2022-05-06 04:37] VITALS: BP 122/67
[2022-05-06] MEDS ORDERED: LevoFLOXacin 500 MG TABLET PO ONE (06:00)
[2022-05-06] MEDS: ACETAMINOPHEN TAB 650MG DOSE (2X325MG) PO PRN (06:21)
[2022-05-06] MEDS: HEPARIN SOD (PORCINE) 5000UNITS/ML 1ML VIAL/SYRINGE SC SCH ×3 (06:22→23:35)
[2022-05-06] MEDS: SYMBICORT 160/4.5MCG INHALER 6GM INH SCH ×2 (08:00→20:59)
[2022-05-06] MEDS: INSULIN LISPRO (NovoLOG) PER UNIT SC SCH ×7 (08:54→20:07)
[2022-05-06] MEDS: PEN NEEDLE (USE WITH HUMULIN U-500 INSULIN PEN) XX SCH ×3 (08:55→17:29)
[2022-05-06] MEDS: HUMULIN R U-500 KWIKPEN 500UNITS/ML 3ML SYRINGE (J1815 PER 5UNITS) SC SCH ×3 (08:55→17:29)
[2022-05-06] MEDS: MULTIVITAMINS/MINERALS THERAP 1 TAB PO SCH (08:56)
[2022-05-06] MEDS: SERTRALINE HCL 50 MG TAB PO SCH (08:56)
[2022-05-06] MEDS: CETIRIZINE (ZyrTEC) 10 MG TAB PO SCH (08:56)
[2022-05-06] MEDS: CARVedilol 12.5 MG TAB PO SCH ×2 (08:56→20:06)
[2022-05-06] MEDS: ASPIRIN 81MG ENTERIC TABLET PO SCH (08:56)
[2022-05-06] MEDS: OMEPRAZOLE 20MG CAP PO SCH (08:57)
[2022-05-06] MEDS: BUMETANIDE 1 MG TAB PO SCH ×2 (08:57→14:06)
[2022-05-06] MEDS: allopurinoL 300 MG TAB PO SCH (08:57)
[2022-05-06] MEDS: busPIRone 10 MG TAB PO SCH ×3 (08:57→20:05)
[2022-05-06 09:12] LABS: BASO # 0.2 10^3/uL (0.0-0.2); BASO % 0.7 % (0.0-1.0); EOS # 0.1 10^3/uL (0.0-0.5); EOS % 0.2 % (0.0-3.0); HEMATOCRIT 34.6 % (36.0-47.0); HEMOGLOBIN 11.3 g/dl (12.0-15.5); LYMPH % 6.9 % (24.0-44.0); MEAN CORPUSCULAR HEMOGLOBIN 31.2 pg (27.0-33.0); MEAN CORPUSCULAR HGB CONC 32.7 g/dl (32.0-36.5); MEAN CORPUSCULAR VOLUME 95.6 fl (80.0-96.0); MONO % 6.6 % (2.0-8.0); NEUTROPHILS # 23.9 10^3/uL (1.5-8.5); PLATELET COUNT, AUTOMATED 430 10^3/uL (150-450); RED BLOOD COUNT 3.62 10^6/uL (4.00-5.40); WHITE BLOOD COUNT 29.5 10^3/uL (4.0-10.0)
[2022-05-06 09:39] LABS: ALBUMIN 1.9 GM/DL (3.2-5.2); BILIRUBIN,TOTAL 0.7 MG/DL (0.2-1.0); CALCIUM LEVEL 8.9 MG/DL (8.5-10.1); CREATININE FOR GFR 1.22 MG/DL (0.55-1.30); GLOMERULAR FILTRATION RATE 48.7 (>51); MAGNESIUM LEVEL 1.8 MG/DL (1.8-2.4); TOTAL PROTEIN 6.1 GM/DL (6.4-8.2)
[2022-05-06] MEDS: PERCOCET 5MG/325MG TAB PO PRN ×2 (10:02→17:30)
[2022-05-06] MEDS: NS 1,000 ML IV SCH (10:02)
[2022-05-06 14:00] VITALS: BP 148/75
[2022-05-06 22:00] VITALS: BP 145/74
[2022-05-07] MEDS: AMPICILLIN SOD 2 GM in D5W MINI-BAG PLUS 100 ML IV SCH ×6 (04:35→23:25)
[2022-05-07] MEDS: HEPARIN SOD (PORCINE) 5000UNITS/ML 1ML VIAL/SYRINGE SC SCH ×3 (05:34→21:11)
[2022-05-07 06:08] LABS: HEMATOCRIT 35.4 % (36.0-47.0); HEMOGLOBIN 11.5 g/dl (12.0-15.5); MEAN CORPUSCULAR HEMOGLOBIN 31.1 pg (27.0-33.0); MEAN CORPUSCULAR HGB CONC 32.5 g/dl (32.0-36.5); MEAN CORPUSCULAR VOLUME 95.7 fl (80.0-96.0); PLATELET COUNT, AUTOMATED 488 10^3/uL (150-450)
[2022-05-07 06:17] VITALS: BP 145/73
[2022-05-07 06:36] LABS: ALBUMIN 1.9 GM/DL (3.2-5.2); BILIRUBIN,TOTAL 0.8 MG/DL (0.2-1.0); CALCIUM LEVEL 9.1 MG/DL (8.5-10.1); CREATININE FOR GFR 1.11 MG/DL (0.55-1.30); GLOMERULAR FILTRATION RATE 54.3 (>51); MAGNESIUM LEVEL 1.6 MG/DL (1.8-2.4); POTASSIUM SERUM 3.8 MEQ/L (3.5-5.1)
[2022-05-07] MEDS: INSULIN LISPRO (NovoLOG) PER UNIT SC SCH ×7 (07:32→21:11)
[2022-05-07] MEDS: PEN NEEDLE (USE WITH HUMULIN U-500 INSULIN PEN) XX SCH ×3 (07:33→17:09)
[2022-05-07] MEDS: HUMULIN R U-500 KWIKPEN 500UNITS/ML 3ML SYRINGE (J1815 PER 5UNITS) SC SCH ×3 (07:33→17:09)
[2022-05-07] MEDS: SERTRALINE HCL 50 MG TAB PO SCH (07:34)
[2022-05-07] MEDS: busPIRone 10 MG TAB PO SCH ×3 (07:35→21:10)
[2022-05-07] MEDS: OMEPRAZOLE 20MG CAP PO SCH (07:35)
[2022-05-07] MEDS: ASPIRIN 81MG ENTERIC TABLET PO SCH (07:35)
[2022-05-07] MEDS: MULTIVITAMINS/MINERALS THERAP 1 TAB PO SCH (07:35)
[2022-05-07] MEDS: CETIRIZINE (ZyrTEC) 10 MG TAB PO SCH (07:35)
[2022-05-07] MEDS: BUMETANIDE 1 MG TAB PO SCH ×2 (07:35→12:56)
[2022-05-07] MEDS: allopurinoL 300 MG TAB PO SCH (07:36)
[2022-05-07] MEDS: CARVedilol 12.5 MG TAB PO SCH ×2 (07:36→21:10)
[2022-05-07] MEDS: SYMBICORT 160/4.5MCG INHALER 6GM INH SCH ×2 (07:39→20:27)
[2022-05-07] MEDS ORDERED: MAGNESIUM OXIDE 400MG TAB (MAG-OX) PO ONE (08:00)
[2022-05-07 10:50] LABS: C REACTIVE PROTEIN QUANTITATIV 30.5 MG/DL (0.00-0.30)
[2022-05-07 14:00] VITALS: BP 152/78
[2022-05-07] MEDS: PERCOCET 5MG/325MG TAB PO PRN ×2 (15:37→21:12)
[2022-05-07] MEDS: tiZANidine 4 MG TAB PO PRN (21:10)
[2022-05-07 22:00] VITALS: BP 126/62
[2022-05-08] MEDS: AMPICILLIN SOD 2 GM in D5W MINI-BAG PLUS 100 ML IV SCH ×5 (03:31→20:51)
[2022-05-08] MEDS: HEPARIN SOD (PORCINE) 5000UNITS/ML 1ML VIAL/SYRINGE SC SCH ×3 (05:27→20:51)
[2022-05-08] MEDS: PERCOCET 5MG/325MG TAB PO PRN ×2 (05:30→17:34)
[2022-05-08 05:57] LABS: HEMATOCRIT 35.2 % (36.0-47.0); HEMOGLOBIN 11.4 g/dl (12.0-15.5); MEAN CORPUSCULAR HEMOGLOBIN 30.9 pg (27.0-33.0); MEAN CORPUSCULAR HGB CONC 32.4 g/dl (32.0-36.5); MEAN CORPUSCULAR VOLUME 95.4 fl (80.0-96.0); PLATELET COUNT, AUTOMATED 543 10^3/uL (150-450); RED BLOOD COUNT 3.69 10^6/uL (4.00-5.40)
[2022-05-08 06:00] VITALS: BP 118/55
[2022-05-08 06:44] LABS: ALBUMIN 1.9 GM/DL (3.2-5.2); BILIRUBIN,TOTAL 0.7 MG/DL (0.2-1.0); CALCIUM LEVEL 9.2 MG/DL (8.5-10.1); CREATININE FOR GFR 1.11 MG/DL (0.55-1.30); GLOMERULAR FILTRATION RATE 54.3 (>51); MAGNESIUM LEVEL 1.7 MG/DL (1.8-2.4); TOTAL PROTEIN 6.1 GM/DL (6.4-8.2)
[2022-05-08] MEDS: SYMBICORT 160/4.5MCG INHALER 6GM INH SCH ×2 (07:21→20:18)
[2022-05-08] MEDS: HUMULIN R U-500 KWIKPEN 500UNITS/ML 3ML SYRINGE (J1815 PER 5UNITS) SC SCH ×3 (07:51→17:35)
[2022-05-08] MEDS: BUMETANIDE 1 MG TAB PO SCH (07:51)
[2022-05-08] MEDS: PEN NEEDLE (USE WITH HUMULIN U-500 INSULIN PEN) XX SCH ×3 (07:52→17:35)
[2022-05-08] MEDS: OMEPRAZOLE 20MG CAP PO SCH (07:53)
[2022-05-08] MEDS: INSULIN LISPRO (NovoLOG) PER UNIT SC SCH ×7 (07:53→20:52)
[2022-05-08] MEDS: CETIRIZINE (ZyrTEC) 10 MG TAB PO SCH (07:54)
[2022-05-08] MEDS: CARVedilol 12.5 MG TAB PO SCH ×2 (07:54→20:53)
[2022-05-08] MEDS: busPIRone 10 MG TAB PO SCH ×3 (07:54→20:53)
[2022-05-08] MEDS: allopurinoL 300 MG TAB PO SCH (07:54)
[2022-05-08] MEDS: ASPIRIN 81MG ENTERIC TABLET PO SCH (07:54)
[2022-05-08] MEDS: SERTRALINE HCL 50 MG TAB PO SCH (07:55)
[2022-05-08] MEDS: MULTIVITAMINS/MINERALS THERAP 1 TAB PO SCH (07:55)
[2022-05-08] MEDS: MAGNESIUM OXIDE 400MG TAB (MAG-OX) PO SCH ×2 (10:28→20:53)
[2022-05-08] MEDS: FUROSEMIDE 40MG/4ML VIAL (J1940) IV SCH ×2 (12:03→20:54)
[2022-05-08 15:03] LABS: ABG BASE EXCESS 6.2 (-2.0-2.0); ABG O2 SATURATION 97.4 % (95.0-99.0); ABG PARTIAL PRESSURE CO2 45.6 mmHg (35.0-45.0); ABG PARTIAL PRESSURE O2 95.7 mmHg (75.0-100.0); ABG STANDARD HCO3 30.1 MEQ/L (22.0-26.0); ABG TOTAL CO2 32.4 MEQ/L (22.0-29.0)
[2022-05-08 15:53] LABS: CALCIUM LEVEL 9.4 MG/DL (8.5-10.1); CREATININE FOR GFR 1.15 MG/DL (0.55-1.30); GLOMERULAR FILTRATION RATE 52.2 (>51); MAGNESIUM LEVEL 1.8 MG/DL (1.8-2.4); POTASSIUM SERUM 3.9 MEQ/L (3.5-5.1)
[2022-05-08] MEDS: LACTOBACILLUS ACIDOPHILUS CAP (BACID) PO SCH (17:33)
[2022-05-08 18:00] VITALS: BP 145/68
[2022-05-08 19:22] LABS: CRYSTALS, BODY FLUID NONE SEEN (NONE SEEN); SOURCE, BODY FLUID CRYSTALS LFT KNEE
[2022-05-08 20:00] VITALS: BP 138/62
[2022-05-09] VITALS: BP 154/67
[2022-05-09] MEDS: AMPICILLIN SOD 2 GM in D5W MINI-BAG PLUS 100 ML IV SCH ×7 (00:04→23:51)
[2022-05-09 04:00] VITALS: BP 142/66
[2022-05-09] MEDS: FUROSEMIDE 40MG/4ML VIAL (J1940) IV SCH ×3 (04:34→20:10)
[2022-05-09 05:41] LABS: HEMOGLOBIN 11.1 g/dl (12.0-15.5); MEAN CORPUSCULAR HEMOGLOBIN 30.7 pg (27.0-33.0); MEAN CORPUSCULAR HGB CONC 32.6 g/dl (32.0-36.5); MEAN CORPUSCULAR VOLUME 93.9 fl (80.0-96.0); PLATELET COUNT, AUTOMATED 528 10^3/uL (150-450); RED BLOOD COUNT 3.62 10^6/uL (4.00-5.40); WHITE BLOOD COUNT 23.3 10^3/uL (4.0-10.0)
[2022-05-09 06:16] LABS: ALBUMIN 1.9 GM/DL (3.2-5.2); BILIRUBIN,TOTAL 0.5 MG/DL (0.2-1.0); C REACTIVE PROTEIN QUANTITATIV 18.7 MG/DL (0.00-0.30); CREATININE FOR GFR 1.05 MG/DL (0.55-1.30); GLOMERULAR FILTRATION RATE 57.9 (>51); MAGNESIUM LEVEL 1.9 MG/DL (1.8-2.4); POTASSIUM SERUM 3.8 MEQ/L (3.5-5.1); TOTAL PROTEIN 6.1 GM/DL (6.4-8.2)
[2022-05-09] MEDS: tiZANidine 4 MG TAB PO PRN (06:36)
[2022-05-09] MEDS: PERCOCET 5MG/325MG TAB PO PRN ×3 (06:37→22:24)
[2022-05-09] MEDS: HEPARIN SOD (PORCINE) 5000UNITS/ML 1ML VIAL/SYRINGE SC SCH ×3 (06:38→21:12)
[2022-05-09 07:37] LABS: APPEARANCE, BODY FLUID HAZY
[2022-05-09] MEDS: SYMBICORT 160/4.5MCG INHALER 6GM INH SCH ×2 (07:47→19:11)
[2022-05-09 08:00] VITALS: BP 112/56
[2022-05-09] MEDS: HUMULIN R U-500 KWIKPEN 500UNITS/ML 3ML SYRINGE (J1815 PER 5UNITS) SC SCH ×3 (08:25→17:52)
[2022-05-09] MEDS: INSULIN LISPRO (NovoLOG) PER UNIT SC SCH ×7 (08:25→20:11)
[2022-05-09] MEDS: OMEPRAZOLE 20MG CAP PO SCH (08:26)
[2022-05-09] MEDS: PEN NEEDLE (USE WITH HUMULIN U-500 INSULIN PEN) XX SCH ×3 (08:26→17:53)
[2022-05-09] MEDS: MULTIVITAMINS/MINERALS THERAP 1 TAB PO SCH (08:26)
[2022-05-09] MEDS: SERTRALINE HCL 50 MG TAB PO SCH (08:27)
[2022-05-09] MEDS: ASPIRIN 81MG ENTERIC TABLET PO SCH (08:29)
[2022-05-09] MEDS: LACTOBACILLUS ACIDOPHILUS CAP (BACID) PO SCH ×2 (08:29→17:53)
[2022-05-09] MEDS: CARVedilol 12.5 MG TAB PO SCH ×2 (08:29→20:09)
[2022-05-09] MEDS: busPIRone 10 MG TAB PO SCH ×3 (08:29→20:09)
[2022-05-09] MEDS: allopurinoL 300 MG TAB PO SCH (08:30)
[2022-05-09] MEDS: CETIRIZINE (ZyrTEC) 10 MG TAB PO SCH (08:30)
[2022-05-09] MEDS: MAGNESIUM OXIDE 400MG TAB (MAG-OX) PO SCH ×2 (08:30→20:10)
[2022-05-09 12:00] VITALS: BP 133/80
[2022-05-09 16:00] VITALS: BP 139/65
[2022-05-09 19:27] VITALS: BP 128/58
[2022-05-10] VITALS: BP 128/58
[2022-05-10 04:00] VITALS: BP 144/67
[2022-05-10] MEDS: AMPICILLIN SOD 2 GM in D5W MINI-BAG PLUS 100 ML IV SCH ×5 (04:26→20:30)
[2022-05-10] MEDS: FUROSEMIDE 40MG/4ML VIAL (J1940) IV SCH ×3 (04:26→20:28)
[2022-05-10] MEDS: PERCOCET 5MG/325MG TAB PO PRN ×3 (04:42→17:13)
[2022-05-10 05:47] LABS: HEMATOCRIT 34.3 % (36.0-47.0); HEMOGLOBIN 11.3 g/dl (12.0-15.5); MEAN CORPUSCULAR HEMOGLOBIN 30.8 pg (27.0-33.0); MEAN CORPUSCULAR HGB CONC 32.9 g/dl (32.0-36.5); MEAN CORPUSCULAR VOLUME 93.5 fl (80.0-96.0); PLATELET COUNT, AUTOMATED 603 10^3/uL (150-450); RED BLOOD COUNT 3.67 10^6/uL (4.00-5.40); WHITE BLOOD COUNT 19.6 10^3/uL (4.0-10.0)
[2022-05-10] MEDS: HEPARIN SOD (PORCINE) 5000UNITS/ML 1ML VIAL/SYRINGE SC SCH ×3 (06:01→21:56)
[2022-05-10 06:25] LABS: ALBUMIN 1.8 GM/DL (3.2-5.2); BILIRUBIN,TOTAL 0.6 MG/DL (0.2-1.0); CALCIUM LEVEL 8.8 MG/DL (8.5-10.1); CREATININE FOR GFR 1.03 MG/DL (0.55-1.30); GLOMERULAR FILTRATION RATE 59.2 (>51); MAGNESIUM LEVEL 1.9 MG/DL (1.8-2.4); POTASSIUM SERUM 3.7 MEQ/L (3.5-5.1); TOTAL PROTEIN 6.4 GM/DL (6.4-8.2)
[2022-05-10] MEDS: SYMBICORT 160/4.5MCG INHALER 6GM INH SCH ×2 (07:48→19:24)
[2022-05-10 08:00] VITALS: BP 142/69
[2022-05-10] MEDS: LACTOBACILLUS ACIDOPHILUS CAP (BACID) PO SCH ×2 (08:06→17:02)
[2022-05-10] MEDS: MAGNESIUM OXIDE 400MG TAB (MAG-OX) PO SCH ×2 (08:06→20:29)
[2022-05-10] MEDS: OMEPRAZOLE 20MG CAP PO SCH (08:06)
[2022-05-10] MEDS: MULTIVITAMINS/MINERALS THERAP 1 TAB PO SCH (08:06)
[2022-05-10] MEDS: busPIRone 10 MG TAB PO SCH ×3 (08:06→20:29)
[2022-05-10] MEDS: CETIRIZINE (ZyrTEC) 10 MG TAB PO SCH (08:06)
[2022-05-10] MEDS: ASPIRIN 81MG ENTERIC TABLET PO SCH (08:06)
[2022-05-10] MEDS: allopurinoL 300 MG TAB PO SCH (08:06)
[2022-05-10] MEDS: SERTRALINE HCL 50 MG TAB PO SCH (08:07)
[2022-05-10] MEDS: CARVedilol 12.5 MG TAB PO SCH ×2 (08:08→20:29)
[2022-05-10] MEDS: INSULIN LISPRO (NovoLOG) PER UNIT SC SCH ×7 (08:09→20:28)
[2022-05-10] MEDS: HUMULIN R U-500 KWIKPEN 500UNITS/ML 3ML SYRINGE (J1815 PER 5UNITS) SC SCH ×3 (08:10→17:03)
[2022-05-10] MEDS: PEN NEEDLE (USE WITH HUMULIN U-500 INSULIN PEN) XX SCH ×3 (08:10→17:02)
[2022-05-10] MEDS: SENOKOT S TAB PO SCH ×2 (10:09→20:29)
[2022-05-10] MEDS: MIRALAX *UNIT DOSE* 17GM PACKET PO SCH (10:09)
[2022-05-10] MEDS: tiZANidine 4 MG TAB PO PRN ×2 (11:50→20:28)
[2022-05-10 12:00] VITALS: BP 152/71
[2022-05-10 16:00] VITALS: BP 125/55
[2022-05-10 20:00] VITALS: BP 124/72
[2022-05-11] MEDS: AMPICILLIN SOD 2 GM in D5W MINI-BAG PLUS 100 ML IV SCH ×6 (00:25→21:37)
[2022-05-11] MEDS: PERCOCET 5MG/325MG TAB PO PRN ×3 (00:29→19:26)
[2022-05-11 00:33] VITALS: BP 113/53
[2022-05-11] MEDS: FUROSEMIDE 40MG/4ML VIAL (J1940) IV SCH ×3 (03:35→21:37)
[2022-05-11 04:00] VITALS: BP_SYST 130; BP_SYST 139; BP_DIAS 61
[2022-05-11] MEDS: tiZANidine 4 MG TAB PO PRN ×2 (04:55→21:36)
[2022-05-11] MEDS: HEPARIN SOD (PORCINE) 5000UNITS/ML 1ML VIAL/SYRINGE SC SCH ×3 (05:05→21:37)
[2022-05-11 07:16] LABS: HEMATOCRIT 33.3 % (36.0-47.0); HEMOGLOBIN 10.8 g/dl (12.0-15.5); MEAN CORPUSCULAR HEMOGLOBIN 30.9 pg (27.0-33.0); MEAN CORPUSCULAR HGB CONC 32.4 g/dl (32.0-36.5); MEAN CORPUSCULAR VOLUME 95.1 fl (80.0-96.0); PLATELET COUNT, AUTOMATED 624 10^3/uL (150-450); WHITE BLOOD COUNT 16.6 10^3/uL (4.0-10.0)
[2022-05-11] MEDS: SYMBICORT 160/4.5MCG INHALER 6GM INH SCH ×2 (07:40→19:02)
[2022-05-11 07:43] LABS: ALBUMIN 1.8 GM/DL (3.2-5.2); BILIRUBIN,TOTAL 0.5 MG/DL (0.2-1.0); C REACTIVE PROTEIN QUANTITATIV 16.8 MG/DL (0.00-0.30); CALCIUM LEVEL 9.2 MG/DL (8.5-10.1); CREATININE FOR GFR 1.13 MG/DL (0.55-1.30); GLOMERULAR FILTRATION RATE 53.2 (>51); POTASSIUM SERUM 3.3 MEQ/L (3.5-5.1); TOTAL PROTEIN 7.3 GM/DL (6.4-8.2)
[2022-05-11 08:00] VITALS: BP 126/61
[2022-05-11] MEDS: INSULIN LISPRO (NovoLOG) PER UNIT SC SCH ×7 (08:00→21:36)
[2022-05-11] MEDS: PEN NEEDLE (USE WITH HUMULIN U-500 INSULIN PEN) XX SCH ×3 (09:41→17:47)
[2022-05-11] MEDS: HUMULIN R U-500 KWIKPEN 500UNITS/ML 3ML SYRINGE (J1815 PER 5UNITS) SC SCH ×3 (09:41→17:48)
[2022-05-11] MEDS: busPIRone 10 MG TAB PO SCH ×3 (09:42→21:36)
[2022-05-11] MEDS: MIRALAX *UNIT DOSE* 17GM PACKET PO SCH (09:42)
[2022-05-11] MEDS: LACTOBACILLUS ACIDOPHILUS CAP (BACID) PO SCH ×2 (09:43→17:47)
[2022-05-11] MEDS: CARVedilol 12.5 MG TAB PO SCH ×2 (09:43→21:37)
[2022-05-11] MEDS: OMEPRAZOLE 20MG CAP PO SCH (09:44)
[2022-05-11] MEDS: SERTRALINE HCL 50 MG TAB PO SCH (09:44)
[2022-05-11] MEDS: SENOKOT S TAB PO SCH ×2 (09:45→21:36)
[2022-05-11] MEDS: allopurinoL 300 MG TAB PO SCH (09:45)
[2022-05-11] MEDS: CETIRIZINE (ZyrTEC) 10 MG TAB PO SCH (09:45)
[2022-05-11] MEDS: ASPIRIN 81MG ENTERIC TABLET PO SCH (09:45)
[2022-05-11] MEDS: MAGNESIUM OXIDE 400MG TAB (MAG-OX) PO SCH ×2 (09:46→21:36)
[2022-05-11] MEDS: MULTIVITAMINS/MINERALS THERAP 1 TAB PO SCH (09:46)
[2022-05-11] MEDS ORDERED: metOLazone 5 MG TAB PO ONE (10:30)
[2022-05-11] MEDS: POTASSIUM CHLORIDE 10MEQ SR TABLET PO SCH (10:47)
[2022-05-11 11:37] VITALS: BP 135/64
[2022-05-11 16:00] VITALS: BP 121/58
[2022-05-11 19:18] VITALS: BP 148/67
[2022-05-12] VITALS: BP 110/54
[2022-05-12] MEDS: AMPICILLIN SOD 2 GM in D5W MINI-BAG PLUS 100 ML IV SCH ×6 (00:56→22:15)
[2022-05-12 04:00] VITALS: BP 134/73
[2022-05-12] MEDS: PERCOCET 5MG/325MG TAB PO PRN ×3 (04:22→20:20)
[2022-05-12] MEDS: FUROSEMIDE 40MG/4ML VIAL (J1940) IV SCH ×4 (05:15→22:16)
[2022-05-12] MEDS: tiZANidine 4 MG TAB PO PRN ×3 (05:40→22:17)
[2022-05-12 05:54] LABS: HEMATOCRIT 33.4 % (36.0-47.0); HEMOGLOBIN 11.1 g/dl (12.0-15.5); MEAN CORPUSCULAR HEMOGLOBIN 31.3 pg (27.0-33.0); MEAN CORPUSCULAR HGB CONC 33.2 g/dl (32.0-36.5); MEAN CORPUSCULAR VOLUME 94.1 fl (80.0-96.0); PLATELET COUNT, AUTOMATED 662 10^3/uL (150-450); RED BLOOD COUNT 3.55 10^6/uL (4.00-5.40); WHITE BLOOD COUNT 15.5 10^3/uL (4.0-10.0)
[2022-05-12 06:20] LABS: ALBUMIN 1.8 GM/DL (3.2-5.2); BILIRUBIN,TOTAL 0.5 MG/DL (0.2-1.0); CALCIUM LEVEL 9.4 MG/DL (8.5-10.1); CREATININE FOR GFR 1.06 MG/DL (0.55-1.30); GLOMERULAR FILTRATION RATE 57.3 (>51); POTASSIUM SERUM 3.4 MEQ/L (3.5-5.1); TOTAL PROTEIN 7.6 GM/DL (6.4-8.2)
[2022-05-12] MEDS: INSULIN LISPRO (NovoLOG) PER UNIT SC SCH ×7 (07:30→22:15)
[2022-05-12 08:00] VITALS: BP 124/58
[2022-05-12] MEDS: SYMBICORT 160/4.5MCG INHALER 6GM INH SCH ×2 (08:27→19:21)
[2022-05-12] MEDS: CARVedilol 12.5 MG TAB PO SCH ×2 (08:51→22:21)
[2022-05-12] MEDS: POTASSIUM CHLORIDE 10MEQ SR TABLET PO SCH (08:52)
[2022-05-12] MEDS: metOLazone 2.5 MG TAB PO SCH (08:52)
[2022-05-12] MEDS: OMEPRAZOLE 20MG CAP PO SCH (08:53)
[2022-05-12] MEDS: LACTOBACILLUS ACIDOPHILUS CAP (BACID) PO SCH ×2 (08:53→17:50)
[2022-05-12] MEDS: SENOKOT S TAB PO SCH ×3 (08:53→23:57)
[2022-05-12] MEDS: CETIRIZINE (ZyrTEC) 10 MG TAB PO SCH (08:54)
[2022-05-12] MEDS: MULTIVITAMINS/MINERALS THERAP 1 TAB PO SCH (08:54)
[2022-05-12] MEDS: MAGNESIUM OXIDE 400MG TAB (MAG-OX) PO SCH ×2 (08:54→22:16)
[2022-05-12] MEDS: SERTRALINE HCL 50 MG TAB PO SCH (08:54)
[2022-05-12] MEDS: busPIRone 10 MG TAB PO SCH ×3 (08:54→22:16)
[2022-05-12] MEDS: HUMULIN R U-500 KWIKPEN 500UNITS/ML 3ML SYRINGE (J1815 PER 5UNITS) SC SCH ×3 (08:58→18:21)
[2022-05-12] MEDS: PEN NEEDLE (USE WITH HUMULIN U-500 INSULIN PEN) XX SCH ×3 (08:59→18:21)
[2022-05-12] MEDS ORDERED: metOLazone 5 MG TAB PO SCH (09:00)
[2022-05-12] MEDS: MIRALAX *UNIT DOSE* 17GM PACKET PO SCH (09:00)
[2022-05-12] MEDS: allopurinoL 300 MG TAB PO SCH (09:05)
[2022-05-12 12:00] VITALS: BP 134/63
[2022-05-12 16:00] VITALS: BP 147/65
[2022-05-12] MEDS: RIVAROXABAN 20MG TAB (XARELTO) PO SCH ×2 (17:50→18:17)
[2022-05-12 20:00] VITALS: BP 137/61
[2022-05-12] MEDS ORDERED: MOM 30ML SUSPENSION UDC PO PRN (22:55)
[2022-05-13] MEDS: AMPICILLIN SOD 2 GM in D5W MINI-BAG PLUS 100 ML IV SCH ×6 (01:27→20:05)
[2022-05-13 03:45] VITALS: BP 141/64
[2022-05-13 04:20] VITALS: BP 142/64
[2022-05-13] MEDS: FUROSEMIDE 40MG/4ML VIAL (J1940) IV SCH ×3 (04:40→16:00)
[2022-05-13] MEDS: PERCOCET 5MG/325MG TAB PO PRN ×3 (04:41→20:37)
[2022-05-13 06:00] VITALS: BP 145/64
[2022-05-13 06:55] LABS: HEMATOCRIT 33.3 % (36.0-47.0); HEMOGLOBIN 10.8 g/dl (12.0-15.5); MEAN CORPUSCULAR HEMOGLOBIN 30.3 pg (27.0-33.0); MEAN CORPUSCULAR HGB CONC 32.4 g/dl (32.0-36.5); MEAN CORPUSCULAR VOLUME 93.3 fl (80.0-96.0); PLATELET COUNT, AUTOMATED 726 10^3/uL (150-450); RED BLOOD COUNT 3.57 10^6/uL (4.00-5.40); WHITE BLOOD COUNT 14.3 10^3/uL (4.0-10.0)
[2022-05-13] MEDS: PEN NEEDLE (USE WITH HUMULIN U-500 INSULIN PEN) XX SCH ×3 (07:30→17:30)
[2022-05-13] MEDS: SYMBICORT 160/4.5MCG INHALER 6GM INH SCH ×2 (07:44→20:03)
[2022-05-13 07:48] LABS: CALCIUM LEVEL 9.2 MG/DL (8.5-10.1); CREATININE FOR GFR 1.08 MG/DL (0.55-1.30); GLOMERULAR FILTRATION RATE 56.1 (>51); POTASSIUM SERUM 4.2 MEQ/L (3.5-5.1)
[2022-05-13 07:49] LABS: ALBUMIN 1.9 GM/DL (3.2-5.2); BILIRUBIN,TOTAL 0.6 MG/DL (0.2-1.0); TOTAL PROTEIN 7.5 GM/DL (6.4-8.2)
[2022-05-13] MEDS: HUMULIN R U-500 KWIKPEN 500UNITS/ML 3ML SYRINGE (J1815 PER 5UNITS) SC SCH ×3 (08:42→17:36)
[2022-05-13] MEDS: INSULIN LISPRO (NovoLOG) PER UNIT SC SCH ×7 (08:42→20:28)
[2022-05-13] MEDS: metOLazone 2.5 MG TAB PO SCH (08:43)
[2022-05-13] MEDS: LACTOBACILLUS ACIDOPHILUS CAP (BACID) PO SCH ×2 (08:43→17:37)
[2022-05-13] MEDS: SERTRALINE HCL 50 MG TAB PO SCH (08:44)
[2022-05-13] MEDS: POTASSIUM CHLORIDE 10MEQ SR TABLET PO SCH (08:44)
[2022-05-13] MEDS: MAGNESIUM OXIDE 400MG TAB (MAG-OX) PO SCH ×2 (08:44→20:25)
[2022-05-13] MEDS: OMEPRAZOLE 20MG CAP PO SCH (08:44)
[2022-05-13] MEDS: allopurinoL 300 MG TAB PO SCH (08:44)
[2022-05-13] MEDS: SENOKOT S TAB PO SCH ×2 (08:45→20:26)
[2022-05-13] MEDS: CETIRIZINE (ZyrTEC) 10 MG TAB PO SCH (08:45)
[2022-05-13] MEDS: MULTIVITAMINS/MINERALS THERAP 1 TAB PO SCH (08:45)
[2022-05-13] MEDS: busPIRone 10 MG TAB PO SCH ×3 (08:48→20:27)
[2022-05-13] MEDS: CARVedilol 12.5 MG TAB PO SCH ×2 (09:00→20:30)
[2022-05-13] MEDS: MIRALAX *UNIT DOSE* 17GM PACKET PO SCH (09:03)
[2022-05-13 11:48] LABS: ABG HCO3 36.5 MEQ/L (22.0-26.0); ABG O2 SATURATION 97.1 % (95.0-99.0); ABG PARTIAL PRESSURE CO2 46.8 mmHg (35.0-45.0); ABG PARTIAL PRESSURE O2 90.1 mmHg (75.0-100.0); ABG STANDARD HCO3 35.8 MEQ/L (22.0-26.0); ABG TOTAL CO2 37.9 MEQ/L (22.0-29.0)
[2022-05-13 14:00] VITALS: BP 101/49
[2022-05-13] MEDS: RIVAROXABAN 20MG TAB (XARELTO) PO SCH (17:37)
[2022-05-13 22:00] VITALS: BP 122/55
[2022-05-14] MEDS: AMPICILLIN SOD 2 GM in D5W MINI-BAG PLUS 100 ML IV SCH ×6 (00:23→21:05)
[2022-05-14] MEDS: ACETAMINOPHEN TAB 650MG DOSE (2X325MG) PO PRN (00:30)
[2022-05-14] MEDS: PERCOCET 5MG/325MG TAB PO PRN ×3 (03:45→21:03)
[2022-05-14] MEDS: tiZANidine 4 MG TAB PO PRN (03:45)
[2022-05-14 06:12] VITALS: BP_SYST 100; BP_DIAS 40; BP_DIAS 41
[2022-05-14] MEDS: SYMBICORT 160/4.5MCG INHALER 6GM INH SCH ×2 (07:11→19:08)
[2022-05-14] MEDS: INSULIN LISPRO (NovoLOG) PER UNIT SC SCH ×7 (09:07→21:09)
[2022-05-14] MEDS: PEN NEEDLE (USE WITH HUMULIN U-500 INSULIN PEN) XX SCH ×3 (09:08→18:22)
[2022-05-14] MEDS: MIRALAX *UNIT DOSE* 17GM PACKET PO SCH (09:08)
[2022-05-14] MEDS: HUMULIN R U-500 KWIKPEN 500UNITS/ML 3ML SYRINGE (J1815 PER 5UNITS) SC SCH ×3 (09:08→18:22)
[2022-05-14] MEDS: SERTRALINE HCL 50 MG TAB PO SCH (09:09)
[2022-05-14] MEDS: POTASSIUM CHLORIDE 10MEQ SR TABLET PO SCH (09:10)
[2022-05-14] MEDS: SENOKOT S TAB PO SCH ×2 (09:10→21:01)
[2022-05-14] MEDS: allopurinoL 300 MG TAB PO SCH (09:10)
[2022-05-14] MEDS: CETIRIZINE (ZyrTEC) 10 MG TAB PO SCH (09:10)
[2022-05-14] MEDS: MULTIVITAMINS/MINERALS THERAP 1 TAB PO SCH (09:10)
[2022-05-14] MEDS: OMEPRAZOLE 20MG CAP PO SCH (09:10)
[2022-05-14] MEDS: LACTOBACILLUS ACIDOPHILUS CAP (BACID) PO SCH ×2 (09:10→18:22)
[2022-05-14] MEDS: busPIRone 10 MG TAB PO SCH ×3 (09:10→21:02)
[2022-05-14] MEDS: MAGNESIUM OXIDE 400MG TAB (MAG-OX) PO SCH ×2 (09:10→21:02)
[2022-05-14] MEDS: CARVedilol 12.5 MG TAB PO SCH ×2 (09:19→21:01)
[2022-05-14] MEDS: ALPRAZolam 0.25 MG TAB PO PRN (13:00)
[2022-05-14 14:00] VITALS: BP 122/54
[2022-05-14] MEDS: RIVAROXABAN 20MG TAB (XARELTO) PO SCH (18:22)
[2022-05-14 21:40] VITALS: BP 122/56
[2022-05-15] MEDS: AMPICILLIN SOD 2 GM in D5W MINI-BAG PLUS 100 ML IV SCH ×5 (00:46→16:36)
[2022-05-15] MEDS: tiZANidine 4 MG TAB PO PRN (01:04)
[2022-05-15] MEDS: PERCOCET 5MG/325MG TAB PO PRN ×3 (03:31→20:23)
[2022-05-15 04:34] LABS: VENOUS BASE EXCESS 15.2 (-2.0-2.0); VENOUS HCO3 42.8 MEQ/L (23.0-27.0); VENOUS PARTIAL PRESSURE CO2 70.3 mmHg (38.0-50.0); VENOUS PARTIAL PRESSURE O2 36.6 mmHg (30.0-50.0); VENOUS PH 7.402 UNITS (7.330-7.430); VENOUS STANDARD HCO3 38.3 MEQ/L; VENOUS TOTAL CO2 44.9 MEQ/L (24.0-28.0)
[2022-05-15 04:39] LABS: BASO # 0.1 10^3/uL (0.0-0.2); BASO % 0.6 % (0.0-1.0); EOS # 0.1 10^3/uL (0.0-0.5); EOS % 0.3 % (0.0-3.0); HEMATOCRIT 30.9 % (36.0-47.0); LYMPH # 2.6 10^3/uL (1.5-5.0); LYMPH % 16.4 % (24.0-44.0); MEAN CORPUSCULAR HEMOGLOBIN 31.3 pg (27.0-33.0); MEAN CORPUSCULAR HGB CONC 32.4 g/dl (32.0-36.5); MEAN CORPUSCULAR VOLUME 96.9 fl (80.0-96.0); MONO % 9.9 % (2.0-8.0); NEUTROPHILS # 11.4 10^3/uL (1.5-8.5); NEUTROPHILS % 72.3 % (36.0-66.0); PLATELET COUNT, AUTOMATED 755 10^3/uL (150-450); RED BLOOD COUNT 3.19 10^6/uL (4.00-5.40); WHITE BLOOD COUNT 15.8 10^3/uL (4.0-10.0)
[2022-05-15 04:41] LABS: MONO # 1.6 10^3/uL (0.0-0.8)
[2022-05-15 05:18] LABS: C REACTIVE PROTEIN QUANTITATIV 21.1 MG/DL (0.00-0.30); CALCIUM LEVEL 9.1 MG/DL (8.5-10.1); CREATININE FOR GFR 1.08 MG/DL (0.55-1.30); GLOMERULAR FILTRATION RATE 56.1 (>51); MAGNESIUM LEVEL 2.3 MG/DL (1.8-2.4); POTASSIUM SERUM 4.3 MEQ/L (3.5-5.1)
[2022-05-15 05:44] VITALS: BP 142/56
[2022-05-15] MEDS ORDERED: FUROSEMIDE 40MG/4ML VIAL (J1940) IV SCH ×2 (06:00→12:00)
[2022-05-15] MEDS: SYMBICORT 160/4.5MCG INHALER 6GM INH SCH ×2 (07:19→19:38)
[2022-05-15] MEDS: PEN NEEDLE (USE WITH HUMULIN U-500 INSULIN PEN) XX SCH ×3 (07:30→17:28)
[2022-05-15] MEDS: MIRALAX *UNIT DOSE* 17GM PACKET PO SCH (08:08)
[2022-05-15] MEDS: LIDOCAINE 5% (LIDODERM) PATCH TD SCH (08:09)
[2022-05-15] MEDS: busPIRone 10 MG TAB PO SCH ×3 (08:10→20:27)
[2022-05-15] MEDS: MULTIVITAMINS/MINERALS THERAP 1 TAB PO SCH (08:10)
[2022-05-15] MEDS: OMEPRAZOLE 20MG CAP PO SCH (08:10)
[2022-05-15] MEDS: LACTOBACILLUS ACIDOPHILUS CAP (BACID) PO SCH ×2 (08:10→17:28)
[2022-05-15] MEDS: POTASSIUM CHLORIDE 10MEQ SR TABLET PO SCH (08:10)
[2022-05-15] MEDS: allopurinoL 300 MG TAB PO SCH (08:10)
[2022-05-15] MEDS: MAGNESIUM OXIDE 400MG TAB (MAG-OX) PO SCH ×2 (08:10→20:22)
[2022-05-15] MEDS: SENOKOT S TAB PO SCH ×2 (08:10→20:23)
[2022-05-15] MEDS: SERTRALINE HCL 50 MG TAB PO SCH (08:10)
[2022-05-15] MEDS: metOLazone 2.5 MG TAB PO SCH (08:10)
[2022-05-15] MEDS: CETIRIZINE (ZyrTEC) 10 MG TAB PO SCH (08:10)
[2022-05-15] MEDS: HUMULIN R U-500 KWIKPEN 500UNITS/ML 3ML SYRINGE (J1815 PER 5UNITS) SC SCH ×3 (08:11→17:28)
[2022-05-15] MEDS: INSULIN LISPRO (NovoLOG) PER UNIT SC SCH ×7 (08:11→21:03)
[2022-05-15] MEDS: CARVedilol 12.5 MG TAB PO SCH ×2 (08:14→20:29)
[2022-05-15 14:00] VITALS: BP 113/55
[2022-05-15] MEDS: FUROSEMIDE 40MG/4ML VIAL (J1940) IV SCH (17:27)
[2022-05-15] MEDS: RIVAROXABAN 20MG TAB (XARELTO) PO SCH (17:28)
[2022-05-15] MEDS ORDERED: LIDOCAINE 5% (LIDODERM) PATCH TD ONE (17:45)
[2022-05-15] MEDS ORDERED: predniSONE 20 MG TAB PO ONE (17:45)
[2022-05-15] MEDS ORDERED: MAGNESIUM CITRATE 300 ML BTL PO ONE (20:00)
[2022-05-15] MEDS: AMOXICILLIN 875 MG TAB PO SCH (20:22)
[2022-05-15 20:33] VITALS: BP 132/66
[2022-05-15] MEDS: **NOTE PATIENT COMMENT** MISC XX SCH (21:03)
[2022-05-16 05:25] VITALS: BP 131/66
[2022-05-16] MEDS: PERCOCET 5MG/325MG TAB PO PRN ×3 (05:29→23:11)
[2022-05-16 06:39] LABS: BASO % 0.3 % (0.0-1.0); HEMOGLOBIN 10.5 g/dl (12.0-15.5); LYMPH # 2.1 10^3/uL (1.5-5.0); LYMPH % 15.9 % (24.0-44.0); MEAN CORPUSCULAR HEMOGLOBIN 30.9 pg (27.0-33.0); MEAN CORPUSCULAR HGB CONC 31.8 g/dl (32.0-36.5); MEAN CORPUSCULAR VOLUME 97.1 fl (80.0-96.0); MONO # 0.6 10^3/uL (0.0-0.8); MONO % 4.6 % (2.0-8.0); NEUTROPHILS # 10.3 10^3/uL (1.5-8.5); NEUTROPHILS % 78.9 % (36.0-66.0); PLATELET COUNT, AUTOMATED 743 10^3/uL (150-450); WHITE BLOOD COUNT 13.1 10^3/uL (4.0-10.0)
[2022-05-16] MEDS ORDERED: HUMULIN R U-500 KWIKPEN 500UNITS/ML 3ML SYRINGE (J1815 PER 5UNITS) SC SCH (07:30)
[2022-05-16] MEDS: PEN NEEDLE (USE WITH HUMULIN U-500 INSULIN PEN) XX SCH ×3 (07:30→17:30)
[2022-05-16 07:32] LABS: C REACTIVE PROTEIN QUANTITATIV 23.6 MG/DL (0.00-0.30); CALCIUM LEVEL 9.5 MG/DL (8.5-10.1); CREATININE FOR GFR 1.14 MG/DL (0.55-1.30); GLOMERULAR FILTRATION RATE 52.7 (>51); POTASSIUM SERUM 5.5 MEQ/L (3.5-5.1)
[2022-05-16] MEDS: SYMBICORT 160/4.5MCG INHALER 6GM INH SCH ×2 (08:19→20:51)
[2022-05-16] MEDS: LACTOBACILLUS ACIDOPHILUS CAP (BACID) PO SCH ×2 (08:55→18:05)
[2022-05-16] MEDS: INSULIN LISPRO (NovoLOG) PER UNIT SC SCH ×7 (08:55→20:46)
[2022-05-16] MEDS: SENOKOT S TAB PO SCH ×2 (08:56→20:44)
[2022-05-16] MEDS: MIRALAX *UNIT DOSE* 17GM PACKET PO SCH ×2 (08:56→09:00)
[2022-05-16] MEDS: OMEPRAZOLE 20MG CAP PO SCH (08:56)
[2022-05-16] MEDS: CARVedilol 12.5 MG TAB PO SCH ×2 (08:57→20:43)
[2022-05-16] MEDS: AMOXICILLIN 875 MG TAB PO SCH ×2 (08:57→20:44)
[2022-05-16] MEDS: CETIRIZINE (ZyrTEC) 10 MG TAB PO SCH (08:58)
[2022-05-16] MEDS: metOLazone 2.5 MG TAB PO SCH (08:58)
[2022-05-16] MEDS: MULTIVITAMINS/MINERALS THERAP 1 TAB PO SCH (08:58)
[2022-05-16] MEDS: MAGNESIUM OXIDE 400MG TAB (MAG-OX) PO SCH ×2 (08:58→20:44)
[2022-05-16] MEDS: busPIRone 10 MG TAB PO SCH ×3 (08:59→20:43)
[2022-05-16] MEDS: allopurinoL 300 MG TAB PO SCH (08:59)
[2022-05-16] MEDS: LIDOCAINE 5% (LIDODERM) PATCH TD SCH (09:00)
[2022-05-16] MEDS: FUROSEMIDE 40MG/4ML VIAL (J1940) IV SCH (09:01)
[2022-05-16] MEDS: SERTRALINE HCL 50 MG TAB PO SCH (09:23)
[2022-05-16] MEDS: HUMULIN R U-500 KWIKPEN 500UNITS/ML 3ML SYRINGE (J1815 PER 5UNITS) SC SCH ×3 (10:06→17:46)
[2022-05-16] MEDS ORDERED: COVID-19 VAC, BV (MODERNA)/PF 50 MCG/0.5 ML VIAL (EUA) IM.IMMUN ONE (13:00)
[2022-05-16] MEDS ORDERED: FLUBLOK(EGG FREE)(QUAD)INFLUENZA VACC 0.5ML SYRINGE 18YRS & OLDER IM.IMMUN ONE (14:00)
[2022-05-16 14:10] LABS: CREATININE FOR GFR 1.22 MG/DL (0.55-1.30); GLOMERULAR FILTRATION RATE 48.7 (>51); POTASSIUM SERUM 4.6 MEQ/L (3.5-5.1)
[2022-05-16] MEDS: BUMETANIDE 1MG/4ML VIAL IV SCH (17:46)
[2022-05-16] MEDS: RIVAROXABAN 20MG TAB (XARELTO) PO SCH (18:05)
[2022-05-16] MEDS: **NOTE PATIENT COMMENT** MISC XX SCH (21:00)
[2022-05-17 04:39] VITALS: BP 154/91
[2022-05-17 06:42] LABS: BASO # 0.2 10^3/uL (0.0-0.2); EOS % 0.2 % (0.0-3.0); HEMATOCRIT 35.1 % (36.0-47.0); LYMPH # 2.4 10^3/uL (1.5-5.0); LYMPH % 16.2 % (24.0-44.0); MEAN CORPUSCULAR HEMOGLOBIN 30.4 pg (27.0-33.0); MEAN CORPUSCULAR HGB CONC 31.3 g/dl (32.0-36.5); NEUTROPHILS # 10.5 10^3/uL (1.5-8.5); NEUTROPHILS % 71.2 % (36.0-66.0); PLATELET COUNT, AUTOMATED 884 10^3/uL (150-450); RED BLOOD COUNT 3.62 10^6/uL (4.00-5.40); WHITE BLOOD COUNT 14.7 10^3/uL (4.0-10.0)
[2022-05-17 07:19] LABS: CALCIUM LEVEL 9.9 MG/DL (8.5-10.1); CREATININE FOR GFR 1.3 MG/DL (0.55-1.30); GLOMERULAR FILTRATION RATE 45.3 (>51)
[2022-05-17 07:29] LABS: MONO # 1.6 10^3/uL (0.0-0.8)
[2022-05-17] MEDS: HUMULIN R U-500 KWIKPEN 500UNITS/ML 3ML SYRINGE (J1815 PER 5UNITS) SC SCH ×3 (07:30→17:37)
[2022-05-17] MEDS: PEN NEEDLE (USE WITH HUMULIN U-500 INSULIN PEN) XX SCH ×3 (07:30→17:30)
[2022-05-17] MEDS: INSULIN LISPRO (NovoLOG) PER UNIT SC SCH ×7 (08:01→21:00)
[2022-05-17] MEDS: LACTOBACILLUS ACIDOPHILUS CAP (BACID) PO SCH ×2 (08:02→18:17)
[2022-05-17] MEDS: PERCOCET 5MG/325MG TAB PO PRN ×3 (08:03→21:15)
[2022-05-17] MEDS: ALPRAZolam 0.25 MG TAB PO PRN (08:04)
[2022-05-17] MEDS: SYMBICORT 160/4.5MCG INHALER 6GM INH SCH ×2 (08:50→21:15)
[2022-05-17] MEDS: MIRALAX *UNIT DOSE* 17GM PACKET PO SCH (09:00)
[2022-05-17] MEDS ORDERED: HUMULIN R U-500 KWIKPEN 500UNITS/ML 3ML SYRINGE (J1815 PER 5UNITS) SC ONE (09:25)
[2022-05-17] MEDS ORDERED: PEN NEEDLE (USE WITH HUMULIN U-500 INSULIN PEN) XX ONE (09:25)
[2022-05-17] MEDS: metOLazone 2.5 MG TAB PO SCH (09:43)
[2022-05-17] MEDS: busPIRone 10 MG TAB PO SCH ×3 (09:43→21:15)
[2022-05-17] MEDS: CARVedilol 12.5 MG TAB PO SCH ×2 (09:44→21:17)
[2022-05-17] MEDS: MAGNESIUM OXIDE 400MG TAB (MAG-OX) PO SCH ×2 (09:45→21:15)
[2022-05-17] MEDS: allopurinoL 300 MG TAB PO SCH (09:46)
[2022-05-17] MEDS: CETIRIZINE (ZyrTEC) 10 MG TAB PO SCH (09:46)
[2022-05-17] MEDS: SENOKOT S TAB PO SCH ×2 (09:46→21:18)
[2022-05-17] MEDS: SERTRALINE HCL 50 MG TAB PO SCH (09:48)
[2022-05-17] MEDS: OMEPRAZOLE 20MG CAP PO SCH (09:48)
[2022-05-17] MEDS: MULTIVITAMINS/MINERALS THERAP 1 TAB PO SCH (09:48)
[2022-05-17] MEDS: AMOXICILLIN 875 MG TAB PO SCH ×2 (09:49→21:26)
[2022-05-17] MEDS: BUMETANIDE 1MG/4ML VIAL IV SCH ×2 (09:49→17:38)
[2022-05-17] MEDS: LIDOCAINE 5% (LIDODERM) PATCH TD SCH (09:50)
[2022-05-17 12:18] LABS: PERCENT SATURATION 10.9 % (13.2-45.0)
[2022-05-17 12:58] LABS: ERYTHROCYTE SEDIMENTATION RATE 108 mm/hr (0-30)
[2022-05-17 14:00] VITALS: BP 114/72
[2022-05-17] MEDS: RIVAROXABAN 20MG TAB (XARELTO) PO SCH (18:17)
[2022-05-17] MEDS: **NOTE PATIENT COMMENT** MISC XX SCH (21:00)
[2022-05-17 22:00] VITALS: BP 127/55
[2022-05-18] MEDS: PERCOCET 5MG/325MG TAB PO PRN ×3 (03:28→17:43)
[2022-05-18] MEDS: tiZANidine 4 MG TAB PO PRN (03:31)
[2022-05-18] MEDS: ACETAMINOPHEN TAB 650MG DOSE (2X325MG) PO PRN (03:32)
[2022-05-18 06:00] VITALS: BP 137/70
[2022-05-18] MEDS: SYMBICORT 160/4.5MCG INHALER 6GM INH SCH ×2 (08:29→19:49)
[2022-05-18 08:31] LABS: BASO # 0.2 10^3/uL (0.0-0.2); BASO % 1.3 % (0.0-1.0); EOS # 0.1 10^3/uL (0.0-0.5); EOS % 0.5 % (0.0-3.0); HEMATOCRIT 33.2 % (36.0-47.0); HEMOGLOBIN 10.6 g/dl (12.0-15.5); LYMPH # 3.7 10^3/uL (1.5-5.0); LYMPH % 30.4 % (24.0-44.0); MEAN CORPUSCULAR HEMOGLOBIN 30.3 pg (27.0-33.0); MEAN CORPUSCULAR HEMOGLOBIN 30.9 pg (27.0-33.0); MEAN CORPUSCULAR HGB CONC 31.2 g/dl (32.0-36.5); MEAN CORPUSCULAR HGB CONC 31.9 g/dl (32.0-36.5); MEAN CORPUSCULAR VOLUME 96.8 fl (80.0-96.0); MEAN CORPUSCULAR VOLUME 97.1 fl (80.0-96.0); MONO # 1.5 10^3/uL (0.0-0.8); MONO % 12.3 % (2.0-8.0); NEUTROPHILS # 6.7 10^3/uL (1.5-8.5); NEUTROPHILS % 55.2 % (36.0-66.0); PLATELET COUNT, AUTOMATED 866 10^3/uL (150-450); PLATELET COUNT, AUTOMATED 875 10^3/uL (150-450); RED BLOOD COUNT 3.43 10^6/uL (4.00-5.40); WHITE BLOOD COUNT 12.1 10^3/uL (4.0-10.0); WHITE BLOOD COUNT 12.2 10^3/uL (4.0-10.0)
[2022-05-18 09:08] LABS: CREATININE FOR GFR 1.21 MG/DL (0.55-1.30); GLOMERULAR FILTRATION RATE 49.2 (>51); POTASSIUM SERUM 5.1 MEQ/L (3.5-5.1)
[2022-05-18 09:11] LABS: ALBUMIN 2.1 GM/DL (3.2-5.2); BILIRUBIN,TOTAL 0.5 MG/DL (0.2-1.0); CALCIUM LEVEL 9.9 MG/DL (8.5-10.1); CREATININE FOR GFR 1.16 MG/DL (0.55-1.30); GLOMERULAR FILTRATION RATE 51.6 (>51); MAGNESIUM LEVEL 2.4 MG/DL (1.8-2.4); POTASSIUM SERUM 4.8 MEQ/L (3.5-5.1); TOTAL PROTEIN 7.9 GM/DL (6.4-8.2)
[2022-05-18] MEDS: INSULIN LISPRO (NovoLOG) PER UNIT SC SCH ×7 (09:29→20:12)
[2022-05-18] MEDS: BUMETANIDE 1MG/4ML VIAL IV SCH ×2 (09:30→17:15)
[2022-05-18] MEDS: LIDOCAINE 5% (LIDODERM) PATCH TD SCH (09:30)
[2022-05-18] MEDS: MAGNESIUM OXIDE 400MG TAB (MAG-OX) PO SCH ×2 (09:31→20:11)
[2022-05-18] MEDS: LACTOBACILLUS ACIDOPHILUS CAP (BACID) PO SCH ×2 (09:31→17:15)
[2022-05-18] MEDS: MULTIVITAMINS/MINERALS THERAP 1 TAB PO SCH (09:32)
[2022-05-18] MEDS: AMOXICILLIN 875 MG TAB PO SCH (09:32)
[2022-05-18] MEDS: SERTRALINE HCL 50 MG TAB PO SCH (09:32)
[2022-05-18] MEDS: CARVedilol 12.5 MG TAB PO SCH ×2 (09:33→20:10)
[2022-05-18] MEDS: metOLazone 2.5 MG TAB PO SCH (09:34)
[2022-05-18] MEDS: OMEPRAZOLE 20MG CAP PO SCH (09:34)
[2022-05-18] MEDS: CETIRIZINE (ZyrTEC) 10 MG TAB PO SCH (09:35)
[2022-05-18] MEDS: busPIRone 10 MG TAB PO SCH ×3 (09:35→20:11)
[2022-05-18] MEDS: SENOKOT S TAB PO SCH ×2 (09:35→20:11)
[2022-05-18] MEDS: MIRALAX *UNIT DOSE* 17GM PACKET PO SCH (09:36)
[2022-05-18] MEDS: allopurinoL 300 MG TAB PO SCH (09:36)
[2022-05-18 09:38] LABS: ATYPICAL LYMPH 2 % (0-5); BASOPHILS 1 % (0-1); LYMPHOCYTES 30 % (16-44); MONOCYTES 9 % (0-5); NEUTROPHILS 58 % (28-66)
[2022-05-18 09:40] LABS: PLATELET ESTIMATE INCREASED (NORMAL)
[2022-05-18 09:41] LABS: TARGET CELLS 2+
[2022-05-18] MEDS: HUMULIN R U-500 KWIKPEN 500UNITS/ML 3ML SYRINGE (J1815 PER 5UNITS) SC SCH ×3 (10:21→17:16)
[2022-05-18] MEDS: PEN NEEDLE (USE WITH HUMULIN U-500 INSULIN PEN) XX SCH ×3 (10:21→17:17)
[2022-05-18 14:00] VITALS: BP 128/49
[2022-05-18] MEDS: GABAPENTIN 300 MG CAP PO SCH ×2 (14:06→20:11)
[2022-05-18 15:31] LABS: C REACTIVE PROTEIN QUANTITATIV 20.2 MG/DL (0.00-0.30)
[2022-05-18] MEDS: RIVAROXABAN 20MG TAB (XARELTO) PO SCH (17:15)
[2022-05-18] MEDS: **NOTE PATIENT COMMENT** MISC XX SCH (20:12)
[2022-05-18 21:17] VITALS: BP 108/59
[2022-05-19] MEDS: PERCOCET 5MG/325MG TAB PO PRN ×3 (05:34→20:48)
[2022-05-19 06:00] VITALS: BP 123/63
[2022-05-19] MEDS: tiZANidine 4 MG TAB PO PRN ×2 (06:45→22:18)
[2022-05-19] MEDS: SYMBICORT 160/4.5MCG INHALER 6GM INH SCH ×2 (07:38→20:29)
[2022-05-19 07:39] LABS: BASO # 0.1 10^3/uL (0.0-0.2); BASO % 1.3 % (0.0-1.0); EOS # 0.1 10^3/uL (0.0-0.5); EOS % 1.2 % (0.0-3.0); HEMATOCRIT 33.7 % (36.0-47.0); HEMOGLOBIN 10.5 g/dl (12.0-15.5); LYMPH # 2.4 10^3/uL (1.5-5.0); LYMPH % 21.5 % (24.0-44.0); MEAN CORPUSCULAR HEMOGLOBIN 29.9 pg (27.0-33.0); MEAN CORPUSCULAR HGB CONC 31.2 g/dl (32.0-36.5); MONO # 1.3 10^3/uL (0.0-0.8); MONO % 11.6 % (2.0-8.0); NEUTROPHILS % 63.9 % (36.0-66.0); PLATELET COUNT, AUTOMATED 875 10^3/uL (150-450); RED BLOOD COUNT 3.51 10^6/uL (4.00-5.40)
[2022-05-19 08:13] LABS: CALCIUM LEVEL 9.7 MG/DL (8.5-10.1); CREATININE FOR GFR 1.33 MG/DL (0.55-1.30); GLOMERULAR FILTRATION RATE 44.1 (>51); POTASSIUM SERUM 4.4 MEQ/L (3.5-5.1)
[2022-05-19] MEDS: INSULIN LISPRO (NovoLOG) PER UNIT SC SCH ×8 (08:27→21:00)
[2022-05-19] MEDS: PEN NEEDLE (USE WITH HUMULIN U-500 INSULIN PEN) XX SCH ×3 (08:29→17:22)
[2022-05-19] MEDS: HUMULIN R U-500 KWIKPEN 500UNITS/ML 3ML SYRINGE (J1815 PER 5UNITS) SC SCH ×3 (08:29→17:21)
[2022-05-19] MEDS: MIRALAX *UNIT DOSE* 17GM PACKET PO SCH (08:29)
[2022-05-19] MEDS: OMEPRAZOLE 20MG CAP PO SCH (08:30)
[2022-05-19] MEDS: LACTOBACILLUS ACIDOPHILUS CAP (BACID) PO SCH ×2 (08:30→17:21)
[2022-05-19] MEDS: metOLazone 2.5 MG TAB PO SCH (08:31)
[2022-05-19] MEDS: SERTRALINE HCL 50 MG TAB PO SCH (08:31)
[2022-05-19] MEDS: CARVedilol 12.5 MG TAB PO SCH ×2 (08:32→20:49)
[2022-05-19] MEDS: MULTIVITAMINS/MINERALS THERAP 1 TAB PO SCH (08:32)
[2022-05-19] MEDS: BUMETANIDE 1 MG TAB PO SCH ×2 (08:33→17:22)
[2022-05-19] MEDS: GABAPENTIN 300 MG CAP PO SCH ×2 (08:34→20:49)
[2022-05-19] MEDS: allopurinoL 300 MG TAB PO SCH (08:34)
[2022-05-19] MEDS: SENOKOT S TAB PO SCH ×2 (08:34→20:48)
[2022-05-19] MEDS: CETIRIZINE (ZyrTEC) 10 MG TAB PO SCH (08:35)
[2022-05-19] MEDS: LIDOCAINE 5% (LIDODERM) PATCH TD SCH (08:35)
[2022-05-19] MEDS: MAGNESIUM OXIDE 400MG TAB (MAG-OX) PO SCH ×2 (08:35→20:48)
[2022-05-19] MEDS: busPIRone 10 MG TAB PO SCH ×3 (08:35→20:49)
[2022-05-19] MEDS: RIVAROXABAN 20MG TAB (XARELTO) PO SCH (17:22)
[2022-05-19] MEDS: **NOTE PATIENT COMMENT** MISC XX SCH (20:52)
[2022-05-19 21:38] VITALS: BP 108/56
[2022-05-20] MEDS: tiZANidine 4 MG TAB PO PRN (05:31)
[2022-05-20] MEDS: PERCOCET 5MG/325MG TAB PO PRN ×3 (05:31→20:37)
[2022-05-20 06:00] VITALS: BP 113/54
[2022-05-20] MEDS: SYMBICORT 160/4.5MCG INHALER 6GM INH SCH ×2 (07:26→20:33)
[2022-05-20 07:38] LABS: BASO # 0.1 10^3/uL (0.0-0.2); BASO % 1.1 % (0.0-1.0); EOS # 0.1 10^3/uL (0.0-0.5); EOS % 0.8 % (0.0-3.0); HEMATOCRIT 33.3 % (36.0-47.0); HEMOGLOBIN 10.4 g/dl (12.0-15.5); LYMPH # 2.6 10^3/uL (1.5-5.0); LYMPH % 23.9 % (24.0-44.0); MEAN CORPUSCULAR HEMOGLOBIN 30.3 pg (27.0-33.0); MEAN CORPUSCULAR HGB CONC 31.2 g/dl (32.0-36.5); MEAN CORPUSCULAR VOLUME 97.1 fl (80.0-96.0); MONO # 1.5 10^3/uL (0.0-0.8); MONO % 13.1 % (2.0-8.0); NEUTROPHILS # 6.7 10^3/uL (1.5-8.5); NEUTROPHILS % 60.8 % (36.0-66.0); PLATELET COUNT, AUTOMATED 862 10^3/uL (150-450); RED BLOOD COUNT 3.43 10^6/uL (4.00-5.40); WHITE BLOOD COUNT 11.1 10^3/uL (4.0-10.0)
[2022-05-20 08:09] LABS: CALCIUM LEVEL 9.3 MG/DL (8.5-10.1); CREATININE FOR GFR 1.35 MG/DL (0.55-1.30); GLOMERULAR FILTRATION RATE 43.3 (>51); POTASSIUM SERUM 4.3 MEQ/L (3.5-5.1)
[2022-05-20] MEDS: HUMULIN R U-500 KWIKPEN 500UNITS/ML 3ML SYRINGE (J1815 PER 5UNITS) SC SCH ×3 (08:18→17:30)
[2022-05-20] MEDS: INSULIN LISPRO (NovoLOG) PER UNIT SC SCH ×8 (08:18→21:00)
[2022-05-20] MEDS: PEN NEEDLE (USE WITH HUMULIN U-500 INSULIN PEN) XX SCH ×3 (08:19→17:30)
[2022-05-20] MEDS: OMEPRAZOLE 20MG CAP PO SCH (09:16)
[2022-05-20] MEDS: GABAPENTIN 300 MG CAP PO SCH ×2 (09:17→20:37)
[2022-05-20] MEDS: MULTIVITAMINS/MINERALS THERAP 1 TAB PO SCH (09:17)
[2022-05-20] MEDS: allopurinoL 300 MG TAB PO SCH (09:17)
[2022-05-20] MEDS: LACTOBACILLUS ACIDOPHILUS CAP (BACID) PO SCH ×2 (09:17→17:30)
[2022-05-20] MEDS: BUMETANIDE 1 MG TAB PO SCH ×2 (09:17→16:42)
[2022-05-20] MEDS: MAGNESIUM OXIDE 400MG TAB (MAG-OX) PO SCH ×2 (09:17→20:37)
[2022-05-20] MEDS: SENOKOT S TAB PO SCH ×2 (09:17→20:38)
[2022-05-20] MEDS: CARVedilol 12.5 MG TAB PO SCH ×2 (09:18→20:45)
[2022-05-20] MEDS: SERTRALINE HCL 50 MG TAB PO SCH (09:18)
[2022-05-20] MEDS: busPIRone 10 MG TAB PO SCH ×3 (09:18→20:38)
[2022-05-20] MEDS: LIDOCAINE 5% (LIDODERM) PATCH TD SCH (09:18)
[2022-05-20] MEDS: metOLazone 2.5 MG TAB PO SCH (09:18)
[2022-05-20] MEDS: CETIRIZINE (ZyrTEC) 10 MG TAB PO SCH (09:18)
[2022-05-20] MEDS: MIRALAX *UNIT DOSE* 17GM PACKET PO SCH (09:19)
[2022-05-20 14:00] VITALS: BP 111/53
[2022-05-20] MEDS: RIVAROXABAN 20MG TAB (XARELTO) PO SCH (17:30)
[2022-05-20] MEDS ORDERED: CARV25TA PO (18:01)
[2022-05-20] MEDS ORDERED: XARE20TA PO (18:01)
[2022-05-20] MEDS: **NOTE PATIENT COMMENT** MISC XX SCH (20:40)
[2022-05-21 05:58] LABS: BASO # 0.1 10^3/uL (0.0-0.2); BASO % 1.3 % (0.0-1.0); EOS # 0.1 10^3/uL (0.0-0.5); EOS % 0.8 % (0.0-3.0); HEMOGLOBIN 10.4 g/dl (12.0-15.5); LYMPH # 2.5 10^3/uL (1.5-5.0); LYMPH % 23.4 % (24.0-44.0); MEAN CORPUSCULAR HEMOGLOBIN 30.7 pg (27.0-33.0); MEAN CORPUSCULAR HGB CONC 31.5 g/dl (32.0-36.5); MEAN CORPUSCULAR VOLUME 97.3 fl (80.0-96.0); MONO # 1.4 10^3/uL (0.0-0.8); MONO % 12.7 % (2.0-8.0); NEUTROPHILS # 6.6 10^3/uL (1.5-8.5); NEUTROPHILS % 61.4 % (36.0-66.0); PLATELET COUNT, AUTOMATED 845 10^3/uL (150-450); RED BLOOD COUNT 3.39 10^6/uL (4.00-5.40); WHITE BLOOD COUNT 10.7 10^3/uL (4.0-10.0)
[2022-05-21 06:36] LABS: CALCIUM LEVEL 9.6 MG/DL (8.5-10.1); CREATININE FOR GFR 1.39 MG/DL (0.55-1.30); GLOMERULAR FILTRATION RATE 41.9 (>51); POTASSIUM SERUM 4.6 MEQ/L (3.5-5.1)
[2022-05-21 07:22] VITALS: O2SAT 93
[2022-05-21] MEDS: SYMBICORT 160/4.5MCG INHALER 6GM INH SCH ×2 (07:22→20:30)
[2022-05-21] MEDS: INSULIN LISPRO (NovoLOG) PER UNIT SC SCH ×7 (07:57→20:26)
[2022-05-21] MEDS: HUMULIN R U-500 KWIKPEN 500UNITS/ML 3ML SYRINGE (J1815 PER 5UNITS) SC SCH ×3 (07:58→18:00)
[2022-05-21] MEDS: MIRALAX *UNIT DOSE* 17GM PACKET PO SCH (07:59)
[2022-05-21] MEDS: PEN NEEDLE (USE WITH HUMULIN U-500 INSULIN PEN) XX SCH ×3 (07:59→17:58)
[2022-05-21] MEDS: LIDOCAINE 5% (LIDODERM) PATCH TD SCH (07:59)
[2022-05-21] MEDS: busPIRone 10 MG TAB PO SCH ×3 (07:59→20:25)
[2022-05-21] MEDS: metOLazone 2.5 MG TAB PO SCH (08:00)
[2022-05-21] MEDS: CARVedilol 12.5 MG TAB PO SCH ×2 (08:00→20:24)
[2022-05-21] MEDS: allopurinoL 300 MG TAB PO SCH (08:01)
[2022-05-21] MEDS: OMEPRAZOLE 20MG CAP PO SCH (08:01)
[2022-05-21] MEDS: BUMETANIDE 1 MG TAB PO SCH ×2 (08:01→16:31)
[2022-05-21] MEDS: LACTOBACILLUS ACIDOPHILUS CAP (BACID) PO SCH ×2 (08:01→17:58)
[2022-05-21] MEDS: CETIRIZINE (ZyrTEC) 10 MG TAB PO SCH (08:02)
[2022-05-21] MEDS: SENOKOT S TAB PO SCH ×3 (08:02→20:31)
[2022-05-21] MEDS: MULTIVITAMINS/MINERALS THERAP 1 TAB PO SCH (08:02)
[2022-05-21] MEDS: SERTRALINE HCL 50 MG TAB PO SCH (08:02)
[2022-05-21] MEDS: MAGNESIUM OXIDE 400MG TAB (MAG-OX) PO SCH ×2 (08:02→20:24)
[2022-05-21] MEDS: GABAPENTIN 300 MG CAP PO SCH ×2 (08:03→20:24)
[2022-05-21] MEDS: PERCOCET 5MG/325MG TAB PO PRN ×2 (08:26→20:25)
[2022-05-21 14:00] VITALS: BP 105/53
[2022-05-21] MEDS: RIVAROXABAN 20MG TAB (XARELTO) PO SCH (17:59)
[2022-05-21] MEDS: **NOTE PATIENT COMMENT** MISC XX SCH (20:31)
[2022-05-21 22:00] VITALS: BP 135/70
[2022-05-22 06:00] VITALS: BP 136/76
[2022-05-22 06:42] LABS: BASO # 0.1 10^3/uL (0.0-0.2); BASO % 1.7 % (0.0-1.0); EOS % 0.4 % (0.0-3.0); HEMATOCRIT 34.6 % (36.0-47.0); HEMOGLOBIN 10.7 g/dl (12.0-15.5); LYMPH # 2.1 10^3/uL (1.5-5.0); LYMPH % 26.2 % (24.0-44.0); MEAN CORPUSCULAR HEMOGLOBIN 30.1 pg (27.0-33.0); MEAN CORPUSCULAR HGB CONC 30.9 g/dl (32.0-36.5); MEAN CORPUSCULAR VOLUME 97.2 fl (80.0-96.0); NEUTROPHILS # 4.2 10^3/uL (1.5-8.5); NEUTROPHILS % 51.1 % (36.0-66.0); PLATELET COUNT, AUTOMATED 760 10^3/uL (150-450); RED BLOOD COUNT 3.56 10^6/uL (4.00-5.40); WHITE BLOOD COUNT 8.1 10^3/uL (4.0-10.0)
[2022-05-22 07:25] LABS: MONO # 1.6 10^3/uL (0.0-0.8)
[2022-05-22] MEDS: PEN NEEDLE (USE WITH HUMULIN U-500 INSULIN PEN) XX SCH ×3 (07:30→17:30)
[2022-05-22 07:41] LABS: ALBUMIN 2.1 GM/DL (3.2-5.2); BILIRUBIN,TOTAL 0.2 MG/DL (0.2-1.0); CALCIUM LEVEL 9.5 MG/DL (8.5-10.1); CREATININE FOR GFR 1.61 MG/DL (0.55-1.30); GLOMERULAR FILTRATION RATE 35.4 (>51); MAGNESIUM LEVEL 2.2 MG/DL (1.8-2.4); POTASSIUM SERUM 4.2 MEQ/L (3.5-5.1); TOTAL PROTEIN 8.1 GM/DL (6.4-8.2)
[2022-05-22] MEDS: SYMBICORT 160/4.5MCG INHALER 6GM INH SCH ×2 (07:42→20:34)
[2022-05-22] MEDS: HUMULIN R U-500 KWIKPEN 500UNITS/ML 3ML SYRINGE (J1815 PER 5UNITS) SC SCH ×3 (08:52→17:31)
[2022-05-22] MEDS: INSULIN LISPRO (NovoLOG) PER UNIT SC SCH ×7 (08:53→20:54)
[2022-05-22] MEDS: GABAPENTIN 300 MG CAP PO SCH ×2 (08:54→20:59)
[2022-05-22] MEDS: OMEPRAZOLE 20MG CAP PO SCH (08:54)
[2022-05-22] MEDS: MULTIVITAMINS/MINERALS THERAP 1 TAB PO SCH (08:54)
[2022-05-22] MEDS: CARVedilol 12.5 MG TAB PO SCH ×2 (08:56→20:42)
[2022-05-22] MEDS: LACTOBACILLUS ACIDOPHILUS CAP (BACID) PO SCH ×2 (08:58→17:32)
[2022-05-22] MEDS: SERTRALINE HCL 50 MG TAB PO SCH (08:58)
[2022-05-22] MEDS: BUMETANIDE 1 MG TAB PO SCH ×2 (08:59→16:07)
[2022-05-22] MEDS: MIRALAX *UNIT DOSE* 17GM PACKET PO SCH (09:00)
[2022-05-22] MEDS: busPIRone 10 MG TAB PO SCH ×3 (09:01→20:53)
[2022-05-22] MEDS: allopurinoL 300 MG TAB PO SCH (09:02)
[2022-05-22] MEDS: MAGNESIUM OXIDE 400MG TAB (MAG-OX) PO SCH ×2 (09:02→20:53)
[2022-05-22] MEDS: SENOKOT S TAB PO SCH ×2 (09:02→21:00)
[2022-05-22] MEDS: CETIRIZINE (ZyrTEC) 10 MG TAB PO SCH (09:03)
[2022-05-22] MEDS: LIDOCAINE 5% (LIDODERM) PATCH TD SCH (09:03)
[2022-05-22] MEDS: PERCOCET 5MG/325MG TAB PO PRN ×2 (11:02→20:59)
[2022-05-22 14:00] VITALS: BP 104/63
[2022-05-22] MEDS: RIVAROXABAN 20MG TAB (XARELTO) PO SCH (17:32)
[2022-05-22] MEDS: NS 1,000 ML IV SCH (18:10)
[2022-05-22 20:23] VITALS: BP 113/56
[2022-05-22] MEDS: **NOTE PATIENT COMMENT** MISC XX SCH (21:00)
[2022-05-23 05:03] VITALS: BP 133/77
[2022-05-23] MEDS: ACETAMINOPHEN TAB 650MG DOSE (2X325MG) PO PRN ×2 (06:16→16:26)
[2022-05-23] MEDS: NS 1,000 ML IV SCH ×2 (06:16→18:53)
[2022-05-23 06:43] LABS: HEMATOCRIT 34.5 % (36.0-47.0); HEMOGLOBIN 10.8 g/dl (12.0-15.5); MEAN CORPUSCULAR HGB CONC 31.3 g/dl (32.0-36.5); MEAN CORPUSCULAR VOLUME 99.1 fl (80.0-96.0); PLATELET COUNT, AUTOMATED 677 10^3/uL (150-450); RED BLOOD COUNT 3.48 10^6/uL (4.00-5.40); WHITE BLOOD COUNT 8.9 10^3/uL (4.0-10.0)
[2022-05-23 07:11] LABS: ALBUMIN 2.1 GM/DL (3.2-5.2); BILIRUBIN,TOTAL 0.2 MG/DL (0.2-1.0); CALCIUM LEVEL 9.5 MG/DL (8.5-10.1); CREATININE FOR GFR 1.4 MG/DL (0.55-1.30); GLOMERULAR FILTRATION RATE 41.6 (>51); POTASSIUM SERUM 4.6 MEQ/L (3.5-5.1); TOTAL PROTEIN 8.1 GM/DL (6.4-8.2)
[2022-05-23] MEDS: PEN NEEDLE (USE WITH HUMULIN U-500 INSULIN PEN) XX SCH ×3 (07:30→17:26)
[2022-05-23] MEDS: MIRALAX *UNIT DOSE* 17GM PACKET PO SCH (07:38)
[2022-05-23] MEDS: GABAPENTIN 300 MG CAP PO SCH ×2 (07:40→20:31)
[2022-05-23] MEDS: MAGNESIUM OXIDE 400MG TAB (MAG-OX) PO SCH ×2 (07:40→20:32)
[2022-05-23] MEDS: OMEPRAZOLE 20MG CAP PO SCH (07:40)
[2022-05-23] MEDS: SENOKOT S TAB PO SCH ×2 (07:40→20:32)
[2022-05-23] MEDS: MULTIVITAMINS/MINERALS THERAP 1 TAB PO SCH (07:41)
[2022-05-23] MEDS: allopurinoL 300 MG TAB PO SCH (07:41)
[2022-05-23] MEDS: LACTOBACILLUS ACIDOPHILUS CAP (BACID) PO SCH ×2 (07:41→17:27)
[2022-05-23] MEDS: busPIRone 10 MG TAB PO SCH ×3 (07:41→20:32)
[2022-05-23] MEDS: CETIRIZINE (ZyrTEC) 10 MG TAB PO SCH (07:41)
[2022-05-23] MEDS: SERTRALINE HCL 50 MG TAB PO SCH (07:42)
[2022-05-23] MEDS: LIDOCAINE 5% (LIDODERM) PATCH TD SCH (07:43)
[2022-05-23] MEDS: HUMULIN R U-500 KWIKPEN 500UNITS/ML 3ML SYRINGE (J1815 PER 5UNITS) SC SCH ×3 (07:44→17:26)
[2022-05-23] MEDS: INSULIN LISPRO (NovoLOG) PER UNIT SC SCH ×4 (07:45→20:24)
[2022-05-23] MEDS: SYMBICORT 160/4.5MCG INHALER 6GM INH SCH ×2 (08:18→20:14)
[2022-05-23] MEDS: CARVedilol 12.5 MG TAB PO SCH ×2 (09:00→20:33)
[2022-05-23] MEDS: LEVEMIR (INSULIN DETEMIR) 1 UNITS/0.01ML SC SCH ×2 (09:23→20:33)
[2022-05-23] MEDS: PERCOCET 5MG/325MG TAB PO PRN ×2 (09:24→20:35)
[2022-05-23 09:29] VITALS: BP 97/66
[2022-05-23 09:32] VITALS: BP 99/67
[2022-05-23] MEDS ORDERED: DIGOXIN 0.25 MG TAB PO SCH (12:00)
[2022-05-23] MEDS ORDERED: CARVedilol 12.5 MG TAB PO ONE (13:30)
[2022-05-23 14:03] VITALS: BP 107/58
[2022-05-23] MEDS: RIVAROXABAN 20MG TAB (XARELTO) PO SCH (17:27)
[2022-05-23] MEDS: **NOTE PATIENT COMMENT** MISC XX SCH (20:34)
[2022-05-23 22:00] VITALS: BP 124/64
[2022-05-24 04:30] VITALS: BP 129/71
[2022-05-24] MEDS: ACETAMINOPHEN TAB 650MG DOSE (2X325MG) PO PRN (05:15)
[2022-05-24 07:18] LABS: HEMATOCRIT 34.9 % (36.0-47.0); HEMOGLOBIN 10.8 g/dl (12.0-15.5); MEAN CORPUSCULAR HEMOGLOBIN 30.9 pg (27.0-33.0); MEAN CORPUSCULAR HGB CONC 30.9 g/dl (32.0-36.5); MEAN CORPUSCULAR VOLUME 99.7 fl (80.0-96.0); PLATELET COUNT, AUTOMATED 637 10^3/uL (150-450); WHITE BLOOD COUNT 10.4 10^3/uL (4.0-10.0)
[2022-05-24 07:59] LABS: ALBUMIN 2.1 GM/DL (3.2-5.2); BILIRUBIN,TOTAL 0.2 MG/DL (0.2-1.0); CALCIUM LEVEL 9.2 MG/DL (8.5-10.1); CREATININE FOR GFR 1.15 MG/DL (0.55-1.30); GLOMERULAR FILTRATION RATE 52.2 (>51); POTASSIUM SERUM 5.1 MEQ/L (3.5-5.1)
[2022-05-24] MEDS: SYMBICORT 160/4.5MCG INHALER 6GM INH SCH ×2 (08:40→20:03)
[2022-05-24] MEDS: LIDOCAINE 5% (LIDODERM) PATCH TD SCH (08:44)
[2022-05-24] MEDS: MIRALAX *UNIT DOSE* 17GM PACKET PO SCH (08:44)
[2022-05-24] MEDS: HUMULIN R U-500 KWIKPEN 500UNITS/ML 3ML SYRINGE (J1815 PER 5UNITS) SC SCH ×3 (08:45→17:54)
[2022-05-24] MEDS: INSULIN LISPRO (NovoLOG) PER UNIT SC SCH ×4 (08:46→20:35)
[2022-05-24] MEDS: OMEPRAZOLE 20MG CAP PO SCH (08:47)
[2022-05-24] MEDS: LEVEMIR (INSULIN DETEMIR) 1 UNITS/0.01ML SC SCH (08:47)
[2022-05-24] MEDS: SERTRALINE HCL 50 MG TAB PO SCH (08:48)
[2022-05-24] MEDS: LACTOBACILLUS ACIDOPHILUS CAP (BACID) PO SCH ×2 (08:48→17:55)
[2022-05-24] MEDS: SENOKOT S TAB PO SCH ×2 (08:48→20:49)
[2022-05-24] MEDS: CETIRIZINE (ZyrTEC) 10 MG TAB PO SCH (08:49)
[2022-05-24] MEDS: MAGNESIUM OXIDE 400MG TAB (MAG-OX) PO SCH ×2 (08:49→20:49)
[2022-05-24] MEDS: MULTIVITAMINS/MINERALS THERAP 1 TAB PO SCH (08:49)
[2022-05-24] MEDS: GABAPENTIN 300 MG CAP PO SCH ×2 (08:49→20:49)
[2022-05-24] MEDS: allopurinoL 300 MG TAB PO SCH (08:49)
[2022-05-24] MEDS: busPIRone 10 MG TAB PO SCH ×3 (08:49→20:49)
[2022-05-24] MEDS: CARVedilol 12.5 MG TAB PO SCH ×2 (08:55→20:49)
[2022-05-24] MEDS: PEN NEEDLE (USE WITH HUMULIN U-500 INSULIN PEN) XX SCH ×3 (08:59→17:55)
[2022-05-24] MEDS: PERCOCET 5MG/325MG TAB PO PRN ×2 (10:13→20:58)
[2022-05-24] MEDS: NS 1,000 ML IV SCH (13:05)
[2022-05-24] MEDS ORDERED: MIRA1POW3 PO (13:17)
[2022-05-24] MEDS ORDERED: MAGN400T2 PO (13:17)
[2022-05-24] MEDS ORDERED: GABA-282 PO (13:17)
[2022-05-24] MEDS ORDERED: COLA100C5 PO (13:17)
[2022-05-24] MEDS ORDERED: CARV25TA PO (13:19)
[2022-05-24 14:58] VITALS: BP 109/57
[2022-05-24 15:33] LABS: HEMOGLOBIN A1c 8.7 %
[2022-05-24] MEDS: RIVAROXABAN 20MG TAB (XARELTO) PO SCH (17:55)
[2022-05-24] MEDS ORDERED: LEVEMIR (INSULIN DETEMIR) 1 UNITS/0.01ML SC SCH (21:00)
[2022-05-24] MEDS: **NOTE PATIENT COMMENT** MISC XX SCH (21:00)
[2022-05-24 23:05] VITALS: BP 112/55
[2022-05-25 05:56] VITALS: BP 117/58
[2022-05-25 06:14] LABS: HEMATOCRIT 33.4 % (36.0-47.0); HEMOGLOBIN 10.1 g/dl (12.0-15.5); MEAN CORPUSCULAR HEMOGLOBIN 30.1 pg (27.0-33.0); MEAN CORPUSCULAR HGB CONC 30.2 g/dl (32.0-36.5); MEAN CORPUSCULAR VOLUME 99.7 fl (80.0-96.0); PLATELET COUNT, AUTOMATED 558 10^3/uL (150-450); RED BLOOD COUNT 3.35 10^6/uL (4.00-5.40); WHITE BLOOD COUNT 8.5 10^3/uL (4.0-10.0)
[2022-05-25 06:54] LABS: BILIRUBIN,TOTAL 0.2 MG/DL (0.2-1.0); CALCIUM LEVEL 9.1 MG/DL (8.5-10.1); CREATININE FOR GFR 1.07 MG/DL (0.55-1.30); GLOMERULAR FILTRATION RATE 56.7 (>51); POTASSIUM SERUM 4.8 MEQ/L (3.5-5.1); TOTAL PROTEIN 7.7 GM/DL (6.4-8.2)
[2022-05-25] MEDS: INSULIN LISPRO (NovoLOG) PER UNIT SC SCH (07:30)
[2022-05-25] MEDS: MAGNESIUM OXIDE 400MG TAB (MAG-OX) PO SCH (08:28)
[2022-05-25] MEDS: SENOKOT S TAB PO SCH (08:28)
[2022-05-25] MEDS: ALPRAZolam 0.25 MG TAB PO PRN (08:28)
[2022-05-25] MEDS: SERTRALINE HCL 50 MG TAB PO SCH (08:28)
[2022-05-25] MEDS: PERCOCET 5MG/325MG TAB PO PRN (08:29)
[2022-05-25] MEDS: GABAPENTIN 300 MG CAP PO SCH (08:29)
[2022-05-25] MEDS: busPIRone 10 MG TAB PO SCH (08:29)
[2022-05-25] MEDS: allopurinoL 300 MG TAB PO SCH (08:30)
[2022-05-25] MEDS: LACTOBACILLUS ACIDOPHILUS CAP (BACID) PO SCH (08:30)
[2022-05-25 08:32] VITALS: BP 125/57
[2022-05-25] MEDS: CARVedilol 12.5 MG TAB PO SCH (08:32)
[2022-05-25] MEDS: CETIRIZINE (ZyrTEC) 10 MG TAB PO SCH (08:33)
[2022-05-25] MEDS: MIRALAX *UNIT DOSE* 17GM PACKET PO SCH (08:33)
[2022-05-25] MEDS: MULTIVITAMINS/MINERALS THERAP 1 TAB PO SCH (08:33)
[2022-05-25] MEDS: OMEPRAZOLE 20MG CAP PO SCH (08:33)
[2022-05-25] MEDS: HUMULIN R U-500 KWIKPEN 500UNITS/ML 3ML SYRINGE (J1815 PER 5UNITS) SC SCH (08:35)
[2022-05-25] MEDS: LEVEMIR (INSULIN DETEMIR) 1 UNITS/0.01ML SC SCH (08:36)
[2022-05-25] MEDS: PEN NEEDLE (USE WITH HUMULIN U-500 INSULIN PEN) XX SCH (08:38)
[2022-05-25] MEDS: LIDOCAINE 5% (LIDODERM) PATCH TD SCH (08:39)
[2022-05-25] MEDS: SYMBICORT 160/4.5MCG INHALER 6GM INH SCH (09:14)
== END 2022-05-25 11:20 | disposition home health service (06) | DRG 602 ==
LOC: EDBD 10:10 → M ED 10:10 → M ED INP 16:25 → ENRESERV 16:44 → M MS5PR 18:24 → M PCU 05-08 17:51 → M MS5PR 05-13 04:21
PROVIDERS: ADMIT Family Medicine; ATTEND Family Medicine
PROC: B246ZZZ Ultrasonography of Right and Left Heart (ICD-10-PCS; principal; 2022-05-08)
PROC: 0S9D3ZX Drainage of Left Knee Joint, Percutaneous Approach, Diagnostic (ICD-10-PCS; 2022-05-08)
DX: L03.115 Cellulitis of right lower limb (principal); U07.1 COVID-19; N17.9 Acute kidney failure, unspecified; R78.81 Bacteremia; I48.92 Unspecified atrial flutter; J96.11 Chronic respiratory failure with hypoxia; E87.1 Hypo-osmolality and hyponatremia; Z68.43 Body mass index [BMI] 50.0-59.9, adult; M25.062 Hemarthrosis, left knee; E87.3 Alkalosis; D68.32 Hemorrhagic disorder due to extrinsic circulating anticoagulants; J44.9 Chronic obstructive pulmonary disease, unspecified; E11.22 Type 2 diabetes mellitus with diabetic chronic kidney disease; I12.9 Hypertensive chronic kidney disease with stage 1 through stage 4 chronic kidney disease, or unspecified chronic kidney disease; N18.30 Chronic kidney disease, stage 3 unspecified; S80.02XA Contusion of left knee, initial encounter; W01.0XXA Fall on same level from slipping, tripping and stumbling without subsequent striking against object, initial encounter; Y92.009 Unspecified place in unspecified non-institutional (private) residence as the place of occurrence of the external cause; D72.829 Elevated white blood cell count, unspecified; M10.9 Gout, unspecified; F41.9 Anxiety disorder, unspecified; Z79.82 Long term (current) use of aspirin; Z79.4 Long term (current) use of insulin; Z79.52 Long term (current) use of systemic steroids; Z79.899 Other long term (current) drug therapy; Z91.040 Latex allergy status; Z88.6 Allergy status to analgesic agent; E66.01 Morbid (severe) obesity due to excess calories; M48.00 Spinal stenosis, site unspecified; I27.20 Pulmonary hypertension, unspecified; I50.810 Right heart failure, unspecified; D75.838 Other thrombocytosis; M16.0 Bilateral primary osteoarthritis of hip; F32.A Depression, unspecified; E87.70 Fluid overload, unspecified; Z90.49 Acquired absence of other specified parts of digestive tract; Z90.79 Acquired absence of other genital organ(s)

== ENCOUNTER → 2022-06-22 | Outpatient (REF) | payer MEDICARE, MEDICAID ==
[~2022-06-22] MED LIST changes: +CARV25TA PO; +COLA100C5 PO; +MAGN400T2 PO; +MIRA1POW3 PO; +PRED10TA2 PO; +SILV50CR TOP; +XARE20TA PO
[2022-06-22 13:34] LABS: BASO # 0.1 10^3/uL (0.0-0.2); BASO % 0.9 % (0.0-1.0); EOS # 0.2 10^3/uL (0.0-0.5); EOS % 1.3 % (0.0-3.0); HEMATOCRIT 35.3 % (36.0-47.0); LYMPH # 3.7 10^3/uL (1.5-5.0); LYMPH % 28.6 % (24.0-44.0); MEAN CORPUSCULAR HEMOGLOBIN 30.6 pg (27.0-33.0); MEAN CORPUSCULAR HGB CONC 31.2 g/dl (32.0-36.5); MEAN CORPUSCULAR VOLUME 98.3 fl (80.0-96.0); MONO # 1.1 10^3/uL (0.0-0.8); MONO % 8.5 % (2.0-8.0); NEUTROPHILS # 7.8 10^3/uL (1.5-8.5); NEUTROPHILS % 59.9 % (36.0-66.0); PLATELET COUNT, AUTOMATED 510 10^3/uL (150-450); RED BLOOD COUNT 3.59 10^6/uL (4.00-5.40); WHITE BLOOD COUNT 13.1 10^3/uL (4.0-10.0)
[2022-06-22 14:10] LABS: CREATININE FOR GFR 1.85 MG/DL (0.55-1.30); GLOMERULAR FILTRATION RATE 30.1 (>51); POTASSIUM SERUM 4.6 MEQ/L (3.5-5.1)
== END ==
LOC: M SFHCADAM 10:00
PROVIDERS: ATTEND Physician Assistant
DX: R82.90 Unspecified abnormal findings in urine (principal); N18.32 Chronic kidney disease, stage 3b; I87.2 Venous insufficiency (chronic) (peripheral); L97.811 Non-pressure chronic ulcer of other part of right lower leg limited to breakdown of skin; R60.0 Localized edema

== ENCOUNTER → 2022-07-02 | Outpatient (CLI) | payer MEDICARE, MEDICAID | LOC: M PLAIMG 09:25 | PROVIDERS: ATTEND Internal Medicine Pulmonary Disease | DX: R91.8 Other nonspecific abnormal finding of lung field (principal) ==

== ENCOUNTER → 2022-07-30 | Outpatient (CLI) | payer MEDICARE, MEDICAID | LOC: M PLARAD 11:58 | PROVIDERS: ATTEND Internal Medicine Pulmonary Disease | DX: R91.1 Solitary pulmonary nodule (principal) ==

== ENCOUNTER → 2022-08-07 | Outpatient (CLI) | payer MEDICARE, MEDICAID | LOC: M PAIN 08:45 | PROVIDERS: ATTEND Nurse Practitioner Family | DX: M51.17 Intervertebral disc disorders with radiculopathy, lumbosacral region (principal); G89.29 Other chronic pain; E11.9 Type 2 diabetes mellitus without complications; K21.9 Gastro-esophageal reflux disease without esophagitis; G47.30 Sleep apnea, unspecified; J44.9 Chronic obstructive pulmonary disease, unspecified; Z86.59 Personal history of other mental and behavioral disorders; Z87.891 Personal history of nicotine dependence; Z88.6 Allergy status to analgesic agent; Z91.040 Latex allergy status; Z79.01 Long term (current) use of anticoagulants; Z79.82 Long term (current) use of aspirin; Z79.899 Other long term (current) drug therapy ==

== ENCOUNTER → 2022-08-16 | Outpatient (REF) | payer MEDICARE, MEDICAID ==
[2022-08-16 19:29] LABS: CREATININE, URINE 73.2 MG/DL; MAU/CREAT RATIO 23.2 MCG/MG (0.0-30.0)
== END ==
LOC: M LAB REF 17:27
PROVIDERS: ATTEND Internal Medicine Nephrology
DX: E11.22 Type 2 diabetes mellitus with diabetic chronic kidney disease (principal)

== ENCOUNTER 2022-09-14 09:38 | Outpatient (RCR) | payer MEDICARE, MEDICAID | END 2022-09-18 | LOC: M PT 09:38 | PROVIDERS: ATTEND Surgery Vascular Surgery | DX: I89.0 Lymphedema, not elsewhere classified (principal) ==

== ENCOUNTER 2022-10-05 15:45 | Outpatient (RCR) | payer MEDICARE, MEDICAID | END 2022-10-16 | LOC: M PT 15:45 | PROVIDERS: ATTEND Surgery Vascular Surgery | DX: I87.2 Venous insufficiency (chronic) (peripheral) (principal); I89.0 Lymphedema, not elsewhere classified; E66.01 Morbid (severe) obesity due to excess calories ==

== ENCOUNTER → 2022-10-08 | Outpatient (CLI) | payer MEDICARE, MEDICAID | LOC: M PAIN 10:00 | PROVIDERS: ATTEND Nurse Practitioner Family | DX: M51.17 Intervertebral disc disorders with radiculopathy, lumbosacral region (principal); G89.29 Other chronic pain; E11.9 Type 2 diabetes mellitus without complications; K21.9 Gastro-esophageal reflux disease without esophagitis; G47.30 Sleep apnea, unspecified; G43.909 Migraine, unspecified, not intractable, without status migrainosus; J44.9 Chronic obstructive pulmonary disease, unspecified; Z86.59 Personal history of other mental and behavioral disorders; Z87.891 Personal history of nicotine dependence; Z88.6 Allergy status to analgesic agent; Z91.040 Latex allergy status; E66.01 Morbid (severe) obesity due to excess calories; Z68.42 Body mass index [BMI] 45.0-49.9, adult; Z79.01 Long term (current) use of anticoagulants; Z79.4 Long term (current) use of insulin; Z79.82 Long term (current) use of aspirin; Z79.899 Other long term (current) drug therapy ==

== ENCOUNTER 2022-11-06 12:43 | Outpatient (RCR) | payer MEDICARE, MEDICAID | END 2022-11-16 | LOC: M PT 12:43 | PROVIDERS: ATTEND Surgery Vascular Surgery | DX: I89.0 Lymphedema, not elsewhere classified (principal) ==

== ENCOUNTER → 2022-12-06 | Outpatient (CLI) | payer MEDICARE, MEDICAID | LOC: M PAIN 09:30 | PROVIDERS: ATTEND Nurse Practitioner Family | DX: M51.17 Intervertebral disc disorders with radiculopathy, lumbosacral region (principal); G89.29 Other chronic pain; E11.9 Type 2 diabetes mellitus without complications; K21.9 Gastro-esophageal reflux disease without esophagitis; G47.30 Sleep apnea, unspecified; G43.909 Migraine, unspecified, not intractable, without status migrainosus; J44.9 Chronic obstructive pulmonary disease, unspecified; Z86.59 Personal history of other mental and behavioral disorders; Z87.891 Personal history of nicotine dependence; Z88.6 Allergy status to analgesic agent; Z91.040 Latex allergy status; E66.01 Morbid (severe) obesity due to excess calories; Z68.43 Body mass index [BMI] 50.0-59.9, adult; Z79.01 Long term (current) use of anticoagulants; Z79.4 Long term (current) use of insulin; Z79.82 Long term (current) use of aspirin; Z79.899 Other long term (current) drug therapy ==

== ENCOUNTER → 2023-02-05 | Outpatient (CLI) | payer MEDICARE, MEDICAID | LOC: M PAIN 09:45 | PROVIDERS: ATTEND Nurse Practitioner Family | DX: M51.17 Intervertebral disc disorders with radiculopathy, lumbosacral region (principal); K21.9 Gastro-esophageal reflux disease without esophagitis; F41.9 Anxiety disorder, unspecified; G47.30 Sleep apnea, unspecified; G43.909 Migraine, unspecified, not intractable, without status migrainosus; J44.9 Chronic obstructive pulmonary disease, unspecified; E11.22 Type 2 diabetes mellitus with diabetic chronic kidney disease; M17.12 Unilateral primary osteoarthritis, left knee; F32.A Depression, unspecified; J45.909 Unspecified asthma, uncomplicated; N18.30 Chronic kidney disease, stage 3 unspecified; I48.92 Unspecified atrial flutter; Z87.891 Personal history of nicotine dependence; Z79.01 Long term (current) use of anticoagulants; Z79.4 Long term (current) use of insulin; Z79.82 Long term (current) use of aspirin; Z79.891 Long term (current) use of opiate analgesic; Z79.899 Other long term (current) drug therapy; Z88.6 Allergy status to analgesic agent; Z91.040 Latex allergy status ==

== ENCOUNTER → 2023-03-14 | Outpatient (REF) | payer MEDICARE, MEDICAID ==
[~2023-03-14] MED LIST changes: +DICY-61 PO; -DICY10CA13 PO
[2023-03-14 17:35] LABS: CHOLESTEROL RISK RATIO 3.6 (<5); FREE T4 0.89 NG/DL (0.89-1.76); HDL CHOLESTEROL 39.1 MG/DL (>40); LDL CHOLESTEROL 66.1 MG/DL (<100); NON-HDL-C 101.9 MG/DL; THYROID STIMULATING HORMONE 3.144 uIU/ML (0.55-4.78)
== END ==
LOC: M SFHCADAM 11:29
PROVIDERS: ATTEND Physician Assistant
DX: N18.4 Chronic kidney disease, stage 4 (severe) (principal); E11.40 Type 2 diabetes mellitus with diabetic neuropathy, unspecified

== ENCOUNTER → 2023-03-21 | Outpatient (CLI) | payer MEDICARE, MEDICAID | LOC: M RAD 08:29 | PROVIDERS: ATTEND Internal Medicine Pulmonary Disease | DX: R91.8 Other nonspecific abnormal finding of lung field (principal); I25.10 Atherosclerotic heart disease of native coronary artery without angina pectoris ==

== ENCOUNTER → 2023-04-16 | Outpatient (CLI) | payer MEDICARE, MEDICAID ==
[~2023-04-16] MED LIST changes: +MECL-209 PO; -MECL1TAB31 PO
== END ==
LOC: M PAIN 09:45
PROVIDERS: ATTEND Nurse Practitioner Family
DX: M51.17 Intervertebral disc disorders with radiculopathy, lumbosacral region (principal); G89.29 Other chronic pain; E11.9 Type 2 diabetes mellitus without complications; G47.30 Sleep apnea, unspecified; K21.9 Gastro-esophageal reflux disease without esophagitis; G43.909 Migraine, unspecified, not intractable, without status migrainosus; J45.909 Unspecified asthma, uncomplicated; Z86.59 Personal history of other mental and behavioral disorders; Z87.891 Personal history of nicotine dependence; Z88.6 Allergy status to analgesic agent; Z91.040 Latex allergy status; E66.01 Morbid (severe) obesity due to excess calories; Z68.43 Body mass index [BMI] 50.0-59.9, adult; Z79.01 Long term (current) use of anticoagulants; Z79.4 Long term (current) use of insulin; Z79.82 Long term (current) use of aspirin; Z79.899 Other long term (current) drug therapy

== ENCOUNTER → 2023-04-16 | Outpatient (CLI) | payer MEDICARE, MEDICAID | LOC: M PAIN 09:45 | PROVIDERS: ATTEND Nurse Practitioner Family | DX: M51.17 Intervertebral disc disorders with radiculopathy, lumbosacral region (principal); G89.29 Other chronic pain; E11.9 Type 2 diabetes mellitus without complications; G47.30 Sleep apnea, unspecified; K21.9 Gastro-esophageal reflux disease without esophagitis; G43.909 Migraine, unspecified, not intractable, without status migrainosus; J45.909 Unspecified asthma, uncomplicated; Z86.59 Personal history of other mental and behavioral disorders; Z87.891 Personal history of nicotine dependence; Z88.6 Allergy status to analgesic agent; Z91.040 Latex allergy status; E66.01 Morbid (severe) obesity due to excess calories; Z68.43 Body mass index [BMI] 50.0-59.9, adult; Z79.01 Long term (current) use of anticoagulants; Z79.4 Long term (current) use of insulin; Z79.82 Long term (current) use of aspirin; Z79.899 Other long term (current) drug therapy ==

== ENCOUNTER 2023-05-01 06:16 | Day surgery (SDC) | payer MEDICARE, MEDICAID ==
[~2023-05-01] VITALS: Ht 172.7 cm; Wt 165.6 kg
[~2023-05-01 06:16] MED LIST changes: +ALBUTEROL SULFATE 2.5MG/0.5ML INH NEB SOLN INH ONE; +LIDOCAINE PRES-FREE 2% 10ML AMP INH ONE
[2023-05-01] MEDS ORDERED: INSULIN LISPRO (NovoLOG) PER UNIT SC PRN ×2 (06:55→09:05)
[2023-05-01] MEDS ORDERED: LIDOCAINE 1% SDV 5ML VIAL SC PRN (06:55)
[2023-05-01] MEDS ORDERED: LR 1,000 ML IV SCH ×2 (06:55→09:05)
[2023-05-01] MEDS ORDERED: ACETAMINOPHEN 1000MG 100ML IV BAG As Ordered ONE (07:00)
[2023-05-01] MEDS ORDERED: LIDOCAINE 2% 100MG/5ML SDV (FOR ANES.) As Ordered ONE (07:00)
[2023-05-01] MEDS ORDERED: SUGAMMADEX SODIUM 500 MG/5 ML VIAL (BRIDION) As Ordered ONE (07:00)
[2023-05-01] MEDS ORDERED: ROCURONIUM BROMIDE 50MG/5ML VIAL As Ordered ONE (07:00)
[2023-05-01] MEDS ORDERED: ONDANSETRON 4MG 2ML VIAL As Ordered ONE (07:00)
[2023-05-01] MEDS ORDERED: propofoL 200 MG/20 ML VIAL As Ordered ONE (07:00)
[2023-05-01] MEDS ORDERED: fentaNYL 100 MCG/2 ML INJECTION As Ordered ONE (07:04)
[2023-05-01] MEDS ORDERED: MIDAZOLAM INJ 2MG/2ML VIAL As Ordered ONE (07:04)
[2023-05-01] MEDS ORDERED: CETACAINE SPRAY 5GM As Ordered ONE (07:10)
[2023-05-01] MEDS ORDERED: EPINEPHrine 1MG/10ML SYRINGE 1.5IN As Ordered ONE (07:10)
[2023-05-01] MEDS ORDERED: THROMBIN 5,000 UNITS VIAL As Ordered ONE (07:10)
[2023-05-01] MEDS ORDERED: ONDANSETRON 4MG 2ML VIAL IV PRN (09:05)
[2023-05-01] MEDS ORDERED: oxyCODONE 5MG TAB PO PRN (09:05)
[2023-05-01] MEDS ORDERED: fentaNYL 100 MCG/2 ML INJECTION IV PRN (09:05)
[2023-05-01] MEDS ORDERED: METOPROLOL 5 MG/5 ML VIAL As Ordered ONE (10:01)
[2023-05-01] MEDS: METOPROLOL 5 MG/5 ML VIAL IV PRN ×5 (10:08→10:24)
[2023-05-01 11:08] VITALS: BP 147/68
[2023-05-01] MEDS ORDERED: CARVedilol 12.5 MG TAB PO ONE (11:15)
[2023-05-01 13:14] VITALS: BP 143/69; TEMP 97.2; O2SAT 95
== END 2023-05-01 13:27 | disposition home or self-care (01) ==
LOC: M SDC 06:16
PROVIDERS: ATTEND Internal Medicine Pulmonary Disease
DX: C34.2 Malignant neoplasm of middle lobe, bronchus or lung (principal); E11.9 Type 2 diabetes mellitus without complications; I10 Essential (primary) hypertension; R60.0 Localized edema; J44.9 Chronic obstructive pulmonary disease, unspecified; K21.9 Gastro-esophageal reflux disease without esophagitis; G47.33 Obstructive sleep apnea (adult) (pediatric); F43.10 Post-traumatic stress disorder, unspecified; F32.A Depression, unspecified; Z91.040 Latex allergy status; Z88.8 Allergy status to other drugs, medicaments and biological substances; Z79.51 Long term (current) use of inhaled steroids; Z79.82 Long term (current) use of aspirin; Z79.4 Long term (current) use of insulin; K58.8 Other irritable bowel syndrome; M10.9 Gout, unspecified; Z87.891 Personal history of nicotine dependence
CPT/HCPCS: 31623; 31626; 31627; 31628; 31652; 71045; 76000; 88104; 88305; 88341; 88342; A4648; J0131; J0171; J1100; J2250; J2405; J3010; S2900

== ENCOUNTER → 2023-05-06 | Outpatient (CLI) | payer MEDICARE, MEDICAID ==
[~2023-05-06] MED LIST changes: -ALBUTEROL SULFATE 2.5MG/0.5ML INH NEB SOLN INH ONE; -LIDOCAINE PRES-FREE 2% 10ML AMP INH ONE
== END ==
LOC: M PLARAD 09:55
PROVIDERS: ATTEND Internal Medicine Pulmonary Disease
DX: R91.1 Solitary pulmonary nodule (principal)
CPT/HCPCS: 78815; A9552

== ENCOUNTER 2023-05-24 19:45 | Inpatient (IN) | payer MEDICARE, MEDICAID ==
[~2023-05-24] VITALS: Ht 172.7 cm; Wt 166.5 kg
[2023-05-24] MEDS ORDERED: NS 1,000 ML IV ONE ×2 (20:10→21:00)
[2023-05-24] MEDS: LEVEMIR (INSULIN DETEMIR) 1 UNITS/0.01ML SC SCH (21:00)
[2023-05-24] MEDS ORDERED: PIPERACILLIN/TAZOBACTAM SOD 4.5 GM in D5W MINI-BAG PLUS 50 ML IV ONE (21:00)
[2023-05-24 22:28] LABS: VENOUS BASE EXCESS -0.6 (-2.0-2.0); VENOUS HCO3 24.5 MMOL/L (23.0-27.0); VENOUS O2 SATURATION 87.8 % (60.0-80.0); VENOUS PARTIAL PRESSURE CO2 42.1 mmHg (38.0-50.0); VENOUS PARTIAL PRESSURE O2 55.1 mmHg (30.0-50.0); VENOUS PH 7.382 UNITS (7.330-7.430); VENOUS STANDARD HCO3 23.8 MMOL/L; VENOUS TOTAL CO2 25.8 MMOL/L (24.0-28.0)
[2023-05-24 22:32] LABS: BASO # 0.1 10^3/uL (0.0-0.2); BASO % 0.3 % (0.0-1.0); HEMATOCRIT 29.9 % (36.0-47.0); HEMOGLOBIN 9.8 g/dl (12.0-15.5); LYMPH # 1.9 10^3/uL (1.5-5.0); LYMPH % 5.5 % (24.0-44.0); MEAN CORPUSCULAR HEMOGLOBIN 28.2 pg (27.0-33.0); MEAN CORPUSCULAR HGB CONC 32.8 g/dl (32.0-36.5); MEAN CORPUSCULAR VOLUME 86.2 fl (80.0-96.0); MONO # 1.1 10^3/uL (0.0-0.8); MONO % 3.2 % (2.0-8.0); NEUTROPHILS # 31.2 10^3/uL (1.5-8.5); PLATELET COUNT, AUTOMATED 449 10^3/uL (150-450); RED BLOOD COUNT 3.47 10^6/uL (4.00-5.40)
[2023-05-24 22:35] LABS: WHITE BLOOD COUNT 35.1 10^3/uL (4.0-10.0)
[2023-05-24 22:52] LABS: ABG BASE EXCESS -1.2 (-2.0-2.0); ABG HCO3 22.8 MMOL/L (22.0-26.0); ABG O2 SATURATION 97.4 % (95.0-99.0); ABG PARTIAL PRESSURE CO2 35.1 mmHg (35.0-45.0); ABG PARTIAL PRESSURE O2 102.4 mmHg (75.0-100.0); ABG STANDARD HCO3 23.5 MMOL/L. (22.0-26.0); ABG TOTAL CO2 23.9 MMOL/L (22.0-29.0)
[2023-05-24 23:01] LABS: ETHYL ALCOHOL (ETHANOL) < 0.003 % (0.000-0.010)
[2023-05-24 23:02] LABS: SALICYLATE LEVEL < 3.0 MG/DL (<30)
[2023-05-24 23:03] LABS: ACETAMINOPHEN LEVEL 17.3 UG/ML (10.0-20.0); ALBUMIN 2.2 G/DL (3.2-5.2); ALKALINE PHOSPHATASE 83 U/L (46-116); ALT/SGPT 23 U/L (7.0-40); AST/SGOT 43 U/L (<34); BILIRUBIN,DIRECT 0.2 MG/DL (<0.4); BILIRUBIN,TOTAL 0.3 MG/DL (0.3-1.2); BLOOD UREA NITROGEN 69 MG/DL (9-23); CALCIUM LEVEL 8.1 MG/DL (8.5-10.1); CARBON DIOXIDE LEVEL 24 MMOL/L (20-31); CHLORIDE LEVEL 97 MMOL/L (98-107); CK-MB VALUE MASS 1.2 NG/ML (<3.6); CPK CREATINE PHOSPHOKINASE 469 U/L (34-145); CREATININE FOR GFR 4.53 MG/DL (0.55-1.30); GLOMERULAR FILTRATION RATE 10.7 (>51); GLUCOSE, FASTING 219 MG/DL (60-100); MB/CK RELATIVE INDEX 0.25 (< OR =4); SODIUM LEVEL 132 MMOL/L (136-145)
[2023-05-24 23:05] LABS: THYROID STIMULATING HORMONE 1.092 uIU/ML (0.55-4.78)
[2023-05-24 23:14] LABS: C REACTIVE PROTEIN QUANTITATIV 32.7 MG/DL (<1.0); PROCALCITONIN 17.83 ng/ml
[2023-05-24 23:20] LABS: OSMOLALITY SERUM 302 MOSM/KG (275-295)
[2023-05-24] MEDS ORDERED: NS IV ONE (23:20)
[2023-05-25] MEDS ORDERED: HYDR-3713 PO (00:59)
[2023-05-25] MEDS ORDERED: XARE15TA PO (00:59)
[2023-05-25] MEDS ORDERED: CARV25TA PO (00:59)
[2023-05-25] MEDS ORDERED: BACI1TAB20 PO (00:59)
[2023-05-25] MEDS ORDERED: INSUR50VL SC ×2 (00:59)
[2023-05-25] MEDS ORDERED: HOME MED LIST COMPLETE! XX SCH (01:05)
[2023-05-25] MEDS ORDERED: NS 500 ML IV ONE (04:15)
[2023-05-25] MEDS ORDERED: GLUCOSE 4GM CHEW TABLET PO PRN (04:40)
[2023-05-25] MEDS ORDERED: GLUCAGON INJ 1MG VIAL SC PRN (04:40)
[2023-05-25] MEDS ORDERED: DEXTROSE 50% 50ML SYRINGE IV PRN (04:40)
[2023-05-25] MEDS: AZITHROMYCIN INJ 500 MG, VIAL MATE ADAPTER 1 EACH in NS 250 ML IV SCH (04:44)
[2023-05-25] MEDS ORDERED: NS 1,000 ML IV SCH (04:50)
[2023-05-25] MEDS ORDERED: HYDROCORTISONE 100MG/2ML VIAL IV ONE (05:00)
[2023-05-25] MEDS ORDERED: ALBUTEROL 90 MCG/ACT 8GM HFA INHALER INH PRN (05:25)
[2023-05-25] MEDS ORDERED: tiZANidine 4 MG TAB PO PRN (05:25)
[2023-05-25] MEDS ORDERED: PIPERACILLIN/TAZOBACTAM SOD 2.25 GM in D5W MINI-BAG PLUS 50 ML IV SCH (06:00)
[2023-05-25 07:20] LABS: CK-MB VALUE MASS < 1.0 NG/ML (<3.6)
[2023-05-25 07:22] LABS: CPK CREATINE PHOSPHOKINASE 347 U/L (34-145); MB/CK RELATIVE INDEX 0.28 (< OR =4)
[2023-05-25 08:13] LABS: ALKALINE PHOSPHATASE 80 U/L (46-116); ALT/SGPT 25 U/L (7.0-40); AST/SGOT 49 U/L (<34); BILIRUBIN,TOTAL 0.2 MG/DL (0.3-1.2); BLOOD UREA NITROGEN 70 MG/DL (9-23); CALCIUM LEVEL 7.5 MG/DL (8.5-10.1); CARBON DIOXIDE LEVEL 20 MMOL/L (20-31); CHLORIDE LEVEL 102 MMOL/L (98-107); GLUCOSE, FASTING 180 MG/DL (60-100); POTASSIUM SERUM 4.6 MMOL/L (3.5-5.1); SODIUM LEVEL 134 MMOL/L (136-145); TOTAL PROTEIN 5.6 G/DL (5.7-8.2)
[2023-05-25] MEDS: busPIRone 10 MG TAB PO SCH ×3 (08:25→21:09)
[2023-05-25] MEDS: SERTRALINE HCL 50 MG TAB PO SCH (08:25)
[2023-05-25] MEDS: INSULIN LISPRO (NovoLOG) PER UNIT SC SCH ×4 (08:25→21:00)
[2023-05-25] MEDS: OMEPRAZOLE 20MG CAP PO SCH (08:25)
[2023-05-25] MEDS: ALPRAZolam 0.25 MG TAB PO SCH ×2 (08:26→21:09)
[2023-05-25] MEDS: allopurinoL 300 MG TAB PO SCH (08:27)
[2023-05-25] MEDS: NORCO, ANEXSIA 5/325MG TABLET (HYDROcodone/ACETAMINOPHEN) PO PRN ×2 (08:27→15:50)
[2023-05-25] MEDS: CARVedilol 12.5 MG TAB PO SCH ×2 (08:29→21:09)
[2023-05-25] MEDS: ASPIRIN 81MG ENTERIC TABLET PO SCH (08:30)
[2023-05-25] MEDS: SYMBICORT 160/4.5MCG INHALER 6GM INH SCH ×2 (08:48→19:27)
[2023-05-25] MEDS: TIOTROPIUM INHALER/CAPSULE (SPIRIVA) INH SCH (08:49)
[2023-05-25] MEDS ORDERED: FAMOTIDINE 20 MG TAB PO SCH (09:00)
[2023-05-25] MEDS ORDERED: BUMETANIDE 1 MG TAB PO SCH (09:00)
[2023-05-25] MEDS ORDERED: APIXABAN 2.5 MG TAB (ELIQUIS) PO SCH (09:00)
[2023-05-25] MEDS: NS 1,000 ML IV SCH ×2 (09:15→15:40)
[2023-05-25] MEDS: PIPERACILLIN/TAZOBACTAM SOD 2.25 GM in D5W MINI-BAG PLUS 50 ML IV SCH ×3 (09:16→21:10)
[2023-05-25] MEDS: CALCITRIOL 0.25 MCG CAP (S0169) PO SCH (09:23)
[2023-05-25] MEDS ORDERED: VANCOMYCIN HCL 1,000 MG, VIAL MATE ADAPTER 1 EACH in D5W 250 ML IV SCH (09:25)
[2023-05-25] MEDS ORDERED: VANCOMYCIN INTERMITTENT/PULSE DOSING BY CLINICAL PHARMACIST PER DOSING PROTOCOL XX SCH (09:45)
[2023-05-25] MEDS ORDERED: VANCOMYCIN HCL 1,000 MG, VIAL MATE ADAPTER 1 EACH in D5W 250 ML IV ONE ×2 (11:00→12:00)
[2023-05-25 11:20] LABS: BASO # 0.1 10^3/uL (0.0-0.2); BASO % 0.3 % (0.0-1.0); EOS % 0.1 % (0.0-3.0); HEMOGLOBIN 9.7 g/dl (12.0-15.5); LYMPH # 1.4 10^3/uL (1.5-5.0); LYMPH % 4.4 % (24.0-44.0); MEAN CORPUSCULAR HEMOGLOBIN 28.8 pg (27.0-33.0); MEAN CORPUSCULAR HGB CONC 32.3 g/dl (32.0-36.5); MONO # 1.2 10^3/uL (0.0-0.8); MONO % 3.6 % (2.0-8.0); NEUTROPHILS # 29.3 10^3/uL (1.5-8.5); NEUTROPHILS % 89.8 % (36.0-66.0); PLATELET COUNT, AUTOMATED 443 10^3/uL (150-450); RED BLOOD COUNT 3.37 10^6/uL (4.00-5.40)
[2023-05-25 11:30] LABS: WHITE BLOOD COUNT 32.7 10^3/uL (4.0-10.0)
[2023-05-25] MEDS: LACTOBACILLUS ACIDOPHILUS CAP (BACID) PO SCH ×3 (12:24→21:09)
[2023-05-25 18:17] VITALS: BP 144/67; TEMP 97; O2SAT 97
[2023-05-25 20:00] VITALS: BP 136/58; TEMP 97.7; O2SAT 98
[2023-05-25] MEDS: APIXABAN 5 MG TAB (ELIQUIS) PO SCH (21:09)
[2023-05-25] MEDS: LEVEMIR (INSULIN DETEMIR) 1 UNITS/0.01ML SC SCH (21:10)
[2023-05-26] VITALS: BP 117/70; TEMP 97; O2SAT 93
[2023-05-26] MEDS: NS 1,000 ML IV SCH ×3 (00:07→13:03)
[2023-05-26] MEDS: PIPERACILLIN/TAZOBACTAM SOD 2.25 GM in D5W MINI-BAG PLUS 50 ML IV SCH ×4 (03:51→21:26)
[2023-05-26 03:52] VITALS: BP 118/66; TEMP 96.7; O2SAT 91
[2023-05-26] MEDS: AZITHROMYCIN INJ 500 MG, VIAL MATE ADAPTER 1 EACH in NS 250 ML IV SCH (05:10)
[2023-05-26 05:27] LABS: BASO # 0.1 10^3/uL (0.0-0.2); BASO % 0.3 % (0.0-1.0); EOS % 0.1 % (0.0-3.0); HEMATOCRIT 30.2 % (36.0-47.0); HEMOGLOBIN 9.8 g/dl (12.0-15.5); LYMPH # 1.5 10^3/uL (1.5-5.0); LYMPH % 5.5 % (24.0-44.0); MEAN CORPUSCULAR HGB CONC 32.5 g/dl (32.0-36.5); MEAN CORPUSCULAR VOLUME 86.3 fl (80.0-96.0); MONO # 1.4 10^3/uL (0.0-0.8); MONO % 5.2 % (2.0-8.0); PLATELET COUNT, AUTOMATED 452 10^3/uL (150-450); WHITE BLOOD COUNT 27.6 10^3/uL (4.0-10.0)
[2023-05-26 05:57] LABS: ALBUMIN 1.9 G/DL (3.2-5.2); BILIRUBIN,TOTAL 0.4 MG/DL (0.3-1.2); CALCIUM LEVEL 8.4 MG/DL (8.5-10.1); CREATININE FOR GFR 2.79 MG/DL (0.55-1.30); GLOMERULAR FILTRATION RATE 18.7 (>51); MAGNESIUM LEVEL 1.8 MG/DL (1.8-2.4)
[2023-05-26] MEDS: LACTOBACILLUS ACIDOPHILUS CAP (BACID) PO SCH ×4 (08:48→21:25)
[2023-05-26] MEDS: INSULIN LISPRO (NovoLOG) PER UNIT SC SCH ×4 (08:48→21:00)
[2023-05-26] MEDS: APIXABAN 5 MG TAB (ELIQUIS) PO SCH ×2 (08:50→21:25)
[2023-05-26] MEDS: ASPIRIN 81MG ENTERIC TABLET PO SCH (08:50)
[2023-05-26] MEDS: OMEPRAZOLE 20MG CAP PO SCH (08:51)
[2023-05-26] MEDS: ALPRAZolam 0.25 MG TAB PO SCH ×2 (08:51→21:25)
[2023-05-26] MEDS: SERTRALINE HCL 50 MG TAB PO SCH (08:51)
[2023-05-26] MEDS: CALCITRIOL 0.25 MCG CAP (S0169) PO SCH (08:51)
[2023-05-26] MEDS: allopurinoL 300 MG TAB PO SCH (08:52)
[2023-05-26] MEDS: FIDAXOMICIN 200 MG TAB (DIFICID) PO SCH ×2 (10:30→21:25)
[2023-05-26] MEDS: busPIRone 10 MG TAB PO SCH ×3 (10:30→21:25)
[2023-05-26] MEDS: CARVedilol 12.5 MG TAB PO SCH ×2 (10:35→21:26)
[2023-05-26] MEDS: SYMBICORT 160/4.5MCG INHALER 6GM INH SCH ×2 (10:44→19:15)
[2023-05-26] MEDS: TIOTROPIUM INHALER/CAPSULE (SPIRIVA) INH SCH (10:45)
[2023-05-26 11:28] VITALS: BP 122/64; TEMP 97; O2SAT 96
[2023-05-26] MEDS ORDERED: VANCOMYCIN HCL 1,000 MG, VIAL MATE ADAPTER 1 EACH in D5W 250 ML IV ONE (12:00)
[2023-05-26 16:00] VITALS: BP 108/58; TEMP 97.2; O2SAT 91
[2023-05-26] MEDS: NORCO, ANEXSIA 5/325MG TABLET (HYDROcodone/ACETAMINOPHEN) PO PRN (18:15)
[2023-05-26 19:38] VITALS: BP 113/59; TEMP 98.1; O2SAT 92
[2023-05-26] MEDS: LEVEMIR (INSULIN DETEMIR) 1 UNITS/0.01ML SC SCH (21:26)
[2023-05-26 23:20] VITALS: BP 109/56; TEMP 97.5; O2SAT 90
[2023-05-27] MEDS: NORCO, ANEXSIA 5/325MG TABLET (HYDROcodone/ACETAMINOPHEN) PO PRN ×3 (00:24→21:44)
[2023-05-27] MEDS: NS 1,000 ML IV SCH ×2 (01:20→15:41)
[2023-05-27 03:54] VITALS: BP 106/58; TEMP 96.8; O2SAT 91
[2023-05-27] MEDS: PIPERACILLIN/TAZOBACTAM SOD 2.25 GM in D5W MINI-BAG PLUS 50 ML IV SCH (04:14)
[2023-05-27 05:51] LABS: BASO # 0.1 10^3/uL (0.0-0.2); BASO % 0.5 % (0.0-1.0); EOS # 0.2 10^3/uL (0.0-0.5); HEMATOCRIT 27.3 % (36.0-47.0); HEMOGLOBIN 9.1 g/dl (12.0-15.5); LYMPH # 2.1 10^3/uL (1.5-5.0); LYMPH % 9.5 % (24.0-44.0); MEAN CORPUSCULAR HEMOGLOBIN 28.7 pg (27.0-33.0); MEAN CORPUSCULAR HGB CONC 33.3 g/dl (32.0-36.5); MEAN CORPUSCULAR VOLUME 86.1 fl (80.0-96.0); MONO % 8.3 % (2.0-8.0); NEUTROPHILS # 16.8 10^3/uL (1.5-8.5); NEUTROPHILS % 77.9 % (36.0-66.0); PLATELET COUNT, AUTOMATED 471 10^3/uL (150-450); RED BLOOD COUNT 3.17 10^6/uL (4.00-5.40); WHITE BLOOD COUNT 21.6 10^3/uL (4.0-10.0)
[2023-05-27 06:13] LABS: VANCOMYCIN RANDOM 12.4 UG/ML
[2023-05-27 06:15] LABS: ALBUMIN 1.8 G/DL (3.2-5.2); BILIRUBIN,TOTAL 0.5 MG/DL (0.3-1.2); CALCIUM LEVEL 8.6 MG/DL (8.5-10.1); CREATININE FOR GFR 1.83 MG/DL (0.55-1.30); GLOMERULAR FILTRATION RATE 30.4 (>51); MAGNESIUM LEVEL 1.9 MG/DL (1.8-2.4); POTASSIUM SERUM 4.1 MMOL/L (3.5-5.1); TOTAL PROTEIN 5.7 G/DL (5.7-8.2)
[2023-05-27 06:31] LABS: MONO # 1.8 10^3/uL (0.0-0.8)
[2023-05-27] MEDS: TIOTROPIUM INHALER/CAPSULE (SPIRIVA) INH SCH (07:58)
[2023-05-27] MEDS: SYMBICORT 160/4.5MCG INHALER 6GM INH SCH ×2 (07:58→19:49)
[2023-05-27] MEDS: VANCOMYCIN HCL 750 MG, VIAL MATE ADAPTER 1 EACH in D5W 250 ML IV SCH (08:13)
[2023-05-27] MEDS: SERTRALINE HCL 50 MG TAB PO SCH (08:14)
[2023-05-27] MEDS: ASPIRIN 81MG ENTERIC TABLET PO SCH (08:14)
[2023-05-27] MEDS: CALCITRIOL 0.25 MCG CAP (S0169) PO SCH (08:14)
[2023-05-27] MEDS: INSULIN LISPRO (NovoLOG) PER UNIT SC SCH ×4 (08:14→21:00)
[2023-05-27] MEDS: busPIRone 10 MG TAB PO SCH ×3 (08:14→21:41)
[2023-05-27] MEDS: APIXABAN 5 MG TAB (ELIQUIS) PO SCH ×2 (08:14→21:40)
[2023-05-27] MEDS: LACTOBACILLUS ACIDOPHILUS CAP (BACID) PO SCH ×4 (08:14→21:41)
[2023-05-27] MEDS: OMEPRAZOLE 20MG CAP PO SCH (08:15)
[2023-05-27] MEDS: ALPRAZolam 0.25 MG TAB PO SCH ×2 (08:15→21:41)
[2023-05-27] MEDS: FIDAXOMICIN 200 MG TAB (DIFICID) PO SCH ×2 (08:15→21:41)
[2023-05-27] MEDS: CARVedilol 12.5 MG TAB PO SCH ×2 (08:16→21:41)
[2023-05-27] MEDS: allopurinoL 300 MG TAB PO SCH (08:16)
[2023-05-27 09:11] VITALS: BP 107/55; TEMP 96.8; O2SAT 96
[2023-05-27] MEDS: VANCOMYCIN HCL 500 MG in D5W MINI-BAG PLUS 100 ML IV SCH (09:31)
[2023-05-27] MEDS: PIPERACILLIN/TAZOBACTAM SOD 4.5 GM in D5W MINI-BAG PLUS 50 ML IV SCH ×3 (11:30→21:42)
[2023-05-27 12:21] VITALS: BP 118/55; TEMP 96.8; O2SAT 98
[2023-05-27 16:46] VITALS: BP 129/65; TEMP 97.4; O2SAT 94
[2023-05-27 19:39] VITALS: BP 120/56; TEMP 97.1; O2SAT 98
[2023-05-27 20:00] VITALS: BP 120/56; TEMP 97.1; O2SAT 98
[2023-05-27] MEDS: LEVEMIR (INSULIN DETEMIR) 1 UNITS/0.01ML SC SCH (21:40)
[2023-05-28 00:38] VITALS: BP 129/63; TEMP 97.3; O2SAT 92
[2023-05-28] MEDS: PIPERACILLIN/TAZOBACTAM SOD 4.5 GM in D5W MINI-BAG PLUS 50 ML IV SCH (03:12)
[2023-05-28 04:17] VITALS: BP 135/71; TEMP 96.6; O2SAT 95
[2023-05-28 07:42] LABS: HEMATOCRIT 28.1 % (36.0-47.0); HEMOGLOBIN 8.9 g/dl (12.0-15.5); MEAN CORPUSCULAR HEMOGLOBIN 27.6 pg (27.0-33.0); MEAN CORPUSCULAR HGB CONC 31.7 g/dl (32.0-36.5); MEAN CORPUSCULAR VOLUME 87.3 fl (80.0-96.0); PLATELET COUNT, AUTOMATED 527 10^3/uL (150-450); RED BLOOD COUNT 3.22 10^6/uL (4.00-5.40)
[2023-05-28 07:49] VITALS: BP 127/60; TEMP 96.9; O2SAT 92
[2023-05-28 08:01] LABS: BILIRUBIN,TOTAL 0.6 MG/DL (0.3-1.2); CALCIUM LEVEL 8.7 MG/DL (8.5-10.1); CREATININE FOR GFR 1.37 MG/DL (0.55-1.30); GLOMERULAR FILTRATION RATE 42.5 (>51); MAGNESIUM LEVEL 1.9 MG/DL (1.8-2.4); POTASSIUM SERUM 4.5 MMOL/L (3.5-5.1)
[2023-05-28] MEDS: TIOTROPIUM INHALER/CAPSULE (SPIRIVA) INH SCH (08:18)
[2023-05-28] MEDS: SYMBICORT 160/4.5MCG INHALER 6GM INH SCH ×2 (08:18→19:59)
[2023-05-28 08:21] LABS: BASOPHILS 1 % (0-1); EOSINOPHILS 2 % (0-3); LYMPHOCYTES 19 % (16-44); METAMYELOCYTES 2 % (0-0); MONOCYTES 8 % (0-5); NEUTROPHILS 64 % (28-66); PLATELET CLUMPS MODERATE AMT; PLATELET ESTIMATE INCREASED (NORMAL)
[2023-05-28 08:22] LABS: HYPOCHROMASIA 2+; TARGET CELLS 1+
[2023-05-28 08:23] LABS: ANISOCYTOSIS 2+; POLYCHROMASIA 1+
[2023-05-28 08:29] LABS: STOMATOCYTES 1+
[2023-05-28] MEDS: NS 1,000 ML IV SCH (08:31)
[2023-05-28] MEDS: VANCOMYCIN HCL 750 MG, VIAL MATE ADAPTER 1 EACH in D5W 250 ML IV SCH (08:31)
[2023-05-28] MEDS: ASPIRIN 81MG ENTERIC TABLET PO SCH (08:32)
[2023-05-28] MEDS: ALPRAZolam 0.25 MG TAB PO SCH ×2 (08:32→21:36)
[2023-05-28] MEDS: CARVedilol 12.5 MG TAB PO SCH ×2 (08:32→21:37)
[2023-05-28] MEDS: SERTRALINE HCL 50 MG TAB PO SCH (08:32)
[2023-05-28] MEDS: FIDAXOMICIN 200 MG TAB (DIFICID) PO SCH ×2 (08:32→21:38)
[2023-05-28] MEDS: APIXABAN 5 MG TAB (ELIQUIS) PO SCH ×2 (08:33→21:38)
[2023-05-28] MEDS: busPIRone 10 MG TAB PO SCH ×3 (08:33→21:38)
[2023-05-28] MEDS: LACTOBACILLUS ACIDOPHILUS CAP (BACID) PO SCH ×4 (08:33→21:36)
[2023-05-28] MEDS: CALCITRIOL 0.25 MCG CAP (S0169) PO SCH (08:33)
[2023-05-28] MEDS: OMEPRAZOLE 20MG CAP PO SCH (08:33)
[2023-05-28] MEDS: allopurinoL 300 MG TAB PO SCH (08:33)
[2023-05-28] MEDS: INSULIN LISPRO (NovoLOG) PER UNIT SC SCH ×4 (08:34→20:34)
[2023-05-28] MEDS: VANCOMYCIN HCL 500 MG in D5W MINI-BAG PLUS 100 ML IV SCH (09:41)
[2023-05-28] MEDS ORDERED: FIDA200TA PO (10:36)
[2023-05-28] MEDS: BUMETANIDE 1 MG TAB PO SCH ×2 (10:50→21:38)
[2023-05-28 12:19] VITALS: BP 128/57; TEMP 96.5; O2SAT 94
[2023-05-28 16:00] LABS: ALBUMIN 1.8 G/DL (3.2-5.2)
[2023-05-28] MEDS ORDERED: cefTRIAXone SOD 2 GM in D5W MINI-BAG PLUS 50 ML IV SCH (16:00)
[2023-05-28 18:50] VITALS: BP 147/91; TEMP 97.5; O2SAT 94
[2023-05-28] MEDS: LEVEMIR (INSULIN DETEMIR) 1 UNITS/0.01ML SC SCH (21:38)
[2023-05-28] MEDS: CEFDINIR 300 MG CAP (OMNICEF) PO SCH (21:38)
[2023-05-29 06:29] VITALS: BP 145/90; TEMP 97.5; O2SAT 94
[2023-05-29] MEDS: TIOTROPIUM INHALER/CAPSULE (SPIRIVA) INH SCH (07:33)
[2023-05-29] MEDS: SYMBICORT 160/4.5MCG INHALER 6GM INH SCH ×2 (07:33→19:13)
[2023-05-29 07:41] LABS: HEMATOCRIT 28.8 % (36.0-47.0); HEMOGLOBIN 9.3 g/dl (12.0-15.5); MEAN CORPUSCULAR HGB CONC 32.3 g/dl (32.0-36.5); MEAN CORPUSCULAR VOLUME 86.7 fl (80.0-96.0); PLATELET COUNT, AUTOMATED 588 10^3/uL (150-450); RED BLOOD COUNT 3.32 10^6/uL (4.00-5.40); WHITE BLOOD COUNT 18.2 10^3/uL (4.0-10.0)
[2023-05-29 08:05] LABS: BASOPHILS 2 % (0-1); EOSINOPHILS 2 % (0-3); LYMPHOCYTES 20 % (16-44); MONOCYTES 11 % (0-5); NEUTROPHILS 64 % (28-66)
[2023-05-29 08:06] LABS: PLATELET ESTIMATE INCREASED (NORMAL)
[2023-05-29 08:07] LABS: ANISOCYTOSIS 1+; MICROCYTOSIS 1+; TARGET CELLS 1+
[2023-05-29 08:08] LABS: POLYCHROMASIA 1+
[2023-05-29 08:09] LABS: ALBUMIN 1.9 G/DL (3.2-5.2); BILIRUBIN,TOTAL 0.5 MG/DL (0.3-1.2); CALCIUM LEVEL 9.1 MG/DL (8.5-10.1); CREATININE FOR GFR 1.24 MG/DL (0.55-1.30); GLOMERULAR FILTRATION RATE 47.6 (>51); HYPOCHROMASIA 1+; MAGNESIUM LEVEL 1.5 MG/DL (1.8-2.4); POTASSIUM SERUM 4.2 MMOL/L (3.5-5.1); SPHEROCYTES 1+; TOTAL PROTEIN 6.4 G/DL (5.7-8.2)
[2023-05-29 08:10] LABS: OVALOCYTES 1+; POIKILOCYTOSIS 2+
[2023-05-29] MEDS: BUMETANIDE 1 MG TAB PO SCH ×2 (08:16→20:02)
[2023-05-29] MEDS: ALPRAZolam 0.25 MG TAB PO SCH ×2 (08:19→20:02)
[2023-05-29] MEDS: CALCITRIOL 0.25 MCG CAP (S0169) PO SCH (08:19)
[2023-05-29] MEDS: FIDAXOMICIN 200 MG TAB (DIFICID) PO SCH ×2 (08:19→20:03)
[2023-05-29] MEDS: busPIRone 10 MG TAB PO SCH ×3 (08:19→20:03)
[2023-05-29] MEDS: INSULIN LISPRO (NovoLOG) PER UNIT SC SCH ×4 (08:19→20:04)
[2023-05-29] MEDS: allopurinoL 300 MG TAB PO SCH (08:19)
[2023-05-29] MEDS: ASPIRIN 81MG ENTERIC TABLET PO SCH (08:19)
[2023-05-29] MEDS: APIXABAN 5 MG TAB (ELIQUIS) PO SCH ×2 (08:20→20:02)
[2023-05-29] MEDS: LACTOBACILLUS ACIDOPHILUS CAP (BACID) PO SCH ×4 (08:20→20:01)
[2023-05-29] MEDS: SERTRALINE HCL 50 MG TAB PO SCH (08:20)
[2023-05-29] MEDS: CEFDINIR 300 MG CAP (OMNICEF) PO SCH ×2 (08:20→20:02)
[2023-05-29] MEDS: OMEPRAZOLE 20MG CAP PO SCH (08:20)
[2023-05-29] MEDS: CARVedilol 12.5 MG TAB PO SCH ×2 (08:24→20:02)
[2023-05-29 08:40] LABS: C REACTIVE PROTEIN QUANTITATIV 16.9 MG/DL (<1.0)
[2023-05-29 08:41] LABS: C REACTIVE PROTEIN QUANTITATIV 24.6 MG/DL (<1.0)
[2023-05-29 08:53] LABS: C REACTIVE PROTEIN QUANTITATIV 35.1 MG/DL (<1.0)
[2023-05-29] MEDS ORDERED: MAG SULF 1GM/100ML (MAG RUN) 1 GM in IV 1 EA IV ONE (10:00)
[2023-05-29] MEDS: NORCO, ANEXSIA 5/325MG TABLET (HYDROcodone/ACETAMINOPHEN) PO PRN ×2 (11:00→20:03)
[2023-05-29 14:00] VITALS: BP 161/76; TEMP 97.9; O2SAT 98
[2023-05-29 17:15] LABS: BODY FLUID CULTURE Not indicated. (.); LEGIONELLA ANTIGEN URINE Negative (Negative); ORGANISM ID Not indicated. (.); SPECIMEN SOURCE Urine (.)
[2023-05-29] MEDS: MAG SULF 1GM/100ML (MAG RUN) 1 GM in IV 1 EA IV SCH ×2 (17:37→18:49)
[2023-05-29] MEDS: LEVEMIR (INSULIN DETEMIR) 1 UNITS/0.01ML SC SCH (20:04)
[2023-05-30 04:40] VITALS: BP 126/65; TEMP 98.4; O2SAT 96
[2023-05-30 07:13] LABS: C REACTIVE PROTEIN QUANTITATIV 15.2 MG/DL (<1.0)
[2023-05-30 07:15] LABS: BILIRUBIN,TOTAL 0.4 MG/DL (0.3-1.2); CALCIUM LEVEL 8.6 MG/DL (8.5-10.1); CREATININE FOR GFR 1.14 MG/DL (0.55-1.30); GLOMERULAR FILTRATION RATE 52.5 (>51); MAGNESIUM LEVEL 1.4 MG/DL (1.8-2.4); POTASSIUM SERUM 4.2 MMOL/L (3.5-5.1); TOTAL PROTEIN 6.6 G/DL (5.7-8.2)
[2023-05-30 07:20] LABS: HEMATOCRIT 28.5 % (36.0-47.0); HEMOGLOBIN 9.4 g/dl (12.0-15.5); MEAN CORPUSCULAR HEMOGLOBIN 28.4 pg (27.0-33.0); MEAN CORPUSCULAR VOLUME 86.1 fl (80.0-96.0); RED BLOOD COUNT 3.31 10^6/uL (4.00-5.40); WHITE BLOOD COUNT 17.6 10^3/uL (4.0-10.0)
[2023-05-30 07:23] LABS: PLATELET COUNT, AUTOMATED 674 10^3/uL (150-450)
[2023-05-30 07:56] LABS: ATYPICAL LYMPH 1 % (0-5); EOSINOPHILS 6 % (0-3); LYMPHOCYTES 22 % (16-44); MONOCYTES 12 % (0-5); MYELOCYTES 1 % (0-0); NEUTROPHILS 58 % (28-66)
[2023-05-30] MEDS: TIOTROPIUM INHALER/CAPSULE (SPIRIVA) INH SCH (07:56)
[2023-05-30] MEDS: SYMBICORT 160/4.5MCG INHALER 6GM INH SCH (07:56)
[2023-05-30 07:57] LABS: ANISOCYTOSIS 2+; HYPOCHROMASIA 1+; OVALOCYTES 1+; POLYCHROMASIA 1+; TARGET CELLS 1+
[2023-05-30 07:58] LABS: MICROCYTOSIS 1+
[2023-05-30 07:59] LABS: PLATELET ESTIMATE INCREASED (NORMAL)
[2023-05-30 08:00] LABS: POIKILOCYTOSIS 1+
[2023-05-30] MEDS: MAG SULF 1GM/100ML (MAG RUN) 1 GM in IV 1 EA IV SCH ×4 (08:24→12:21)
[2023-05-30 08:25] VITALS: BP 126/65
[2023-05-30] MEDS: CARVedilol 12.5 MG TAB PO SCH (08:25)
[2023-05-30] MEDS: LACTOBACILLUS ACIDOPHILUS CAP (BACID) PO SCH ×2 (08:25→12:21)
[2023-05-30] MEDS: CALCITRIOL 0.25 MCG CAP (S0169) PO SCH (08:25)
[2023-05-30] MEDS: OMEPRAZOLE 20MG CAP PO SCH (08:25)
[2023-05-30] MEDS: ASPIRIN 81MG ENTERIC TABLET PO SCH (08:25)
[2023-05-30] MEDS: INSULIN LISPRO (NovoLOG) PER UNIT SC SCH ×2 (08:25→12:21)
[2023-05-30] MEDS: ALPRAZolam 0.25 MG TAB PO SCH (08:25)
[2023-05-30] MEDS: CEFDINIR 300 MG CAP (OMNICEF) PO SCH (08:25)
[2023-05-30] MEDS: FIDAXOMICIN 200 MG TAB (DIFICID) PO SCH (08:26)
[2023-05-30] MEDS: busPIRone 10 MG TAB PO SCH (08:26)
[2023-05-30] MEDS: BUMETANIDE 1 MG TAB PO SCH (08:26)
[2023-05-30] MEDS: allopurinoL 300 MG TAB PO SCH (08:26)
[2023-05-30] MEDS: SERTRALINE HCL 50 MG TAB PO SCH (08:26)
[2023-05-30] MEDS: APIXABAN 5 MG TAB (ELIQUIS) PO SCH (08:26)
[2023-05-30] MEDS ORDERED: CEFD300CAP PO (10:08)
[2023-05-30] MEDS ORDERED: RISATAB3 PO (10:08)
[2023-05-30] MEDS ORDERED: FIDA200TA PO (10:08)
[2023-05-30] MEDS ORDERED: CORE25TA PO (10:08)
[2023-05-30] MEDS ORDERED: ELIQ5TAB PO (10:39)
[2023-06-03 19:08] LABS: URINE STREP PNEUMONIAE ANTIGEN Positive (Negative)
== END 2023-05-30 14:35 | disposition home health service (06) | DRG 871 ==
LOC: M ED 19:45 → M ED INP 05-25 03:43 → ENRESERV 05-25 17:16 → M PCU 05-25 18:02 → M MS5PR 05-28 18:29
PROVIDERS: ADMIT Internal Medicine; ATTEND Internal Medicine
PROC: B246ZZZ Ultrasonography of Right and Left Heart (ICD-10-PCS; principal; 2023-05-26)
DX: A41.9 Sepsis, unspecified organism (principal); J18.9 Pneumonia, unspecified organism; G93.41 Metabolic encephalopathy; C34.91 Malignant neoplasm of unspecified part of right bronchus or lung; A04.72 Enterocolitis due to Clostridium difficile, not specified as recurrent; N17.9 Acute kidney failure, unspecified; J44.0 Chronic obstructive pulmonary disease with (acute) lower respiratory infection; L03.116 Cellulitis of left lower limb; Z68.43 Body mass index [BMI] 50.0-59.9, adult; J96.11 Chronic respiratory failure with hypoxia; N18.4 Chronic kidney disease, stage 4 (severe); E87.1 Hypo-osmolality and hyponatremia; E87.4 Mixed disorder of acid-base balance; I48.92 Unspecified atrial flutter; I89.0 Lymphedema, not elsewhere classified; E11.22 Type 2 diabetes mellitus with diabetic chronic kidney disease; I48.91 Unspecified atrial fibrillation; G47.33 Obstructive sleep apnea (adult) (pediatric); I12.9 Hypertensive chronic kidney disease with stage 1 through stage 4 chronic kidney disease, or unspecified chronic kidney disease; K21.9 Gastro-esophageal reflux disease without esophagitis; E66.01 Morbid (severe) obesity due to excess calories; N28.89 Other specified disorders of kidney and ureter; I27.20 Pulmonary hypertension, unspecified; D64.9 Anemia, unspecified; R65.20 Severe sepsis without septic shock; I27.81 Cor pulmonale (chronic); E88.09 Other disorders of plasma-protein metabolism, not elsewhere classified; E21.1 Secondary hyperparathyroidism, not elsewhere classified; M10.9 Gout, unspecified; F41.9 Anxiety disorder, unspecified; Z79.82 Long term (current) use of aspirin; Z79.4 Long term (current) use of insulin; Z79.899 Other long term (current) drug therapy; Z91.040 Latex allergy status; Z88.6 Allergy status to analgesic agent; Z20.822 Contact with and (suspected) exposure to COVID-19; Z90.49 Acquired absence of other specified parts of digestive tract; Z90.79 Acquired absence of other genital organ(s); Z87.891 Personal history of nicotine dependence; Z99.81 Dependence on supplemental oxygen

== ENCOUNTER → 2023-06-26 | Outpatient (REF) | payer MEDICARE, MEDICAID ==
[~2023-06-26] MED LIST changes: +BACI1TAB20 PO; +CEFD300CAP PO; +CORE25TA PO; +ELIQ5TAB PO; +FIDA200TA PO; +RISATAB3 PO; +XARE15TA PO
[2023-06-26 18:32] LABS: BASO # 0.2 10^3/uL (0.0-0.2); EOS # 0.2 10^3/uL (0.0-0.5); EOS % 1.1 % (0.0-3.0); HEMOGLOBIN 10.4 g/dl (12.0-15.5); LYMPH % 18.6 % (24.0-44.0); MEAN CORPUSCULAR HEMOGLOBIN 27.7 pg (27.0-33.0); MEAN CORPUSCULAR HGB CONC 30.6 g/dl (32.0-36.5); MEAN CORPUSCULAR VOLUME 90.7 fl (80.0-96.0); MONO % 9.7 % (2.0-8.0); NEUTROPHILS # 11.1 10^3/uL (1.5-8.5); NEUTROPHILS % 69.1 % (36.0-66.0); PLATELET COUNT, AUTOMATED 548 10^3/uL (150-450); RED BLOOD COUNT 3.75 10^6/uL (4.00-5.40); WHITE BLOOD COUNT 16.1 10^3/uL (4.0-10.0)
[2023-06-26 19:05] LABS: CREATININE FOR GFR 2.84 MG/DL (0.55-1.30); GLOMERULAR FILTRATION RATE 18.3 (>51); POTASSIUM SERUM 4.8 MMOL/L (3.5-5.1)
[2023-06-26 19:09] LABS: MONO # 1.6 10^3/uL (0.0-0.8)
== END ==
LOC: M SFHCADAM 14:22
PROVIDERS: ATTEND Physician Assistant
DX: R60.0 Localized edema (principal); I87.2 Venous insufficiency (chronic) (peripheral); N18.4 Chronic kidney disease, stage 4 (severe); E11.40 Type 2 diabetes mellitus with diabetic neuropathy, unspecified; I48.91 Unspecified atrial fibrillation

== ENCOUNTER → 2023-07-18 | Outpatient (RCR) | payer MEDICARE, MEDICAID | LOC: M ONCR 06-27 14:02 | PROVIDERS: ATTEND General Practice | DX: Z51.0 Encounter for antineoplastic radiation therapy (principal); C34.2 Malignant neoplasm of middle lobe, bronchus or lung ==

== ENCOUNTER 2023-07-19 08:59 | Outpatient (RCR) | payer MEDICARE, MEDICAID | END 2023-08-18 | LOC: M ONCR 08:59 | PROVIDERS: ATTEND General Practice | DX: Z51.0 Encounter for antineoplastic radiation therapy (principal); C34.2 Malignant neoplasm of middle lobe, bronchus or lung ==

== ENCOUNTER → 2023-07-25 | Outpatient (REF) | payer MEDICARE, MEDICAID ==
[2023-07-25 18:37] LABS: PERCENT SATURATION 10.9 % (13.2-45.0)
== END ==
LOC: M LAB REF 17:25
PROVIDERS: ATTEND Internal Medicine Nephrology
DX: D50.9 Iron deficiency anemia, unspecified (principal)

== ENCOUNTER → 2023-09-30 | Outpatient (CLI) | payer MEDICARE, MEDICAID | LOC: M PAIN 11:45 | PROVIDERS: ATTEND Nurse Practitioner Family | DX: M51.17 Intervertebral disc disorders with radiculopathy, lumbosacral region (principal); Z79.891 Long term (current) use of opiate analgesic; G89.29 Other chronic pain; I12.9 Hypertensive chronic kidney disease with stage 1 through stage 4 chronic kidney disease, or unspecified chronic kidney disease; K21.9 Gastro-esophageal reflux disease without esophagitis; F41.9 Anxiety disorder, unspecified; G47.30 Sleep apnea, unspecified; G43.909 Migraine, unspecified, not intractable, without status migrainosus; J44.9 Chronic obstructive pulmonary disease, unspecified; E11.22 Type 2 diabetes mellitus with diabetic chronic kidney disease; M17.12 Unilateral primary osteoarthritis, left knee; F32.A Depression, unspecified; J45.909 Unspecified asthma, uncomplicated; N18.4 Chronic kidney disease, stage 4 (severe); I48.92 Unspecified atrial flutter; Z88.6 Allergy status to analgesic agent; Z91.040 Latex allergy status; Z79.82 Long term (current) use of aspirin; Z79.4 Long term (current) use of insulin; Z79.899 Other long term (current) drug therapy ==

== ENCOUNTER 2023-10-08 15:14 | Inpatient (IN) | payer MEDICARE, MEDICAID ==
[~2023-10-08] VITALS: Ht 157.5 cm; Wt 153.9 kg
[~2023-10-08 15:14] MED LIST changes: -MIRA1POW3 PO; +MIRA33506 PO
[2023-10-08 16:51] LABS: HEMATOCRIT 24.8 % (36.0-47.0); MEAN CORPUSCULAR HEMOGLOBIN 26.7 pg (27.0-33.0); MEAN CORPUSCULAR HGB CONC 32.3 g/dl (32.0-36.5); MEAN CORPUSCULAR VOLUME 82.7 fl (80.0-96.0); WHITE BLOOD COUNT 26.7 10^3/uL (4.0-10.0)
[2023-10-08 16:55] LABS: PLATELET COUNT, AUTOMATED 794 10^3/uL (150-450)
[2023-10-08 17:05] LABS: INR 1.81; LYMPHOCYTES 5 % (16-44); MONOCYTES 3 % (0-5); NEUTROPHILS 91 % (28-66); PROTHROMBIN TIME 20.3 SECONDS (12.5-14.5)
[2023-10-08 17:06] LABS: PARTIAL THROMBOPLASTIN TIME 33.9 SECONDS (24.8-34.2); PLATELET ESTIMATE INCREASED (NORMAL); TOXIC VACUOLATION 1+
[2023-10-08 17:07] LABS: ANISOCYTOSIS 2+; HYPERSEGMENTED POLYS 1+
[2023-10-08 18:29] LABS: ALBUMIN 1.9 G/DL (3.2-5.2); ALKALINE PHOSPHATASE 107 U/L (46-116); ALT/SGPT 11 U/L (7.0-40); AST/SGOT 11 U/L (<34); BILIRUBIN,DIRECT < 0.1 MG/DL (<0.4); BILIRUBIN,TOTAL < 0.2 MG/DL (0.3-1.2); BLOOD UREA NITROGEN 145 MG/DL (9-23); CALCIUM LEVEL 9.2 MG/DL (8.5-10.1); CARBON DIOXIDE LEVEL 16 MMOL/L (20-31); CHLORIDE LEVEL 96 MMOL/L (98-107); CREATININE FOR GFR 7.35 MG/DL (0.55-1.30); GLOMERULAR FILTRATION RATE 6.1 (>51); GLUCOSE, FASTING 219 MG/DL (60-100); POTASSIUM SERUM 5.2 MMOL/L (3.5-5.1); SODIUM LEVEL 128 MMOL/L (136-145); THYROID STIMULATING HORMONE 1.379 uIU/ML (0.55-4.78); TOTAL PROTEIN 7.3 G/DL (5.7-8.2)
[2023-10-08] MEDS: MORPHINE 2 MG/ML 1ML VIAL IV ONE (19:16)
[2023-10-08] MEDS: NS 1,000 ML IV SCH ×2 (19:17→21:30)
[2023-10-08] MEDS: NS 1,000 ML IV ONE (19:17)
[2023-10-08 20:13] LABS: PROCALCITONIN 1.68 ng/ml
[2023-10-08] MEDS ORDERED: ELIQ5TAB PO (20:43)
[2023-10-08] MEDS ORDERED: BUSP15TA47 PO (20:43)
[2023-10-08] MEDS ORDERED: CARV25TA PO (20:43)
[2023-10-08] MEDS: cefTRIAXone SOD 1 GM in D5W MINI-BAG PLUS 50 ML IV ONE (20:49)
[2023-10-08] MEDS: PANTOPRAZOLE 40MG VIAL IV ONE (20:49)
[2023-10-08] MEDS: SOD POLYSTYRENE SULFONATE SUSP 15GM 60ML UD PO ONE (21:00)
[2023-10-08] MEDS ORDERED: RISATAB3 PO (21:06)
[2023-10-08] MEDS ORDERED: XARE15TA PO (21:06)
[2023-10-08] MEDS ORDERED: INSUR50VL SC (21:06)
[2023-10-08] MEDS ORDERED: HOME MED LIST COMPLETE! XX SCH ×2 (21:10→23:15)
[2023-10-08] MEDS ORDERED: VANCOMYCIN HCL 1,000 MG, VIAL MATE ADAPTER 1 EACH in D5W 250 ML IV SCH (21:30)
[2023-10-08] MEDS ORDERED: CEFEPIME HCL 2 GM in D5W MINI-BAG PLUS 50 ML IV SCH (21:30)
[2023-10-08] MEDS: UNRESOLVED CLARIFICATION ENTRY XX STA (21:31)
[2023-10-08] MEDS ORDERED: ALBUTEROL 90 MCG/ACT 8GM HFA INHALER INH PRN (23:00)
[2023-10-08] MEDS: VANCOMYCIN HCL 1,000 MG, VIAL MATE ADAPTER 1 EACH in D5W 250 ML IV ONE (23:01)
[2023-10-08 23:07] LABS: CALCIUM LEVEL 9.1 MG/DL (8.5-10.1); CREATININE FOR GFR 7.14 MG/DL (0.55-1.30); GLOMERULAR FILTRATION RATE 6.3 (>51); POTASSIUM SERUM 4.6 MMOL/L (3.5-5.1)
[2023-10-08] MEDS ORDERED: DEXTROSE 50% 50ML SYRINGE IV PRN (23:10)
[2023-10-08] MEDS ORDERED: GLUCOSE 4GM CHEW TABLET PO PRN (23:10)
[2023-10-08] MEDS ORDERED: GLUCAGON INJ 1MG VIAL SC PRN (23:10)
[2023-10-08 23:12] LABS: C REACTIVE PROTEIN QUANTITATIV 32.1 MG/DL (<1.0)
[2023-10-08 23:29] LABS: CREATININE,RANDOM URINE 87.4 MG/DL
[2023-10-08] MEDS: NORCO, ANEXSIA 5/325MG TABLET (HYDROcodone/ACETAMINOPHEN) PO PRN (23:36)
[2023-10-08] MEDS: ALPRAZolam 0.25 MG TAB PO SCH (23:37)
[2023-10-08] MEDS: LEVEMIR (INSULIN DETEMIR) 1 UNITS/0.01ML SC SCH (23:43)
[2023-10-09] VITALS (11 sets, daily range): BP systolic 125–168; BP diastolic 60–94; TEMP 96.2–98.4; O2SAT 90–98
[2023-10-09] MEDS ORDERED: BUSP10TA79 PO (00:17)
[2023-10-09] MEDS: VANCOMYCIN HCL 1,000 MG, VIAL MATE ADAPTER 1 EACH in D5W 250 ML IV ONE (00:17)
[2023-10-09] MEDS: CARVedilol 12.5 MG TAB PO SCH ×2 (00:19→09:21)
[2023-10-09] MEDS ORDERED: HOME MED LIST COMPLETE! XX SCH (00:20)
[2023-10-09] MEDS: SYMBICORT 160/4.5MCG INHALER 6GM INH SCH (01:13)
[2023-10-09] MEDS ORDERED: VANCOMYCIN INTERMITTENT/PULSE DOSING BY CLINICAL PHARMACIST PER DOSING PROTOCOL XX SCH (02:00)
[2023-10-09] MEDS: CEFEPIME HCL 1 GM in D5W MINI-BAG PLUS 50 ML IV SCH (04:30)
[2023-10-09 05:55] LABS: HEMATOCRIT 25.4 % (36.0-47.0); HEMOGLOBIN 8.3 g/dl (12.0-15.5); MEAN CORPUSCULAR HGB CONC 32.7 g/dl (32.0-36.5); MEAN CORPUSCULAR VOLUME 82.7 fl (80.0-96.0); PLATELET COUNT, AUTOMATED 696 10^3/uL (150-450); RED BLOOD COUNT 3.07 10^6/uL (4.00-5.40)
[2023-10-09 06:33] LABS: CALCIUM LEVEL 8.8 MG/DL (8.5-10.1); CREATININE FOR GFR 5.83 MG/DL (0.55-1.30); POTASSIUM SERUM 5.9 MMOL/L (3.5-5.1)
[2023-10-09] MEDS: NS 1,000 ML IV ONE (06:51)
[2023-10-09] MEDS: INSULIN LISPRO (NovoLOG) PER UNIT SC SCH ×3 (07:30→20:17)
[2023-10-09] MEDS: TIOTROPIUM INHALER/CAPSULE (SPIRIVA) INH SCH (07:47)
[2023-10-09] MEDS ORDERED: busPIRone 5 MG TAB PO SCH (09:00)
[2023-10-09] MEDS ORDERED: SERTRALINE HCL 50 MG TAB PO SCH (09:00)
[2023-10-09] MEDS: busPIRone 10 MG TAB PO SCH (09:00)
[2023-10-09] MEDS ORDERED: CARVedilol 12.5 MG TAB PO SCH (09:00)
[2023-10-09] MEDS: OMEPRAZOLE 20MG CAP PO SCH (09:00)
[2023-10-09] MEDS ORDERED: ASPIRIN 81MG ENTERIC TABLET PO SCH (09:00)
[2023-10-09] MEDS: PATIROMER SORBITEX CALCIUM 8.4 GM POWDER PACKET (VELTASSA) PO SCH (15:25)
[2023-10-09] MEDS: SODIUM BICARBONATE 75 MEQ in NS 0.45% 1,000 ML IV SCH (15:26)
[2023-10-09] MEDS ORDERED: CEFEPIME HCL 1 GM in D5W MINI-BAG PLUS 50 ML IV SCH (16:00)
[2023-10-09] MEDS: ACETAMINOPHEN TAB 650MG DOSE (2X325MG) PO PRN (21:00)
[2023-10-10] VITALS (8 sets, daily range): BP systolic 107–160; BP diastolic 58–81; TEMP 97.4–98; O2SAT 90–98
[2023-10-10] MEDS: CEFEPIME HCL 1 GM in D5W MINI-BAG PLUS 50 ML IV SCH ×2 (04:33→17:52)
[2023-10-10 05:33] LABS: BASO # 0.1 10^3/uL (0.0-0.2); BASO % 0.2 % (0.0-1.0); EOS # 0.1 10^3/uL (0.0-0.5); EOS % 0.4 % (0.0-3.0); HEMATOCRIT 23.1 % (36.0-47.0); HEMOGLOBIN 7.7 g/dl (12.0-15.5); LYMPH % 4.7 % (24.0-44.0); MEAN CORPUSCULAR HEMOGLOBIN 27.4 pg (27.0-33.0); MEAN CORPUSCULAR HGB CONC 33.3 g/dl (32.0-36.5); MEAN CORPUSCULAR VOLUME 82.2 fl (80.0-96.0); MONO # 1.8 10^3/uL (0.0-0.8); MONO % 8.6 % (2.0-8.0); NEUTROPHILS # 17.2 10^3/uL (1.5-8.5); NEUTROPHILS % 84.7 % (36.0-66.0); PLATELET COUNT, AUTOMATED 675 10^3/uL (150-450); RED BLOOD COUNT 2.81 10^6/uL (4.00-5.40); WHITE BLOOD COUNT 20.3 10^3/uL (4.0-10.0)
[2023-10-10 05:56] LABS: VANCOMYCIN RANDOM 13.3 UG/ML
[2023-10-10 06:04] LABS: CALCIUM LEVEL 8.4 MG/DL (8.5-10.1); CREATININE FOR GFR 2.81 MG/DL (0.55-1.30); GLOMERULAR FILTRATION RATE 18.5 (>51); POTASSIUM SERUM 4.1 MMOL/L (3.5-5.1)
[2023-10-10] MEDS: VANCOMYCIN HCL 1,000 MG, VIAL MATE ADAPTER 1 EACH in D5W 250 ML IV ONE (08:47)
[2023-10-10] MEDS: PERCOCET 5MG/325MG TAB PO PRN (10:21)
[2023-10-10] MEDS: SODIUM BICARBONATE 50 MEQ in NS 0.45% 1,000 ML IV SCH (12:19)
[2023-10-10] MEDS: VANCOMYCIN 125MG CAPSULE PO SCH (15:25)
[2023-10-10] MEDS: MORPHINE 4 MG/ML 1ML VIAL IV ONE (15:48)
[2023-10-10] MEDS: LACTOBACILLUS ACIDOPHILUS CAP (BACID) PO SCH (17:47)
[2023-10-10] MEDS ORDERED: MIDAZOLAM INJ 2MG/2ML VIAL As Ordered ONE (19:30)
[2023-10-10] MEDS ORDERED: fentaNYL 100 MCG/2 ML INJECTION As Ordered ONE (19:30)
[2023-10-10] MEDS ORDERED: LIDOCAINE 2% 100MG/5ML SDV (FOR ANES.) As Ordered ONE (19:31)
[2023-10-10] MEDS ORDERED: propofoL 200 MG/20 ML VIAL As Ordered ONE (19:31)
[2023-10-10] MEDS ORDERED: ONDANSETRON 4MG 2ML VIAL As Ordered ONE (20:32)
[2023-10-10] MEDS ORDERED: GENTAMICIN SULF 80MG/2ML VIAL As Ordered ONE (20:42)
[2023-10-10] MEDS: LIDOCAINE 2% MDV 20ML VIAL As Ordered ONE (21:12)
[2023-10-10] MEDS ORDERED: ACETAMINOPHEN 1000MG 100ML IV BAG As Ordered ONE (21:59)
[2023-10-10] MEDS ORDERED: SUGAMMADEX SODIUM 500 MG/5 ML VIAL (BRIDION) As Ordered ONE (22:02)
[2023-10-10] MEDS ORDERED: ROCURONIUM BROMIDE 50MG/5ML VIAL As Ordered ONE (22:02)
[2023-10-10] MEDS ORDERED: oxyCODONE 5MG TAB PO PRN (22:25)
[2023-10-10] MEDS ORDERED: DEXTROSE 50% 50ML SYRINGE IV PRN (22:25)
[2023-10-10] MEDS ORDERED: METOCLOPRAMIDE INJ 10MG/2ML VIAL IV PRN (22:25)
[2023-10-10] MEDS ORDERED: GLUCOSE 4GM CHEW TABLET PO PRN (22:25)
[2023-10-10] MEDS ORDERED: fentaNYL 100 MCG/2 ML INJECTION IV PRN (22:25)
[2023-10-10] MEDS ORDERED: ONDANSETRON 4MG 2ML VIAL IV PRN (22:25)
[2023-10-10] MEDS: LR 1,000 ML IV SCH (22:25)
[2023-10-10] MEDS ORDERED: INSULIN LISPRO (NovoLOG) PER UNIT SC PRN (22:25)
[2023-10-10] MEDS ORDERED: GLUCAGON INJ 1MG VIAL SC PRN (22:25)
[2023-10-11] VITALS (13 sets, daily range): BP systolic 108–159; BP diastolic 48–77; TEMP 97.3–97.9; O2SAT 91–97
[2023-10-11 07:01] LABS: IONIZED CALCIUM 4.8 MG/DL (4.5-5.3)
[2023-10-11 07:11] LABS: BASO # 0.1 10^3/uL (0.0-0.2); BASO % 0.4 % (0.0-1.0); EOS # 0.2 10^3/uL (0.0-0.5); EOS % 0.7 % (0.0-3.0); LYMPH % 4.7 % (24.0-44.0); MEAN CORPUSCULAR HEMOGLOBIN 27.4 pg (27.0-33.0); MEAN CORPUSCULAR HGB CONC 32.7 g/dl (32.0-36.5); MEAN CORPUSCULAR VOLUME 83.9 fl (80.0-96.0); MONO # 2.4 10^3/uL (0.0-0.8); NEUTROPHILS # 17.6 10^3/uL (1.5-8.5); NEUTROPHILS % 81.6 % (36.0-66.0); PLATELET COUNT, AUTOMATED 622 10^3/uL (150-450); RED BLOOD COUNT 2.48 10^6/uL (4.00-5.40); WHITE BLOOD COUNT 21.6 10^3/uL (4.0-10.0)
[2023-10-11 07:25] LABS: HEMATOCRIT 20.8 % (36.0-47.0); HEMOGLOBIN 6.8 g/dl (12.0-15.5)
[2023-10-11 07:30] LABS: CREATININE FOR GFR 1.59 MG/DL (0.55-1.30); GLOMERULAR FILTRATION RATE 35.8 (>51); MAGNESIUM LEVEL 1.8 MG/DL (1.8-2.4)
[2023-10-11] MEDS: MORPHINE 4 MG/ML 1ML VIAL IV PRN (10:02)
[2023-10-11] MEDS: VANCOMYCIN HCL 750 MG, VIAL MATE ADAPTER 1 EACH in D5W 250 ML IV SCH (10:03)
[2023-10-11 12:14] LABS: HEMOGLOBIN A1c 7.3 % (4.0-6.0)
[2023-10-12 06:00] VITALS: BP 147/62; TEMP 97.3; O2SAT 95
[2023-10-12 06:05] LABS: BASO # 0.1 10^3/uL (0.0-0.2); BASO % 0.5 % (0.0-1.0); EOS # 0.5 10^3/uL (0.0-0.5); EOS % 2.4 % (0.0-3.0); HEMATOCRIT 24.6 % (36.0-47.0); HEMOGLOBIN 7.9 g/dl (12.0-15.5); LYMPH # 1.6 10^3/uL (1.5-5.0); LYMPH % 8.3 % (24.0-44.0); MEAN CORPUSCULAR HEMOGLOBIN 27.8 pg (27.0-33.0); MEAN CORPUSCULAR HGB CONC 32.1 g/dl (32.0-36.5); MEAN CORPUSCULAR VOLUME 86.6 fl (80.0-96.0); MONO # 2.5 10^3/uL (0.0-0.8); MONO % 12.5 % (2.0-8.0); NEUTROPHILS # 14.3 10^3/uL (1.5-8.5); PLATELET COUNT, AUTOMATED 650 10^3/uL (150-450); RED BLOOD COUNT 2.84 10^6/uL (4.00-5.40); WHITE BLOOD COUNT 19.6 10^3/uL (4.0-10.0)
[2023-10-12 06:29] LABS: CALCIUM LEVEL 8.4 MG/DL (8.5-10.1); CREATININE FOR GFR 1.25 MG/DL (0.55-1.30); GLOMERULAR FILTRATION RATE 47.2 (>51); POTASSIUM SERUM 4.5 MMOL/L (3.5-5.1)
[2023-10-12] MEDS: LEVEMIR (INSULIN DETEMIR) 1 UNITS/0.01ML SC SCH (09:38)
[2023-10-12 09:40] LABS: VANCOMYCIN RANDOM 18.2 UG/ML
[2023-10-12 14:00] VITALS: BP 104/59; TEMP 97; O2SAT 92
[2023-10-12 14:30] VITALS: BP 140/62
[2023-10-12] MEDS: TORSEMIDE (DEMADEX) 50 MG PER 1/2 TAB PO ONE (15:50)
[2023-10-12 16:55] VITALS: BP 140/54
[2023-10-12] MEDS: MORPHINE 4 MG/ML 1ML VIAL IV PRN (21:55)
[2023-10-12 22:00] VITALS: BP 114/59; TEMP 97.3; O2SAT 92
[2023-10-12 23:45] VITALS: O2SAT 84
[2023-10-13] VITALS: O2SAT 94
[2023-10-13 06:00] VITALS: BP 111/57; TEMP 97.3; O2SAT 96
[2023-10-13 08:19] LABS: BASO # 0.1 10^3/uL (0.0-0.2); BASO % 0.6 % (0.0-1.0); EOS # 0.5 10^3/uL (0.0-0.5); EOS % 2.5 % (0.0-3.0); HEMATOCRIT 25.7 % (36.0-47.0); HEMOGLOBIN 8.2 g/dl (12.0-15.5); LYMPH # 1.3 10^3/uL (1.5-5.0); LYMPH % 6.9 % (24.0-44.0); MEAN CORPUSCULAR HEMOGLOBIN 27.7 pg (27.0-33.0); MEAN CORPUSCULAR HGB CONC 31.9 g/dl (32.0-36.5); MEAN CORPUSCULAR VOLUME 86.8 fl (80.0-96.0); MONO # 2.2 10^3/uL (0.0-0.8); MONO % 12.1 % (2.0-8.0); NEUTROPHILS # 13.9 10^3/uL (1.5-8.5); NEUTROPHILS % 76.1 % (36.0-66.0); PLATELET COUNT, AUTOMATED 756 10^3/uL (150-450); RED BLOOD COUNT 2.96 10^6/uL (4.00-5.40); WHITE BLOOD COUNT 18.2 10^3/uL (4.0-10.0)
[2023-10-13 08:50] LABS: CALCIUM LEVEL 8.4 MG/DL (8.5-10.1); CREATININE FOR GFR 1.14 MG/DL (0.55-1.30); GLOMERULAR FILTRATION RATE 52.5 (>51); POTASSIUM SERUM 4.6 MMOL/L (3.5-5.1)
[2023-10-13] MEDS: MIRALAX *UNIT DOSE* 17GM PACKET PO SCH (10:14)
[2023-10-13] MEDS: SENOKOT S TAB PO SCH (10:16)
[2023-10-13] MEDS: TORSEMIDE (DEMADEX) 50 MG PER 1/2 TAB PO SCH (10:17)
[2023-10-13] MEDS: MORPHINE 2 MG/ML 1ML VIAL IV PRN (10:19)
[2023-10-13] MEDS ORDERED: VANCOMYCIN INTERMITTENT/PULSE DOSING BY CLINICAL PHARMACIST PER DOSING PROTOCOL XX SCH (10:30)
[2023-10-13 14:00] VITALS: BP 103/53; TEMP 97.2; O2SAT 96
[2023-10-13] MEDS: DIGOXIN 0.25 MG TAB PO ONE ×2 (17:02→22:53)
[2023-10-13 19:27] VITALS: O2SAT 96
[2023-10-13] MEDS: VANCOMYCIN HCL 500 MG in D5W MINI-BAG PLUS 100 ML IV ONE (20:16)
[2023-10-13 22:00] VITALS: BP 131/62; TEMP 97.7; O2SAT 96
[2023-10-13] MEDS: CEFEPIME HCL 2 GM in D5W MINI-BAG PLUS 50 ML IV SCH (22:00)
[2023-10-14 05:45] LABS: BASO # 0.1 10^3/uL (0.0-0.2); BASO % 0.7 % (0.0-1.0); EOS # 0.4 10^3/uL (0.0-0.5); EOS % 2.6 % (0.0-3.0); HEMATOCRIT 27.1 % (36.0-47.0); HEMOGLOBIN 8.6 g/dl (12.0-15.5); LYMPH # 1.7 10^3/uL (1.5-5.0); LYMPH % 10.4 % (24.0-44.0); MEAN CORPUSCULAR HEMOGLOBIN 27.8 pg (27.0-33.0); MEAN CORPUSCULAR HGB CONC 31.7 g/dl (32.0-36.5); MEAN CORPUSCULAR VOLUME 87.7 fl (80.0-96.0); MONO # 2.3 10^3/uL (0.0-0.8); MONO % 13.5 % (2.0-8.0); NEUTROPHILS # 11.9 10^3/uL (1.5-8.5); NEUTROPHILS % 71.1 % (36.0-66.0); PLATELET COUNT, AUTOMATED 801 10^3/uL (150-450); RED BLOOD COUNT 3.09 10^6/uL (4.00-5.40); WHITE BLOOD COUNT 16.8 10^3/uL (4.0-10.0)
[2023-10-14 06:00] VITALS: BP 133/63; TEMP 97.2; O2SAT 98
[2023-10-14 06:11] LABS: CALCIUM LEVEL 8.5 MG/DL (8.5-10.1); CREATININE FOR GFR 1.39 MG/DL (0.55-1.30); GLOMERULAR FILTRATION RATE 41.8 (>51); POTASSIUM SERUM 4.8 MMOL/L (3.5-5.1)
[2023-10-14 10:00] VITALS: BP 117/54
[2023-10-14] MEDS: DIGOXIN 0.125 MG TAB PO SCH (10:47)
[2023-10-14] MEDS: TORSEMIDE 20 MG TAB PO SCH (10:59)
[2023-10-14 14:00] VITALS: BP 114/58; TEMP 97.3; O2SAT 96
[2023-10-14] MEDS: VANCOMYCIN HCL 500 MG in D5W MINI-BAG PLUS 100 ML IV ONE (16:03)
[2023-10-14 20:11] VITALS: BP 120/56; TEMP 97.3; O2SAT 95
[2023-10-14 21:48] VITALS: BP 93/58
[2023-10-15 05:49] LABS: BASO # 0.1 10^3/uL (0.0-0.2); BASO % 0.9 % (0.0-1.0); EOS # 0.4 10^3/uL (0.0-0.5); EOS % 2.6 % (0.0-3.0); HEMATOCRIT 26.5 % (36.0-47.0); HEMOGLOBIN 8.4 g/dl (12.0-15.5); LYMPH % 13.3 % (24.0-44.0); MEAN CORPUSCULAR HEMOGLOBIN 27.9 pg (27.0-33.0); MEAN CORPUSCULAR HGB CONC 31.7 g/dl (32.0-36.5); MONO # 1.8 10^3/uL (0.0-0.8); MONO % 12.3 % (2.0-8.0); NEUTROPHILS # 10.4 10^3/uL (1.5-8.5); PLATELET COUNT, AUTOMATED 852 10^3/uL (150-450); RED BLOOD COUNT 3.01 10^6/uL (4.00-5.40); WHITE BLOOD COUNT 14.9 10^3/uL (4.0-10.0)
[2023-10-15 06:16] LABS: VANCOMYCIN RANDOM 15.8 UG/ML
[2023-10-15 06:17] LABS: CALCIUM LEVEL 8.8 MG/DL (8.5-10.1); CREATININE FOR GFR 1.26 MG/DL (0.55-1.30); GLOMERULAR FILTRATION RATE 46.8 (>51); POTASSIUM SERUM 4.8 MMOL/L (3.5-5.1)
[2023-10-15 06:33] VITALS: BP 126/68; TEMP 97.5; O2SAT 95
[2023-10-15] MEDS: VANCOMYCIN HCL 750 MG, VIAL MATE ADAPTER 1 EACH in D5W 250 ML IV SCH (09:11)
[2023-10-15] MEDS: BISACODYL 10MG SUPP PR ONE (13:15)
[2023-10-15 14:00] VITALS: BP 124/50; TEMP 97.2; O2SAT 96
[2023-10-15 20:03] VITALS: BP 128/52; TEMP 97.3; O2SAT 93
[2023-10-15] MEDS: FAMOTIDINE 20 MG TAB PO SCH (21:14)
[2023-10-15] MEDS: APIXABAN 5 MG TAB (ELIQUIS) PO SCH (21:14)
[2023-10-15 23:08] VITALS: O2SAT 75
[2023-10-15 23:11] VITALS: O2SAT 95
[2023-10-16 05:00] VITALS: BP 129/56; TEMP 97.5; O2SAT 95
[2023-10-16 05:52] LABS: BASO # 0.1 10^3/uL (0.0-0.2); EOS # 0.3 10^3/uL (0.0-0.5); EOS % 2.3 % (0.0-3.0); HEMATOCRIT 27.4 % (36.0-47.0); HEMOGLOBIN 8.5 g/dl (12.0-15.5); MEAN CORPUSCULAR HEMOGLOBIN 27.4 pg (27.0-33.0); MEAN CORPUSCULAR VOLUME 88.4 fl (80.0-96.0); MONO # 1.7 10^3/uL (0.0-0.8); MONO % 13.7 % (2.0-8.0); NEUTROPHILS # 8.3 10^3/uL (1.5-8.5); NEUTROPHILS % 66.3 % (36.0-66.0); PLATELET COUNT, AUTOMATED 875 10^3/uL (150-450); WHITE BLOOD COUNT 12.5 10^3/uL (4.0-10.0)
[2023-10-16 06:27] LABS: CREATININE FOR GFR 1.37 MG/DL (0.55-1.30); GLOMERULAR FILTRATION RATE 42.5 (>51); POTASSIUM SERUM 4.8 MMOL/L (3.5-5.1)
[2023-10-16] MEDS: allopurinoL 300 MG TAB PO SCH (08:02)
[2023-10-16] MEDS: LEVEMIR (INSULIN DETEMIR) 1 UNITS/0.01ML SC SCH (08:02)
[2023-10-16] MEDS: DIGOXIN 0.25 MG TAB PO SCH (08:02)
[2023-10-16 14:00] VITALS: BP 104/52; TEMP 97.3; O2SAT 88
[2023-10-16 19:05] VITALS: O2SAT 96
[2023-10-16 19:16] VITALS: BP 120/58; TEMP 97.3; O2SAT 94
[2023-10-16 21:05] VITALS: O2SAT 93
[2023-10-17 04:19] VITALS: O2SAT 91
[2023-10-17 05:13] VITALS: BP 130/68; TEMP 97.3; O2SAT 94
[2023-10-17 08:00] VITALS: BP 109/56; TEMP 97.3; O2SAT 94
[2023-10-17] MEDS: MORPHINE 30 MG TAB **MSIR PO PRN (14:35)
[2023-10-17 14:48] VITALS: BP 113/58; TEMP 97.5; O2SAT 93
[2023-10-17] MEDS: EMLA CREAM 5GM TUBE (LIDOCAINE/PRILOCAINE) TOP ONE (17:30)
[2023-10-17] MEDS: AUGMENTIN 500MG TAB PO SCH (20:28)
[2023-10-17 22:18] VITALS: O2SAT 96
[2023-10-18 06:00] VITALS: BP 128/55; TEMP 97.5; O2SAT 93
[2023-10-18 06:19] LABS: CALCIUM LEVEL 9.2 MG/DL (8.5-10.1); CREATININE FOR GFR 1.7 MG/DL (0.55-1.30); GLOMERULAR FILTRATION RATE 33.1 (>51)
[2023-10-18 06:24] LABS: DIGOXIN LEVEL 1.5 NG/ML (0.8-2.0)
[2023-10-18] MEDS: DIGOXIN 0.125 MG TAB PO SCH (08:38)
[2023-10-18 09:01] LABS: C REACTIVE PROTEIN QUANTITATIV 6.1 MG/DL (<1.0)
[2023-10-18] MEDS: PERCOCET 5MG/325MG TAB PO PRN (12:07)
[2023-10-18] MEDS: diphenhydrAMINE 25MG CAP PO PRN (12:07)
[2023-10-18 14:00] VITALS: BP 127/85; TEMP 97.5; O2SAT 95
[2023-10-18 20:10] VITALS: BP 118/36; TEMP 97.5; O2SAT 95
[2023-10-19 05:18] VITALS: BP 118/84; TEMP 97.5
[2023-10-19] MEDS: LACTIC ACID 12% LOTION 225 GM BTL EXT SCH (08:05)
[2023-10-19 14:00] VITALS: BP 120/52; TEMP 97.7; O2SAT 96
[2023-10-19 20:15] VITALS: BP 117/38; TEMP 97.7; O2SAT 96
[2023-10-20 05:10] VITALS: BP 111/76; TEMP 97.5; O2SAT 95
[2023-10-20 05:51] LABS: BASO # 0.2 10^3/uL (0.0-0.2); BASO % 1.8 % (0.0-1.0); EOS # 0.3 10^3/uL (0.0-0.5); EOS % 3.4 % (0.0-3.0); HEMATOCRIT 26.1 % (36.0-47.0); HEMOGLOBIN 7.8 g/dl (12.0-15.5); LYMPH # 1.8 10^3/uL (1.5-5.0); LYMPH % 20.1 % (24.0-44.0); MEAN CORPUSCULAR HGB CONC 29.9 g/dl (32.0-36.5); MEAN CORPUSCULAR VOLUME 90.3 fl (80.0-96.0); MONO # 1.6 10^3/uL (0.0-0.8); MONO % 17.8 % (2.0-8.0); NEUTROPHILS # 5.1 10^3/uL (1.5-8.5); NEUTROPHILS % 56.5 % (36.0-66.0); PLATELET COUNT, AUTOMATED 818 10^3/uL (150-450); RED BLOOD COUNT 2.89 10^6/uL (4.00-5.40); WHITE BLOOD COUNT 9.1 10^3/uL (4.0-10.0)
[2023-10-20 06:16] LABS: CALCIUM LEVEL 8.9 MG/DL (8.5-10.1); CREATININE FOR GFR 1.86 MG/DL (0.55-1.30); GLOMERULAR FILTRATION RATE 29.8 (>51); POTASSIUM SERUM 4.9 MMOL/L (3.5-5.1)
[2023-10-20 14:00] VITALS: BP 112/48; TEMP 97.5; O2SAT 98
[2023-10-20] MEDS: MORPHINE 30 MG TAB **MSIR PO PRN (17:30)
[2023-10-20 20:28] VITALS: BP 122/58; TEMP 97.3; O2SAT 97
[2023-10-21 05:43] VITALS: BP 133/58; TEMP 97.2; O2SAT 98
[2023-10-21 14:00] VITALS: BP 113/96; TEMP 97.5; O2SAT 91
[2023-10-21 20:00] VITALS: BP 117/94; TEMP 97.5; O2SAT 94
[2023-10-22 06:11] LABS: BASO # 0.2 10^3/uL (0.0-0.2); BASO % 1.8 % (0.0-1.0); EOS # 0.3 10^3/uL (0.0-0.5); EOS % 3.5 % (0.0-3.0); HEMOGLOBIN 8.2 g/dl (12.0-15.5); LYMPH # 2.2 10^3/uL (1.5-5.0); LYMPH % 27.2 % (24.0-44.0); MEAN CORPUSCULAR HEMOGLOBIN 26.8 pg (27.0-33.0); MEAN CORPUSCULAR HGB CONC 29.3 g/dl (32.0-36.5); MEAN CORPUSCULAR VOLUME 91.5 fl (80.0-96.0); MONO # 1.4 10^3/uL (0.0-0.8); MONO % 16.5 % (2.0-8.0); NEUTROPHILS # 4.2 10^3/uL (1.5-8.5); NEUTROPHILS % 50.8 % (36.0-66.0); PLATELET COUNT, AUTOMATED 855 10^3/uL (150-450); RED BLOOD COUNT 3.06 10^6/uL (4.00-5.40); WHITE BLOOD COUNT 8.2 10^3/uL (4.0-10.0)
[2023-10-22 06:17] VITALS: BP 118/76; TEMP 97.7; O2SAT 91
[2023-10-22 06:38] LABS: CALCIUM LEVEL 8.8 MG/DL (8.5-10.1); CREATININE FOR GFR 1.8 MG/DL (0.55-1.30); DIGOXIN LEVEL 1.6 NG/ML (0.8-2.0)
[2023-10-22 14:00] VITALS: BP 122/63; TEMP 97.2; O2SAT 94
[2023-10-22 19:30] VITALS: O2SAT 96
[2023-10-22 19:36] VITALS: BP 123/61; TEMP 97.7; O2SAT 94
[2023-10-23 05:30] VITALS: BP 126/52; TEMP 97.2; O2SAT 91
[2023-10-23 06:30] LABS: CALCIUM LEVEL 8.6 MG/DL (8.5-10.1); CREATININE FOR GFR 1.92 MG/DL (0.55-1.30); GLOMERULAR FILTRATION RATE 28.8 (>51); POTASSIUM SERUM 4.6 MMOL/L (3.5-5.1)
[2023-10-23] MEDS: LR 1,000 ML IV SCH (12:14)
[2023-10-23 14:00] VITALS: BP 141/54; TEMP 97.7; O2SAT 95
[2023-10-23] MEDS: MAALOX 30 ML SUSP *UDC PO PRN (14:05)
[2023-10-23] MEDS: ONDANSETRON 4MG ORAL DISINTEGRATING TAB SL PRN (14:05)
[2023-10-23 19:12] VITALS: O2SAT 90
[2023-10-23 20:16] VITALS: BP 137/54; TEMP 97.7; O2SAT 96
[2023-10-24 05:09] VITALS: BP 135/54; TEMP 97.7; O2SAT 90
[2023-10-24 06:47] LABS: HEMOGLOBIN 7.9 g/dl (12.0-15.5); MEAN CORPUSCULAR HGB CONC 29.3 g/dl (32.0-36.5); MEAN CORPUSCULAR VOLUME 92.2 fl (80.0-96.0); PLATELET COUNT, AUTOMATED 787 10^3/uL (150-450); RED BLOOD COUNT 2.93 10^6/uL (4.00-5.40); WHITE BLOOD COUNT 7.7 10^3/uL (4.0-10.0)
[2023-10-24 07:56] LABS: CALCIUM LEVEL 8.8 MG/DL (8.5-10.1); CREATININE FOR GFR 1.66 MG/DL (0.55-1.30); POTASSIUM SERUM 6.3 MMOL/L (3.5-5.1)
[2023-10-24] MEDS: CALCIUM GLUCONATE 1,000 MG in D5W MINI-BAG PLUS 100 ML IV ONE (08:37)
[2023-10-24] MEDS: FUROSEMIDE 40MG/4ML VIAL IV ONE (09:02)
[2023-10-24] MEDS: HumuLIN R (REGULAR) INSULIN (NovoLIN R) **100U/ML** PER UNIT IV STA (09:07)
[2023-10-24] MEDS: DEXTROSE 50% 50ML SYRINGE IV STA (09:07)
[2023-10-24 10:51] LABS: DIGOXIN LEVEL 1.7 NG/ML (0.8-2.0)
[2023-10-24 10:54] LABS: CALCIUM LEVEL 8.7 MG/DL (8.5-10.1); CREATININE FOR GFR 1.55 MG/DL (0.55-1.30); GLOMERULAR FILTRATION RATE 36.8 (>51); POTASSIUM SERUM 4.9 MMOL/L (3.5-5.1)
[2023-10-24] MEDS: PATIROMER SORBITEX CALCIUM 8.4 GM POWDER PACKET (VELTASSA) PO ONE (14:23)
[2023-10-24 22:00] VITALS: BP 119/51; TEMP 97.9; O2SAT 94
[2023-10-24 22:49] VITALS: BP 113/47; TEMP 97.7; O2SAT 94
[2023-10-25 06:00] VITALS: BP 133/58; TEMP 97.5; O2SAT 89
[2023-10-25 07:59] VITALS: BP 135/58
[2023-10-25 08:01] VITALS: BP 135/58
[2023-10-25 08:37] LABS: CALCIUM LEVEL 9.1 MG/DL (8.5-10.1); CREATININE FOR GFR 1.58 MG/DL (0.55-1.30); GLOMERULAR FILTRATION RATE 35.9 (>51); POTASSIUM SERUM 5.7 MMOL/L (3.5-5.1)
[2023-10-25] MEDS ORDERED: MIRA3350 PO (11:20)
[2023-10-25] MEDS ORDERED: TORS20TA2 PO (11:20)
[2023-10-25] MEDS ORDERED: OXYC-1 PO (11:20)
[2023-10-25] MEDS ORDERED: SENN-52 PO (11:20)
[2023-10-25] MEDS ORDERED: VANC1CAP6 PO (11:20)
[2023-10-25] MEDS ORDERED: INSUHUMDS SC ×3 (11:20)
[2023-10-25] MEDS ORDERED: AMOX500T2 PO (11:20)
[2023-10-25] MEDS ORDERED: CARV25TA PO (11:20)
[2023-10-25] MEDS ORDERED: TIOT18INH INH (11:20)
[2023-10-25] MEDS ORDERED: DIGO0.123 PO (11:20)
[2023-10-25] MEDS ORDERED: INSUR50VL SC ×2 (11:20)
[2023-10-25] MEDS: PATIROMER SORBITEX CALCIUM 8.4 GM POWDER PACKET (VELTASSA) PO ONE (12:58)
[2023-10-25 14:00] VITALS: BP 134/53; TEMP 97.3; O2SAT 97
== END 2023-10-25 15:24 | disposition home health service (06) | DRG 854 ==
LOC: M ED 15:14 → EDBD 15:14 → M ED INP 20:14 → M PCU 10-09 01:01 → M MSPAV 10-10 16:20
PROVIDERS: ADMIT Internal Medicine; ATTEND Student in an Organized Health Care Education/Training Program
PROC: 30233N1 Transfusion of Nonautologous Red Blood Cells into Peripheral Vein, Percutaneous Approach (ICD-10-PCS; 2023-10-09)
PROC: 0KBV0ZZ Excision of Right Foot Muscle, Open Approach (ICD-10-PCS; 2023-10-10)
PROC: 0KBW0ZZ Excision of Left Foot Muscle, Open Approach (ICD-10-PCS; principal; 2023-10-10 18:30)
DX: A41.9 Sepsis, unspecified organism (principal); J96.11 Chronic respiratory failure with hypoxia; N17.9 Acute kidney failure, unspecified; R04.2 Hemoptysis; L03.115 Cellulitis of right lower limb; L03.116 Cellulitis of left lower limb; Z68.44 Body mass index [BMI] 60.0-69.9, adult; I48.20 Chronic atrial fibrillation, unspecified; E87.20 Acidosis, unspecified; F11.20 Opioid dependence, uncomplicated; N39.0 Urinary tract infection, site not specified; C34.2 Malignant neoplasm of middle lobe, bronchus or lung; N18.4 Chronic kidney disease, stage 4 (severe); E87.1 Hypo-osmolality and hyponatremia; J44.9 Chronic obstructive pulmonary disease, unspecified; E11.22 Type 2 diabetes mellitus with diabetic chronic kidney disease; I12.9 Hypertensive chronic kidney disease with stage 1 through stage 4 chronic kidney disease, or unspecified chronic kidney disease; J45.909 Unspecified asthma, uncomplicated; D47.3 Essential (hemorrhagic) thrombocythemia; M10.9 Gout, unspecified; E86.0 Dehydration; G47.33 Obstructive sleep apnea (adult) (pediatric); I87.2 Venous insufficiency (chronic) (peripheral); M48.04 Spinal stenosis, thoracic region; M54.17 Radiculopathy, lumbosacral region; Z79.01 Long term (current) use of anticoagulants; M19.90 Unspecified osteoarthritis, unspecified site; G89.29 Other chronic pain; I89.0 Lymphedema, not elsewhere classified; I27.20 Pulmonary hypertension, unspecified; E21.1 Secondary hyperparathyroidism, not elsewhere classified; E87.70 Fluid overload, unspecified; B96.1 Klebsiella pneumoniae [K. pneumoniae] as the cause of diseases classified elsewhere; E11.621 Type 2 diabetes mellitus with foot ulcer; L97.529 Non-pressure chronic ulcer of other part of left foot with unspecified severity; L97.519 Non-pressure chronic ulcer of other part of right foot with unspecified severity; E87.5 Hyperkalemia; I87.8 Other specified disorders of veins; Z92.3 Personal history of irradiation; Z79.4 Long term (current) use of insulin; E66.01 Morbid (severe) obesity due to excess calories; F41.9 Anxiety disorder, unspecified; F32.A Depression, unspecified; K21.9 Gastro-esophageal reflux disease without esophagitis; G43.909 Migraine, unspecified, not intractable, without status migrainosus; D63.1 Anemia in chronic kidney disease; K59.00 Constipation, unspecified; Z91.040 Latex allergy status; Z88.6 Allergy status to analgesic agent; Z79.899 Other long term (current) drug therapy; Z79.82 Long term (current) use of aspirin; Z87.891 Personal history of nicotine dependence; Z90.81 Acquired absence of spleen; Z86.16 Personal history of COVID-19; K57.90 Diverticulosis of intestine, part unspecified, without perforation or abscess without bleeding

== ENCOUNTER → 2023-10-31 | Outpatient (REF) | payer MEDICARE, MEDICAID ==
[~2023-10-31] MED LIST changes: +AMOX500T2 PO; +BUSP10TA79 PO; +BUSP15TA47 PO; +DIGO0.123 PO; +MIRA3350 PO; +OXYC-1 PO; +SENN-52 PO; +TORS20TA2 PO; +VANC1CAP6 PO
== END ==
LOC: M SFHCADAM 10:54
PROVIDERS: ATTEND Physician Assistant
DX: I95.9 Hypotension, unspecified (principal); I48.91 Unspecified atrial fibrillation; E87.5 Hyperkalemia; D63.8 Anemia in other chronic diseases classified elsewhere; Z86.19 Personal history of other infectious and parasitic diseases; I89.0 Lymphedema, not elsewhere classified; E11.22 Type 2 diabetes mellitus with diabetic chronic kidney disease; N18.32 Chronic kidney disease, stage 3b

== ENCOUNTER → 2023-11-04 | Outpatient (REF) | payer MEDICARE, MEDICAID ==
[2023-11-04 12:17] LABS: FERRITIN 16.4 NG/ML (7.3-270.7)
[2023-11-04 12:19] LABS: FOLATE > 24.0 NG/ML (>5.4)
[2023-11-04 12:22] LABS: VITAMIN B12 LEVEL 632 PG/ML (211-911)
[2023-11-04 12:23] LABS: DIGOXIN LEVEL 1.9 NG/ML (0.8-2.0); IRON (FE) 17 UG/DL (50-170)
[2023-11-04 12:26] LABS: PERCENT SATURATION 4.9 % (13.2-45.0); TOTAL IRON BINDING CAPACITY 344 UG/DL (250-425)
== END ==
LOC: M LAB REF 11:01
PROVIDERS: ATTEND Physician Assistant
DX: I95.9 Hypotension, unspecified (principal); I48.91 Unspecified atrial fibrillation; E78.5 Hyperlipidemia, unspecified; I89.0 Lymphedema, not elsewhere classified; N18.32 Chronic kidney disease, stage 3b; D63.8 Anemia in other chronic diseases classified elsewhere; Z86.19 Personal history of other infectious and parasitic diseases; E11.22 Type 2 diabetes mellitus with diabetic chronic kidney disease

== ENCOUNTER → 2023-11-04 | Outpatient (REF) | payer MEDICARE, MEDICAID | LOC: M LAB REF 10:48 | PROVIDERS: ATTEND Internal Medicine Nephrology | DX: D50.9 Iron deficiency anemia, unspecified (principal); N18.32 Chronic kidney disease, stage 3b; I95.9 Hypotension, unspecified; I48.91 Unspecified atrial fibrillation; E78.5 Hyperlipidemia, unspecified; I89.0 Lymphedema, not elsewhere classified; D63.8 Anemia in other chronic diseases classified elsewhere; E11.22 Type 2 diabetes mellitus with diabetic chronic kidney disease; Z86.19 Personal history of other infectious and parasitic diseases ==

== ENCOUNTER 2023-11-07 08:49 | Inpatient (IN) | payer MEDICARE, MEDICAID ==
[2023-11-07] VITALS (12 sets, daily range): BP systolic 114–166; BP diastolic 52–74; TEMP 97.7–99.7; O2SAT 90–98
[~2023-11-07] VITALS: Ht 175.3 cm; Wt 157.7 kg
[2023-11-07 09:20] LABS: VENOUS BASE EXCESS 4.9 (-2.0-2.0); VENOUS HCO3 31.1 MMOL/L (23.0-27.0); VENOUS O2 SATURATION 77.2 % (60.0-80.0); VENOUS PARTIAL PRESSURE CO2 56.1 mmHg (38.0-50.0); VENOUS PARTIAL PRESSURE O2 43.2 mmHg (30.0-50.0); VENOUS PH 7.362 UNITS (7.330-7.430); VENOUS STANDARD HCO3 28.6 MMOL/L; VENOUS TOTAL CO2 32.8 MMOL/L (24.0-28.0)
[2023-11-07 09:26] LABS: BASO # 0.2 10^3/uL (0.0-0.2); BASO % 1.1 % (0.0-1.0); EOS # 0.3 10^3/uL (0.0-0.5); EOS % 1.7 % (0.0-3.0); HEMATOCRIT 26.2 % (36.0-47.0); HEMOGLOBIN 7.9 g/dl (12.0-15.5); LYMPH # 1.9 10^3/uL (1.5-5.0); LYMPH % 11.5 % (24.0-44.0); MEAN CORPUSCULAR HEMOGLOBIN 26.3 pg (27.0-33.0); MEAN CORPUSCULAR HGB CONC 30.2 g/dl (32.0-36.5); MEAN CORPUSCULAR VOLUME 87.3 fl (80.0-96.0); MONO # 1.7 10^3/uL (0.0-0.8); MONO % 10.1 % (2.0-8.0); NEUTROPHILS # 12.3 10^3/uL (1.5-8.5); PLATELET COUNT, AUTOMATED 625 10^3/uL (150-450); WHITE BLOOD COUNT 16.4 10^3/uL (4.0-10.0)
[2023-11-07 09:38] LABS: INR 1.52; PROTHROMBIN TIME 17.8 SECONDS (12.5-14.5)
[2023-11-07 09:51] LABS: ETHYL ALCOHOL (ETHANOL) < 0.003 % (0.000-0.010)
[2023-11-07 09:53] LABS: ALBUMIN 2.2 G/DL (3.2-5.2); ALKALINE PHOSPHATASE 85 U/L (46-116); ALT/SGPT 15 U/L (7.0-40); AST/SGOT 10 U/L (<34); BILIRUBIN,DIRECT < 0.1 MG/DL (<0.4); BILIRUBIN,TOTAL 0.2 MG/DL (0.3-1.2); BLOOD UREA NITROGEN 35 MG/DL (9-23); CALCIUM LEVEL 8.7 MG/DL (8.5-10.1); CARBON DIOXIDE LEVEL 31 MMOL/L (20-31); CHLORIDE LEVEL 103 MMOL/L (98-107); CREATININE FOR GFR 1.94 MG/DL (0.55-1.30); GLOMERULAR FILTRATION RATE 28.3 (>51); GLUCOSE, FASTING 215 MG/DL (60-100); POTASSIUM SERUM 4.9 MMOL/L (3.5-5.1); SALICYLATE LEVEL < 3.0 MG/DL (<30); SODIUM LEVEL 138 MMOL/L (136-145); TOTAL PROTEIN 6.6 G/DL (5.7-8.2)
[2023-11-07 09:55] LABS: THYROID STIMULATING HORMONE 1.646 uIU/ML (0.55-4.78)
[2023-11-07 10:02] LABS: AMPHETAMINES LEVEL URINE NEGATIVE (NEGATIVE); BARBITURATES URINE NEGATIVE (NEGATIVE); BENZODIAZEPINES URINE NEGATIVE (NEGATIVE); COCAINE METABOLITE URINE NEGATIVE (NEGATIVE); METHADONE URINE NEGATIVE (NEGATIVE); OPIATES URINE NEGATIVE (NEGATIVE); PHENCYCLIDINE URINE NEGATIVE (NEGATIVE)
[2023-11-07 10:03] LABS: CANNABINOIDS URINE NEGATIVE (NEGATIVE)
[2023-11-07] MEDS: cefTRIAXone SOD 1 GM in D5W MINI-BAG PLUS 50 ML IV ONE (11:36)
[2023-11-07] MEDS ORDERED: CARV12.5 PO (11:44)
[2023-11-07] MEDS ORDERED: CARV25TA PO (11:44)
[2023-11-07] MEDS ORDERED: DIGO0.123 PO (11:53)
[2023-11-07] MEDS ORDERED: TORS20TA2 PO (12:06)
[2023-11-07] MEDS ORDERED: SENN-122 PO (12:06)
[2023-11-07] MEDS ORDERED: SPIR1CAP INH (12:06)
[2023-11-07] MEDS ORDERED: OXYC-1 PO (12:06)
[2023-11-07] MEDS ORDERED: POLY17PO18 PO (12:06)
[2023-11-07] MEDS ORDERED: HOME MED LIST COMPLETE! XX SCH (12:10)
[2023-11-07] MEDS ORDERED: CEFEPIME HCL 1 GM in D5W MINI-BAG PLUS 50 ML IV SCH (12:45)
[2023-11-07] MEDS ORDERED: MOM 30ML SUSPENSION UDC PO PRN (12:45)
[2023-11-07] MEDS ORDERED: HEPARIN SOD (PORCINE) 5000UNITS/ML 1ML VIAL/SYRINGE SC SCH (12:45)
[2023-11-07] MEDS ORDERED: ACETAMINOPHEN TAB 650MG DOSE (2X325MG) PO PRN (12:45)
[2023-11-07] MEDS: ALBUTEROL SULFATE 2.5MG/0.5ML INH NEB SOLN INH SCH (13:17)
[2023-11-07 13:23] LABS: PROCALCITONIN 0.13 ng/ml
[2023-11-07] MEDS ORDERED: MIRALAX *UNIT DOSE* 17GM PACKET PO PRN (13:35)
[2023-11-07] MEDS ORDERED: tiZANidine 4 MG TAB PO PRN (13:35)
[2023-11-07] MEDS ORDERED: GLUCOSE 4GM CHEW TABLET PO PRN (13:35)
[2023-11-07] MEDS ORDERED: ALBUTEROL 90 MCG/ACT 8GM HFA INHALER INH PRN (13:35)
[2023-11-07] MEDS ORDERED: SENOKOT S TAB PO PRN (13:35)
[2023-11-07] MEDS ORDERED: DEXTROSE 50% 50ML SYRINGE IV PRN (13:35)
[2023-11-07] MEDS ORDERED: GLUCAGON INJ 1MG VIAL SC PRN (13:35)
[2023-11-07] MEDS: CEFEPIME HCL 2 GM in D5W MINI-BAG PLUS 50 ML IV SCH (14:38)
[2023-11-07] MEDS ORDERED: LIDOCAINE 1% MDV 20ML VIAL SC ONE (16:10)
[2023-11-07] MEDS ORDERED: LIDOCAINE 2% MDV 20ML VIAL As Ordered ONE (16:11)
[2023-11-07] MEDS: LIDOCAINE 2% MDV 20ML VIAL SC ONE (16:41)
[2023-11-07] MEDS: VANCOMYCIN 125MG CAPSULE PO SCH (18:06)
[2023-11-07] MEDS: busPIRone 10 MG TAB PO SCH (18:06)
[2023-11-07] MEDS: INSULIN LISPRO (NovoLOG) PER UNIT SC SCH ×3 (18:51→21:00)
[2023-11-07] MEDS: PEN NEEDLE (USE WITH HUMULIN U-500 INSULIN PEN) XX SCH (18:52)
[2023-11-07] MEDS: HUMULIN R U-500 KWIKPEN 500UNITS/ML 3ML SYRINGE SC SCH (18:52)
[2023-11-07] MEDS: SYMBICORT 160/4.5MCG INHALER 6GM INH SCH (19:49)
[2023-11-07] MEDS: CARVedilol 12.5 MG TAB PO SCH (20:57)
[2023-11-07] MEDS: ALPRAZolam 0.25 MG TAB PO SCH (20:57)
[2023-11-07] MEDS: FAMOTIDINE 20 MG TAB PO SCH (20:57)
[2023-11-07] MEDS: LACTOBACILLUS ACIDOPHILUS CAP (BACID) PO SCH (20:57)
[2023-11-07] MEDS ORDERED: CARVedilol 12.5 MG TAB PO SCH (21:00)
[2023-11-07] MEDS: DOCUSATE SODIUM 100MG CAPSULE PO SCH (21:00)
[2023-11-07] MEDS ORDERED: BUMETANIDE 1 MG TAB PO SCH (21:00)
[2023-11-08 01:25] VITALS: O2SAT 90
[2023-11-08 05:46] VITALS: BP 162/70; TEMP 98.1; O2SAT 92
[2023-11-08 06:54] LABS: HEMATOCRIT 31.6 % (36.0-47.0); HEMOGLOBIN 9.6 g/dl (12.0-15.5); MEAN CORPUSCULAR HEMOGLOBIN 26.6 pg (27.0-33.0); MEAN CORPUSCULAR HGB CONC 30.4 g/dl (32.0-36.5); MEAN CORPUSCULAR VOLUME 87.5 fl (80.0-96.0); PLATELET COUNT, AUTOMATED 595 10^3/uL (150-450); RED BLOOD COUNT 3.61 10^6/uL (4.00-5.40)
[2023-11-08 07:19] LABS: CALCIUM LEVEL 8.7 MG/DL (8.5-10.1); CREATININE FOR GFR 1.67 MG/DL (0.55-1.30); GLOMERULAR FILTRATION RATE 33.7 (>51); POTASSIUM SERUM 4.5 MMOL/L (3.5-5.1)
[2023-11-08] MEDS: TIOTROPIUM INHALER/CAPSULE (SPIRIVA) INH SCH (07:25)
[2023-11-08 08:02] LABS: C REACTIVE PROTEIN QUANTITATIV 9.2 MG/DL (<1.0)
[2023-11-08 08:35] LABS: ERYTHROCYTE SEDIMENTATION RATE > 130 mm/hr (0-30)
[2023-11-08] MEDS: ASPIRIN 81MG ENTERIC TABLET PO SCH (08:53)
[2023-11-08] MEDS: CALCITRIOL 0.25 MCG CAP (S0169) PO SCH (08:53)
[2023-11-08] MEDS: oxyCODONE 5MG TAB PO PRN (08:54)
[2023-11-08] MEDS: OMEPRAZOLE 20MG CAP PO SCH (08:54)
[2023-11-08] MEDS: SERTRALINE 100 MG TAB PO SCH (08:54)
[2023-11-08] MEDS: DIGOXIN 0.125 MG TAB PO SCH (08:59)
[2023-11-08] MEDS ORDERED: TORSEMIDE 20 MG TAB PO SCH (09:00)
[2023-11-08] MEDS ORDERED: CARVedilol 12.5 MG TAB PO ONE (10:00)
[2023-11-08 10:13] VITALS: BP 116/49
[2023-11-08] MEDS: INSULIN LISPRO (NovoLOG) PER UNIT SC SCH (12:16)
[2023-11-08 14:00] VITALS: BP 149/65; TEMP 98.2; O2SAT 95
[2023-11-08] MEDS: NORCO, ANEXSIA 5/325MG TABLET (HYDROcodone/ACETAMINOPHEN) PO PRN (18:33)
[2023-11-08 20:23] VITALS: BP 156/72; TEMP 98.6; O2SAT 94
[2023-11-08] MEDS: CARVedilol 12.5 MG TAB PO SCH (20:26)
[2023-11-08] MEDS ORDERED: CARVedilol 12.5 MG TAB PO SCH (21:00)
[2023-11-09] VITALS (8 sets, daily range): BP systolic 168–175; BP diastolic 52–66; TEMP 97.7–98.6; O2SAT 85–94
[2023-11-09 07:52] LABS: HEMATOCRIT 29.9 % (36.0-47.0); HEMOGLOBIN 9.1 g/dl (12.0-15.5); MEAN CORPUSCULAR HEMOGLOBIN 27.1 pg (27.0-33.0); MEAN CORPUSCULAR HGB CONC 30.4 g/dl (32.0-36.5); PLATELET COUNT, AUTOMATED 556 10^3/uL (150-450); RED BLOOD COUNT 3.36 10^6/uL (4.00-5.40); WHITE BLOOD COUNT 17.4 10^3/uL (4.0-10.0)
[2023-11-09 08:19] LABS: CREATININE FOR GFR 1.25 MG/DL (0.55-1.30); POTASSIUM SERUM 4.6 MMOL/L (3.5-5.1)
[2023-11-09] MEDS: LevoFLOXacin 750 MG TABLET PO ONE (09:17)
[2023-11-09] MEDS: HUMULIN R U-500 KWIKPEN 500UNITS/ML 3ML SYRINGE SC SCH (09:17)
[2023-11-09] MEDS: APIXABAN 5 MG TAB (ELIQUIS) PO SCH (09:18)
[2023-11-09 10:46] LABS: C REACTIVE PROTEIN QUANTITATIV 9.9 MG/DL (<1.0)
[2023-11-09 10:55] LABS: PROCALCITONIN 0.09 ng/ml
[2023-11-09] MEDS: CARVedilol 12.5 MG TAB PO ONE (11:33)
[2023-11-09] MEDS: TORSEMIDE 20 MG TAB PO SCH (11:33)
[2023-11-09] MEDS: CARVedilol 12.5 MG TAB PO SCH (21:27)
[2023-11-09] MEDS: cloNIDine 0.2 MG TAB PO ONE (23:10)
[2023-11-10 02:07] VITALS: BP 119/51
[2023-11-10 05:40] VITALS: BP 146/69; TEMP 97.3; O2SAT 88
[2023-11-10 06:45] LABS: BASO # 0.1 10^3/uL (0.0-0.2); BASO % 1.1 % (0.0-1.0); EOS # 0.5 10^3/uL (0.0-0.5); EOS % 3.9 % (0.0-3.0); HEMATOCRIT 29.6 % (36.0-47.0); LYMPH # 2.2 10^3/uL (1.5-5.0); LYMPH % 16.4 % (24.0-44.0); MEAN CORPUSCULAR HEMOGLOBIN 27.1 pg (27.0-33.0); MEAN CORPUSCULAR HGB CONC 30.4 g/dl (32.0-36.5); MEAN CORPUSCULAR VOLUME 89.2 fl (80.0-96.0); MONO # 1.4 10^3/uL (0.0-0.8); MONO % 10.8 % (2.0-8.0); NEUTROPHILS # 8.9 10^3/uL (1.5-8.5); NEUTROPHILS % 67.3 % (36.0-66.0); PLATELET COUNT, AUTOMATED 556 10^3/uL (150-450); RED BLOOD COUNT 3.32 10^6/uL (4.00-5.40); WHITE BLOOD COUNT 13.3 10^3/uL (4.0-10.0)
[2023-11-10 07:11] LABS: CALCIUM LEVEL 8.7 MG/DL (8.5-10.1); CREATININE FOR GFR 1.32 MG/DL (0.55-1.30); GLOMERULAR FILTRATION RATE 44.2 (>51); POTASSIUM SERUM 4.5 MMOL/L (3.5-5.1)
[2023-11-10] MEDS ORDERED: VANC1CAP6 PO (08:09)
[2023-11-10] MEDS ORDERED: LEVO1TAB40 PO (08:09)
[2023-11-10 08:27] VITALS: BP 152/69
[2023-11-11] MEDS ORDERED: LevoFLOXacin 750 MG TABLET PO SCH (06:00)
== END 2023-11-10 10:59 | disposition home or self-care (01) | DRG 982 ==
LOC: M ED 08:49 → EDBD 08:49 → M ED INP 12:44 → ENRESERVDT 15:59 → ENRESERVTM 15:59 → M MSPAV 16:56
PROVIDERS: ADMIT Student in an Organized Health Care Education/Training Program; ATTEND Internal Medicine
PROC: 0LBV0ZZ Excision of Right Foot Tendon, Open Approach (ICD-10-PCS; principal; 2023-11-07)
PROC: 0LBW0ZZ Excision of Left Foot Tendon, Open Approach (ICD-10-PCS; 2023-11-07)
PROC: 30233N1 Transfusion of Nonautologous Red Blood Cells into Peripheral Vein, Percutaneous Approach (ICD-10-PCS; 2023-11-07)
DX: J15.69 Pneumonia due to other Gram-negative bacteria (principal); N18.4 Chronic kidney disease, stage 4 (severe); J96.11 Chronic respiratory failure with hypoxia; N17.9 Acute kidney failure, unspecified; N39.0 Urinary tract infection, site not specified; L97.529 Non-pressure chronic ulcer of other part of left foot with unspecified severity; L97.519 Non-pressure chronic ulcer of other part of right foot with unspecified severity; I48.91 Unspecified atrial fibrillation; D63.1 Anemia in chronic kidney disease; E11.22 Type 2 diabetes mellitus with diabetic chronic kidney disease; Z99.81 Dependence on supplemental oxygen; I89.0 Lymphedema, not elsewhere classified; Z85.118 Personal history of other malignant neoplasm of bronchus and lung; Z92.3 Personal history of irradiation; E66.01 Morbid (severe) obesity due to excess calories; F41.9 Anxiety disorder, unspecified; F32.A Depression, unspecified; G47.33 Obstructive sleep apnea (adult) (pediatric); K21.9 Gastro-esophageal reflux disease without esophagitis; G43.909 Migraine, unspecified, not intractable, without status migrainosus; I12.9 Hypertensive chronic kidney disease with stage 1 through stage 4 chronic kidney disease, or unspecified chronic kidney disease; M10.9 Gout, unspecified; Z90.49 Acquired absence of other specified parts of digestive tract; Z90.79 Acquired absence of other genital organ(s); D75.839 Thrombocytosis, unspecified; G89.29 Other chronic pain; Z66 Do not resuscitate; Z87.891 Personal history of nicotine dependence; Z79.82 Long term (current) use of aspirin; Z79.01 Long term (current) use of anticoagulants; Z79.4 Long term (current) use of insulin; Z79.899 Other long term (current) drug therapy; Z88.6 Allergy status to analgesic agent; Z91.040 Latex allergy status; Z11.52 Encounter for screening for COVID-19; E11.621 Type 2 diabetes mellitus with foot ulcer; J44.9 Chronic obstructive pulmonary disease, unspecified; I16.0 Hypertensive urgency; D50.0 Iron deficiency anemia secondary to blood loss (chronic)

== ENCOUNTER → 2023-11-14 | Outpatient (REF) | payer MEDICARE, MEDICAID ==
[~2023-11-14] MED LIST changes: +CARV12.5 PO; +LEVO1TAB40 PO; +POLY17PO18 PO; +SENN-122 PO; +SPIR1CAP INH
[2023-11-14 13:22] LABS: CALCIUM LEVEL 9.1 MG/DL (8.5-10.1); CREATININE FOR GFR 1.76 MG/DL (0.55-1.30); GLOMERULAR FILTRATION RATE 31.7 (>51); POTASSIUM SERUM 5.1 MMOL/L (3.5-5.1)
== END ==
LOC: M SFHCADAM 09:25
PROVIDERS: ATTEND Physician Assistant
DX: N18.4 Chronic kidney disease, stage 4 (severe) (principal)

== ENCOUNTER → 2023-11-14 | Outpatient (CLI) | payer MEDICARE, MEDICAID | LOC: M PAIN 10:30 | PROVIDERS: ATTEND Nurse Practitioner Family | DX: Z79.891 Long term (current) use of opiate analgesic (principal) ==

== ENCOUNTER → 2023-11-21 | Outpatient (CLI) | payer MEDICARE, MEDICAID | LOC: M PAIN 10:00 | PROVIDERS: ATTEND Nurse Practitioner Family | DX: Z79.891 Long term (current) use of opiate analgesic (principal); M51.17 Intervertebral disc disorders with radiculopathy, lumbosacral region; E11.9 Type 2 diabetes mellitus without complications; I10 Essential (primary) hypertension; J44.9 Chronic obstructive pulmonary disease, unspecified; Z79.01 Long term (current) use of anticoagulants; Z79.4 Long term (current) use of insulin; Z79.51 Long term (current) use of inhaled steroids; Z79.899 Other long term (current) drug therapy; Z88.6 Allergy status to analgesic agent; Z91.040 Latex allergy status ==

== ENCOUNTER → 2023-12-04 | Outpatient (CLI) | payer MEDICARE, MEDICAID | LOC: M RAD 09:08 | PROVIDERS: ATTEND Physician Assistant | DX: L97.922 Non-pressure chronic ulcer of unspecified part of left lower leg with fat layer exposed (principal); L97.912 Non-pressure chronic ulcer of unspecified part of right lower leg with fat layer exposed; I70.203 Unspecified atherosclerosis of native arteries of extremities, bilateral legs ==

== ENCOUNTER → 2023-12-13 | Outpatient (REF) | payer MEDICARE, MEDICAID | LOC: M LABDRWAD 12:16 | PROVIDERS: ATTEND Nurse Practitioner Family | DX: E11.65 Type 2 diabetes mellitus with hyperglycemia (principal) ==

== ENCOUNTER → 2023-12-13 | Outpatient (REF) | payer MEDICARE, MEDICAID ==
[2023-12-13 12:36] LABS: HEMATOCRIT 27.9 % (36.0-47.0); HEMOGLOBIN 8.1 g/dl (12.0-15.5); MEAN CORPUSCULAR HEMOGLOBIN 24.7 pg (27.0-33.0); MEAN CORPUSCULAR VOLUME 85.1 fl (80.0-96.0); PLATELET COUNT, AUTOMATED 757 10^3/uL (150-450); RED BLOOD COUNT 3.28 10^6/uL (4.00-5.40); WHITE BLOOD COUNT 17.5 10^3/uL (4.0-10.0)
[2023-12-13 12:56] LABS: ALBUMIN 2.6 G/DL (3.2-5.2); ALKALINE PHOSPHATASE 77 U/L (46-116); ALT/SGPT < 9 U/L (7.0-40); AST/SGOT 13 U/L (<34); BILIRUBIN,TOTAL < 0.2 MG/DL (0.3-1.2); BLOOD UREA NITROGEN 32 MG/DL (9-23); CALCIUM LEVEL 9.5 MG/DL (8.5-10.1); CARBON DIOXIDE LEVEL 24 MMOL/L (20-31); CHLORIDE LEVEL 101 MMOL/L (98-107); CREATININE FOR GFR 1.71 MG/DL (0.55-1.30); GLOMERULAR FILTRATION RATE 32.8 (>51); GLUCOSE, FASTING 255 MG/DL (60-100); POTASSIUM SERUM 4.9 MMOL/L (3.5-5.1); SODIUM LEVEL 135 MMOL/L (136-145); TOTAL PROTEIN 6.8 G/DL (5.7-8.2)
== END ==
LOC: M SFHCADAM 09:27
PROVIDERS: ATTEND Physician Assistant
DX: M51.17 Intervertebral disc disorders with radiculopathy, lumbosacral region (principal); D63.1 Anemia in chronic kidney disease; N18.30 Chronic kidney disease, stage 3 unspecified; E11.65 Type 2 diabetes mellitus with hyperglycemia; E11.22 Type 2 diabetes mellitus with diabetic chronic kidney disease

== ENCOUNTER → 2023-12-17 | Outpatient (REF) | payer MEDICARE, MEDICAID ==
[~2023-12-17] MED LIST changes: +DOXY-323 PO; -DOXY-443 PO
== END ==
LOC: M SFHCADAM 13:00
PROVIDERS: ATTEND Physician Assistant
DX: R19.7 Diarrhea, unspecified (principal); D72.829 Elevated white blood cell count, unspecified

== ENCOUNTER → 2023-12-18 | Outpatient (REF) | payer MEDICARE, MEDICAID | LOC: M SFHCADAM 08:10 | PROVIDERS: ATTEND Physician Assistant | DX: D72.829 Elevated white blood cell count, unspecified (principal); R19.7 Diarrhea, unspecified; Z53.9 Procedure and treatment not carried out, unspecified reason ==

== ENCOUNTER → 2023-12-19 | Outpatient (REF) | payer MEDICARE, MEDICAID ==
[2023-12-19 18:03] LABS: BASO # 0.1 10^3/uL (0.0-0.2); BASO % 0.9 % (0.0-1.0); EOS # 0.2 10^3/uL (0.0-0.5); EOS % 1.5 % (0.0-3.0); HEMATOCRIT 27.2 % (36.0-47.0); LYMPH # 2.7 10^3/uL (1.5-5.0); LYMPH % 18.6 % (24.0-44.0); MEAN CORPUSCULAR HEMOGLOBIN 24.8 pg (27.0-33.0); MEAN CORPUSCULAR HGB CONC 29.4 g/dl (32.0-36.5); MEAN CORPUSCULAR VOLUME 84.5 fl (80.0-96.0); MONO # 1.3 10^3/uL (0.0-0.8); MONO % 8.9 % (2.0-8.0); NEUTROPHILS # 9.9 10^3/uL (1.5-8.5); NEUTROPHILS % 69.6 % (36.0-66.0); PLATELET COUNT, AUTOMATED 710 10^3/uL (150-450); RED BLOOD COUNT 3.22 10^6/uL (4.00-5.40); WHITE BLOOD COUNT 14.3 10^3/uL (4.0-10.0)
[2023-12-19 18:08] LABS: CALCIUM LEVEL 9.1 MG/DL (8.5-10.1); CREATININE FOR GFR 1.72 MG/DL (0.55-1.30); GLOMERULAR FILTRATION RATE 32.5 (>51); POTASSIUM SERUM 5.1 MMOL/L (3.5-5.1)
== END ==
LOC: M SFHCADAM 11:38
PROVIDERS: ATTEND Physician Assistant
DX: D72.829 Elevated white blood cell count, unspecified (principal); R19.7 Diarrhea, unspecified

== ENCOUNTER → 2023-12-20 | Outpatient (REF) | payer MEDICARE, MEDICAID | LOC: M LABDRWAD 12:50 | PROVIDERS: ATTEND General Practice | DX: Z79.899 Other long term (current) drug therapy (principal) ==

== ENCOUNTER 2023-12-21 10:41 | Outpatient (CLI) | payer MEDICARE, MEDICAID ==
[~2023-12-21] VITALS: Ht 172.7 cm; Wt 151.3 kg
[2023-12-21] VITALS (7 sets, daily range): BP systolic 117–167; BP diastolic 54–70; TEMP 97.9–98.2; O2SAT 90–92
[2023-12-21] MEDS: FUROSEMIDE 40MG/4ML VIAL IV ONE (13:28)
== END 2023-12-21 16:26 | disposition home or self-care (01) ==
LOC: M INFU 10:41 → M MSPAV 10:45 → M INFU 16:26
PROVIDERS: ATTEND Physician Assistant
DX: N18.4 Chronic kidney disease, stage 4 (severe) (principal); D63.1 Anemia in chronic kidney disease; Z91.040 Latex allergy status
CPT/HCPCS: 36430; 86920; 96374; J1940; P9016

== ENCOUNTER → 2023-12-31 | Outpatient (REF) | payer MEDICARE, MEDICAID ==
[2023-12-31 14:26] LABS: ALBUMIN 2.9 G/DL (3.2-5.2); ALKALINE PHOSPHATASE 103 U/L (46-116); ALT/SGPT 16 U/L (7.0-40); AST/SGOT 18 U/L (<34); BILIRUBIN,TOTAL < 0.2 MG/DL (0.3-1.2); BLOOD UREA NITROGEN 41 MG/DL (9-23); CALCIUM LEVEL 9.6 MG/DL (8.5-10.1); CARBON DIOXIDE LEVEL 27 MMOL/L (20-31); CHLORIDE LEVEL 98 MMOL/L (98-107); CREATININE FOR GFR 1.84 MG/DL (0.55-1.30); GLOMERULAR FILTRATION RATE 30.1 (>51); GLUCOSE, FASTING 364 MG/DL (60-100); POTASSIUM SERUM 5.3 MMOL/L (3.5-5.1); SODIUM LEVEL 132 MMOL/L (136-145); TOTAL PROTEIN 7.2 G/DL (5.7-8.2)
[2023-12-31 14:35] LABS: BASO # 0.1 10^3/uL (0.0-0.2); BASO % 0.7 % (0.0-1.0); EOS # 0.3 10^3/uL (0.0-0.5); EOS % 1.5 % (0.0-3.0); HEMATOCRIT 33.5 % (36.0-47.0); HEMOGLOBIN 9.7 g/dl (12.0-15.5); LYMPH # 2.5 10^3/uL (1.5-5.0); LYMPH % 14.9 % (24.0-44.0); MEAN CORPUSCULAR HEMOGLOBIN 24.7 pg (27.0-33.0); MEAN CORPUSCULAR VOLUME 85.5 fl (80.0-96.0); MONO # 1.1 10^3/uL (0.0-0.8); MONO % 6.6 % (2.0-8.0); NEUTROPHILS # 12.8 10^3/uL (1.5-8.5); NEUTROPHILS % 75.6 % (36.0-66.0); PLATELET COUNT, AUTOMATED 642 10^3/uL (150-450); RED BLOOD COUNT 3.92 10^6/uL (4.00-5.40); WHITE BLOOD COUNT 16.9 10^3/uL (4.0-10.0)
== END ==
LOC: M SFHCADAM 09:50
PROVIDERS: ATTEND Physician Assistant
DX: E11.22 Type 2 diabetes mellitus with diabetic chronic kidney disease (principal); N18.4 Chronic kidney disease, stage 4 (severe)

== ENCOUNTER → 2024-01-08 | Outpatient (REF) | payer MEDICARE, MEDICAID ==
[2024-01-08 14:46] LABS: BASO # 0.2 10^3/uL (0.0-0.2); BASO % 1.1 % (0.0-1.0); EOS # 0.4 10^3/uL (0.0-0.5); EOS % 2.5 % (0.0-3.0); HEMATOCRIT 33.6 % (36.0-47.0); HEMOGLOBIN 9.8 g/dl (12.0-15.5); LYMPH # 2.9 10^3/uL (1.5-5.0); LYMPH % 20.2 % (24.0-44.0); MEAN CORPUSCULAR HEMOGLOBIN 24.7 pg (27.0-33.0); MEAN CORPUSCULAR HGB CONC 29.2 g/dl (32.0-36.5); MEAN CORPUSCULAR VOLUME 84.8 fl (80.0-96.0); MONO # 1.1 10^3/uL (0.0-0.8); MONO % 7.9 % (2.0-8.0); NEUTROPHILS # 9.7 10^3/uL (1.5-8.5); NEUTROPHILS % 67.8 % (36.0-66.0); PLATELET COUNT, AUTOMATED 611 10^3/uL (150-450); RED BLOOD COUNT 3.96 10^6/uL (4.00-5.40); WHITE BLOOD COUNT 14.2 10^3/uL (4.0-10.0)
[2024-01-08 16:07] LABS: CALCIUM LEVEL 9.7 MG/DL (8.5-10.1); CREATININE FOR GFR 1.57 MG/DL (0.55-1.30); GLOMERULAR FILTRATION RATE 36.2 (>51); MAGNESIUM LEVEL 1.6 MG/DL (1.8-2.4); POTASSIUM SERUM 4.3 MMOL/L (3.5-5.1)
== END ==
LOC: M SFHCADAM 08:14
PROVIDERS: ATTEND Physician Assistant
DX: E87.5 Hyperkalemia (principal)

== ENCOUNTER → 2024-01-21 | Outpatient (CLI) | payer MEDICARE, MEDICAID | LOC: M PAIN 09:30 | PROVIDERS: ATTEND Nurse Practitioner Family | DX: M51.17 Intervertebral disc disorders with radiculopathy, lumbosacral region (principal); Z79.891 Long term (current) use of opiate analgesic; G89.29 Other chronic pain; I12.9 Hypertensive chronic kidney disease with stage 1 through stage 4 chronic kidney disease, or unspecified chronic kidney disease; K21.9 Gastro-esophageal reflux disease without esophagitis; F41.9 Anxiety disorder, unspecified; G47.30 Sleep apnea, unspecified; G43.909 Migraine, unspecified, not intractable, without status migrainosus; J44.9 Chronic obstructive pulmonary disease, unspecified; E11.22 Type 2 diabetes mellitus with diabetic chronic kidney disease; M17.12 Unilateral primary osteoarthritis, left knee; F32.A Depression, unspecified; J45.909 Unspecified asthma, uncomplicated; I48.92 Unspecified atrial flutter; N18.4 Chronic kidney disease, stage 4 (severe); Z87.891 Personal history of nicotine dependence; Z79.4 Long term (current) use of insulin; Z79.899 Other long term (current) drug therapy; Z79.82 Long term (current) use of aspirin; Z79.01 Long term (current) use of anticoagulants ==

== ENCOUNTER 2024-01-23 11:57 | Outpatient (CLI) | payer MEDICARE, MEDICAID ==
[~2024-01-23] VITALS: Ht 172.7 cm; Wt 151.8 kg
[~2024-01-23 11:57] MED LIST changes: +ALBUTEROL SULFATE 2.5MG/0.5ML INH NEB SOLN INH PRN; +EPINEPHrine INJ 1 MG/ML 1ML AMP IM PRN; +diphenhydrAMINE 50MG/ML VIAL IV PRN; +methylPREDNISolone 125MG 2ML VIAL IV PRN
[2024-01-23] MEDS ORDERED: NS 1,000 ML IV SCH (12:00)
[2024-01-23 12:05] VITALS: BP 132/60; O2SAT 96
[2024-01-23] MEDS: IRON SUCROSE 25 MG in NS 23.75 ML IV ONE (12:28)
[2024-01-23] MEDS: IRON SUCROSE 375 MG in NS 250 ML IV ONE (13:11)
[2024-01-23 14:00] VITALS: BP 133/71; O2SAT 95
[2024-01-23 15:00] VITALS: BP 140/69; O2SAT 94
[2024-01-23 16:15] VITALS: BP 151/66; O2SAT 93
== END 2024-01-23 16:15 ==
LOC: M INFU 11:57
PROVIDERS: ATTEND Internal Medicine Nephrology
DX: D50.9 Iron deficiency anemia, unspecified (principal); Z88.6 Allergy status to analgesic agent; Z91.040 Latex allergy status
CPT/HCPCS: 96365; 96366; J1756

== ENCOUNTER → 2024-02-05 | Outpatient (REF) | payer MEDICARE, MEDICAID ==
[~2024-02-05] MED LIST changes: -ALBUTEROL SULFATE 2.5MG/0.5ML INH NEB SOLN INH PRN; -EPINEPHrine INJ 1 MG/ML 1ML AMP IM PRN; -diphenhydrAMINE 50MG/ML VIAL IV PRN; -methylPREDNISolone 125MG 2ML VIAL IV PRN
[2024-02-05 14:10] LABS: HEMATOCRIT 32.7 % (36.0-47.0); HEMOGLOBIN 9.8 g/dl (12.0-15.5); MEAN CORPUSCULAR HEMOGLOBIN 25.3 pg (27.0-33.0); MEAN CORPUSCULAR VOLUME 84.5 fl (80.0-96.0); PLATELET COUNT, AUTOMATED 466 10^3/uL (150-450); RED BLOOD COUNT 3.87 10^6/uL (4.00-5.40); WHITE BLOOD COUNT 14.5 10^3/uL (4.0-10.0)
[2024-02-05 14:41] LABS: ALKALINE PHOSPHATASE 86 U/L (46-116); ALT/SGPT 16 U/L (7.0-40); AST/SGOT 21 U/L (<34); BILIRUBIN,TOTAL < 0.2 MG/DL (0.3-1.2); BLOOD UREA NITROGEN 58 MG/DL (9-23); CALCIUM LEVEL 10.2 MG/DL (8.5-10.1); CARBON DIOXIDE LEVEL 26 MMOL/L (20-31); CHLORIDE LEVEL 99 MMOL/L (98-107); CHOLESTEROL LEVEL 150 MG/DL (<200); CHOLESTEROL RISK RATIO 4.93 (<5); CREATININE FOR GFR 1.83 MG/DL (0.55-1.30); FOLATE 17.7 NG/ML (>5.4); FREE T4 0.99 NG/DL (0.89-1.76); GLOMERULAR FILTRATION RATE 30.3 (>51); GLUCOSE, FASTING 419 MG/DL (60-100); HDL CHOLESTEROL 30.4 MG/DL (>40); NON-HDL-C 119.6 MG/DL; POTASSIUM SERUM 5.7 MMOL/L (3.5-5.1); SODIUM LEVEL 133 MMOL/L (136-145); THYROID STIMULATING HORMONE 2.007 uIU/ML (0.55-4.78); TOTAL PROTEIN 7.4 G/DL (5.7-8.2); TRIGLYCERIDES LEVEL 303 MG/DL (<150); VITAMIN B12 LEVEL 440 PG/ML (211-911)
== END ==
LOC: M SFHCADAM 10:53
PROVIDERS: ATTEND Physician Assistant
DX: Z00.00 Encounter for general adult medical examination without abnormal findings (principal); J96.11 Chronic respiratory failure with hypoxia; G47.33 Obstructive sleep apnea (adult) (pediatric); C34.92 Malignant neoplasm of unspecified part of left bronchus or lung; E11.22 Type 2 diabetes mellitus with diabetic chronic kidney disease; F17.211 Nicotine dependence, cigarettes, in remission

== ENCOUNTER 2024-02-06 11:05 | Outpatient (CLI) | payer MEDICARE, MEDICAID ==
[~2024-02-06] VITALS: Ht 171.4 cm; Wt 150.9 kg
[~2024-02-06 11:05] MED LIST changes: +ALBUTEROL SULFATE 2.5MG/0.5ML INH NEB SOLN INH PRN; +EPINEPHrine INJ 1 MG/ML 1ML AMP IM PRN; +IRON SUCROSE 25 MG in NS 23.75 ML IV ONE; +NS 1,000 ML IV SCH; +diphenhydrAMINE 50MG/ML VIAL IV PRN; +methylPREDNISolone 125MG 2ML VIAL IV PRN
[2024-02-06] MEDS: IRON SUCROSE 400 MG in NS 250 ML OVER 2.5 HRS IV ONE (11:47)
[2024-02-06 11:54] VITALS: BP 134/79; O2SAT 92
[2024-02-06 14:25] VITALS: BP 147/70; O2SAT 90
== END 2024-02-06 14:40 ==
LOC: M INFU 11:05
PROVIDERS: ATTEND Internal Medicine Nephrology
DX: D50.9 Iron deficiency anemia, unspecified (principal); Z88.6 Allergy status to analgesic agent; Z91.040 Latex allergy status
CPT/HCPCS: 96365; 96366; J1756

== ENCOUNTER → 2024-02-10 | Outpatient (CLI) | payer MEDICARE, MEDICAID ==
[~2024-02-10] MED LIST changes: -ALBUTEROL SULFATE 2.5MG/0.5ML INH NEB SOLN INH PRN; -EPINEPHrine INJ 1 MG/ML 1ML AMP IM PRN; -IRON SUCROSE 25 MG in NS 23.75 ML IV ONE; -NS 1,000 ML IV SCH; -diphenhydrAMINE 50MG/ML VIAL IV PRN; -methylPREDNISolone 125MG 2ML VIAL IV PRN
== END ==
LOC: M PLAIMG 08:08
PROVIDERS: ATTEND Internal Medicine Pulmonary Disease
DX: C34.11 Malignant neoplasm of upper lobe, right bronchus or lung (principal); I70.0 Atherosclerosis of aorta; I25.10 Atherosclerotic heart disease of native coronary artery without angina pectoris; R16.0 Hepatomegaly, not elsewhere classified; R93.2 Abnormal findings on diagnostic imaging of liver and biliary tract

== ENCOUNTER → 2024-03-05 | Outpatient (CLI) | payer MEDICARE, MEDICAID | LOC: M ONCR 09:19 | PROVIDERS: ATTEND General Practice | DX: C34.2 Malignant neoplasm of middle lobe, bronchus or lung (principal); L59.8 Other specified disorders of the skin and subcutaneous tissue related to radiation; Z87.891 Personal history of nicotine dependence; Z79.01 Long term (current) use of anticoagulants; Z79.4 Long term (current) use of insulin; Z79.82 Long term (current) use of aspirin; Z79.899 Other long term (current) drug therapy; Z88.6 Allergy status to analgesic agent; Z91.040 Latex allergy status; Z92.3 Personal history of irradiation ==

== ENCOUNTER → 2024-03-24 | Outpatient (CLI) | payer MEDICARE, MEDICAID | LOC: M PAIN 11:45 | PROVIDERS: ATTEND Nurse Practitioner Family | DX: M51.17 Intervertebral disc disorders with radiculopathy, lumbosacral region (principal); Z79.891 Long term (current) use of opiate analgesic; G89.29 Other chronic pain; I12.9 Hypertensive chronic kidney disease with stage 1 through stage 4 chronic kidney disease, or unspecified chronic kidney disease; K21.9 Gastro-esophageal reflux disease without esophagitis; F41.9 Anxiety disorder, unspecified; G43.909 Migraine, unspecified, not intractable, without status migrainosus; J44.9 Chronic obstructive pulmonary disease, unspecified; E11.22 Type 2 diabetes mellitus with diabetic chronic kidney disease; F32.A Depression, unspecified; J45.909 Unspecified asthma, uncomplicated; M17.12 Unilateral primary osteoarthritis, left knee; N18.4 Chronic kidney disease, stage 4 (severe); Z87.891 Personal history of nicotine dependence; Z79.01 Long term (current) use of anticoagulants; Z79.4 Long term (current) use of insulin; Z79.899 Other long term (current) drug therapy; Z91.040 Latex allergy status; Z88.6 Allergy status to analgesic agent ==

== ENCOUNTER → 2024-04-01 | Outpatient (CLI) | payer MEDICARE, MEDICAID | LOC: M PLAIMG 11:24 | PROVIDERS: ATTEND Nurse Practitioner Family | DX: M54.14 Radiculopathy, thoracic region (principal) ==

== ENCOUNTER → 2024-04-01 | Outpatient (CLI) | payer MEDICARE, MEDICAID | LOC: M WHC 10:14 | PROVIDERS: ATTEND Physician Assistant Medical | DX: N64.4 Mastodynia (principal); M54.14 Radiculopathy, thoracic region | CPT/HCPCS: 72070; 77066; G0279 ==

== ENCOUNTER → 2024-04-29 | Outpatient (REF) | payer MEDICARE, MEDICAID ==
[2024-04-29 13:35] LABS: BASO # 0.1 10^3/uL (0.0-0.2); BASO % 0.9 % (0.0-1.0); EOS # 0.4 10^3/uL (0.0-0.5); EOS % 3.1 % (0.0-3.0); HEMOGLOBIN 10.1 g/dl (12.0-15.5); LYMPH % 17.7 % (24.0-44.0); MEAN CORPUSCULAR HEMOGLOBIN 28.8 pg (27.0-33.0); MEAN CORPUSCULAR HGB CONC 30.6 g/dl (32.0-36.5); MONO # 0.8 10^3/uL (0.0-0.8); MONO % 6.8 % (2.0-8.0); NEUTROPHILS # 8.2 10^3/uL (1.5-8.5); NEUTROPHILS % 71.2 % (36.0-66.0); PLATELET COUNT, AUTOMATED 458 10^3/uL (150-450); RED BLOOD COUNT 3.51 10^6/uL (4.00-5.40); WHITE BLOOD COUNT 11.5 10^3/uL (4.0-10.0)
[2024-04-29 13:56] LABS: ALBUMIN 2.9 G/DL (3.2-5.2); BILIRUBIN,TOTAL 0.2 MG/DL (0.3-1.2); CALCIUM LEVEL 9.6 MG/DL (8.5-10.1); CREATININE FOR GFR 2.1 MG/DL (0.55-1.30); GLOMERULAR FILTRATION RATE 25.8 (>51); MAGNESIUM LEVEL 1.8 MG/DL (1.8-2.4); POTASSIUM SERUM 4.7 MMOL/L (3.5-5.1); TOTAL PROTEIN 7.3 G/DL (5.7-8.2)
== END ==
LOC: M SFHCADAM 10:24
PROVIDERS: ATTEND Physician Assistant
DX: E11.22 Type 2 diabetes mellitus with diabetic chronic kidney disease (principal); N18.4 Chronic kidney disease, stage 4 (severe)

== ENCOUNTER → 2024-06-02 | Outpatient (CLI) | payer MEDICARE, MEDICAID ==
[~2024-06-02] MED LIST changes: +AMLO25TA PO; +BETA5OI TOP; +CETI10CH PO; +CINN500C12 PO; +DOCU8.6T PO; -DOXY-323 PO; +DOXY-441 PO; +DULO30CA9 PO; +GABA-1172 PO; -GABA-282 PO; +LIPI10TA PO; +MAGN400C2 PO; -MULT200T7 PO; +MULT200T9 PO
[2024-06-02 13:27] LABS: BASO # 0.2 10^3/uL (0.0-0.2); BASO % 1.1 % (0.0-1.0); EOS # 0.5 10^3/uL (0.0-0.5); EOS % 3.8 % (0.0-3.0); HEMATOCRIT 36.5 % (36.0-47.0); HEMOGLOBIN 11.6 g/dl (12.0-15.5); LYMPH # 2.6 10^3/uL (1.5-5.0); MEAN CORPUSCULAR HEMOGLOBIN 29.4 pg (27.0-33.0); MEAN CORPUSCULAR HGB CONC 31.8 g/dl (32.0-36.5); MEAN CORPUSCULAR VOLUME 92.4 fl (80.0-96.0); MONO # 1.4 10^3/uL (0.0-0.8); MONO % 10.1 % (2.0-8.0); NEUTROPHILS # 8.9 10^3/uL (1.5-8.5); NEUTROPHILS % 65.5 % (36.0-66.0); PLATELET COUNT, AUTOMATED 447 10^3/uL (150-450); RED BLOOD COUNT 3.95 10^6/uL (4.00-5.40); WHITE BLOOD COUNT 13.6 10^3/uL (4.0-10.0)
[2024-06-02 13:40] LABS: INR 1.47; PARTIAL THROMBOPLASTIN TIME 35.3 SECONDS (24.8-34.2); PROTHROMBIN TIME 17.4 SECONDS (12.5-14.5)
[2024-06-02 13:51] LABS: ALKALINE PHOSPHATASE 93 U/L (46-116); ALT/SGPT 14 U/L (7.0-40); AST/SGOT 13 U/L (<34); BILIRUBIN,TOTAL < 0.2 MG/DL (0.3-1.2); BLOOD UREA NITROGEN 52 MG/DL (9-23); CALCIUM LEVEL 9.9 MG/DL (8.5-10.1); CARBON DIOXIDE LEVEL 27 MMOL/L (20-31); CHLORIDE LEVEL 104 MMOL/L (98-107); CREATININE FOR GFR 2.32 MG/DL (0.55-1.30); GLUCOSE, FASTING 249 MG/DL (60-100); POTASSIUM SERUM 4.9 MMOL/L (3.5-5.1); SODIUM LEVEL 135 MMOL/L (136-145); TOTAL PROTEIN 7.8 G/DL (5.7-8.2)
== END ==
LOC: M RAD 12:23
PROVIDERS: ATTEND Physician Assistant
DX: G62.9 Polyneuropathy, unspecified (principal); R51.9 Headache, unspecified; Z79.01 Long term (current) use of anticoagulants

== ENCOUNTER → 2024-06-08 | Outpatient (CLI) | payer MEDICARE, MEDICAID | LOC: M PAIN 10:15 | PROVIDERS: ATTEND Nurse Practitioner Family | DX: M51.17 Intervertebral disc disorders with radiculopathy, lumbosacral region (principal); Z79.891 Long term (current) use of opiate analgesic; G89.29 Other chronic pain; I12.9 Hypertensive chronic kidney disease with stage 1 through stage 4 chronic kidney disease, or unspecified chronic kidney disease; K21.9 Gastro-esophageal reflux disease without esophagitis; G47.33 Obstructive sleep apnea (adult) (pediatric); J44.9 Chronic obstructive pulmonary disease, unspecified; E11.9 Type 2 diabetes mellitus without complications; F41.9 Anxiety disorder, unspecified; R60.0 Localized edema; E11.51 Type 2 diabetes mellitus with diabetic peripheral angiopathy without gangrene; N18.4 Chronic kidney disease, stage 4 (severe); E11.22 Type 2 diabetes mellitus with diabetic chronic kidney disease; M17.12 Unilateral primary osteoarthritis, left knee; F32.A Depression, unspecified; Z87.891 Personal history of nicotine dependence; Z79.4 Long term (current) use of insulin; Z79.899 Other long term (current) drug therapy; Z91.040 Latex allergy status; Z88.6 Allergy status to analgesic agent; Z88.8 Allergy status to other drugs, medicaments and biological substances ==

== ENCOUNTER → 2024-06-18 | Outpatient (CLI) | payer MEDICARE, MEDICAID ==
[~2024-06-18] MED LIST changes: +ACETAMINOPHEN 325 MG TAB PO PRN; +HEPARIN 1,000UNITS/ML 10ML VIAL (FOR RADIOLOGY & DIALYSIS ONLY) As Ordered ONE; +ISOVUE-300 61% 100ML VIAL As Ordered ONE; +LIDOCAINE 1% MDV 20ML VIAL As Ordered ONE; +MIDAZOLAM INJ 2MG/2ML VIAL As Ordered ONE; +NITROGLYCERIN IN D5W 25MG/250ML (100MCG/ML) As Ordered ONE; +NS 1,000 ML IV SCH; +ONDANSETRON 4MG 2ML VIAL IV PRN; +PERCOCET 5MG/325MG TAB PO PRN; +fentaNYL 100 MCG/2 ML INJECTION As Ordered ONE
[2024-06-18 09:10] VITALS: TEMP 97.1
[2024-06-18 15:40] VITALS: BP 137/61; O2SAT 95
== END ==
LOC: M IRPRO 09:01
PROVIDERS: ATTEND Radiology Diagnostic Radiology
DX: I73.9 Peripheral vascular disease, unspecified (principal)
CPT/HCPCS: 36247; 75716; 75774; 99152; 99153; C1760; C1887; C1894; J2250; J2305; J3010; Q9967

== ENCOUNTER → 2024-06-29 | Outpatient (CLI) | payer MEDICARE, MEDICAID ==
[~2024-06-29] MED LIST changes: -ACETAMINOPHEN 325 MG TAB PO PRN; -HEPARIN 1,000UNITS/ML 10ML VIAL (FOR RADIOLOGY & DIALYSIS ONLY) As Ordered ONE; -ISOVUE-300 61% 100ML VIAL As Ordered ONE; -LIDOCAINE 1% MDV 20ML VIAL As Ordered ONE; -MIDAZOLAM INJ 2MG/2ML VIAL As Ordered ONE; -NITROGLYCERIN IN D5W 25MG/250ML (100MCG/ML) As Ordered ONE; -NS 1,000 ML IV SCH; -ONDANSETRON 4MG 2ML VIAL IV PRN; -PERCOCET 5MG/325MG TAB PO PRN; -fentaNYL 100 MCG/2 ML INJECTION As Ordered ONE
== END ==
LOC: M RAD 06:45
PROVIDERS: ATTEND Physician Assistant
DX: K76.0 Fatty (change of) liver, not elsewhere classified (principal); R16.0 Hepatomegaly, not elsewhere classified; Z90.49 Acquired absence of other specified parts of digestive tract; R93.89 Abnormal findings on diagnostic imaging of other specified body structures

== ENCOUNTER → 2024-06-30 | Outpatient (REF) | payer MEDICARE, MEDICAID ==
[2024-06-30 18:51] LABS: PERCENT SATURATION 15.5 % (13.2-45.0)
== END ==
LOC: M LAB REF 17:17
PROVIDERS: ATTEND Internal Medicine Nephrology
DX: D50.9 Iron deficiency anemia, unspecified (principal)

== ENCOUNTER → 2024-07-02 | Outpatient (CLI) | payer MEDICARE, MEDICAID ==
[~2024-07-02] VITALS: Ht 172.7 cm; Wt 138.6 kg
[~2024-07-02] MED LIST changes: +ACETAMINOPHEN 325 MG TAB PO PRN; +HEPARIN 1,000UNITS/ML 10ML VIAL (FOR RADIOLOGY & DIALYSIS ONLY) As Ordered ONE; +ISOVUE-300 61% 100ML VIAL As Ordered ONE; +LIDOCAINE 1% MDV 20ML VIAL As Ordered ONE; +MIDAZOLAM INJ 2MG/2ML VIAL As Ordered ONE; +NS 1,000 ML IV SCH; +ONDANSETRON 4MG 2ML VIAL IV PRN; +PERCOCET 5MG/325MG TAB As Ordered ONE; +THROMBIN 5,000 UNITS VIAL As Ordered ONE; +fentaNYL 100 MCG/2 ML INJECTION As Ordered ONE
[2024-07-02 08:55] VITALS: TEMP 97.8
[2024-07-02] MEDS: PERCOCET 5MG/325MG TAB PO PRN (12:55)
[2024-07-02] MEDS: THROMBIN 5,000 UNITS VIAL TOP ONE (14:26)
[2024-07-02 16:41] VITALS: BP 183/76; O2SAT 92
== END ==
LOC: M IRPRO 08:34
PROVIDERS: ATTEND Radiology Diagnostic Radiology
DX: I73.9 Peripheral vascular disease, unspecified (principal); M86.9 Osteomyelitis, unspecified
CPT/HCPCS: 36002; 36245; 76942; 93926; 99152; 99153; C1729; C1760; C1894; J2250; J3010; Q9967

== ENCOUNTER → 2024-07-03 | Outpatient (CLI) | payer MEDICARE, MEDICAID ==
[~2024-07-03] MED LIST changes: -ACETAMINOPHEN 325 MG TAB PO PRN; -HEPARIN 1,000UNITS/ML 10ML VIAL (FOR RADIOLOGY & DIALYSIS ONLY) As Ordered ONE; -ISOVUE-300 61% 100ML VIAL As Ordered ONE; -LIDOCAINE 1% MDV 20ML VIAL As Ordered ONE; -MIDAZOLAM INJ 2MG/2ML VIAL As Ordered ONE; -NS 1,000 ML IV SCH; -ONDANSETRON 4MG 2ML VIAL IV PRN; -PERCOCET 5MG/325MG TAB As Ordered ONE; -THROMBIN 5,000 UNITS VIAL As Ordered ONE; -fentaNYL 100 MCG/2 ML INJECTION As Ordered ONE
== END ==
LOC: M RAD 10:05
PROVIDERS: ATTEND Radiology Diagnostic Radiology
DX: I72.8 Aneurysm of other specified arteries (principal)

== ENCOUNTER → 2024-08-04 | Outpatient (CLI) | payer MEDICARE, MEDICAID | LOC: M PAIN 09:00 | PROVIDERS: ATTEND Nurse Practitioner Family | DX: M54.14 Radiculopathy, thoracic region (principal); G89.29 Other chronic pain; Z79.01 Long term (current) use of anticoagulants; Z79.4 Long term (current) use of insulin; Z79.899 Other long term (current) drug therapy; Z86.16 Personal history of COVID-19; Z85.828 Personal history of other malignant neoplasm of skin; Z87.891 Personal history of nicotine dependence; Z88.6 Allergy status to analgesic agent; Z88.8 Allergy status to other drugs, medicaments and biological substances; Z91.040 Latex allergy status; Z91.048 Other nonmedicinal substance allergy status; E66.01 Morbid (severe) obesity due to excess calories; Z68.42 Body mass index [BMI] 45.0-49.9, adult ==

== ENCOUNTER → 2024-08-28 | Outpatient (CLI) | payer MEDICARE, MEDICAID | LOC: M RAD 11:07 | PROVIDERS: ATTEND General Practice | DX: C34.2 Malignant neoplasm of middle lobe, bronchus or lung (principal) ==

== ENCOUNTER → 2024-09-01 | Outpatient (CLI) | payer MEDICARE, MEDICAID ==
[~2024-09-01] MED LIST changes: +PROHANCE 279.3MG/ML 15ML VIAL As Ordered ONE; +PROHANCE 279.3MG/ML 5ML VIAL As Ordered ONE
== END ==
LOC: M RAD 14:59
PROVIDERS: ATTEND Physician Assistant
DX: I87.2 Venous insufficiency (chronic) (peripheral) (principal); R68.89 Other general symptoms and signs; L97.524 Non-pressure chronic ulcer of other part of left foot with necrosis of bone; L97.513 Non-pressure chronic ulcer of other part of right foot with necrosis of muscle; I70.0 Atherosclerosis of aorta; N28.1 Cyst of kidney, acquired; M79.89 Other specified soft tissue disorders; Q27.8 Other specified congenital malformations of peripheral vascular system
CPT/HCPCS: A9576; C8902

== ENCOUNTER → 2024-09-04 | Outpatient (CLI) | payer MEDICARE, MEDICAID ==
[~2024-09-04] MED LIST changes: -PROHANCE 279.3MG/ML 15ML VIAL As Ordered ONE; -PROHANCE 279.3MG/ML 5ML VIAL As Ordered ONE
== END ==
LOC: M ONCR 07:56
PROVIDERS: ATTEND General Practice
DX: Z08 Encounter for follow-up examination after completed treatment for malignant neoplasm (principal); Z85.118 Personal history of other malignant neoplasm of bronchus and lung; R91.8 Other nonspecific abnormal finding of lung field; Z87.891 Personal history of nicotine dependence; Z92.3 Personal history of irradiation; Z88.6 Allergy status to analgesic agent; Z91.040 Latex allergy status; Z79.51 Long term (current) use of inhaled steroids; Z79.01 Long term (current) use of anticoagulants; Z79.4 Long term (current) use of insulin; Z79.899 Other long term (current) drug therapy

== ENCOUNTER → 2024-10-07 | Outpatient (REF) | payer MEDICARE, MEDICAID ==
[2024-10-07 14:36] LABS: HEMOGLOBIN A1c 8.8 % (4.0-6.0)
== END ==
LOC: M SFHCWOUN 13:03
PROVIDERS: ATTEND Physician Assistant
DX: E11.621 Type 2 diabetes mellitus with foot ulcer (principal)

== ENCOUNTER → 2024-10-09 | Outpatient (CLI) | payer MEDICARE, MEDICAID | LOC: M PAIN 10:45 | PROVIDERS: ATTEND Nurse Practitioner Family | DX: M47.816 Spondylosis without myelopathy or radiculopathy, lumbar region (principal); G89.29 Other chronic pain; Z79.01 Long term (current) use of anticoagulants; Z79.4 Long term (current) use of insulin; Z79.899 Other long term (current) drug therapy; Z87.891 Personal history of nicotine dependence; Z88.6 Allergy status to analgesic agent; Z88.8 Allergy status to other drugs, medicaments and biological substances; Z91.040 Latex allergy status; Z91.048 Other nonmedicinal substance allergy status; E66.01 Morbid (severe) obesity due to excess calories; Z68.42 Body mass index [BMI] 45.0-49.9, adult ==

== ENCOUNTER → 2024-11-06 | Outpatient (REF) | payer MEDICARE, MEDICAID ==
[2024-11-06 14:27] LABS: HEMATOCRIT 32.7 % (36.0-47.0); HEMOGLOBIN 10.1 g/dl (12.0-15.5); MEAN CORPUSCULAR HEMOGLOBIN 27.9 pg (27.0-33.0); MEAN CORPUSCULAR HGB CONC 30.9 g/dl (32.0-36.5); MEAN CORPUSCULAR VOLUME 90.3 fl (80.0-96.0); PLATELET COUNT, AUTOMATED 573 10^3/uL (150-450); RED BLOOD COUNT 3.62 10^6/uL (4.00-5.40)
[2024-11-06 14:50] LABS: ALBUMIN 3.4 G/DL (3.2-5.2); BILIRUBIN,TOTAL 0.2 MG/DL (0.3-1.2); CALCIUM LEVEL 9.6 MG/DL (8.5-10.1); CREATININE FOR GFR 2.18 MG/DL (0.55-1.30); GLOMERULAR FILTRATION RATE 24.7 (>51); POTASSIUM SERUM 4.7 MMOL/L (3.5-5.1); TOTAL PROTEIN 8.2 G/DL (5.7-8.2)
== END ==
LOC: M SFHCADAM 10:48
PROVIDERS: ATTEND Physician Assistant
DX: R25.2 Cramp and spasm (principal); N18.4 Chronic kidney disease, stage 4 (severe); R09.89 Other specified symptoms and signs involving the circulatory and respiratory systems

== ENCOUNTER → 2024-12-01 | Outpatient (CLI) | payer MEDICARE, MEDICAID | LOC: M RAD 14:29 | PROVIDERS: ATTEND Physician Assistant | DX: N28.89 Other specified disorders of kidney and ureter (principal); R09.89 Other specified symptoms and signs involving the circulatory and respiratory systems ==

== ENCOUNTER → 2025-02-25 | Outpatient (CLI) | payer MEDICARE, MEDICAID ==
[2025-02-25 10:58] LABS: CHOLESTEROL LEVEL 81.0 MG/DL (<200); CHOLESTEROL RISK RATIO 2.57 (<5); LDL CHOLESTEROL 19.2 MG/DL (<100); NON-HDL-C 49.6 MG/DL; TRIGLYCERIDES LEVEL 152.0 MG/DL (<150)
== END ==
LOC: M PLALAB 09:01
PROVIDERS: ATTEND Physician Assistant
DX: I73.9 Peripheral vascular disease, unspecified (principal)

== ENCOUNTER → 2025-02-26 | Outpatient (CLI) | payer MEDICARE, MEDICAID | LOC: M RAD 08:07 | PROVIDERS: ATTEND General Practice | DX: C34.2 Malignant neoplasm of middle lobe, bronchus or lung (principal); R91.8 Other nonspecific abnormal finding of lung field ==

== ENCOUNTER → 2025-03-02 | Outpatient (REF) | payer MEDICARE, MEDICAID ==
[2025-03-02 19:30] LABS: IRON (FE) 24.0 UG/DL (50-170); PERCENT SATURATION 6.3 % (13.2-45.0)
== END ==
LOC: M LAB REF 17:39
PROVIDERS: ATTEND Internal Medicine Nephrology
DX: D50.9 Iron deficiency anemia, unspecified (principal)

== ENCOUNTER → 2025-03-04 | Outpatient (CLI) | payer MEDICARE, MEDICAID | LOC: M ONCR 07:53 | PROVIDERS: ATTEND General Practice | DX: C34.2 Malignant neoplasm of middle lobe, bronchus or lung (principal); J44.9 Chronic obstructive pulmonary disease, unspecified; E11.621 Type 2 diabetes mellitus with foot ulcer; L97.524 Non-pressure chronic ulcer of other part of left foot with necrosis of bone; L97.513 Non-pressure chronic ulcer of other part of right foot with necrosis of muscle; Z79.01 Long term (current) use of anticoagulants; Z79.4 Long term (current) use of insulin; Z79.899 Other long term (current) drug therapy; Z87.891 Personal history of nicotine dependence; Z88.6 Allergy status to analgesic agent; Z91.040 Latex allergy status; Z92.23 Personal history of estrogen therapy ==

== ENCOUNTER → 2025-03-17 | Outpatient (CLI) | payer MEDICARE, MEDICAID ==
[~2025-03-17] MED LIST changes: +ATOR40TA75 PO; +CETI5TA PO; +CIME200T40 PO; +HYDR25TA87 PO; +PROBCAP14 PO
== END ==
LOC: M WHC 08:03
PROVIDERS: ATTEND Physician Assistant
DX: N63.13 Unspecified lump in the right breast, lower outer quadrant (principal); R92.313 Mammographic fatty tissue density, bilateral breasts; Z92.3 Personal history of irradiation; Z85.118 Personal history of other malignant neoplasm of bronchus and lung

== ENCOUNTER 2025-03-29 11:03 | Inpatient (IN) | payer MEDICARE, MEDICAID ==
[~2025-03-29] VITALS: Ht 172.7 cm; Wt 128.0 kg
[~2025-03-29 11:03] MED LIST changes: -ATOR40TA75 PO; -CETI5TA PO; -CIME200T40 PO; -HYDR25TA87 PO; -PROBCAP14 PO
[2025-03-29 12:54] LABS: BASO # 0.1 10^3/uL (0.0-0.2); BASO % 0.9 % (0.0-1.0); EOS # 0.1 10^3/uL (0.0-0.5); EOS % 1.0 % (0.0-3.0); LYMPH # 1.4 10^3/uL (1.5-5.0); LYMPH % 12.2 % (24.0-44.0); MONO # 1.3 10^3/uL (0.0-0.8); MONO % 11.4 % (2.0-8.0); NEUTROPHILS # 8.4 10^3/uL (1.5-8.5); NEUTROPHILS % 72.1 % (36.0-66.0); PLATELET COUNT, AUTOMATED 653 10^3/uL (150-450)
[2025-03-29 13:09] LABS: INR 1.35
[2025-03-29 13:23] LABS: C REACTIVE PROTEIN QUANTITATIV 8.31 MG/DL (<1.0)
[2025-03-29 13:24] LABS: ALT/SGPT 16 U/L (7.0-40); AST/SGOT 28 U/L (<34); CALCIUM LEVEL 9.4 MG/DL (8.5-10.1); CARBON DIOXIDE LEVEL 25 MMOL/L (20-31); CHLORIDE LEVEL 105 MMOL/L (98-107); CREATININE FOR GFR 2.72 MG/DL (0.55-1.30); GLOMERULAR FILTRATION RATE 19.7 (>51); POTASSIUM SERUM 5.6 MMOL/L (3.5-5.1); SODIUM LEVEL 141 MMOL/L (136-145)
[2025-03-29] MEDS: ACETAMINOPHEN *IV* 1,000 MG in IV 1 EA IV ONE (13:39)
[2025-03-29] MEDS: NS 500 ML IV ONE (13:39)
[2025-03-29] MEDS: PIPERACILLIN/TAZOBACTAM SOD 3.375 GM in DEXTROSE 5% (D5W) ADV/MINI-BAG 50 ML IV ONE (15:00)
[2025-03-29] MEDS ORDERED: PROBCAP14 PO (16:30)
[2025-03-29] MEDS ORDERED: CETI5TA PO (16:30)
[2025-03-29] MEDS ORDERED: ATOR40TA75 PO (16:30)
[2025-03-29] MEDS ORDERED: CIME200T40 PO (16:30)
[2025-03-29] MEDS ORDERED: HYDR25TA87 PO (16:31)
[2025-03-29 16:34] LABS: CALCIUM LEVEL 9.3 MG/DL (8.5-10.1); CARBON DIOXIDE LEVEL 26.0 MMOL/L (20-31); CHLORIDE LEVEL 105.0 MMOL/L (98-107); CREATININE FOR GFR 2.71 MG/DL (0.55-1.30); GLOMERULAR FILTRATION RATE 19.7 (>51); POTASSIUM SERUM 5.0 MMOL/L (3.5-5.1); SODIUM LEVEL 142.0 MMOL/L (136-145)
[2025-03-29] MEDS ORDERED: HOME MED LIST COMPLETE! XX SCH (16:35)
[2025-03-29] MEDS ORDERED: cefTRIAXone SOD 1 GM in DEXTROSE 5% (D5W) ADV/MINI-BAG 50 ML IV ONE (16:50)
[2025-03-29] MEDS ORDERED: ALBUTEROL 90 MCG/ACT 8 GM HFA INHALER INH PRN (17:05)
[2025-03-29] MEDS ORDERED: DEXTROSE 50% 50 ML SYRINGE IV PRN ×2 (17:15)
[2025-03-29] MEDS ORDERED: GLUCOSE 4 GM CHEW PO PRN ×2 (17:15)
[2025-03-29] MEDS ORDERED: GLUCAGON INJ 1 MG VIAL SC PRN ×2 (17:15)
[2025-03-29] MEDS: VANCOMYCIN HCL 1,000 MG, VIAL MATE ADAPTER 1 EACH in NS 250 ML IV ONE (17:44)
[2025-03-29] MEDS: NS (Normal Saline) 0.9% 1,000 ML IV SCH (17:45)
[2025-03-29 18:02] LABS: ANTI-STREPTOLYSIN O QUANT 1231.3 IU/ML (<195)
[2025-03-29] MEDS ORDERED: VANCOMYCIN INTERMITTENT/PULSE DOSING BY CLINICAL PHARMACIST PER DOSING PROTOCOL XX SCH (18:25)
[2025-03-29] MEDS: cefTRIAXone SOD 1 GM in DEXTROSE 5% (D5W) ADV/MINI-BAG 50 ML IV SCH (18:47)
[2025-03-29] MEDS: INSULIN LISPRO (NovoLOG) PER UNIT SC SCH ×2 (19:04→20:29)
[2025-03-29] MEDS: SYMBICORT 160/4.5MCG INHALER 6GM INH SCH (19:35)
[2025-03-29] MEDS: **hydrALAZINE HCL** 25 MG TAB PO SCH (20:24)
[2025-03-29] MEDS: APIXABAN 5 MG TAB PO SCH (20:24)
[2025-03-29] MEDS: SENNOSIDES/DOCUSATE SODIUM 8.6 MG/50MG TAB PO SCH (20:24)
[2025-03-29] MEDS: ALPRAZolam 0.25 MG TAB PO SCH (20:25)
[2025-03-29] MEDS: LanTUS (INSULIN GLARGINE INJ) 1 UNITS/0.01 ML SC SCH (20:33)
[2025-03-29] MEDS: FERRIC CARBOXYMALTOSE INJ 750 MG, VIAL MATE ADAPTER 1 EACH in NS 100 ML IV ONE (22:35)
[2025-03-30 07:29] LABS: BASO # 0.1 10^3/uL (0.0-0.2); BASO % 0.8 % (0.0-1.0); EOS # 0.2 10^3/uL (0.0-0.5); EOS % 1.7 % (0.0-3.0); LYMPH # 1.7 10^3/uL (1.5-5.0); LYMPH % 15.1 % (24.0-44.0); MONO # 1.3 10^3/uL (0.0-0.8); MONO % 11.5 % (2.0-8.0); NEUTROPHILS # 8.0 10^3/uL (1.5-8.5); NEUTROPHILS % 69.4 % (36.0-66.0); PLATELET COUNT, AUTOMATED 711 10^3/uL (150-450)
[2025-03-30] MEDS: TIOTROPIUM BROM 2.5MCG/ACTUATION 4GM INH INH SCH (07:38)
[2025-03-30 07:45] LABS: VANCOMYCIN RANDOM 7.9 UG/ML
[2025-03-30 07:46] LABS: CALCIUM LEVEL 9.0 MG/DL (8.5-10.1); CARBON DIOXIDE LEVEL 26.0 MMOL/L (20-31); CHLORIDE LEVEL 106.0 MMOL/L (98-107); CREATININE FOR GFR 2.25 MG/DL (0.55-1.30); GLOMERULAR FILTRATION RATE 24.7 (>51); POTASSIUM SERUM 4.8 MMOL/L (3.5-5.1); SODIUM LEVEL 143.0 MMOL/L (136-145)
[2025-03-30] MEDS: VANCOMYCIN HCL 750 MG, VIAL MATE ADAPTER 1 EACH in NS 250 ML IV SCH (09:19)
[2025-03-30] MEDS: CETIRIZINE 10 MG TAB PO SCH (09:21)
[2025-03-30] MEDS: CALCITRIOL 0.25 MCG CAP (S0169) PO SCH (09:21)
[2025-03-30] MEDS: FAMOTIDINE 20 MG TAB PO SCH (09:21)
[2025-03-30] MEDS: ATORVASTATIN 20 MG TAB PO SCH (09:21)
[2025-03-30] MEDS: OMEPRAZOLE 20MG CAP PO SCH (09:21)
[2025-03-30 12:15] VITALS: BP 126/70; TEMP 97.3; O2SAT 93
[2025-03-30 20:02] VITALS: BP 138/56; TEMP 97.3
[2025-03-31] MEDS: ACETAMINOPHEN *IV* 1,000 MG in IV 1 EA IV ONE (00:24)
[2025-03-31 04:09] VITALS: BP 149/62; TEMP 97.5; O2SAT 96
[2025-03-31] MEDS ORDERED: ACETAMINOPHEN 325 MG TAB PO PRN (06:00)
[2025-03-31 08:01] LABS: BASO # 0.1 10^3/uL (0.0-0.2); BASO % 0.8 % (0.0-1.0); EOS # 0.3 10^3/uL (0.0-0.5); EOS % 2.2 % (0.0-3.0); LYMPH # 1.8 10^3/uL (1.5-5.0); LYMPH % 12.3 % (24.0-44.0); MONO # 1.4 10^3/uL (0.0-0.8); MONO % 9.6 % (2.0-8.0); NEUTROPHILS # 10.8 10^3/uL (1.5-8.5); NEUTROPHILS % 72.9 % (36.0-66.0); PLATELET COUNT, AUTOMATED 781 10^3/uL (150-450)
[2025-03-31 08:23] LABS: VANCOMYCIN LEVEL TROUGH 8.7 UG/ML (10.0-20.0)
[2025-03-31 08:24] LABS: CALCIUM LEVEL 9.7 MG/DL (8.5-10.1); CARBON DIOXIDE LEVEL 27.0 MMOL/L (20-31); CHLORIDE LEVEL 108.0 MMOL/L (98-107); CREATININE FOR GFR 1.49 MG/DL (0.55-1.30); GLOMERULAR FILTRATION RATE 40.5 (>51); MAGNESIUM LEVEL 2.4 MG/DL (1.8-2.4); POTASSIUM SERUM 4.6 MMOL/L (3.5-5.1); SODIUM LEVEL 146.0 MMOL/L (136-145)
[2025-03-31 09:11] VITALS: BP 154/68
[2025-03-31 11:02] LABS: C REACTIVE PROTEIN QUANTITATIV 4.49 MG/DL (<1.0)
[2025-03-31 11:38] VITALS: BP 150/63; TEMP 97.2; O2SAT 96
[2025-03-31] MEDS ORDERED: CORE25TA PO (12:45)
[2025-03-31] MEDS ORDERED: NORV5TAB PO (12:45)
[2025-03-31] MEDS ORDERED: DOXY100C3 PO (12:45)
[2025-03-31] MEDS ORDERED: AMOX500T2 PO (12:45)
[2025-03-31] MEDS ORDERED: VANCOMYCIN HCL 750 MG, VIAL MATE ADAPTER 1 EACH in NS 250 ML IV SCH (21:00)
== END 2025-03-31 14:39 | disposition home or self-care (01) | DRG 603 ==
LOC: M ED 11:03 → M ED INP 16:50 → M MSPAV 03-30 12:11
PROVIDERS: ADMIT Internal Medicine; ATTEND Internal Medicine
DX: L03.115 Cellulitis of right lower limb (principal); N17.9 Acute kidney failure, unspecified; N18.4 Chronic kidney disease, stage 4 (severe); C34.91 Malignant neoplasm of unspecified part of right bronchus or lung; L97.919 Non-pressure chronic ulcer of unspecified part of right lower leg with unspecified severity; E11.22 Type 2 diabetes mellitus with diabetic chronic kidney disease; K21.9 Gastro-esophageal reflux disease without esophagitis; I48.91 Unspecified atrial fibrillation; E78.5 Hyperlipidemia, unspecified; J44.9 Chronic obstructive pulmonary disease, unspecified; D64.9 Anemia, unspecified; I12.9 Hypertensive chronic kidney disease with stage 1 through stage 4 chronic kidney disease, or unspecified chronic kidney disease; E87.5 Hyperkalemia; E11.621 Type 2 diabetes mellitus with foot ulcer; G47.33 Obstructive sleep apnea (adult) (pediatric); K76.0 Fatty (change of) liver, not elsewhere classified; Z79.4 Long term (current) use of insulin; M10.9 Gout, unspecified; F41.0 Panic disorder [episodic paroxysmal anxiety]; K59.00 Constipation, unspecified; H40.9 Unspecified glaucoma; G43.909 Migraine, unspecified, not intractable, without status migrainosus; K57.90 Diverticulosis of intestine, part unspecified, without perforation or abscess without bleeding; Z90.81 Acquired absence of spleen; Z79.899 Other long term (current) drug therapy; Z91.040 Latex allergy status; Z55.3 Underachievement in school

== ENCOUNTER 2025-04-13 13:13 | Outpatient (CLI) | payer MEDICARE, MEDICAID ==
[~2025-04-13] VITALS: Ht 172.7 cm; Wt 125.9 kg
[~2025-04-13 13:13] MED LIST changes: +ALBUTEROL SULFATE 2.5 MG/0.5 ML INH CONCENTRATE NEB SOLN INH PRN; +ATOR40TA75 PO; +CETI5TA PO; +CIME200T40 PO; +DOXY100C3 PO; +EPINEPHrine INJ 1 MG/ML 1ML AMP IM PRN; +HYDR25TA87 PO; +NORV5TAB PO; +NS (Normal Saline) 0.9% 1,000 ML IV SCH; +PROBCAP14 PO; +diphenhydrAMINE 50 MG/ML VIAL IV PRN
[2025-04-13 13:40] VITALS: BP 126/55; O2SAT 96
[2025-04-13] MEDS: IRON SUCROSE 400 MG in NS 250 ML OVER 2.5 HRS IV ONE (13:44)
[2025-04-13 15:40] VITALS: BP 115/58; O2SAT 99
== END 2025-04-13 16:15 | disposition home or self-care (01) ==
LOC: M INFU 13:13
PROVIDERS: ATTEND Internal Medicine Nephrology
DX: D50.9 Iron deficiency anemia, unspecified (principal); Z88.6 Allergy status to analgesic agent; Z91.040 Latex allergy status
CPT/HCPCS: 96365; 96366; J1756

== ENCOUNTER → 2025-04-16 | Outpatient (REF) | payer MEDICARE, MEDICAID ==
[~2025-04-16] MED LIST changes: -ALBUTEROL SULFATE 2.5 MG/0.5 ML INH CONCENTRATE NEB SOLN INH PRN; -EPINEPHrine INJ 1 MG/ML 1ML AMP IM PRN; -NS (Normal Saline) 0.9% 1,000 ML IV SCH; -diphenhydrAMINE 50 MG/ML VIAL IV PRN
[2025-04-16 13:30] LABS: BASO # 0.1 10^3/uL (0.0-0.2); BASO % 1.0 % (0.0-1.0); EOS # 0.2 10^3/uL (0.0-0.5); EOS % 2.0 % (0.0-3.0); LYMPH # 2.1 10^3/uL (1.5-5.0); LYMPH % 17.7 % (24.0-44.0); MONO # 1.1 10^3/uL (0.0-0.8); MONO % 9.7 % (2.0-8.0); NEUTROPHILS # 8.1 10^3/uL (1.5-8.5); NEUTROPHILS % 68.8 % (36.0-66.0); PLATELET COUNT, AUTOMATED 481 10^3/uL (150-450)
[2025-04-16 13:33] LABS: ALT/SGPT 15.0 U/L (7.0-40); AST/SGOT 15.0 U/L (<34); CALCIUM LEVEL 9.8 MG/DL (8.5-10.1); CARBON DIOXIDE LEVEL 31.0 MMOL/L (20-31); CHLORIDE LEVEL 101.0 MMOL/L (98-107); CREATININE FOR GFR 2.32 MG/DL (0.55-1.30); GLOMERULAR FILTRATION RATE 23.8 (>51); MAGNESIUM LEVEL 2.2 MG/DL (1.8-2.4); POTASSIUM SERUM 5.2 MMOL/L (3.5-5.1); SODIUM LEVEL 141.0 MMOL/L (136-145)
[2025-04-16 13:42] LABS: ESTIMATED AVERAGE GLUCOSE 117.0 MG/DL (60-110)
== END ==
LOC: M SFHCADAM 10:04
PROVIDERS: ATTEND Physician Assistant
DX: E11.22 Type 2 diabetes mellitus with diabetic chronic kidney disease (principal); N18.30 Chronic kidney disease, stage 3 unspecified; I48.91 Unspecified atrial fibrillation; I87.313 Chronic venous hypertension (idiopathic) with ulcer of bilateral lower extremity; G47.33 Obstructive sleep apnea (adult) (pediatric)

== ENCOUNTER → 2025-05-25 | Outpatient (CLI) | payer MEDICARE, MEDICAID | LOC: M RAD 10:20 | PROVIDERS: ATTEND Physician Assistant | DX: L97.524 Non-pressure chronic ulcer of other part of left foot with necrosis of bone (principal); L97.513 Non-pressure chronic ulcer of other part of right foot with necrosis of muscle; I87.313 Chronic venous hypertension (idiopathic) with ulcer of bilateral lower extremity ==

== ENCOUNTER → 2025-06-09 | Outpatient (REF) | payer MEDICARE, MEDICAID | LOC: M SFHCWOUN 13:06 | PROVIDERS: ATTEND Physician Assistant | DX: E11.621 Type 2 diabetes mellitus with foot ulcer (principal); L97.512 Non-pressure chronic ulcer of other part of right foot with fat layer exposed ==

== ENCOUNTER → 2025-06-22 | Outpatient (CLI) | payer MEDICARE, MEDICAID | LOC: M ADAMS 13:35 | PROVIDERS: ATTEND Physician Assistant | DX: E11.621 Type 2 diabetes mellitus with foot ulcer (principal); L97.522 Non-pressure chronic ulcer of other part of left foot with fat layer exposed; L97.512 Non-pressure chronic ulcer of other part of right foot with fat layer exposed; M77.31 Calcaneal spur, right foot; M77.32 Calcaneal spur, left foot; M77.51 Other enthesopathy of right foot and ankle; M77.52 Other enthesopathy of left foot and ankle ==

== ENCOUNTER → 2025-07-14 | Outpatient (POV) | payer MEDICARE, MEDICAID ==
[~2025-07-14] MED LIST changes: +AMLO2.5T3 PO; +ATOR1TAB21 PO; -DOCU8.6T PO; +HUMU500S SC; +INSU100V6 SQ; +METR-265 PO; +OXYC-517 PO; +SENN-208 PO
== END ==
LOC: M IRPOV 08:30
PROVIDERS: ATTEND Radiology Diagnostic Radiology
DX: L97.912 Non-pressure chronic ulcer of unspecified part of right lower leg with fat layer exposed (principal); I87.2 Venous insufficiency (chronic) (peripheral); E11.621 Type 2 diabetes mellitus with foot ulcer; Z80.0 Family history of malignant neoplasm of digestive organs; Z83.3 Family history of diabetes mellitus; F17.290 Nicotine dependence, other tobacco product, uncomplicated; Z79.51 Long term (current) use of inhaled steroids; Z79.4 Long term (current) use of insulin; Z79.891 Long term (current) use of opiate analgesic; Z79.899 Other long term (current) drug therapy; Z88.6 Allergy status to analgesic agent; Z88.8 Allergy status to other drugs, medicaments and biological substances; Z91.040 Latex allergy status